=== PATIENT | female | born 1960 ===

== ENCOUNTER 2022-01-20 15:20 | Outpatient (REF) | payer OTHER, SELFPAY ==
[2022-01-20 15:54] LABS: MANUAL DIFF FLAG NO
[2022-01-20 16:06] LABS: Ammonia 91 umol/L (13-55); Basophils Absolute Auto 0.1 X10*3/uL (0.0-0.2); Basophils Percent Auto 0.8 % (0-2); Eosinophils Absolute Auto 0.3 X10*3/uL (0.0-0.4); Eosinophils Percent Auto 4.4 % (0-4); Hematocrit 34.3 % (37.0-47.0); Hemoglobin 11.1 g/dl (12.0-16.0); Imm Gran Abs Auto 0.02 X10*3/uL (0.00-0.03); Imm Gran Pct Auto 0.3 % (0.0-0.4); Lymphocytes Absolute Auto 2.3 X10*3/uL (1.2-4.9); Lymphocytes Percent Auto 31.3 % (20-40); Mean Corpuscular HGB Conc 32.4 g/dl (31.0-35.0); Mean Corpuscular Hemoglobin 32.6 pg (27.0-33.0); Mean Corpuscular Volume 100.9 fL (80.0-98.0); Mean Platelet Volume 10.1 fL (9.4-12.3); Monocytes Absolute Auto 0.7 X10*3/uL (0.1-1.2); Monocytes Percent Auto 9.6 % (2-11); Neutrophils Absolute Auto 3.9 x10*3/uL (2.0-8.3); Neutrophils Percent Auto 53.6 % (45-73); Red Cell Distribution Width 14.9 % (11.0-16.0); White Blood Count 7.2 X10*3/uL (4.8-10.8)
[2022-01-20 16:25] LABS: Platelet Count 66 X10*3/uL (160-400)
[2022-01-20 16:26] LABS: Alanine Aminotransferase 46 U/L (0-31); Albumin Level 3.3 g/dL (3.5-5.0); Alkaline Phosphatase 104 U/L (39-117); Anion Gap 8 (12-20); Aspartate Amino Transferase 124 U/L (5-31); Blood Urea Nitrogen 6 mg/dL (9-16); Calcium 9.5 mg/dL (8.4-10.2); Carbon Dioxide 30 mmol/L (22-29); Chloride 102 mmol/L (96-108); Estimated Glomerular Filt Rate > 60; Glucose Random 103 mg/dL (60-115); Potassium 4.4 mmol/L (3.3-5.1); Sodium 136 mmol/L (135-145); Total Protein 7.5 g/dL (6.5-8.0)
== END 2022-01-20 15:21 | disposition home or self-care (01) ==
LOC: HO.LAB 15:20
PROVIDERS: PCP Nurse Practitioner Acute Care; Visit Provider Nurse Practitioner Acute Care
DX: I95.9 Hypotension, unspecified (principal); K72.90 Hepatic failure, unspecified without coma
CPT/HCPCS: 36415; 80053; 82140; 85025

== ENCOUNTER 2022-01-26 16:28 | Emergency (ER) | payer OTHER, SELFPAY ==
--- NOTE | ~2022-01-26 | CT_ITS ---
EXAMINATION: CT ABDOMEN AND PELVIS WITHOUT CONTRAST CLINICAL INFORMATION: Right upper quadrant pain. Palpable mass. COMPARISON: 07/07/2007 TECHNIQUE: Multidetector volumetric imaging was performed from the superior aspect of the liver through the pubic symphysis. Sagittal and coronal reformatted images were obtained on the technologist's workstation. This CT examination was performed using dose optimization techniques as appropriate, variously including the following: *Automated exposure control *Adjustment of mA and/or kV according to patient size (this includes techniques or standardized protocols for targeted exams where dose is matched to indication/reason for exam; i.e. extremities or head) *Use of iterative reconstruction technique DLP: 924 mGy-cm FINDINGS: LUNG BASES: The visualized lung bases are unremarkable. LIVER, GALLBLADDER, AND BILIARY TREE: The liver is enlarged measuring 22 cm in CC dimension. Normal shape and attenuation. No focal hepatic lesion or biliary ductal dilatation. The gallbladder is unremarkable with no evidence of radiopaque gallstones, gallbladder wall thickening, or obvious pericholecystic inflammatory changes. PANCREAS: Mild atrophy of the pancreatic parenchyma with no focal abnormality. SPLEEN: Enlarged spleen measuring 18 cm in AP dimension. ADRENAL GLANDS: Unremarkable. KIDNEYS AND URETERS: The kidneys are normal in size, shape, and attenuation. No hydronephrosis, hydroureter, or calculi seen. No perinephric stranding. BLADDER: Unremarkable. GASTROINTESTINAL TRACT: The stomach is unremarkable. Normal caliber small bowel. No obstruction. Normal appendix. No colonic wall thickening or inflammatory change. ABDOMINAL WALL: No significant hernia. Mild anasarca. No focal mass. LYMPH NODES: Normal. VASCULAR: Unremarkable. PELVIC VISCERA: Uterus not seen. No adnexal mass. OSSEOUS STRUCTURES: No acute or suspicious osseous abnormality. CT/CT abdomen pelvis wo con IMPRESSION: Hepatomegaly. Splenomegaly. No acute finding in the abdomen or pelvis. Fleischner guidelines were followed.
--- NOTE | ~2022-01-26 | XR_ITS ---
EXAMINATION: XR CHEST CLINICAL INFORMATION: Shortness of breath COMPARISON: Chest x-ray 08/07/2018 TECHNIQUE: 2 views of the chest were obtained. FINDINGS: No significant abnormality is noted involving the heart, lungs, mediastinum, bony thorax or soft tissues. XR/XR chest 2V IMPRESSION: Unremarkable examination.
[2022-01-26 16:39] VITALS: BP 126/57; PULSE 80; RESP 19; TEMP 36.6; O2SAT 99; BMI 38.6
--- NOTE | 2022-01-26 16:43 | ECG_ITS ---
Test Reason : SWOLLEN LEGS Blood Pressure : / mmHG Vent. Rate : 071 BPM Atrial Rate : 071 BPM P-R Int : 172 ms QRS Dur : 066 ms QT Int : 440 ms P-R-T Axes : 063 023 017 degrees QTc Int : 478 ms Normal sinus rhythm Nonspecific T wave abnormality Prolonged QT Abnormal ECG When compared with ECG of 29-MAR-2016 04:23, QT has lengthened Referred By: Generic ED Physician Electronically Signed By:REYNALDO LOZA
[2022-01-26 17:15] LABS: MANUAL DIFF FLAG NO
[2022-01-26 17:21] LABS: Basophils Percent Auto 0.5 % (0-2); Eosinophils Absolute Auto 0.3 X10*3/uL (0.0-0.4); Eosinophils Percent Auto 3.5 % (0-4); Hematocrit 33.5 % (37.0-47.0); Hemoglobin 10.6 g/dl (12.0-16.0); Imm Gran Abs Auto 0.02 X10*3/uL (0.00-0.03); Imm Gran Pct Auto 0.2 % (0.0-0.4); Lymphocytes Absolute Auto 2.1 X10*3/uL (1.2-4.9); Lymphocytes Percent Auto 25.5 % (20-40); Mean Corpuscular HGB Conc 31.6 g/dl (31.0-35.0); Mean Corpuscular Hemoglobin 31.6 pg (27.0-33.0); Mean Platelet Volume 9.4 fL (9.4-12.3); Monocytes Absolute Auto 0.7 X10*3/uL (0.1-1.2); Neutrophils Percent Auto 61.3 % (45-73); Red Blood Count 3.35 X10*6/uL (4.20-5.50); Red Cell Distribution Width 14.6 % (11.0-16.0); White Blood Count 8.2 X10*3/uL (4.8-10.8)
[2022-01-26 17:33] LABS: Platelet Count 56 X10*3/uL (160-400)
[2022-01-26 17:35] LABS: Alanine Aminotransferase 43 U/L (0-31); Albumin Level 3.2 g/dL (3.5-5.0); Alkaline Phosphatase 103 U/L (39-117); Anion Gap 10 (12-20); Aspartate Amino Transferase 109 U/L (5-31); Bilirubin Direct 1.4 mg/dL (0.0-0.5); Bilirubin Total 2.7 mg/dL (0.0-1.0); Blood Urea Nitrogen 6 mg/dL (9-16); Calcium 9.3 mg/dL (8.4-10.2); Carbon Dioxide 26 mmol/L (22-29); Chloride 104 mmol/L (96-108); Creatinine Clr Calc Pharmacy 90.3; Estimated Glomerular Filt Rate > 60; Glucose Random 133 mg/dL (60-115); Lipase 18 U/L (8-78); Potassium 4.3 mmol/L (3.3-5.1); Sodium 136 mmol/L (135-145); Total Protein 7.5 g/dL (6.5-8.0)
[2022-01-26 17:37] LABS: Troponin-I High Sensitivity < 3.5 ng/L (<3.5-17.0)
[2022-01-26 17:38] LABS: B Type Natriuretic Peptide 448 pg/mL (<100)
[2022-01-26 21:31] VITALS: BP 118/50; PULSE 70; RESP 16; TEMP 36.8; O2SAT 99
[2022-01-26 21:41] LABS: Glucose, Whole Blood 175 mg/dL (60-115)
[2022-01-26 22:04] LABS: Appearance Urine HAZY; Color Urine YELLOW; Glucose Urine UA NEG (NEG); Leukocyte Esterase Urine TRACE (NEG); Nitrite Urine NEG (NEG); UACC Culture Trigger YES; Urine Blood NEG (NEG); Urine Ketones NEG (NEG); Urine Protein NEG (NEG-TRACE)
--- NOTE | 2022-01-26 22:33 | ED_ITS ---
HPI - General Adult General Chief complaint: General Medical Stated complaint: swollen waist down, pain Time Seen by Provider: 01/26/22 16:46 Source: patient Mode of arrival: ambulatory History of Present Illness HPI narrative: 61-year-old female with remote history of alcohol abuse as well as hepatitis C and currently on methadone who presents with worsening bilateral lower extremity swelling and endorses that she was recently [place] [facility] and at that time had been diagnosed with ?alcohol poisoning?, but she and her are very upset as a say that she has not had any alcohol but say that she had not had a bowel movement in 9 days and that she was confused on initial presentation. Patient did received treatment for the hepatitis-C, and has been clean for over 3 years. She denies any fever, chills, chest pain, nausea, vomiting and is currently having 2 bowel movements a day with the aid of lactulose. She was recently seen and evaluated by her primary care provider on Sunday and has a follow-up appointment with Gastroenterology for her underlying liver disease. It is noted on the triage note the patient states she has some shortness of breath, but she denies this to me during our interview. She denies any h ematochezia, melena, hematemesis. Related Data Home Medications Medication Instructions Recorded Confirmed ascorbic acid (vitamin C) 100 mg 100 mg PO DAILY 01/20/22 01/20/22 tablet cholecalciferol (vitamin D3) 50 50 mcg PO DAILY 01/20/22 01/20/22 mcg (2,000 unit) capsule ergocalciferol (vitamin D2) 1,250 1,250 mcg PO QWEEK 01/20/22 01/20/22 mcg (50,000 unit) capsule (Vitamin D2) folic acid 1 mg tablet 1 mg PO DAILY 01/20/22 01/20/22 hydroxyzine HCl 10 mg tablet 20 mg PO Q6H PRN 01/20/22 01/20/22 lactulose 10 gram/15 mL oral ml PO 01/20/22 01/20/22 solution (Generlac) magnesium oxide 400 mg PO BID 01/20/22 01/20/22 magnesium oxide 400 mg (241.3 mg 400 mg PO BID 01/20/22 01/20/22 magnesium) tablet melatonin 3 mg tablet 3 mg PO BEDTIME 01/20/22 01/20/22 melatonin 3 mg tablet 3 mg PO BEDTIME PRN 01/20/22 01/20/22 multivitamin with folic acid 400 1 tab PO BEDTIME 01/20/22 01/20/22 mcg tablet (Therems Multivitamin) nicotine (polacrilex) 2 mg gum mg PO Q4H PRN 01/20/22 01/20/22 pantoprazole 40 mg tablet,delayed 40 mg PO DAILY 01/20/22 01/20/22 release pyridoxine (vitamin B6) 50 mg 50 mg PO DAILY 01/20/22 01/20/22 tablet therapeutic multivitamin 1 tab PO QAM 01/20/22 01/20/22 thiamine HCl (vitamin B1) 100 mg 100 mg PO DAILY 01/20/22 01/20/22 tablet Previous Rx's Medication Instructions Recorded ibuprofen 800 mg tablet 800 mg PO Q8H PRN 30 Days #90 tab 06/06/21 tizanidine 4 mg tablet 4 mg PO BEDTIME PRN 30 Days #30 tab 06/30/21 miscellaneous medical supply #1 ea 01/20/22 (Blood Pressure Cuff) Allergies Allergy/AdvReac Type Severity Reaction Status Date / Time Shellfish Allergy Unknown Hives Uncoded 01/20/22 14:26 Review of Systems Review of Systems: Pertinent positives and negatives as stated in HPI 10 point review of systems is otherwise negative. [facility] Past Medical History Source: nursing notes reviewed Medical History Alcohol use disorder, moderate, in early remission, dependence Cirrhosis, alcoholic Constipation Hemorrhoids History of substance abuse Lumbar back pain with radiculopathy affecting right lower extremity Obesity (BMI 30-39.9) Smoker Surgical History H/O: hysterectomy Hx of hemorrhoidectomy Family History Family History Father No problems noted. 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 GENERAL: Well developed, well nourished, in no acute distress. HEAD: Normocephalic/atraumatic EYES: PERRLA, EOMI, scleral icterus NOSE: Nares patent bilateral OROPHARYNX: no oral lesions noted, posterior pharynx clear LUNGS: Normal breath sounds. No adventitious sounds or accessory muscle use. SpO2<99> CARDIOVASCULAR: Regular rate and rhythm without noted murmurs, no JVD or bilateral nonpitting lower extremity edema. ABDOMEN: Soft, tenderness and palpable mass at the right lateral upper quadrant without overlying erythema or induration non-distended with bowel sounds. MUSCULOSKELETAL: No tenderness, deformities, or effusions noted on gross inspection. EXTREMITIES: No cyanosis, clubbing or edema. SKIN: Inspection of the skin reveals no rashes, but faint jaundice appreciated NEUROLOGIC: Alert and oriented x 4. Strength and sensation to light touch were grossly intact x 4, no asterixis Course Course Course Narrative: 61-year-old female with history and clinical presentation concerning for possible HCC, cholangiocarcinoma, liver cirrhosis. Review of all investigations without significant changes from baseline. Although the BNP is noted to be 448, there is no evidence on clinical exam other than the bilateral lower extremity nonpitting swelling that is likely related to patient's underlying liver cirrhosis as opposed to CHF. In addition, chest x- ray does not support any diagnosis of CHF. Otherwise, patient is doing well and appears to be adhering to her current regimen and all results were discussed with her and her at bedside. Medical Decision Making Lab Data Result diagrams: 01/26/22 17:11 01/26/22 17:11 Labs: Lab Results 01/26/22 01/26/22 01/26/22 Range/Units 17:11 17:11 17:11 WBC 8.2 (4.8-10.8) X10*3/uL RBC 3.35 L (4.20-5.50) X10*6/uL Hgb 10.6 L (12.0-16.0) g/dl Hct 33.5 L (37.0-47.0) % MCV 100.0 H (80.0-98.0) fL MCH 31.6 (27.0-33.0) pg MCHC 31.6 (31.0-35.0) g/dl RDW 14.6 (11.0-16.0) % Plt Count 56 L (160-400) X10*3/uL MPV 9.4 (9.4-12.3) fL Immature Gran % (Auto) 0.2 (0.0-0.4) % Neut % (Auto) 61.3 (45-73) % Lymph % (Auto) 25.5 (20-40) % [place] % (Auto) 9.0 (2-11) % Eos % (Auto) 3.5 (0-4) % Baso % (Auto) 0.5 (0-2) % Lymph # (Auto) 2.1 (1.2-4.9) X10*3/uL [place] # (Auto) 0.7 (0.1-1.2) X10*3/uL Eos # (Auto) 0.3 (0.0-0.4) X10*3/uL Baso # (Auto) 0.0 (0.0-0.2) X10*3/uL Abs Immat Gran (auto) 0.02 (0.00-0.03) X10*3/uL Absolute Neuts (auto) 5.0 (2.0-8.3) x10*3/uL Absolute Nucleated RBC 0.000 (0.0-0.012) X10*3/uL Nucleated RBC % (auto) 0.0 (0.0-0.2) /100WBC Sodium 136 (135-145) mmol/L Potassium 4.3 (3.3-5.1) mmol/L Chloride 104 (96-108) mmol/L Carbon Dioxide 26 (22-29) mmol/L Anion Gap 10 L (12-20) BUN 6 L (9-16) mg/dL Creatinine 0.78 (0.5-1.4) mg/dL Estim Creat Clear Calc 90.3 Estimated GFR > 60 POC Glucose (60-115) mg/dL Random Glucose 133 H (60-115) mg/dL Calcium 9.3 (8.4-10.2) mg/dL Total Bilirubin 2.7 H (0.0-1.0) mg/dL Direct Bilirubin 1.4 H (0.0-0.5) mg/dL AST 109 H (5-31) U/L ALT 43 H (0-31) U/L Alkaline Phosphatase 103 (39-117) U/L Troponin I High Sens (<3.5-17.0) ng/L B-Natriuretic Peptide 448 H (<100) pg/mL Total Protein 7.5 (6.5-8.0) g/dL Albumin 3.2 L (3.5-5.0) g/dL Lipase 18 (8-78) U/L Urine Color Urine Appearance Urine pH (5.0-8.0) Ur Specific [place] (1.005-1.025) Urine Protein (NEG-TRACE) MG/DL Urine Glucose (UA) (NEG) MG/DL Urine Ketones (NEG) MG/DL Urine Blood (NEG) Urine Nitrite (NEG) Ur Leukocyte Esterase (NEG) Urine RBC (0) /HPF Urine WBC (0-4) /HPF Ur Squamous Epith Cells /LPF Urine Bacteria /LPF Urine Mucus /LPF 01/26/22 01/26/22 01/26/22 Range/Units 17:11 21:36 21:55 WBC (4.8-10.8) X10*3/uL RBC (4.20-5.50) X10*6/uL Hgb (12.0-16.0) g/dl Hct (37.0-47.0) % MCV (80.0-98.0) fL MCH (27.0-33.0) pg MCHC (31.0-35.0) g/dl RDW (11.0-16.0) % Plt Count (160-400) X10*3/uL MPV (9.4-12.3) fL Immature Gran % (Auto) (0.0-0.4) % Neut % (Auto) (45-73) % Lymph % (Auto) (20-40) % [place] % (Auto) (2-11) % Eos % (Auto) (0-4) % Baso % (Auto) (0-2) % Lymph # (Auto) (1.2-4.9) X10*3/uL [place] # (Auto) (0.1-1.2) X10*3/uL Eos # (Auto) (0.0-0.4) X10*3/uL Baso # (Auto) (0.0-0.2) X10*3/uL Abs Immat Gran (auto) (0.00-0.03) X10*3/uL Absolute Neuts (auto) (2.0-8.3) x10*3/uL Absolute Nucleated RBC (0.0-0.012) X10*3/uL Nucleated RBC % (auto) (0.0-0.2) /100WBC Sodium (135-145) mmol/L Potassium (3.3-5.1) mmol/L Chloride (96-108) mmol/L Carbon Dioxide (22-29) mmol/L Anion Gap (12-20) BUN (9-16) mg/dL Creatinine (0.5-1.4) mg/dL Estim Creat Clear Calc Estimated GFR POC Glucose 175 H (60-115) mg/dL Random Glucose (60-115) mg/dL Calcium (8.4-10.2) mg/dL Total Bilirubin (0.0-1.0) mg/dL Direct Bilirubin (0.0-0.5) mg/dL AST (5-31) U/L ALT (0-31) U/L Alkaline Phosphatase (39-117) U/L Troponin I High Sens < 3.5 (<3.5-17.0) ng/L B-Natriuretic Peptide (<100) pg/mL Total Protein (6.5-8.0) g/dL Albumin (3.5-5.0) g/dL Lipase (8-78) U/L Urine Color YELLOW Urine Appearance HAZY Urine pH 6.0 (5.0-8.0) Ur Specific [place] 1.020 (1.005-1.025) Urine Protein NEG (NEG-TRACE) MG/DL Urine Glucose (UA) NEG (NEG) MG/DL Urine Ketones NEG (NEG) MG/DL Urine Blood NEG (NEG) Urine Nitrite NEG (NEG) Ur Leukocyte Esterase TRACE H (NEG) Urine RBC 1-4 (0) /HPF Urine WBC 5-9 H (0-4) /HPF Ur Squamous Epith Cells 3+ /LPF Urine Bacteria 3+ /LPF Urine Mucus 4+ /LPF Discharge Plan Discharge Clinical Impression: History of substance abuse, Cirrhosis of liver, History of alcohol use disorder, History of hepatitis C Patient Disposition: Home, Self-Care Instructions: Cirrhosis (ED) Additional Instructions: 1. Resume all home medications as prescribed. Continue to drink plenty of water. 2. Recommend using compression stockings while walking and elevate lower extremities when possible. 3. Keep your scheduled appointment with Gastroenterology for your underlying liver disease. 4. Recommend that you follow-up with your primary care provider in the next 1-2 days for re-evaluation and further outpatient management. Please return to the ER if you have any worsening of your symptoms. Prescriptions: No Action tizanidine 4 mg tablet 4 mg PO BEDTIME PRN (Reason: muscle spasticity) 30 Days Qty: 30 1RF ibuprofen 800 mg tablet 800 mg PO Q8H PRN (Reason: pain) 30 Days Qty: 90 1RF Rx Instructions: Take with food multivitamin with folic acid [Therems Multivitamin] 400 mcg tablet 1 tab PO BEDTIME 0RF lactulose [Generlac] 10 gram/15 mL solution PO 0RF hydroxyzine HCl 10 mg tablet 20 mg PO Q6H PRN (Reason: anxiety) 0RF ergocalciferol (vitamin D2) [Vitamin D2] 1,250 mcg (50,000 unit) capsule 1,250 mcg PO QWEEK 0RF folic acid 1 mg tablet 1 mg PO DAILY 0RF pyridoxine (vitamin B6) 50 mg tablet 50 mg PO DAILY 0RF pantoprazole 40 mg tablet,delayed release (DR/EC) 40 mg PO DAILY 0RF magnesium oxide 400 mg (241.3 mg magnesium) tablet 400 mg PO BID 0RF melatonin 3 mg tablet 3 mg PO BEDTIME 0RF thiamine HCl (vitamin B1) 100 mg tablet 100 mg PO DAILY 0RF nicotine (polacrilex) 2 mg gum PO Q4H PRN (Reason: withdrawal symptom) 0RF melatonin 3 mg tablet 3 mg PO BEDTIME PRN0RF magnesium oxide 400 mg magnesium tablet 400 mg PO BID 0RF therapeutic multivitamin Tablet 1 tab PO QAM 0RF ascorbic acid (vitamin C) 100 mg tablet 100 mg PO DAILY 0RF cholecalciferol (vitamin D3) 50 mcg (2,000 unit) capsule 50 mcg PO DAILY 0RF (DME) Blood Pressure Cuff Misc See Rx Instructions .Route Qty: 1 0RF Rx Instructions: As directed, take BP twice a day.
[2022-01-26 22:40] LABS: Bacteria Urine 3+ /LPF; Mucus Urine 4+ /LPF; Squamous Epithelial Cell Urine 3+ /LPF
[2022-01-26 23:39] VITALS: BP 114/58; PULSE 66; RESP 17; O2SAT 99
== END 2022-01-26 23:50 | disposition home or self-care (01) ==
PROVIDERS: Emergency Provider Student in an Organized Health Care Education/Training Program
DX: F11.20 Opioid dependence, uncomplicated (principal); K70.30 Alcoholic cirrhosis of liver without ascites; F10.21 Alcohol dependence, in remission; B19.20 Unspecified viral hepatitis C without hepatic coma; M79.662 Pain in left lower leg; M79.661 Pain in right lower leg; R60.0 Localized edema; R06.02 Shortness of breath; F17.200 Nicotine dependence, unspecified, uncomplicated
CPT/HCPCS: 36415; 71046; 74176; 80048; 80076; 81001; 81003; 82947; 83690; 83880; 84484; 85025; 87086; 93005; 99284

== ENCOUNTER 2022-02-17 14:46 | Outpatient (REF) | payer OTHER, SELFPAY ==
[2022-02-17 14:58] LABS: MANUAL DIFF FLAG NO
[2022-02-17 15:07] LABS: Ammonia 100 umol/L (13-55)
[2022-02-17 15:10] LABS: Basophils Absolute Auto 0.1 X10*3/uL (0.0-0.2); Basophils Percent Auto 0.6 % (0-2); Eosinophils Absolute Auto 0.3 X10*3/uL (0.0-0.4); Eosinophils Percent Auto 3.6 % (0-4); Hematocrit 33.9 % (37.0-47.0); Hemoglobin 11.1 g/dl (12.0-16.0); Imm Gran Abs Auto 0.02 X10*3/uL (0.00-0.03); Imm Gran Pct Auto 0.3 % (0.0-0.4); Lymphocytes Absolute Auto 2.5 X10*3/uL (1.2-4.9); Lymphocytes Percent Auto 31.9 % (20-40); Mean Corpuscular HGB Conc 32.7 g/dl (31.0-35.0); Mean Corpuscular Hemoglobin 30.9 pg (27.0-33.0); Mean Corpuscular Volume 94.4 fL (80.0-98.0); Mean Platelet Volume 9.9 fL (9.4-12.3); Monocytes Absolute Auto 0.9 X10*3/uL (0.1-1.2); Monocytes Percent Auto 11.7 % (2-11); Neutrophils Absolute Auto 4.1 x10*3/uL (2.0-8.3); Neutrophils Percent Auto 51.9 % (45-73); Red Blood Count 3.59 X10*6/uL (4.20-5.50); Red Cell Distribution Width 15.9 % (11.0-16.0)
[2022-02-17 15:17] LABS: Estimated Average Glucose 91 mg/dL; Hemoglobin A1c % 4.8 %
[2022-02-17 15:29] LABS: Platelet Count 55 X10*3/uL (160-400)
[2022-02-17 15:39] LABS: B Type Natriuretic Peptide 416 pg/mL (<100)
[2022-02-17 15:43] LABS: Alanine Aminotransferase 26 U/L (0-31); Albumin Level 3.5 g/dL (3.5-5.0); Alkaline Phosphatase 92 U/L (39-117); Anion Gap 9 (12-20); Aspartate Amino Transferase 59 U/L (5-31); Bilirubin Total 3.1 mg/dL (0.0-1.0); Blood Urea Nitrogen 6 mg/dL (9-16); Calcium 9.5 mg/dL (8.4-10.2); Carbon Dioxide 28 mmol/L (22-29); Chloride 108 mmol/L (96-108); Estimated Glomerular Filt Rate > 60; Glucose Random 81 mg/dL (60-115); Potassium 4.4 mmol/L (3.3-5.1); Sodium 141 mmol/L (135-145)
== END 2022-02-17 14:47 | disposition home or self-care (01) ==
LOC: HO.LAB 14:46
PROVIDERS: Visit Provider Nurse Practitioner Acute Care
DX: K72.90 Hepatic failure, unspecified without coma (principal)
CPT/HCPCS: 36415; 80053; 82140; 83036; 83880; 84443; 85025

== ENCOUNTER 2022-03-17 15:19 | Outpatient (REF) | payer OTHER, SELFPAY ==
[2022-03-17 15:51] LABS: MANUAL DIFF FLAG NO
[2022-03-17 15:58] LABS: Ammonia 90 umol/L (13-55)
[2022-03-17 16:11] LABS: Basophils Percent Auto 0.5 % (0-2); Eosinophils Absolute Auto 0.1 X10*3/uL (0.0-0.4); Eosinophils Percent Auto 1.8 % (0-4); Hematocrit 32.1 % (37.0-47.0); Hemoglobin 10.2 g/dl (12.0-16.0); Imm Gran Abs Auto 0.02 X10*3/uL (0.00-0.03); Imm Gran Pct Auto 0.3 % (0.0-0.4); Lymphocytes Absolute Auto 2.1 X10*3/uL (1.2-4.9); Lymphocytes Percent Auto 26.7 % (20-40); Mean Corpuscular HGB Conc 31.8 g/dl (31.0-35.0); Mean Corpuscular Hemoglobin 31.5 pg (27.0-33.0); Mean Corpuscular Volume 99.1 fL (80.0-98.0); Mean Platelet Volume 10.7 fL (9.4-12.3); Monocytes Absolute Auto 0.8 X10*3/uL (0.1-1.2); Monocytes Percent Auto 10.3 % (2-11); Neutrophils Absolute Auto 4.7 x10*3/uL (2.0-8.3); Neutrophils Percent Auto 60.4 % (45-73); Red Blood Count 3.24 X10*6/uL (4.20-5.50); Red Cell Distribution Width 17.4 % (11.0-16.0); White Blood Count 7.8 X10*3/uL (4.8-10.8)
[2022-03-17 16:15] LABS: Platelet Count 59 X10*3/uL (160-400)
[2022-03-17 16:33] LABS: Alanine Aminotransferase 24 U/L (0-31); Albumin Level 3.5 g/dL (3.5-5.0); Alkaline Phosphatase 98 U/L (39-117); Anion Gap 11 (12-20); Aspartate Amino Transferase 59 U/L (5-31); Bilirubin Total 2.6 mg/dL (0.0-1.0); Blood Urea Nitrogen 20 mg/dL (9-16); Calcium 9.7 mg/dL (8.4-10.2); Carbon Dioxide 27 mmol/L (22-29); Chloride 105 mmol/L (96-108); Estimated Glomerular Filt Rate > 60; Glucose Random 116 mg/dL (60-115); Potassium 5.3 mmol/L (3.3-5.1); Sodium 138 mmol/L (135-145)
[2022-03-17 16:36] LABS: B Type Natriuretic Peptide 1282 pg/mL (<100)
[2022-03-17 16:44] LABS: Gamma Glutamyl Transpeptidase 45 U/L (7-33)
== END 2022-03-17 15:20 | disposition home or self-care (01) ==
LOC: HO.LAB 15:19
PROVIDERS: PCP Nurse Practitioner Acute Care; Visit Provider Nurse Practitioner Acute Care
DX: E72.20 Disorder of urea cycle metabolism, unspecified (principal); K70.30 Alcoholic cirrhosis of liver without ascites; R06.02 Shortness of breath
CPT/HCPCS: 36415; 80053; 82140; 82977; 83880; 85025

== ENCOUNTER 2022-04-07 12:06 | Inpatient (IN) | payer OTHER, SELFPAY ==
[2022-04-07] VITALS (11 sets, daily range): BP systolic 73–114; BP diastolic 32–94; PULSE 47–52; RESP 12–18; TEMP 36.4–36.8; O2SAT 94–100; BMI 49.5
--- NOTE | ~2022-04-07 | CT_ITS ---
EXAMINATION: CT ABDOMEN AND PELVIS WITHOUT CONTRAST CLINICAL INFORMATION: Acute renal failure, anasarca and abdominal pain COMPARISON: Previous CT of the abdomen and pelvis January 2022 TECHNIQUE: Multidetector volumetric imaging was performed from the superior aspect of the liver through the pubic symphysis. Sagittal and coronal reformatted images were obtained on the technologist's workstation. This CT examination was performed using dose optimization techniques as appropriate, variously including the following: *Automated exposure control *Adjustment of mA and/or kV according to patient size (this includes techniques or standardized protocols for targeted exams where dose is matched to indication/reason for exam; i.e. extremities or head) *Use of iterative reconstruction technique DLP: 1244 mGy-cm FINDINGS: LUNG BASES: The visualized lung bases are unremarkable. LIVER, GALLBLADDER, AND BILIARY TREE: The liver is normal in size, shape, and attenuation. No focal hepatic lesion or biliary ductal dilatation is present. The gallbladder is unremarkable with no evidence of radiopaque gallstones, gallbladder wall thickening, or obvious pericholecystic inflammatory changes. PANCREAS: Unremarkable. SPLEEN: Unremarkable. ADRENAL GLANDS: Unremarkable. KIDNEYS AND URETERS: The kidneys are normal in size, shape, and attenuation. No hydronephrosis, hydroureter, or calculi seen. No perinephric stranding. BLADDER: There is a Abraham catheter in the bladder. The bladder is empty. GASTROINTESTINAL TRACT: There is stool throughout the colon questionable for constipation. The small and large bowel are otherwise unremarkable. The appendix is unremarkable. There is new edema or fat stranding of the retroperitoneum small bowel mesentery. There is no ascites. ABDOMINAL WALL: There is a small umbilical hernia containing fat. There is anasarca. LYMPH NODES: Normal. VASCULAR: Unremarkable. PELVIC VISCERA: The uterus has been removed. No pelvic mass. OSSEOUS STRUCTURES: Unremarkable. CT/CT abdomen pelvis wo con IMPRESSION: Diffuse anasarca. New edema or fat stranding of the small bowel mesentery and retroperitoneum. No ascites. Stool throughout the colon questionable for constipation. Fleischner guidelines were followed.
--- NOTE | ~2022-04-07 | US_ITS ---
EXAMINATION: RENAL ULTRASOUND CLINICAL INFORMATION: Decreased urine output COMPARISON: CT scan 04/07/2022 TECHNIQUE: Real-time imaging of the kidneys and bladder. FINDINGS: RIGHT KIDNEY: as per technologist, the right kidney could not be visualized. Considerable skin edema was noted. LEFT KIDNEY: 11 x 5.1 xcm 5.5 (SAG x AP x TRV). The kidney is normal in size, contour and echogenicity. Renal cortical thickness is normal. No calculi or focal parenchymal lesions. No hydronephrosis. Duplex Doppler tender without success as per technologist due to patient movement and inability to hold respiration US/US renal doppler IMPRESSION: Limited imaging as above. Right kidney not demonstrated. Left kidney unremarkable.
--- NOTE | ~2022-04-07 | XR_ITS ---
EXAMINATION: XR CHEST CLINICAL INFORMATION: Evaluate central line and NG tube position. COMPARISON: 04/07/2022 TECHNIQUE: Frontal view of the chest was obtained. FINDINGS: Lungs are mildly hypoinflated and right diaphragm mildly elevated. The tip of the left IJ catheter projects superior to level of the aortic arch. The specific location of the catheter tip is uncertain. It might be located within the left brachiocephalic vein or within a residual left superior cardinal vein. No pneumothorax. The tip of the NG tube is in the proximal stomach and side port of tube is located in region of esophagogastric junction. Cardiac silhouette is normal in size and contour. The central pulmonary vessels are prominent. However, no overt edema. XR/XR chest 1V IMPRESSION: * Lungs are suboptimally evaluated due to the hypoinflation. Pulmonary vascular congestion is suspected. No overt pulmonary edema. No focal consolidation or pleural effusion. * No pneumothorax after the left IJ line placement. The exact location of the catheter tip is uncertain. The catheter tip projects superior to the aortic arch. * The tip of the NG tube is at the level of the proximal stomach.
--- NOTE | ~2022-04-07 | US_ITS ---
EXAMINATION: US ABDOMEN LIMITED CLINICAL INFORMATION: Bloating, rule out ascites.. COMPARISON: CT scan of the abdomen and pelvis dated 04/07/2022 TECHNIQUE: Real-time imaging of the right upper quadrant abdominal viscera. US/US abdomen limited FINDINGS/IMPRESSION: No peritoneal ascites identified. Please refer to the report from the recent CT scan of the abdomen and pelvis for more detailed findings.
--- NOTE | ~2022-04-07 | CT_ITS ---
PROCEDURE: CT GUIDED BIOPSY, KIDNEY CLINICAL INFORMATION: Worsening renal function. COMPARISON: None TECHNIQUE: Following explaining CT fluoroscopy-guided renal biopsy procedure, benefits and risk, a written consent was obtained. Patient was placed prone on fluoroscopy table and preliminary CT imaging was obtained. An optimal site was selected along the right posterior abdomen corresponding to lower pole right kidney following placing markers on the skin and repeat CT imaging. The optimal site was cleaned and draped in usual sterile manner. 1% lidocaine was administered at the puncture site. An 18-gauge guide needle was advanced from the skin incision to the posterior cortex of lower pole right kidney. Coaxially an 18-gauge needle was advanced into the right lower pole kidney cortex and a 2 pass biopsy was performed. Patient had blood return hands embolization was performed with sterile Styrofoam. This decreased bleeding significantly. Repeat CT imaging was performed and revealed a small perinephric hematoma. Conscious sedation was administered during the exam and patient monitored by IR nursing. This CT examination was performed using dose optimization techniques as appropriate, variously including the following: *Automated exposure control *Adjustment of mA and/or kV according to patient size (this includes techniques or standardized protocols for targeted exams where dose is matched to indication/reason for exam; i.e. extremities or head) *Use of iterative reconstruction technique DLP: 455 mGy-cm FINDINGS: Preliminary CT imaging revealed symmetrical kidneys. No radiopaque calculi or hydronephrosis seen. A 2 pass core biopsy was performed with 18-gauge needle coaxially. Post procedure imaging revealed a small lower pole right perinephric hematoma. CT/CT biopsy renal RT IMPRESSION: Successful CT fluoroscopy-guided right renal lower pole core biopsy. There is a small lower pole right perinephric hematoma.
--- NOTE | ~2022-04-07 | US_ITS ---
EXAMINATION: US RETROPERITONEAL LIMITED (RENAL ONLY) WITH DOPPLER CLINICAL INFORMATION: No urine output. COMPARISON: CT 04/07/2022 TECHNIQUE: Real-time imaging of the kidneys. Attempted Doppler evaluation of the left kidney. FINDINGS: RIGHT KIDNEY: Right kidney not seen. LEFT KIDNEY: 11.0 x 5.1 x 5.5 cm (SAG x AP x TRV). The kidney is normal in size, contour, and echogenicity. Renal cortical thickness is normal. No calculi or focal parenchymal lesions. No hydronephrosis. Doppler evaluation of the left kidney was attempted but diagnostic waveforms could not be obtained as the patient was not able to cooperate with imaging. Normal color flow is seen. US/US renal BI IMPRESSION: Normal grayscale evaluation the left kidney. Right kidney not seen. Unsuccessful nondiagnostic Doppler evaluation of the left kidney.
--- NOTE | ~2022-04-07 | XR_ITS ---
EXAMINATION: XR CHEST CLINICAL INFORMATION: Weakness and cough COMPARISON: Previous chest x-ray most recent 01/26/2022 TECHNIQUE: 2 views of the chest were obtained. FINDINGS: No significant abnormality is noted involving the heart, lungs, mediastinum, bony thorax or soft tissues. XR/XR chest 2V IMPRESSION: Unremarkable examination.
--- NOTE | 2022-04-07 12:17 | ED_ITS ---
HPI - SOB/Dyspnea General Chief Complaint: Dyspnea Stated Complaint: SOB Time Seen by Provider: 04/07/22 12:16 Source: patient and EMS Mode of arrival: EMS Limitations: no limitations History of Present Illness HPI Narrative: 61 y/o female with history of CHF, anemia, anxiety, GERD, alcoholic/HCV cirrhosis (sober x3 years), hx substance abuse who presents to the ED from home via EMS with increased swelling in her legs, abdomen and back for the last 3 months. It is leading to increased abdominal pain, distention and shortness of breath. She reports being on diuretic medication but does not know the name - she has been compliant with meds. She reports an almost 100 lbs weight gain in the last 3 months. On EMS arrival patient was hypoxic to 88% on room air, in no respiratory distress. SpO2 increased to 96% without intervention. BP was in the 80s and difficult to read. MD elicited complaint: shortness of breath Pertinent past history: congestive heart failure Onset (ago): month(s) Timing: progressively worsening Severity: severe Exacerbating factors: lying flat and exertion Relieving factors: nothing Known history of: congestive heart failure Associated symptoms: orthopnea, lower extremity pain and abdominal pain Treatment prior to arrival: none Related Data Home oxygen amount: none Home Medications Medication Instructions Recorded Confirmed ascorbic acid (vitamin C) 100 mg 100 mg PO DAILY 01/20/22 04/07/22 tablet ergocalciferol (vitamin D2) 1,250 1,250 mcg PO QWEEK 01/20/22 04/07/22 mcg (50,000 unit) capsule (Vitamin D2) magnesium oxide 400 mg (241.3 mg 400 mg PO BID 01/20/22 04/07/22 magnesium) tablet melatonin 3 mg tablet 3 mg PO BEDTIME PRN 01/20/22 04/07/22 nadolol 20 mg tablet 20 mg PO DAILY 03/17/22 04/07/22 bismuth subsalicylate 262 mg/15 mL 524 mg PO Q30M PRN 04/07/22 04/07/22 oral suspension (Pepto-Bismol) docusate sodium 100 mg tablet 100 mg PO DAILY 04/07/22 04/07/22 polyethylene glycol 3350 17 gram 17 g PO DAILY 04/07/22 04/07/22 oral powder packet (Miralax) Previous Rx's Medication Instructions Recorded miscellaneous medical supply #1 ea 02/17/22 (Blood Pressure Cuff) buspirone 5 mg tablet 5 mg PO BID #30 tab 03/17/22 cholecalciferol (vitamin D3) 50 50 mcg PO DAILY #90 cap 03/17/22 mcg (2,000 unit) capsule ferrous sulfate 325 mg (65 mg 325 mg PO DAILY #90 tab 03/17/22 iron) tablet folic acid 1 mg tablet 1 mg PO DAILY #90 tab 03/17/22 furosemide 20 mg tablet 20 mg PO DAILY #30 tab 03/17/22 hydroxyzine HCl 10 mg tablet 20 mg PO Q6H PRN #240 tab 03/17/22 lactulose 10 gram/15 mL oral 10 ml PO TID #946 ml 03/17/22 [facility] multivitamin with folic acid 400 1 tab PO BEDTIME #90 tab 03/17/22 mcg tablet ([facility] Multivitamin) pantoprazole 40 mg tablet,delayed 40 mg PO DAILY #90 tab 03/17/22 release pyridoxine (vitamin B6) 50 mg 50 mg PO DAILY #90 tab 03/17/22 tablet thiamine HCl (vitamin B1) 100 mg 100 mg PO DAILY #30 tab 03/17/22 tablet eplerenone 25 mg tablet 25 mg PO BID #60 tab 03/28/22 Allergies Allergy/AdvReac Type Severity Reaction Status Date / Time Iodinated Contrast Media Allergy Intermediate blood in Verified 04/07/22 13:34 urine Shellfish Allergy Unknown Hives Uncoded 04/07/22 13:34 Review of Systems Review of Systems: Constitutional: No Fever, No Chills ENT/Mouth: No sore throat, No Rhinorrhea, No Swallowing Difficulty Eyes: No Eye Pain, No Swelling, No Redness Cardiovascular: No Chest Pain, + SOB, + Orthopnea, + Edema Respiratory: No Cough, No Sputum, No Wheezing, + dyspnea Gastrointestinal: No Nausea, No Vomiting, No Diarrhea, + abdominal Pain, No Hematochezia, No Melena Genitourinary: No Dysuria, No Urinary Frequency, No Hematuria Musculoskeletal: No joint pain, No Myalgias Skin: No Skin Lesions, No rash Neuro: + Weakness, No Numbness, No Dizziness, No Headache Psych: No Anxiety/Panic, + Depression Heme/Lymph: No Bruising, No Lymphadenopathy Endocrine: No Polyuria, No Polydipsia PMFSH Past Medical History Medical History Alcohol use disorder, moderate, in early remission, dependence Cirrhosis, alcoholic Constipation Hemorrhoids History of substance abuse Lumbar back pain with radiculopathy affecting right lower extremity Obesity (BMI 30-39.9) Smoker Surgical History (Updated 03/28/22 @ 12:46 by Luis Sorensen MD) H/O: hysterectomy History of tubal ligation Hx of hemorrhoidectomy Family History Family History Father No problems noted. Mother Active asthma Social History Social History (Updated 03/28/22 @ 10:12 by Salma Vivas CMA) Household Members: Spouse Housing: House Are you a primary home care administrator to a significant other at home: No Do you presently have visiting nurse or other home services: No Alcohol intake: current Alcohol intake frequency: holidays/special occasions only Patient Tobacco Use Status: Current everyday Tobacco user Tobacco use type: Cigarette e-Cigarette/Vaping Use: Never Used Advance Directives: Yes Advance Directives Information Provided: Yes Advance Directives on File: No service: No Current occupational status: unemployed 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 Oriented X3. No acute distress. Eyes: Pupils equal, round and reactive to light. No scleral icterus. ENT: Pharynx normal. Neck: Normal inspection. Neck supple. CVS: Bradycardic, regular rhythm. Pulses normal. Respiratory: No respiratory distress. Breath sounds diminished at bilateral bases. Abdomen: distended, somewhat firm and tender throughout. +BS x4 Skin: Skin warm and dry. Normal skin color. Normal skin turgor. No rashes. Extremities: 4+ lower extremity edema bilaterally from feet to hips and extending to bilateral flanks Neuro: Oriented X 3. No motor deficit. No sensory deficit. Course Course Course Narrative: 61-year-old female with a history of alcoholic/hepatitis C cirrhosis, CHF, anxiety, anemia, splenomegaly, obesity who presents to the ER with 3 months of worsening generalized swelling, weight gain leading to SOB and abdominal pain and distention. Hypotensive on arrival, she is AAO x3 and asymptomatic. She has baseline low BP with her liver disease. She has diffuse severe anasarca. Concern for hepatorenal syndrome. Will check CXR and lab workup. Will require admission for aggressive diuresis. Reevaluation(s) Reevaluation #1: Labs return with acute renal failure, BUN/Cr 65/4.00 with a baseline of 16/0.84 only 10 days ago. Abraham placed with only scant amount of clear yellow urine returned. Urine studies ordered. CT scan ordered as well to r/o obstructive cau ses and assess degree of ascites. BP soft but stable 90/30s with MAP 57, goal MAP 55 given her liver disease. Case d/w Dr. Lopez (Nephrology) who is recommending starting midodrine and albumin for now, he will be by to evaluate her. Hold off on diuretics for now. Resp status stable. Will try to sent urine studies. Reevaluation #2: CT scan with normal appearing kidneys, no hydro or evidence of obstruction. No ascites seen. Diffuse anasarca. Will admit for acute renal failure likely 2/[address] Lopez to evaluate this afternoon. Hospitalist TT for admission at 3pm. Consultations Consultation #1: Nephrology - Dr. Lopez MDM - SOB/Dyspnea Medical Records Attestation: I reviewed the patient's medical records. Lab Data Attestation: I reviewed the patient's lab results. Result diagrams: 04/07/22 12:33 04/07/22 12:32 Labs: Lab Results 04/07/22 04/07/22 04/07/22 Range/Units 12:32 12:32 12:32 WBC (4.8-10.8) X10*3/uL RBC (4.20-5.50) X10*6/uL Hgb (12.0-16.0) g/dl Hct (37.0-47.0) % MCV (80.0-98.0) fL MCH (27.0-33.0) pg MCHC (31.0-35.0) g/dl RDW (11.0-16.0) % Plt Count (160-400) X10*3/uL MPV (9.4-12.3) fL Immature Gran % (Auto) (0.0-0.4) % Neut % (Auto) (45-73) % Lymph % (Auto) (20-40) % [place] % (Auto) (2-11) % Eos % (Auto) (0-4) % Baso % (Auto) (0-2) % Lymph # (Auto) (1.2-4.9) X10*3/uL [place] # (Auto) (0.1-1.2) X10*3/uL Eos # (Auto) (0.0-0.4) X10*3/uL Baso # (Auto) (0.0-0.2) X10*3/uL Abs Immat Gran (auto) (0.00-0.03) X10*3/uL Absolute Neuts (auto) (2.0-8.3) x10*3/uL Absolute Nucleated RBC (0.0-0.012) X10*3/uL Nucleated RBC % (auto) (0.0-0.2) /100WBC PT 15.9 H (9.9-13.0) SEC INR 1.4 H (0.9-1.1) APTT 48.1 H (24.1-38.0) SEC Sodium 135 (135-145) mmol/L Potassium 5.3 H (3.3-5.1) mmol/L Chloride 103 (96-108) mmol/L Carbon Dioxide 18 L (22-29) mmol/L Anion Gap 19 (12-20) BUN 65 H D (9-16) mg/dL Creatinine 4.00 H* (0.5-1.4) mg/dL Estim Creat Clear Calc 19.6 Estimated GFR 11 Random Glucose 85 (60-115) mg/dL Calcium 9.4 (8.4-10.2) mg/dL Magnesium 2.6 (1.6-2.6) mg/dL Total Bilirubin 3.1 H (0.0-1.0) mg/dL Direct Bilirubin 1.4 H (0.0-0.5) mg/dL AST 47 H (5-31) U/L ALT 25 (0-31) U/L Alkaline Phosphatase 60 D (39-117) U/L Total Protein 7.9 (6.5-8.0) g/dL Albumin 3.5 (3.5-5.0) g/dL TSH (0.32-4.0) uIU/mL Ethyl Alcohol < 10 mg/dL COVID-19 ([facility]) (Negative) COVID-19 Clin Com Influenza Type A (ABY) (Negative) Influenza Type B (ABY) (Negative) Influenza A & B Note 04/07/22 04/07/22 04/07/22 Range/Units 12:32 12:33 12:40 WBC 8.4 (4.8-10.8) X10*3/uL RBC 2.96 L (4.20-5.50) X10*6/uL Hgb 9.5 L (12.0-16.0) g/dl Hct 29.7 L (37.0-47.0) % MCV 100.3 H (80.0-98.0) fL MCH 32.1 (27.0-33.0) pg MCHC 32.0 (31.0-35.0) g/dl RDW 17.2 H (11.0-16.0) % Plt Count 61 L (160-400) X10*3/uL MPV 10.8 (9.4-12.3) fL Immature Gran % (Auto) 0.1 (0.0-0.4) % Neut % (Auto) 57.8 (45-73) % Lymph % (Auto) 27.0 (20-40) % [place] % (Auto) 12.2 H (2-11) % Eos % (Auto) 2.3 (0-4) % Baso % (Auto) 0.6 (0-2) % Lymph # (Auto) 2.3 (1.2-4.9) X10*3/uL [place] # (Auto) 1.0 (0.1-1.2) X10*3/uL Eos # (Auto) 0.2 (0.0-0.4) X10*3/uL Baso # (Auto) 0.1 (0.0-0.2) X10*3/uL Abs Immat Gran (auto) 0.01 (0.00-0.03) X10*3/uL Absolute Neuts (auto) 4.9 (2.0-8.3) x10*3/uL Absolute Nucleated RBC 0.000 (0.0-0.012) X10*3/uL Nucleated RBC % (auto) 0.0 (0.0-0.2) /100WBC PT (9.9-13.0) SEC INR (0.9-1.1) APTT (24.1-38.0) SEC Sodium (135-145) mmol/L Potassium (3.3-5.1) mmol/L Chloride (96-108) mmol/L Carbon Dioxide (22-29) mmol/L Anion Gap (12-20) BUN (9-16) mg/dL Creatinine (0.5-1.4) mg/dL Estim Creat Clear Calc Estimated GFR Random Glucose (60-115) mg/dL Calcium (8.4-10.2) mg/dL Magnesium (1.6-2.6) mg/dL Total Bilirubin (0.0-1.0) mg/dL Direct Bilirubin (0.0-0.5) mg/dL AST (5-31) U/L ALT (0-31) U/L Alkaline Phosphatase (39-117) U/L Total Protein (6.5-8.0) g/dL Albumin (3.5-5.0) g/dL TSH 1.86 (0.32-4.0) uIU/mL Ethyl Alcohol mg/dL COVID-19 ([facility]) Negative (Negative) COVID-19 Clin Com See Note Influenza Type A ([facility]Y) (Negative) Influenza Type B (ABY) (Negative) Influenza A & B Note 04/07/22 Range/Units 12:40 WBC (4.8-10.8) X10*3/uL RBC (4.20-5.50) X10*6/uL Hgb (12.0-16.0) g/dl Hct (37.0-47.0) % MCV (80.0-98.0) fL MCH (27.0-33.0) pg MCHC (31.0-35.0) g/dl RDW (11.0-16.0) % Plt Count (160-400) X10*3/uL MPV (9.4-12.3) fL Immature Gran % (Auto) (0.0-0.4) % Neut % (Auto) (45-73) % Lymph % (Auto) (20-40) % [place] % (Auto) (2-11) % Eos % (Auto) (0-4) % Baso % (Auto) (0-2) % Lymph # (Auto) (1.2-4.9) X10*3/uL [place] # (Auto) (0.1-1.2) X10*3/uL Eos # (Auto) (0.0-0.4) X10*3/uL Baso # (Auto) (0.0-0.2) X10*3/uL Abs Immat Gran (auto) (0.00-0.03) X10*3/uL Absolute Neuts (auto) (2.0-8.3) x10*3/uL Absolute Nucleated RBC (0.0-0.012) X10*3/uL Nucleated RBC % (auto) (0.0-0.2) /100WBC PT (9.9-13.0) SEC INR (0.9-1.1) APTT (24.1-38.0) SEC Sodium (135-145) mmol/L Potassium (3.3-5.1) mmol/L Chloride (96-108) mmol/L Carbon Dioxide (22-29) mmol/L Anion Gap (12-20) BUN (9-16) mg/dL Creatinine (0.5-1.4) mg/dL Estim Creat Clear Calc Estimated GFR Random Glucose (60-115) mg/dL Calcium (8.4-10.2) mg/dL Magnesium (1.6-2.6) mg/dL Total Bilirubin (0.0-1.0) mg/dL Direct Bilirubin (0.0-0.5) mg/dL AST (5-31) U/L ALT (0-31) U/L Alkaline Phosphatase (39-117) U/L Total Protein (6.5-8.0) g/dL Albumin (3.5-5.0) g/dL TSH (0.32-4.0) uIU/mL Ethyl Alcohol mg/dL COVID-19 ([facility]) (Negative) COVID-19 Clin Com Influenza Type A (ABY) Negative (Negative) Influenza Type B (ABY) Negative (Negative) Influenza A & B Note See Note ECG Data Attestation: I personally reviewed and interpreted this ECG as follows: ECG interpretation date: 04/07/22 ECG interpretation time: 14:21 Prior ECG tracings: available for review Interpretation: Sinus bradycardia with premature atrial complexes, bigeminy pattern. Heart rate 50 beats per minute, normal AR interval 160 ms, no ST segment elevations or depressions Critical Care Time Critical Care Time Critical Care Time: Yes Total Critical Care Time: 45 Attestation: I have personally provided critical care time exclusive of time spent on separ ately billable procedures. Time includes review of lab data, radiology results, discussion with consultants, and monitoring for potential decompensation. Intervention performed as documented. Discharge Plan Discharge Clinical Impression: Acute renal failure, Anasarca Patient Disposition: Admitted As Inpatient
--- NOTE | 2022-04-07 12:18 | ECG_ITS ---
Test Reason : sob Blood Pressure : / mmHG Vent. Rate : 050 BPM Atrial Rate : 050 BPM P-R Int : 160 ms QRS Dur : 068 ms QT Int : 512 ms P-R-T Axes : -02 038 052 degrees QTc Int : 466 ms Sinus bradycardia with Premature atrial complexes in a pattern of bigeminy Low voltage QRS Borderline ECG When compared with ECG of 26-JAN-2022 16:59, Premature atrial complexes are now Present Nonspecific T wave abnormality, improved in Inferior leads Nonspecific T wave abnormality no longer evident in Anterolateral leads Referred By: Alisha Gaspar Electronically Signed By:Jalil Chery
[2022-04-07 12:38] LABS: MANUAL DIFF FLAG NO
[2022-04-07 12:48] LABS: Basophils Absolute Auto 0.1 X10*3/uL (0.0-0.2); Basophils Percent Auto 0.6 % (0-2); Eosinophils Absolute Auto 0.2 X10*3/uL (0.0-0.4); Eosinophils Percent Auto 2.3 % (0-4); Hematocrit 29.7 % (37.0-47.0); Hemoglobin 9.5 g/dl (12.0-16.0); Imm Gran Abs Auto 0.01 X10*3/uL (0.00-0.03); Imm Gran Pct Auto 0.1 % (0.0-0.4); Lymphocytes Absolute Auto 2.3 X10*3/uL (1.2-4.9); Mean Corpuscular Hemoglobin 32.1 pg (27.0-33.0); Mean Corpuscular Volume 100.3 fL (80.0-98.0); Mean Platelet Volume 10.8 fL (9.4-12.3); Monocytes Percent Auto 12.2 % (2-11); Neutrophils Absolute Auto 4.9 x10*3/uL (2.0-8.3); Neutrophils Percent Auto 57.8 % (45-73); Red Blood Count 2.96 X10*6/uL (4.20-5.50); Red Cell Distribution Width 17.2 % (11.0-16.0); White Blood Count 8.4 X10*3/uL (4.8-10.8)
[2022-04-07 12:53] LABS: Ethanol < 10 mg/dL
[2022-04-07 12:57] LABS: Platelet Count 61 X10*3/uL (160-400)
[2022-04-07 12:58] LABS: Alanine Aminotransferase 25 U/L (0-31); Albumin Level 3.5 g/dL (3.5-5.0); Alkaline Phosphatase 60 U/L (39-117); Anion Gap 19 (12-20); Aspartate Amino Transferase 47 U/L (5-31); Bilirubin Direct 1.4 mg/dL (0.0-0.5); Bilirubin Total 3.1 mg/dL (0.0-1.0); Blood Urea Nitrogen 65 mg/dL (9-16); Calcium 9.4 mg/dL (8.4-10.2); Carbon Dioxide 18 mmol/L (22-29); Chloride 103 mmol/L (96-108); Creatinine Clr Calc Pharmacy 19.6; Estimated Glomerular Filt Rate 11; Glucose Random 85 mg/dL (60-115); INTERNATIONAL NORM RATIO 1.4 (0.9-1.1); Magnesium 2.6 mg/dL (1.6-2.6); Potassium 5.3 mmol/L (3.3-5.1); Prothrombin Time 15.9 SEC (9.9-13.0); Sodium 135 mmol/L (135-145); Total Protein 7.9 g/dL (6.5-8.0)
[2022-04-07 13:01] LABS: Partial Thromboplastin Time 48.1 SEC (24.1-38.0)
[2022-04-07 13:02] LABS: COVID-19 Test Negative (Negative); IDNOW Serial# 9DB6401D
[2022-04-07 13:04] LABS: Influenza A Negative (Negative); Influenza B2 Negative (Negative)
[2022-04-07 13:16] LABS: TSH reflex Free T4 1.86 uIU/mL (0.32-4.0)
--- NOTE | 2022-04-07 14:14 | PHA.MEDREC ---
Pharmacy Consult ? Medication Reconciliation Pharmacy has completed the medication reconciliation. Confirmed medications with pharmacy and patient's . unsure about nadolol however it was recently filled. Uma Leiva, MarlenaD
[2022-04-07] MEDS: Midodrine HCl 10 MG TABLET PO (14:18)
[2022-04-07] MEDS: Albumin Human 25 % 100 ML IV ×2 (14:18→17:16)
--- NOTE | 2022-04-07 16:14 | PM.IMHP ---
History of Present Illness Date of Service: 04/07/22 Attending physician on admission: Bam Carter Chief Complaint: swelling This is a 61-year-old female who presents to the emergency department with lower extremity edema. She reports progressively worsening generalized swelling as well as 100 lb weight gain over the past 3 months. Approximately 3 months ago she was admitted to [facility] with increasing swelling, at that time she was diagnosed with liver cirrhosis. She and her are upset with the previous documentation around her alcohol use. She reports drinking heavily on the weekends approximately 15 years ago. Documentation from [facility] also indicates that a few years ago she was also drinking a few nips, multiple times per week when she lost her sister. She denies the use of any alcohol at this time. She was seen in follow-up on February 13 in the gastroenterology office at which time they discussed the importance of lactulose and set up an appointment for screening for esophageal varices and she was also instructed to avoid NSAIDs completely. She was also referred to hematology in was seen by Dr. Sorensen on March 28 for splenomegaly and thrombocytopenia which was thought to be secondary to her liver disease. She had outpatient labs drawn March 28 at which time her kidney function was normal. She reports back pain and shoulder pain and has been taking 600 mg of ibuprofen twice a day for the past 1 week. She reports constipation and nausea with dry heaving. Her pain is the main reason she presented to the emergency department today. Today her lab work revealed acute kidney injury with a creatinine of 4.0 as well as elevated potassium of 5.3. Her blood pressure was soft in the 80s and 90 systolic. She was given a dose of midodrine and started on albumin and the decision was made to admit her for further management. Review of Systems Constitutional: Constitutional: Denies chills and Denies fever(s) Cardiovascular: Cardiovascular: Denies chest pain, Denies palpitations and Denies dyspnea Respiratory: Respiratory: Denies cough and Denies dyspnea Gastrointestinal: Gastrointestinal: Reports constipation and Reports nausea Endocrine: Endocrine: Denies palpitations [facility] Medical History (Updated 04/07/22 @ 16:36 by ELIZABETH Ballard) Alcohol use disorder, moderate, in early remission, dependence Cirrhosis, alcoholic Constipation Hemorrhoids History of substance abuse Iron deficiency anemia Lumbar back pain with radiculopathy affecting right lower extremity Obesity (BMI 30-39.9) Smoker Splenomegaly Family History Father No problems noted. Mother Active asthma Surgical History H/O: hysterectomy History of tubal ligation Hx of hemorrhoidectomy Social History Household Members: Spouse Housing: House Are you a primary interior plant caretaker to a significant other at home: No Do you presently have visiting nurse or other home services: No Alcohol intake: current Alcohol intake frequency: holidays/special occasions only Patient Tobacco Use Status: Current everyday Tobacco user Tobacco use type: Cigarette e-Cigarette/Vaping Use: Never Used Advance Directives: Yes Advance Directives Information Provided: Yes Advance Directives on File: No service: No Current occupational status: unemployed Current occupation: [employer]/Part-time Cognitive needs: No Hearing needs: No Vision needs: No Meds Allergies Allergy/AdvReac Type Severity Reaction Status Date / Time Iodinated Contrast Media Allergy Intermediate blood in Verified 04/07/22 13:34 urine Shellfish Allergy Unknown Hives Uncoded 04/07/22 13:34 Active Medications: Current Medications Buspirone HCl (Buspirone Hcl 5 Mg Tablet) 5 mg PO BID KIRSTIE Docusate Sodium (Docusate Sodium 100 Mg Capsule) 100 mg PO DAILY PRN PRN Reason: Constipation Folic Acid (Folic Acid 1 Mg Tablet) 1 mg PO DAILY KIRSTIE Hydroxyzine HCl (Hydroxyzine Hcl 10 Mg Tablet) 20 mg PO Q6H PRN PRN Reason: anxiety Albumin Human (Kedbumin 25 %) 100 mls @ 100 mls/hr IV Q6H KIRSTIE Stop: 04/08/22 08:59 Last Infusion: 04/07/22 16:02 Dose: Infused Documented by: Lactulose (Lactulose 20 Gm/30 Ml Solution) 6.666 gm PO TID KIRSTIE Magnesium Oxide (Magnesium Oxide 400 Mg Tablet) 400 mg PO BID KIRSTIE Melatonin (Melatonin 3 Mg Tablet) 3 mg PO BEDTIME PRN PRN Reason: Sleep Midodrine (Midodrine Hcl 10 Mg Tablet) 10 mg PO TID KIRSTIE Multivitamins/Vitamin C (Multivitamin Tablet) 1 tab PO BEDTIME KIRSTIE Non-Formulary Medication (Pantoprazole) 40 mg PO DAILY [facility] Octreotide Acetate (Octreotide Acetate 100 Mcg/Ml Ampul) 100 mcg SUBCUT Q8H [facility] Pharmacy Consult (Consult Rx Perform Med Rec) 1 each MISCELLANE ONCE PRN PRN Reason: Consult order Polyethylene Glycol (Polyethylene Glycol 3350 17 Gm Powd.Pack) 17 gm PO DAILY [facility] Pyridoxine HCl (Pyridoxine Hcl (Vitamin B6) 50 Mg Tablet) 50 mg PO DAILY [facility] Sodium Chloride (0.9 % Sodium Chloride Flush 3 Ml Syringe) 3 ml IVFLUSH QSHIFT [facility] Thiamine HCl (Thiamine Hcl 100 Mg Tablet) 100 mg PO DAILY [facility] Home Medications Medication Instructions Recorded Confirmed Last Taken Type ascorbic acid (vitamin C) 100 mg 100 mg PO DAILY 01/20/22 04/07/22 Unknown History tablet ergocalciferol (vitamin D2) 1,250 1,250 mcg PO QWEEK 01/20/22 04/07/22 Unknown History mcg (50,000 unit) capsule (Vitamin D2) magnesium oxide 400 mg (241.3 mg 400 mg PO BID 01/20/22 04/07/22 Unknown History magnesium) tablet melatonin 3 mg tablet 3 mg PO BEDTIME PRN 01/20/22 04/07/22 Unknown History nadolol 20 mg tablet 20 mg PO DAILY 03/17/22 04/07/22 Unknown History bismuth subsalicylate 262 mg/15 mL 524 mg PO Q30M PRN 04/07/22 04/07/22 Unknown History oral suspension (Pepto-Bismol) docusate sodium 100 mg tablet 100 mg PO DAILY 04/07/22 04/07/22 Unknown History polyethylene glycol 3350 17 gram 17 g PO DAILY 04/07/22 04/07/22 Unknown History oral powder packet (Miralax) Physical Exam Vital Signs and Narrative: Vital Signs: Last Vital Signs Temp 98.2 F 04/07/22 12:16 Pulse 47 L 04/07/22 16:02 Resp 14 04/07/22 16:02 BP 95/32 L 04/07/22 16:02 Pulse Ox 97 04/07/22 16:02 BMI result Body Mass Index 49.5 Const: General: cooperative, comfortable, alert and awake Nutritional Appearance: obese Orientation/consciousness: patient oriented x3 Resp: Effort & Inspection: normal respiratory effort and able to speak in complete sentences Cardio: Rate: bradycardic GI: Inspection: No distended Palpation (GI): Soft to palpation and nontender Percussion: No Fluid wave present Neuro: General: patient oriented x3 Results Labs CBC and Chem 7: 04/07/22 12:33 04/07/22 12:32 Labs: Laboratory Results - last 24 hr 04/07/22 04/07/22 04/07/22 12:32 12:32 12:32 MCV MCH MCHC RDW Plt Count MPV Immature Gran % (Auto) Neut % (Auto) Lymph % (Auto) Runnels % (Auto) Eos % (Auto) Baso % (Auto) Lymph # (Auto) Runnels # (Auto) Eos # (Auto) Baso # (Auto) Abs Immat Gran (auto) Absolute Neuts (auto) Absolute Nucleated RBC Nucleated RBC % (auto) PT 15.9 H INR 1.4 H APTT 48.1 H Anion Gap 19 Estim Creat Clear Calc 19.6 Estimated GFR 11 Random Glucose 85 Calcium 9.4 Magnesium 2.6 Total Bilirubin 3.1 H Direct Bilirubin 1.4 H AST 47 H ALT 25 Alkaline Phosphatase 60 D Total Protein 7.9 Albumin 3.5 TSH Ethyl Alcohol < 10 COVID-19 (KHUSHBU) COVID-19 Clin Com Influenza Type A (ABY) Influenza Type B (ABY) Influenza A & B Note 04/07/22 04/07/22 04/07/22 12:32 12:33 12:40 MCV 100.3 H MCH 32.1 MCHC 32.0 RDW 17.2 H Plt Count 61 L MPV 10.8 Immature Gran % (Auto) 0.1 Neut % (Auto) 57.8 Lymph % (Auto) 27.0 Runnels % (Auto) 12.2 H Eos % (Auto) 2.3 Baso % (Auto) 0.6 Lymph # (Auto) 2.3 Runnels # (Auto) 1.0 Eos # (Auto) 0.2 Baso # (Auto) 0.1 Abs Immat Gran (auto) 0.01 Absolute Neuts (auto) 4.9 Absolute Nucleated RBC 0.000 Nucleated RBC % (auto) 0.0 PT INR APTT Anion Gap Estim Creat Clear Calc Estimated GFR Random Glucose Calcium Magnesium Total Bilirubin Direct Bilirubin AST ALT Alkaline Phosphatase Total Protein Albumin TSH 1.86 Ethyl Alcohol COVID-19 (KHUSHBU) Negative COVID-19 Clin Com See Note Influenza Type A (ABY) Influenza Type B (ABY) Influenza A & B Note 04/07/22 12:40 MCV MCH MCHC RDW Plt Count MPV Immature Gran % (Auto) Neut % (Auto) Lymph % (Auto) Runnels % (Auto) Eos % (Auto) Baso % (Auto) Lymph # (Auto) Runnels # (Auto) Eos # (Auto) Baso # (Auto) Abs Immat Gran (auto) Absolute Neuts (auto) Absolute Nucleated RBC Nucleated RBC % (auto) PT INR APTT Anion Gap Estim Creat Clear Calc Estimated GFR Random Glucose Calcium Magnesium Total Bilirubin Direct Bilirubin AST ALT Alkaline Phosphatase Total Protein Albumin TSH Ethyl Alcohol COVID-19 (KHUSHBU) COVID-19 Clin Com Influenza Type A (ABY) Negative Influenza Type B (ABY) Negative Influenza A & B Note See Note Imaging Radiologist's Impressions: Impressions Chest X-Ray 04/07/22 13:16 IMPRESSION: Unremarkable examination. Abdomen/Pelvis CT 04/07/22 13:50 IMPRESSION: Diffuse anasarca. New edema or fat stranding of the small bowel mesentery and retroperitoneum. No ascites. Stool throughout the colon questionable for constipation. Fleischner guidelines were followed. Assessment and Plan (1) Acute renal failure: Status: Acute (2) Anasarca: Status: Acute Plan This is a 61-year-old female with history of cirrhosis, substance abuse on methadone who presents to the emergency department with generalized edema found to have JOSEFA JOSEFA Creatinine increased from 0.84 on March 28 to 4 today Has been taking ibuprofen twice daily for the past week which could be contributing versus hepatorenal syndrome vs hypotension Will start treatment for hepatorenal syndrome with octreotide, albumin, midodrine will hold lasix, eplerenone avoid nephrotoxins Nephrology consult pending follow renal function Liver cirrhosis History of hepatitis-C status post treatment 3 years ago Remote history alcohol use 15 years ago. Denies current etoh use Recently diagnosed to [facility], followed by Dr. Bartlett office has not yet had screening EGD, unknown varices GI consultation hold nadolol for hypotension, lasix for JOSEFA Thrombocytopenia Secondary to liver disease Chronic, at baseline Follow CBC Iron deficiency anemia H/H near baseline Follow CBC Will hold home iron supplementation given degree of constipation, can resume on discharge History of hepatic encephalopathy No confusion at this time Will check ammonia in a.m. Continue lactulose, ?compliance given amount of stool seen on CT hypotension not symptomatic likely in the setting of liver dz hold nadolol, lasix, eplerenone continue albumin follow BP closely Anxiety Continue Atarax DVT prophylaxis-mechanical devices Code status-full code Attending-Dr. Carter Quality Stroke Does the patient have a stroke diagnosis?: No VTE Prior VTE?: No VTE Risk Level:: Medical - moderate - high VTE Device Contraindication: N/A - Device Ordered VTE Drug Contraindication: N/A - Med Ordered
--- NOTE | 2022-04-07 16:53 | PC.NURSE ---
Pt alert and oriented x4, calm and cooperative. Pt sleeping now, arouses to verbal stimuli. Pt BP running 80s/30s on machine and 80/56 by manual BP by this RN, ELIZABETH Villagomez aware. More IV Albumin to be given . Pt denies headache, dizziness at this time.
[2022-04-07] MEDS: Octreotide Acetate 100 MCG/ML AMPUL SUBCUT (17:16)
--- NOTE | 2022-04-07 17:39 | P.PNCC_ITS ---
Critical Care Event Note Summary Date of Service: 04/07/22 Code activated: No Narrative: 61-year-old lady with underlying obesity, alcoholic cirrhosis, prior alcohol abuse sober for the last 3 years, congestive heart failure, admitted [facility] on 04[facility]2022 for acute renal failure on the background of diuretic and NSAID use. Patient was noted to have episodes of hypotension with systolic blood pressure down to 80s, improved after administration albumin to systolic blood pressure in 100-110's, prior to crystalloid administration. On my exam patient he with sleepy, but arousable and answering appropriately. Systolic blood pressure 110's, normal oximetry a on room air, now respiratory crackles, 1+ bilateral lower extremity edema. Suggest continuation of IV fluid support, empiric antibiotics and blood cultures. Likely acute renal failure secondary to overuse of NSAID on the background of diuretic therapy for underlying alcoholic cirrhosis. At this time patient does not require ICU level of care, please notify for re- evaluation, if patient's condition changes. Discussed with admitting hospitalist provider. Critical Care Time (minutes): 0
--- NOTE | 2022-04-07 18:41 | PC.NURSE ---
Abraham catheter placed with no urine output since placement, PA aware. Phlebotomy to draw blood cultures due to patient being admitted, pt very hard stick and unable to get blood cultures at this time. Zosyn not given yet due to blood cultures not being drawn. Pt sleeping with at bedside. Vitals stable.
--- NOTE | 2022-04-07 19:35 | PC.NURSE ---
Notified Dr. Maldonado Albert about blood pressure 89/42. Contacted pharmacy to adjust Albumin order time. Will monitor closely and await medication.
[2022-04-07] MEDS: Piperacillin Sodium/Tazobactam 4.5 GM in 0.9 % Sodium Chloride 100 ML IV (19:41)
[2022-04-07] MEDS: Sodium Zirconium Cyclosilicate 10 GM POWD.PACK PO (20:42)
[2022-04-07] MEDS: busPIRone HCl 5 MG TABLET PO (20:42)
[2022-04-07] MEDS: Midodrine HCl 5 MG TABLET PO (20:42)
[2022-04-07] MEDS: Lactulose 20 GM/30 ML SOLUTION 6.667 GM PO (20:42)
[2022-04-07] MEDS: Magnesium Oxide 400 MG TABLET PO (20:43)
[2022-04-07] MEDS: Multivitamin TABLET 1 TAB PO (20:43)
[2022-04-07 21:25] LABS: Appearance Urine CLOUDY; Color Urine YELLOW; Glucose Urine UA NEG (NEG); Leukocyte Esterase Urine NEG (NEG); Nitrite Urine POS (NEG); PH 5.5 (5.0-8.0); Specific Gravity - Urine >= 1.030 (1.005-1.025); UACC Culture Trigger YES; Urine Blood 3+ (NEG); Urine Ketones 5 MG/DL (NEG); Urine Protein 3+ MG/DL (NEG-TRACE)
[2022-04-07 21:28] LABS: Ammonia 57 umol/L (13-55)
[2022-04-07 21:39] LABS: Anion Gap 20 (12-20); Carbon Dioxide 19 mmol/L (22-29); Chloride 101 mmol/L (96-108); Creatinine Clr Calc Pharmacy 17.9; Estimated Glomerular Filt Rate 10; Phosphorus 7.6 mg/dL (2.7-4.5); Potassium 5.9 mmol/L (3.3-5.1); Sodium 134 mmol/L (135-145)
[2022-04-07 21:40] LABS: Bacteria Urine 3+ /LPF; Calcium Oxalate Crystals Urine 2+ /LPF; Mucus Urine 2+ /LPF; Squamous Epithelial Cell Urine 2+ /LPF
[2022-04-07 21:41] LABS: Creatinine Urine 293.42 mg/dL
[2022-04-07 21:44] LABS: Amphetamine Screen Urine Not Detected (Not Detect); Barbiturates, Urine Not Detected (Not Detect); Benzodiazepines Screen Urine Not Detected (Not Detect); Cannabinoid Screen Urine Not Detected (Not Detect); Cocaine Screen Urine Not Detected (Not Detect); Fentanyl, urine POSITIVE (Not Detect); Opiate Screen Urine Not Detected (Not Detect); Phencyclidine Screen Urine Not Detected (Not Detect)
[2022-04-07 22:00] LABS: Osmolality Urine 323 mosm/kg (373-1093)
[2022-04-07 22:26] LABS: Total Protein Urine Random 882 mg/dL (<12)
--- NOTE | 2022-04-07 22:51 | PC.NURSE ---
Attempted to call report to S3, awaiting call back.
[2022-04-07] MEDS: 0.9 % Sodium Chloride Flush 3 ML SYRINGE IVFLUSH (23:14)
[2022-04-08] VITALS (7 sets, daily range): BP systolic 107–135; BP diastolic 43–92; PULSE 44–100; RESP 16–18; TEMP 36–36.4; O2SAT 92–99
--- NOTE | 2022-04-08 | ECG_ITS ---
Test Reason : chest pain Blood Pressure : / mmHG Vent. Rate : 047 BPM Atrial Rate : 047 BPM P-R Int : 194 ms QRS Dur : 062 ms QT Int : 530 ms P-R-T Axes : 023 022 051 degrees QTc Int : 469 ms Sinus bradycardia Low voltage QRS Borderline ECG When compared with ECG of 07-APR-2022 12:46, Premature atrial complexes are no longer Present Referred By: Tana Chavarria Electronically Signed By:Jalil Chery
--- NOTE | 2022-04-08 | ECG_ITS ---
Test Reason : CP Blood Pressure : / mmHG Vent. Rate : 047 BPM Atrial Rate : 047 BPM P-R Int : 196 ms QRS Dur : 080 ms QT Int : 564 ms P-R-T Axes : 025 027 056 degrees QTc Int : 499 ms Sinus bradycardia Low voltage QRS Prolonged QT Abnormal ECG When compared with ECG of 08-APR-2022 08:41, No significant change was found Referred By: Tana Chavarria Electronically Signed By:DIMITRI LIMON MD
[2022-04-08] MEDS: Octreotide Acetate 100 MCG/ML AMPUL SUBCUT ×3 (02:22→19:27)
[2022-04-08] MEDS: Omeprazole 20 MG CAPSULE.DR PO (05:34)
[2022-04-08 05:59] LABS: MANUAL DIFF FLAG NO
[2022-04-08 06:07] LABS: Basophils Percent Auto 0.6 % (0-2); Eosinophils Absolute Auto 0.1 X10*3/uL (0.0-0.4); Eosinophils Percent Auto 1.6 % (0-4); Hematocrit 26.7 % (37.0-47.0); Hemoglobin 8.5 g/dl (12.0-16.0); Imm Gran Abs Auto 0.03 X10*3/uL (0.00-0.03); Imm Gran Pct Auto 0.4 % (0.0-0.4); Lymphocytes Absolute Auto 2.1 X10*3/uL (1.2-4.9); Lymphocytes Percent Auto 30.9 % (20-40); Mean Corpuscular HGB Conc 31.8 g/dl (31.0-35.0); Mean Corpuscular Volume 100.4 fL (80.0-98.0); Mean Platelet Volume 10.9 fL (9.4-12.3); Monocytes Absolute Auto 0.9 X10*3/uL (0.1-1.2); Monocytes Percent Auto 13.3 % (2-11); Neutrophils Absolute Auto 3.6 x10*3/uL (2.0-8.3); Neutrophils Percent Auto 53.2 % (45-73); Red Blood Count 2.66 X10*6/uL (4.20-5.50); Red Cell Distribution Width 17.6 % (11.0-16.0); White Blood Count 6.8 X10*3/uL (4.8-10.8)
[2022-04-08 06:10] LABS: Platelet Count 53 X10*3/uL (160-400)
[2022-04-08 06:11] LABS: Ammonia 90 umol/L (13-55); INTERNATIONAL NORM RATIO 1.6 (0.9-1.1)
[2022-04-08 06:29] LABS: Alanine Aminotransferase 20 U/L (0-31); Albumin Level 4.6 g/dL (3.5-5.0); Alkaline Phosphatase 49 U/L (39-117); Anion Gap 20 (12-20); Aspartate Amino Transferase 39 U/L (5-31); Bilirubin Direct 1.6 mg/dL (0.0-0.5); Bilirubin Total 3.4 mg/dL (0.0-1.0); Blood Urea Nitrogen 71 mg/dL (9-16); Calcium 9.5 mg/dL (8.4-10.2); Carbon Dioxide 18 mmol/L (22-29); Chloride 103 mmol/L (96-108); Creatinine Clr Calc Pharmacy 15.8; Estimated Glomerular Filt Rate 9; Glucose Random 67 mg/dL (60-115); Potassium 5.8 mmol/L (3.3-5.1); Sodium 135 mmol/L (135-145); Total Protein 8.3 g/dL (6.5-8.0)
[2022-04-08 08:53] LABS: Troponin-I High Sensitivity 25.2 ng/L (<3.5-17.0)
[2022-04-08 10:03] LABS: EOS Counted 0 CELLS; EOS QC POS YES; EOS Stain Quality OK YES; WBC, Counted 1 CELLS
[2022-04-08] MEDS: 0.9 % Sodium Chloride Flush 3 ML SYRINGE IVFLUSH ×2 (11:00→15:15)
--- NOTE | 2022-04-08 12:21 | P.PNNP_ITS ---
Subjective Subjective Date of Service: 04/09/22 Principal diagnosis: JOSEFA, Anasarca, Cirrhiosis Interval history: Seen and examined, events noted very lethargic and remians ANURIC Physical Exam Vital Signs: Vital Signs: Last Vital Signs Temp 96.8 F 04/08/22 11:59 Pulse 50 04/08/22 11:59 Resp 16 04/08/22 11:59 BP 109/53 L 04/08/22 11:59 Pulse Ox 92 04/08/22 11:59 BMI result Body Mass Index 49.5 lethargic anicteric anasarca decr BS at bases Objective Data Labs CBC & Chem 7: 04/08/22 05:52 04/08/22 05:51 Labs: Laboratory Results - last 24 hr 04/07/22 04/07/22 04/07/22 12:32 12:32 12:32 WBC RBC Hgb Hct MCV MCH MCHC RDW Plt Count MPV Immature Gran % (Auto) Neut % (Auto) Lymph % (Auto) [place] % (Auto) Eos % (Auto) Baso % (Auto) Lymph # (Auto) [place] # (Auto) Eos # (Auto) Baso # (Auto) Abs Immat Gran (auto) Absolute Neuts (auto) Absolute Nucleated RBC Nucleated RBC % (auto) PT 15.9 H INR 1.4 H APTT 48.1 H Sodium 135 Potassium 5.3 H Chloride 103 Carbon Dioxide 18 L Anion Gap 19 BUN 65 H D Creatinine 4.00 H* Estim Creat Clear Calc 19.6 Estimated GFR 11 Random Glucose 85 Calcium 9.4 Phosphorus Magnesium 2.6 Total Bilirubin 3.1 H Direct Bilirubin 1.4 H AST 47 H ALT 25 Alkaline Phosphatase 60 D Ammonia Troponin I High Sens Total Protein 7.9 Albumin 3.5 TSH Urine Color Urine Appearance Urine pH Ur Specific [place] Urine Protein Urine Glucose (UA) Urine Ketones Urine Blood Urine Nitrite Ur Leukocyte Esterase Urine RBC Urine WBC Ur Squamous Epith Cells Calcium Oxalate Crystal Urine Bacteria Urine Mucus Urine Eosinophils % Urine Osmolality U Random Total Protein Ur Random Sodium Urine Creatinine Urine Opiates Screen Urine Fentanyl Screen Ur Barbiturates Screen Ur Phencyclidine Scrn Ur Amphetamines Screen U Benzodiazepines Scrn Urine Cocaine Screen U Marijuana (THC) Screen Ethyl Alcohol < 10 COVID-19 ([facility]) COVID-19 Clin Com Influenza Type A (ABY) Influenza Type B (ABY) Influenza A & B Note 04/07/22 04/07/22 04/07/22 12:32 12:33 12:40 WBC 8.4 RBC 2.96 L Hgb 9.5 L Hct 29.7 L MCV 100.3 H MCH 32.1 MCHC 32.0 RDW 17.2 H Plt Count 61 L MPV 10.8 Immature Gran % (Auto) 0.1 Neut % (Auto) 57.8 Lymph % (Auto) 27.0 [place] % (Auto) 12.2 H Eos % (Auto) 2.3 Baso % (Auto) 0.6 Lymph # (Auto) 2.3 [place] # (Auto) 1.0 Eos # (Auto) 0.2 Baso # (Auto) 0.1 Abs Immat Gran (auto) 0.01 Absolute Neuts (auto) 4.9 Absolute Nucleated RBC 0.000 Nucleated RBC % (auto) 0.0 PT INR APTT Sodium Potassium Chloride Carbon Dioxide Anion Gap BUN Creatinine Estim Creat Clear Calc Estimated GFR Random Glucose Calcium Phosphorus Magnesium Total Bilirubin Direct Bilirubin AST ALT Alkaline Phosphatase Ammonia Troponin I High Sens Total Protein Albumin TSH 1.86 Urine Color Urine Appearance Urine pH Ur Specific [place] Urine Protein Urine Glucose (UA) Urine Ketones Urine Blood Urine Nitrite Ur Leukocyte Esterase Urine RBC Urine WBC Ur Squamous Epith Cells Calcium Oxalate Crystal Urine Bacteria Urine Mucus Urine Eosinophils % Urine Osmolality U Random Total Protein Ur Random Sodium Urine Creatinine Urine Opiates Screen Urine Fentanyl Screen Ur Barbiturates Screen Ur Phencyclidine Scrn Ur Amphetamines Screen U Benzodiazepines Scrn Urine Cocaine Screen U Marijuana (THC) Screen Ethyl Alcohol COVID-19 ([facility]USHBU) Negative COVID-19 Clin Com See Note Influenza Type A (ABY) Influenza Type B (ABY) Influenza A & B Note 04/07/22 04/07/22 04/07/22 12:40 21:05 21:05 WBC RBC Hgb Hct MCV MCH MCHC RDW Plt Count MPV Immature Gran % (Auto) Neut % (Auto) Lymph % (Auto) [place] % (Auto) Eos % (Auto) Baso % (Auto) Lymph # (Auto) [place] # (Auto) Eos # (Auto) Baso # (Auto) Abs Immat Gran (auto) Absolute Neuts (auto) Absolute Nucleated RBC Nucleated RBC % (auto) PT INR APTT Sodium Potassium Chloride Carbon Dioxide Anion Gap BUN Creatinine Estim Creat Clear Calc Estimated GFR Random Glucose Calcium Phosphorus Magnesium Total Bilirubin Direct Bilirubin AST ALT Alkaline Phosphatase Ammonia Troponin I High Sens Total Protein Albumin TSH Urine Color Urine Appearance Urine pH Ur Specific [place] Urine Protein Urine Glucose (UA) Urine Ketones Urine Blood Urine Nitrite Ur Leukocyte Esterase Urine RBC Urine WBC Ur Squamous Epith Cells Calcium Oxalate Crystal Urine Bacteria Urine Mucus Urine Eosinophils % Urine Osmolality 323 L U Random Total Protein Ur Random Sodium 38.0 Urine Creatinine 293.42 Urine Opiates Screen Urine Fentanyl Screen Ur Barbiturates Screen Ur Phencyclidine Scrn Ur Amphetamines Screen U Benzodiazepines Scrn Urine Cocaine Screen U Marijuana (THC) Screen Ethyl Alcohol COVID-19 ([facility]USHBU) COVID-19 Clin Com Influenza Type A (ABY) Negative Influenza Type B (ABY) Negative Influenza A & B Note See Note 04/07/22 04/07/22 04/07/22 21:05 21:07 21:07 WBC RBC Hgb Hct MCV MCH MCHC RDW Plt Count MPV Immature Gran % (Auto) Neut % (Auto) Lymph % (Auto) [place] % (Auto) Eos % (Auto) Baso % (Auto) Lymph # (Auto) [place] # (Auto) Eos # (Auto) Baso # (Auto) Abs Immat Gran (auto) Absolute Neuts (auto) Absolute Nucleated RBC Nucleated RBC % (auto) PT INR APTT Sodium 134 L Potassium 5.9 H Chloride 101 Carbon Dioxide 19 L Anion Gap 20 BUN Creatinine 4.40 H* Estim Creat Clear Calc 17.9 Estimated GFR 10 Random Glucose Calcium Phosphorus 7.6 H Magnesium Total Bilirubin Direct Bilirubin AST ALT Alkaline Phosphatase Ammonia 57 H Troponin I High Sens Total Protein Albumin TSH Urine Color YELLOW Urine Appearance CLOUDY Urine pH 5.5 Ur Specific [place] >= 1.030 H Urine Protein 3+ H Urine Glucose (UA) NEG Urine Ketones 5 Urine Blood 3+ H Urine Nitrite POS H Ur Leukocyte Esterase NEG Urine RBC 5-9 H Urine WBC 5-9 H Ur Squamous Epith Cells 2+ Calcium Oxalate Crystal 2+ Urine Bacteria 3+ Urine Mucus 2+ Urine Eosinophils % Urine Osmolality U Random Total Protein Ur Random Sodium Urine Creatinine Urine Opiates Screen Urine Fentanyl Screen Ur Barbiturates Screen Ur Phencyclidine Scrn Ur Amphetamines Screen U Benzodiazepines Scrn Urine Cocaine Screen U Marijuana (THC) Screen Ethyl Alcohol COVID-19 ([facility]) COVID-19 Clin Com Influenza Type A (ABY) Influenza Type B (ABY) Influenza A & B Note 04/07/22 04/07/22 04/07/22 21:07 21:07 21:09 WBC RBC Hgb Hct MCV MCH MCHC RDW Plt Count MPV Immature Gran % (Auto) Neut % (Auto) Lymph % (Auto) [place] % (Auto) Eos % (Auto) Baso % (Auto) Lymph # (Auto) [place] # (Auto) Eos # (Auto) Baso # (Auto) Abs Immat Gran (auto) Absolute Neuts (auto) Absolute Nucleated RBC Nucleated RBC % (auto) PT INR APTT Sodium Potassium Chloride Carbon Dioxide Anion Gap BUN Creatinine Estim Creat Clear Calc Estimated GFR Random Glucose Calcium Phosphorus Magnesium Total Bilirubin Direct Bilirubin AST ALT Alkaline Phosphatase Ammonia Troponin I High Sens Total Protein Albumin TSH Urine Color Urine Appearance Urine pH Ur Specific [place] Urine Protein Urine Glucose (UA) Urine Ketones Urine Blood Urine Nitrite Ur Leukocyte Esterase Urine RBC Urine WBC Ur Squamous Epith Cells Calcium Oxalate Crystal Urine Bacteria Urine Mucus Urine Eosinophils % 0.0 Urine Osmolality U Random Total Protein 882 H Ur Random Sodium Urine Creatinine Urine Opiates Screen Not Detected Urine Fentanyl Screen POSITIVE H Ur Barbiturates Screen Not Detected Ur Phencyclidine Scrn Not Detected Ur Amphetamines Screen Not Detected U Benzodiazepines Scrn Not Detected Urine Cocaine Screen Not Detected U Marijuana (THC) Screen Not Detected Ethyl Alcohol COVID-19 ([facility]USHBU) COVID-19 Clin Com Influenza Type A (ABY) Influenza Type B (ABY) Influenza A & B Note 04/08/22 04/08/22 04/08/22 05:51 05:51 05:51 WBC RBC Hgb Hct MCV MCH MCHC RDW Plt Count MPV Immature Gran % (Auto) Neut % (Auto) Lymph % (Auto) [place] % (Auto) Eos % (Auto) Baso % (Auto) Lymph # (Auto) [place] # (Auto) Eos # (Auto) Baso # (Auto) Abs Immat Gran (auto) Absolute Neuts (auto) Absolute Nucleated RBC Nucleated RBC % (auto) PT 18.0 H INR 1.6 H APTT Sodium 135 Potassium 5.8 H Chloride 103 Carbon Dioxide 18 L Anion Gap 20 BUN 71 H Creatinine 4.97 H* Estim Creat Clear Calc 15.8 Estimated GFR 9 Random Glucose 67 Calcium 9.5 Phosphorus Magnesium Total Bilirubin 3.4 H Direct Bilirubin 1.6 H AST 39 H ALT 20 Alkaline Phosphatase 49 Ammonia 90 H Troponin I High Sens Total Protein 8.3 H Albumin 4.6 D TSH Urine Color Urine Appearance Urine pH Ur Specific [place] Urine Protein Urine Glucose (UA) Urine Ketones Urine Blood Urine Nitrite Ur Leukocyte Esterase Urine RBC Urine WBC Ur Squamous Epith Cells Calcium Oxalate Crystal Urine Bacteria Urine Mucus Urine Eosinophils % Urine Osmolality U Random Total Protein Ur Random Sodium Urine Creatinine Urine Opiates Screen Urine Fentanyl Screen Ur Barbiturates Screen Ur Phencyclidine Scrn Ur Amphetamines Screen U Benzodiazepines Scrn Urine Cocaine Screen U Marijuana (THC) Screen Ethyl Alcohol COVID-19 ([facility]) COVID-19 Clin Com Influenza Type A (ABY) Influenza Type B (ABY) Influenza A & B Note 04/08/22 04/08/22 05:52 08:20 WBC 6.8 RBC 2.66 L Hgb 8.5 L Hct 26.7 L MCV 100.4 H MCH 32.0 MCHC 31.8 RDW 17.6 H Plt Count 53 L MPV 10.9 Immature Gran % (Auto) 0.4 Neut % (Auto) 53.2 Lymph % (Auto) 30.9 [place] % (Auto) 13.3 H Eos % (Auto) 1.6 Baso % (Auto) 0.6 Lymph # (Auto) 2.1 [place] # (Auto) 0.9 Eos # (Auto) 0.1 Baso # (Auto) 0.0 Abs Immat Gran (auto) 0.03 Absolute Neuts (auto) 3.6 Absolute Nucleated RBC 0.000 Nucleated RBC % (auto) 0.0 PT INR APTT Sodium Potassium Chloride Carbon Dioxide Anion Gap BUN Creatinine Estim Creat Clear Calc Estimated GFR Random Glucose Calcium Phosphorus Magnesium Total Bilirubin Direct Bilirubin AST ALT Alkaline Phosphatase Ammonia Troponin I High Sens 25.2 H D Total Protein Albumin TSH Urine Color Urine Appearance Urine pH Ur Specific [place] Urine Protein Urine Glucose (UA) Urine Ketones Urine Blood Urine Nitrite Ur Leukocyte Esterase Urine RBC Urine WBC Ur Squamous Epith Cells Calcium Oxalate Crystal Urine Bacteria Urine Mucus Urine Eosinophils % Urine Osmolality U Random Total Protein Ur Random Sodium Urine Creatinine Urine Opiates Screen Urine Fentanyl Screen Ur Barbiturates Screen Ur Phencyclidine Scrn Ur Amphetamines Screen U Benzodiazepines Scrn Urine Cocaine Screen U Marijuana (THC) Screen Ethyl Alcohol COVID-19 ([facility]BU) COVID-19 Clin Com Influenza Type A (ABY) Influenza Type B (ABY) Influenza A & B Note Microbiology Microbiology Results: Microbiology 04/07/22 21:45 Urine Catheterized - Abraham Catheter Urine Culture - Preliminary No growth to date. Procedures Date of Service Date of Service: 04/08/22 Assessment & Plan Assessment and plan (1) Liver failure: Status: Acute (2) Hyperkalemia: Status: Acute (3) Acute renal failure: Status: Acute (4) Anasarca: Status: Acute Plan 1. JOSEFA: suspect HRS type 1 and/or NSAID assoc acute kidney injury 2. Anasarca d/t cirrhosis and yet no asctes ? 3. AMS: multifact 4. Anemia REC: needs urgent HD given anuria JOSEFA marked anasarca hyperK and AMS; I have asked ICU doc ( Dr Ratliff) to see the pateint as she seems to need ICU level of care and then he could placeHD catheter----needs card echoand GI eval; depending on clincal course we may consider Dx kidney Bx next week I have d/w Hospitalist team and Dr Ratliff Time Spent With Patient Time: Total time spent is greater than 50% in coordination of care (as documented) at patient's floor/unit and/or counseling patient: Progress Note: Quality Stroke Does the patient have a stroke diagnosis?: No
--- NOTE | 2022-04-08 12:43 | HO.PM.IMPN ---
Subjective Subjective Date of Service: 04/08/22 Review of Systems Follow up JOSEFA, lethargy, liver cirrhosis Very lethargic today Physical Exam Vital Signs: Vital Signs: Last Vital Signs Temp 96.8 F 04/08/22 11:59 Pulse 50 04/08/22 11:59 Resp 16 04/08/22 11:59 BP 109/53 L 04/08/22 11:59 Pulse Ox 92 04/08/22 11:59 BMI result Body Mass Index 49.5 Appearing in no acute distress Jaundice lung sounds are clear to auscultation heart regular rate rhythm, clear S1, S2 positive bowel sounds, abdomen is soft, nontender neuro lethargic Objective Data Active Medications Buspirone HCl (Buspirone Hcl 5 Mg Tablet) 5 mg PO BID [facility] Last Admin: 04/08/22 11:09 Dose: Not Given Documented by: ALEXIS Non-Admin Reason: See Note Docusate Sodium (Docusate Sodium 100 Mg Capsule) 100 mg PO DAILY PRN PRN Reason: Constipation Folic Acid (Folic Acid 1 Mg Tablet) 1 mg PO DAILY [facility] Last Admin: 04/08/22 11:09 Dose: Not Given Documented by: ALEXIS Non-Admin Reason: See Note Hydroxyzine HCl (Hydroxyzine Hcl 10 Mg Tablet) 20 mg PO Q6H PRN PRN Reason: anxiety Albumin Human (Kedbumin 25 %) 150 mls @ 100 mls/hr IV Q8H [facility] Last Admin: 04/08/22 11:46 Dose: 100 mls/hr Documented by: ALEXIS Sodium Bicarbonate 150 meq/ (Dextrose) 1,050 mls @ 100 mls/hr IV .[id number] [facility] Lactulose (Lactulose 20 Gm/30 Ml Solution) 30 gm PO TID [facility] Last Admin: 04/08/22 11:09 Dose: Not Given Documented by: ALEXIS Non-Admin Reason: See Note Magnesium Oxide (Magnesium Oxide 400 Mg Tablet) 400 mg PO BID [facility] Last Admin: 04/08/22 11:10 Dose: Not Given Documented by: ALEXIS Non-Admin Reason: See Note Melatonin (Melatonin 3 Mg Tablet) 3 mg PO BEDTIME PRN PRN Reason: Sleep Midodrine (Midodrine Hcl 5 Mg Tablet) 5 mg PO TID [facility] Last Admin: 04/08/22 11:10 Dose: Not Given Documented by: ALEXIS Non-Admin Reason: See Note Multivitamins/Vitamin C (Multivitamin Tablet) 1 tab PO BEDTIME [facility] Last Admin: 04/07/22 20:43 Dose: 1 tab Documented by: CARLOS MANUEL Octreotide Acetate (Octreotide Acetate 100 Mcg/Ml Ampul) 100 mcg SUBCUT Q8H [facility] Last Admin: 04/08/22 11:17 Dose: 100 mcg Documented by: ALEXIS Omeprazole (Omeprazole 20 Mg Capsule.) 20 mg PO DAILY@0630 [facility] Last Admin: 04/08/22 05:34 Dose: 20 mg Documented by: LILLI Pharmacy Consult (Consult Rx Perform Med Rec) 1 each MISCELLANE ONCE PRN PRN Reason: Consult order Polyethylene Glycol (Polyethylene Glycol 3350 17 Gm Powd.Pack) 17 gm PO DAILY [facility] Last Admin: 04/08/22 11:10 Dose: Not Given Documented by: ALEXIS Non-Admin Reason: See Note Pyridoxine HCl (Pyridoxine Hcl (Vitamin B6) 50 Mg Tablet) 50 mg PO DAILY [facility] Last Admin: 04/08/22 11:10 Dose: Not Given Documented by: ALEXIS Non-Admin Reason: See Note Sodium Chloride (0.9 % Sodium Chloride Flush 3 Ml Syringe) 3 ml IVFLUSH QSHIFT [facility] Last Admin: 04/08/22 11:00 Dose: 3 ml Documented by: ALEXIS Thiamine HCl (Thiamine Hcl 100 Mg Tablet) 100 mg PO DAILY [facility] Last Admin: 04/08/22 11:10 Dose: Not Given Documented by: ALXEIS Non-Admin Reason: See Note Labs CBC & Chem 7: 04/08/22 05:52 04/08/22 05:51 Labs: Laboratory Results - last 24 hr 04/07/22 04/07/22 04/07/22 12:32 12:32 12:32 MCV MCH MCHC RDW Plt Count MPV Immature Gran % (Auto) Neut % (Auto) Lymph % (Auto) [place] % (Auto) Eos % (Auto) Baso % (Auto) Lymph # (Auto) [place] # (Auto) Eos # (Auto) Baso # (Auto) Abs Immat Gran (auto) Absolute Neuts (auto) Absolute Nucleated RBC Nucleated RBC % (auto) PT 15.9 H INR 1.4 H APTT 48.1 H Anion Gap 19 Estim Creat Clear Calc 19.6 Estimated GFR 11 Random Glucose 85 Calcium 9.4 Phosphorus Magnesium 2.6 Total Bilirubin 3.1 H Direct Bilirubin 1.4 H AST 47 H ALT 25 Alkaline Phosphatase 60 D Ammonia Troponin I High Sens Total Protein 7.9 Albumin 3.5 TSH Urine Color Urine Appearance Urine pH Ur Specific [place] Urine Protein Urine Glucose (UA) Urine Ketones Urine Blood Urine Nitrite Ur Leukocyte Esterase Urine RBC Urine WBC Ur Squamous Epith Cells Calcium Oxalate Crystal Urine Bacteria Urine Mucus Urine Eosinophils % Urine Osmolality U Random Total Protein Ur Random Sodium Urine Creatinine Urine Opiates Screen Urine Fentanyl Screen Ur Barbiturates Screen Ur Phencyclidine Scrn Ur Amphetamines Screen U Benzodiazepines Scrn Urine Cocaine Screen U Marijuana (THC) Screen Ethyl Alcohol < 10 COVID-19 ([facility]) COVID-19 Clin Com Influenza Type A (ABY) Influenza Type B (ABY) Influenza A & B Note 04/07/22 04/07/22 04/07/22 12:32 12:33 12:40 MCV 100.3 H MCH 32.1 MCHC 32.0 RDW 17.2 H Plt Count 61 L MPV 10.8 Immature Gran % (Auto) 0.1 Neut % (Auto) 57.8 Lymph % (Auto) 27.0 [place] % (Auto) 12.2 H Eos % (Auto) 2.3 Baso % (Auto) 0.6 Lymph # (Auto) 2.3 [place] # (Auto) 1.0 Eos # (Auto) 0.2 Baso # (Auto) 0.1 Abs Immat Gran (auto) 0.01 Absolute Neuts (auto) 4.9 Absolute Nucleated RBC 0.000 Nucleated RBC % (auto) 0.0 PT INR APTT Anion Gap Estim Creat Clear Calc Estimated GFR Random Glucose Calcium Phosphorus Magnesium Total Bilirubin Direct Bilirubin AST ALT Alkaline Phosphatase Ammonia Troponin I High Sens Total Protein Albumin TSH 1.86 Urine Color Urine Appearance Urine pH Ur Specific [place] Urine Protein Urine Glucose (UA) Urine Ketones Urine Blood Urine Nitrite Ur Leukocyte Esterase Urine RBC Urine WBC Ur Squamous Epith Cells Calcium Oxalate Crystal Urine Bacteria Urine Mucus Urine Eosinophils % Urine Osmolality U Random Total Protein Ur Random Sodium Urine Creatinine Urine Opiates Screen Urine Fentanyl Screen Ur Barbiturates Screen Ur Phencyclidine Scrn Ur Amphetamines Screen U Benzodiazepines Scrn Urine Cocaine Screen U Marijuana (THC) Screen Ethyl Alcohol COVID-19 ([facility]) Negative COVID-19 Clin Com See Note Influenza Type A (ABY) Influenza Type B (ABY) Influenza A & B Note 04/07/22 04/07/22 04/07/22 12:40 21:05 21:05 MCV MCH MCHC RDW Plt Count MPV Immature Gran % (Auto) Neut % (Auto) Lymph % (Auto) [place] % (Auto) Eos % (Auto) Baso % (Auto) Lymph # (Auto) [place] # (Auto) Eos # (Auto) Baso # (Auto) Abs Immat Gran (auto) Absolute Neuts (auto) Absolute Nucleated RBC Nucleated RBC % (auto) PT INR APTT Anion Gap Estim Creat Clear Calc Estimated GFR Random Glucose Calcium Phosphorus Magnesium Total Bilirubin Direct Bilirubin AST ALT Alkaline Phosphatase Ammonia Troponin I High Sens Total Protein Albumin TSH Urine Color Urine Appearance Urine pH Ur Specific [place] Urine Protein Urine Glucose (UA) Urine Ketones Urine Blood Urine Nitrite Ur Leukocyte Esterase Urine RBC Urine WBC Ur Squamous Epith Cells Calcium Oxalate Crystal Urine Bacteria Urine Mucus Urine Eosinophils % Urine Osmolality 323 L U Random Total Protein Ur Random Sodium 38.0 Urine Creatinine 293.42 Urine Opiates Screen Urine Fentanyl Screen Ur Barbiturates Screen Ur Phencyclidine Scrn Ur Amphetamines Screen U Benzodiazepines Scrn Urine Cocaine Screen U Marijuana (THC) Screen Ethyl Alcohol COVID-19 ([facility]) COVID-19 Clin Com Influenza Type A (ABY) Negative Influenza Type B (ABY) Negative Influenza A & B Note See Note 04/07/22 04/07/22 04/07/22 21:05 21:07 21:07 MCV MCH MCHC RDW Plt Count MPV Immature Gran % (Auto) Neut % (Auto) Lymph % (Auto) [place] % (Auto) Eos % (Auto) Baso % (Auto) Lymph # (Auto) [place] # (Auto) Eos # (Auto) Baso # (Auto) Abs Immat Gran (auto) Absolute Neuts (auto) Absolute Nucleated RBC Nucleated RBC % (auto) PT INR APTT Anion Gap 20 Estim Creat Clear Calc 17.9 Estimated GFR 10 Random Glucose Calcium Phosphorus 7.6 H Magnesium Total Bilirubin Direct Bilirubin AST ALT Alkaline Phosphatase Ammonia 57 H Troponin I High Sens Total Protein Albumin TSH Urine Color YELLOW Urine Appearance CLOUDY Urine pH 5.5 Ur Specific Mobile >= 1.030 H Urine Protein 3+ H Urine Glucose (UA) NEG Urine Ketones 5 Urine Blood 3+ H Urine Nitrite POS H Ur Leukocyte Esterase NEG Urine RBC 5-9 H Urine WBC 5-9 H Ur Squamous Epith Cells 2+ Calcium Oxalate Crystal 2+ Urine Bacteria 3+ Urine Mucus 2+ Urine Eosinophils % Urine Osmolality U Random Total Protein Ur Random Sodium Urine Creatinine Urine Opiates Screen Urine Fentanyl Screen Ur Barbiturates Screen Ur Phencyclidine Scrn Ur Amphetamines Screen U Benzodiazepines Scrn Urine Cocaine Screen U Marijuana (THC) Screen Ethyl Alcohol COVID-19 ([facility]) COVID-19 Clin Com Influenza Type A (ABY) Influenza Type B (ABY) Influenza A & B Note 04/07/22 04/07/22 04/07/22 21:07 21:07 21:09 MCV MCH MCHC RDW Plt Count MPV Immature Gran % (Auto) Neut % (Auto) Lymph % (Auto) [place] % (Auto) Eos % (Auto) Baso % (Auto) Lymph # (Auto) [place] # (Auto) Eos # (Auto) Baso # (Auto) Abs Immat Gran (auto) Absolute Neuts (auto) Absolute Nucleated RBC Nucleated RBC % (auto) PT INR APTT Anion Gap Estim Creat Clear Calc Estimated GFR Random Glucose Calcium Phosphorus Magnesium Total Bilirubin Direct Bilirubin AST ALT Alkaline Phosphatase Ammonia Troponin I High Sens Total Protein Albumin TSH Urine Color Urine Appearance Urine pH Ur Specific [place] Urine Protein Urine Glucose (UA) Urine Ketones Urine Blood Urine Nitrite Ur Leukocyte Esterase Urine RBC Urine WBC Ur Squamous Epith Cells Calcium Oxalate Crystal Urine Bacteria Urine Mucus Urine Eosinophils % 0.0 Urine Osmolality U Random Total Protein 882 H Ur Random Sodium Urine Creatinine Urine Opiates Screen Not Detected Urine Fentanyl Screen POSITIVE H Ur Barbiturates Screen Not Detected Ur Phencyclidine Scrn Not Detected Ur Amphetamines Screen Not Detected U Benzodiazepines Scrn Not Detected Urine Cocaine Screen Not Detected U Marijuana (THC) Screen Not Detected Ethyl Alcohol COVID-19 ([facility]) COVID-19 Clin Com Influenza Type A (ABY) Influenza Type B (ABY) Influenza A & B Note 04/08/22 04/08/22 04/08/22 05:51 05:51 05:51 MCV MCH MCHC RDW Plt Count MPV Immature Gran % (Auto) Neut % (Auto) Lymph % (Auto) [place] % (Auto) Eos % (Auto) Baso % (Auto) Lymph # (Auto) [place] # (Auto) Eos # (Auto) Baso # (Auto) Abs Immat Gran (auto) Absolute Neuts (auto) Absolute Nucleated RBC Nucleated RBC % (auto) PT 18.0 H INR 1.6 H APTT Anion Gap 20 Estim Creat Clear Calc 15.8 Estimated GFR 9 Random Glucose 67 Calcium 9.5 Phosphorus Magnesium Total Bilirubin 3.4 H Direct Bilirubin 1.6 H AST 39 H ALT 20 Alkaline Phosphatase 49 Ammonia 90 H Troponin I High Sens Total Protein 8.3 H Albumin 4.6 D TSH Urine Color Urine Appearance Urine pH Ur Specific [place] Urine Protein Urine Glucose (UA) Urine Ketones Urine Blood Urine Nitrite Ur Leukocyte Esterase Urine RBC Urine WBC Ur Squamous Epith Cells Calcium Oxalate Crystal Urine Bacteria Urine Mucus Urine Eosinophils % Urine Osmolality U Random Total Protein Ur Random Sodium Urine Creatinine Urine Opiates Screen Urine Fentanyl Screen Ur Barbiturates Screen Ur Phencyclidine Scrn Ur Amphetamines Screen U Benzodiazepines Scrn Urine Cocaine Screen U Marijuana (THC) Screen Ethyl Alcohol COVID-19 ([facility]) COVID-19 Clin Com Influenza Type A (ABY) Influenza Type B (ABY) Influenza A & B Note 04/08/22 04/08/22 05:52 08:20 MCV 100.4 H MCH 32.0 MCHC 31.8 RDW 17.6 H Plt Count 53 L MPV 10.9 Immature Gran % (Auto) 0.4 Neut % (Auto) 53.2 Lymph % (Auto) 30.9 [place] % (Auto) 13.3 H Eos % (Auto) 1.6 Baso % (Auto) 0.6 Lymph # (Auto) 2.1 [place] # (Auto) 0.9 Eos # (Auto) 0.1 Baso # (Auto) 0.0 Abs Immat Gran (auto) 0.03 Absolute Neuts (auto) 3.6 Absolute Nucleated RBC 0.000 Nucleated RBC % (auto) 0.0 PT INR APTT Anion Gap Estim Creat Clear Calc Estimated GFR Random Glucose Calcium Phosphorus Magnesium Total Bilirubin Direct Bilirubin AST ALT Alkaline Phosphatase Ammonia Troponin I High Sens 25.2 H D Total Protein Albumin TSH Urine Color Urine Appearance Urine pH Ur Specific [place] Urine Protein Urine Glucose (UA) Urine Ketones Urine Blood Urine Nitrite Ur Leukocyte Esterase Urine RBC Urine WBC Ur Squamous Epith Cells Calcium Oxalate Crystal Urine Bacteria Urine Mucus Urine Eosinophils % Urine Osmolality U Random Total Protein Ur Random Sodium Urine Creatinine Urine Opiates Screen Urine Fentanyl Screen Ur Barbiturates Screen Ur Phencyclidine Scrn Ur Amphetamines Screen U Benzodiazepines Scrn Urine Cocaine Screen U Marijuana (THC) Screen Ethyl Alcohol COVID-19 ([facility]) COVID-19 Clin Com Influenza Type A (ABY) Influenza Type B (ABY) Influenza A & B Note Microbiology Microbiology Results: Microbiology 04/07/22 21:45 Urine Culture - Preliminary Urine Catheterized - Abraham Catheter No growth to date. Assessment and Plan (1) Hypotension: Status: Acute Plan This is a 61-year-old female with history of cirrhosis, substance abuse on methadone who presents to the emergency department with generalized edema found to have JOSEFA JOSEFA with hepatic encephalopathy Creatinine increased from 0.84 on March 28 to 4.96 Has been taking ibuprofen twice daily for the past week which could be contributing versus hepatorenal syndrome vs hypotension Will start treatment for hepatorenal syndrome with octreotide, albumin, midodrine will hold lasix, eplerenone avoid nephrotoxins very minimal uo of 30ml and and nothing on bladder scan Nephrology following and rec urgent dialysis, Geomorphologist placed temporary catheter and pt is receiving dialysis NGT for delivery of Lokelma and lactulose Check ABG, renal us/doppler, HIV, urine studies, CRP, c3,4, lupus If her condition worsens, transfer to ICU for higher level of care Liver cirrhosis History of hepatitis-C status post treatment 3 years ago Remote history alcohol use 15 years ago. Denies current etoh use Recently diagnosed at [facility], followed by Dr. Bartlett office has not yet had screening EGD, unknown varices GI consultation hold nadolol for hypotension, lasix for JOSEFA Thrombocytopenia Secondary to liver disease Chronic, at baseline Follow CBC Iron deficiency anemia H/H near baseline Follow CBC Will hold home iron supplementation given degree of constipation, can resume on discharge History of hepatic encephalopathy No confusion at this time Will check ammonia in a.m. Continue lactulose, ?compliance given amount of stool seen on CT hypotension likely in the setting of liver dz hold nadolol, lasix, eplerenone continue albumin follow BP closely Anxiety Continue Atarax DVT prophylaxis-mechanical devices Code status-full code Attending-Dr. Carter Patient requires continued hospitalization For urgent dialysis and current workup of encephalopathy Quality Stroke Does the patient have a stroke diagnosis?: No VTE Prior VTE?: No VTE Risk Level:: Medical - moderate - high VTE Device Contraindication: N/A - Device Ordered VTE Drug Contraindication: N/A - Med Ordered
--- NOTE | 2022-04-08 13:34 | W.PM.CCHP ---
Procedures Date of Service Date of Service: 04/08/22 Central Line Placement Left IJ: Central Line Comments: Triple-lumen Marck catheter emergently placed for hemodialysis under ultrasound guidance and usual sterile conditions, initially right-sided internal jugular placement was attempted, however right-side site was aborted secondary to inability to advance the guidewire, instead left-sided internal jugular catheter placed with no immediate complications. X-ray for line position is pending. Consent for Procedure: Emergent-no informed consent obtained
--- NOTE | 2022-04-08 14:42 | PM.GICN ---
History of Present Illness Data of Consult Service Date: 04/08/22 Requesting physician: Tana Chavarria Primary Care Provider: Unknown Physician HPI Reason for consult: abn LFT 61-year-old female w/ hx of alcohol and HCV related cirrhosis (HCV treated), who I am seeing for assessment hx limited from patient due to somnolence and drowsiness She presented with worsening leg edema and anasarca with weight gain of 100# over 3 months. SHe has been taking ibuprofen 600 mg BID for 1 week for shoulder and back pain. She reports constipation and nausea with dry heaving. no vomiting, no rectal bleeding, no melena. no fevers or chills . No alcohol for 6 months per her report Labs revealed acute kidney injury with a creatinine of 4.0 as well as elevated potassium of 5.3.? Her blood pressure was low in the 80s and 90 systolic.? She was given a dose of midodrine and started on albumin Assessed by renl team and commenced on dialysis as well. UA with nitrites pos, 3+ protein, 3+ bld, [place]- 38 CT with diffuse anasarca, no ascites PRIOR testing at [facility]: ?EGD/colonoscopy from 03/07: ?varices in the lower 3rd of the esophagus.? They were not bleeding.? Normal stomach and normal duodenum.? Varices not amenable to banding.? ?Colonoscopy: Single polyp was found in the rectum.? Polypectomy was done polyp was completely removed.? It was a tubular adenoma.? Medium internal and external hemorrhoids were noted.? Review of Systems Review of Systems: Constitutional : + Weight gain, No Fever, No Chills ENT/Mouth : No sore throat, No Rhinorrhea Eyes: No Swelling, No Redness Cardiovascular : No Chest Pain, No SOB, + Edema Respiratory : No Cough, No Sputum, No Wheezing Gastrointestinal : see HPI Genitourinary : NO Dysuria, No Urinary Frequency, No Hematuria, No Urgency Musculoskeletal : No joint pain, No Myalgias, No Joint Swelling Skin : No Skin Lesions, No rash Neuro : + Weakness, No Numbness, No Dizziness, No Headache Psych : No Anxiety/Panic, No Depression Heme/Lymph: No Bruising, No Lymphadenopathy Endocrine : No Polyuria, No Polydipsia psych- drowsy, disorientated All other systems reviewed and are negative [facility] Past Medical History Medical History Alcohol use disorder, moderate, in early remission, dependence Cirrhosis, alcoholic Constipation Hemorrhoids History of substance abuse Iron deficiency anemia Lumbar back pain with radiculopathy affecting right lower extremity Obesity (BMI 30-39.9) Smoker Splenomegaly Family History Family History Father No problems noted. Mother Active asthma Surgical History Surgical History H/O: hysterectomy History of tubal ligation Hx of hemorrhoidectomy Social History Social History Household Members: Spouse Housing: House Are you a primary attending ambulatory care to a significant other at home: No Do you presently have visiting nurse or other home services: No Alcohol intake: current Alcohol intake frequency: holidays/special occasions only Patient Tobacco Use Status: Never used Tobacco Tobacco use type: Cigarette e-Cigarette/Vaping Use: Never Used Advance Directives Date on File: 04/08/22 service: No Current occupational status: unemployed 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 Cognitive needs: No Hearing needs: No Vision needs: No Meds Allergies Allergy/AdvReac Type Severity Reaction Status Date / Time Iodinated Contrast Media Allergy Intermediate blood in Verified 04/07/22 13:34 urine Shellfish Allergy Unknown Hives Uncoded 04/07/22 13:34 Active Medications: Current Medications Buspirone HCl (Buspirone Hcl 5 Mg Tablet) 5 mg PO BID [facility] Last Admin: 04/08/22 11:09 Dose: Not Given Documented by: Docusate Sodium (Docusate Sodium 100 Mg Capsule) 100 mg PO DAILY PRN PRN Reason: Constipation Folic Acid (Folic Acid 1 Mg Tablet) 1 mg PO DAILY [facility] Last Admin: 04/08/22 11:09 Dose: Not Given Documented by: Hydroxyzine HCl (Hydroxyzine Hcl 10 Mg Tablet) 20 mg PO Q6H PRN PRN Reason: anxiety Albumin Human (Kedbumin 25 %) 150 mls @ 100 mls/hr IV Q8H [facility] Last Infusion: 04/08/22 14:03 Dose: Infused Documented by: Sodium Bicarbonate 150 meq/ (Dextrose) 1,000 mls @ 100 mls/hr IV .Q10H [facility] Lactulose (Lactulose 20 Gm/30 Ml Solution) 30 gm PO TID [facility] Last Admin: 04/08/22 11:09 Dose: Not Given Documented by: Magnesium Oxide (Magnesium Oxide 400 Mg Tablet) 400 mg PO BID [facility] Last Admin: 04/08/22 11:10 Dose: Not Given Documented by: Melatonin (Melatonin 3 Mg Tablet) 3 mg PO BEDTIME PRN PRN Reason: Sleep Midodrine (Midodrine Hcl 5 Mg Tablet) 5 mg PO TID [facility] Last Admin: 04/08/22 11:10 Dose: Not Given Documented by: Multivitamins/Vitamin C (Multivitamin Tablet) 1 tab PO BEDTIME [facility] Last Admin: 04/07/22 20:43 Dose: 1 tab Documented by: Octreotide Acetate (Octreotide Acetate 100 Mcg/Ml Ampul) 100 mcg SUBCUT Q8H [facility] Last Admin: 04/08/22 11:17 Dose: 100 mcg Documented by: Omeprazole (Omeprazole 20 Mg Capsule.) 20 mg PO DAILY@0630 [facility] Last Admin: 04/08/22 05:34 Dose: 20 mg Documented by: Pharmacy Consult (Consult Rx Perform Med Rec) 1 each MISCELLANE ONCE PRN PRN Reason: Consult order Polyethylene Glycol (Polyethylene Glycol 3350 17 Gm Powd.Pack) 17 gm PO DAILY [facility] Last Admin: 04/08/22 11:10 Dose: Not Given Documented by: Pyridoxine HCl (Pyridoxine Hcl (Vitamin B6) 50 Mg Tablet) 50 mg PO DAILY [facility] Last Admin: 04/08/22 11:10 Dose: Not Given Documented by: Sodium Chloride (0.9 % Sodium Chloride Flush 3 Ml Syringe) 3 ml IVFLUSH QSHIFT [facility] Last Admin: 04/08/22 11:00 Dose: 3 ml Documented by: Thiamine HCl (Thiamine Hcl 100 Mg Tablet) 100 mg PO DAILY [facility] Last Admin: 04/08/22 11:10 Dose: Not Given Documented by: Home Medications Medication Instructions Recorded Confirmed Last Taken Type ascorbic acid (vitamin C) 100 mg 100 mg PO DAILY 01/20/22 04/07/22 Unknown History tablet ergocalciferol (vitamin D2) 1,250 1,250 mcg PO QWEEK 01/20/22 04/07/22 Unknown History mcg (50,000 unit) capsule (Vitamin D2) magnesium oxide 400 mg (241.3 mg 400 mg PO BID 01/20/22 04/07/22 Unknown History magnesium) tablet melatonin 3 mg tablet 3 mg PO BEDTIME PRN 01/20/22 04/07/22 Unknown History nadolol 20 mg tablet 20 mg PO DAILY 03/17/22 04/07/22 Unknown History bismuth subsalicylate 262 mg/15 mL 524 mg PO Q30M PRN 04/07/22 04/07/22 Unknown History oral suspension (Pepto-Bismol) docusate sodium 100 mg tablet 100 mg PO DAILY 04/07/22 04/07/22 Unknown History polyethylene glycol 3350 17 gram 17 g PO DAILY 04/07/22 04/07/22 Unknown History oral powder packet (Miralax) Physical Exam Vital Signs: Vital Signs: Last Vital Signs Temp 96.8 F 04/08/22 11:59 Pulse 50 04/08/22 11:59 Resp 16 04/08/22 11:59 BP 109/53 L 04/08/22 11:59 Pulse Ox 92 04/08/22 11:59 BMI result Body Mass Index 49.5 Const: Other: EXAM: GENERAL: The patient is drowsy VITAL SIGNS:see workflow HEENT: icteric sclerae, PERRLA, EOMI. Oropharynx clear. Moist mucous membranes. Conjunctivae appear well perfused. No thyroid mass. CHEST: Chest wall is nontender. HEART: Regular rate and rhythm without murmurs. LUNGS: Clear to auscultation bilaterally. ABDOMEN: Soft, positive bowel sounds, nontender, no organomegaly.no flank tenderness SKIN: No rash, no excessive bruising, petechiae, or purpura. jaundiced NEUROLOGIC: Cranial nerves II-XII intact without motor/sensory deficit. Psych- slow affect legs swollen pos hand flaps Results Labs CBC & Chem 7: 04/08/22 05:52 04/08/22 05:51 Labs: Short CBC 04/08/22 Range/Units 05:52 WBC 6.8 (4.8-10.8) X10*3/uL Hgb 8.5 L (12.0-16.0) g/dl Hct 26.7 L (37.0-47.0) % Plt Count 53 L (160-400) X10*3/uL BMP 04/07/22 04/08/22 21:07 05:51 Sodium 134 L 135 Potassium 5.9 H 5.8 H Chloride 101 103 Carbon Dioxide 19 L 18 L BUN 71 H Creatinine 4.40 H* 4.97 H* Calcium 9.5 Liver Function 04/08/22 Range/Units 05:51 Total Bilirubin 3.4 H (0.0-1.0) mg/dL Direct Bilirubin 1.6 H (0.0-0.5) mg/dL AST 39 H (5-31) U/L ALT 20 (0-31) U/L Alkaline Phosphatase 49 (39-117) U/L Albumin 4.6 D (3.5-5.0) g/dL Urine 04/07/22 Range/Units 21:05 Urine Color YELLOW Urine Appearance CLOUDY Urine pH 5.5 (5.0-8.0) Ur Specific Byers >= 1.030 H (1.005-1.025) Urine Protein 3+ H (NEG-TRACE) MG/DL Urine Glucose (UA) NEG (NEG) MG/DL Microbiology Microbiology Results: Microbiology 04/07/22 21:45 Urine Catheterized - Abraham Catheter Urine Culture - Preliminary No growth to date. Imaging CT scan - abdomen: Attestation: I personally reviewed and interpreted this imaging study as follows: (diffuse anasarca, nodular liver) Assessment and Plan (1) Acute renal failure: Status: Acute (2) Cirrhosis, alcoholic: Status: Acute Plan 1/Worsening memo function, now on dialysis. UA does not support hepatorenal syndrome, may have UTI with superimposed injury from NSAID use or obstructive uropathy or glomerulonephritis. mental state changes maybe from uremia and not liver failure. her albumin is surprisingly normal despite the protein in urine and the hx of cirrhosis. PLAN: 1/ REcommend searching for other renal etiologies for her ARF, consider checking Fena and Feurea, eosinophil staining, HIV testing, complement, ANCA and MICHAEL, 2/ myeloma screening, with Urine and serum electrophoresis 3/ can try lactulose and rifaximin 4/ renal us and doppler 5/ repeat HEP b,C serologies pending 6/ ECHO to r/o cor pulmonale, constrictive pericarditis etc (ECG low voltage) Procedures Date of Service Date of Service: 04/08/22
[2022-04-08] MEDS: Sodium Zirconium Cyclosilicate 10 GM POWD.PACK PO (15:14)
[2022-04-08] MEDS: Lactulose 20 GM/30 ML SOLUTION 30 GM PO (15:14)
[2022-04-08] MEDS: Midodrine HCl 5 MG TABLET PO ×2 (15:14→21:09)
[2022-04-08] MEDS: Sodium Bicarbonate 8.4% 150 MEQ in Dextrose 5 % 850 ML 100 MEQ IV (15:15)
--- NOTE | 2022-04-08 15:31 | MHC.CM.PN ---
PATIENT PREPPING TO GO TO DIALYSIS SHE GIVES PERMISSION FOR SPOUSE JAIR (IN ROOM) TO PARTICIPATE IN ASSESSMENT QUESTIONS. PATIENT HAS A WALKER AND CANE NO VNA IN THE HOME SHE CURRENTLY HAS NO PCP AND IS WAITING TO BE ENROLLED IN HER SPOUSE'S GIC PLAN (EXPECTED 05/12/22) SPOUSE REPORTS THAT HE DOES NOT LIKE HER FORMER PROVIDER, THIS PERSON WAS NOT AN MD, WHICH PATIENT AGREES IS THE REASON THAT SHE HAS NOT VISITED PCP. PATIENT CAN ASSIGN A HCP DURING HER STAY HERE. CASE MANAGEMENT TO MEET WITH PATIENT AT A MORE APPROPRIATE TIME
--- NOTE | 2022-04-08 18:23 | PC.NURSE ---
start of shift Pt c/o chest pain/tightness/pressure. Notified MD Lopez. Order stat EKG and troponins. Pt also lethargic and unable to stay awake to take AM meds. MD Chavarria notified - NGT placed in R nare for medications administration. Pt also w/ very minimal dark mariela urine output in gibbs, nephrology consulted. Non-tunneled CVC placed at bedside and Pt sent for urgent dialysis.
[2022-04-08] MEDS: cefTRIAXone sodium 1 GM in 0.9 % Sodium Chloride 50 ML IV (19:27)
[2022-04-08] MEDS: Multivitamin TABLET 1 TAB PO (21:09)
[2022-04-08] MEDS: Magnesium Oxide 400 MG TABLET PO (21:09)
[2022-04-08] MEDS: Lactulose 20 GM/30 ML SOLUTION 40 GM PO (21:10)
[2022-04-08] MEDS: ondansetron HCL 4 MG/2 ML VIAL IVPUSH (22:47)
[2022-04-09] MEDS: 0.9 % Sodium Chloride Flush 3 ML SYRINGE IVFLUSH ×4 (01:55→21:11)
[2022-04-09] MEDS: Octreotide Acetate 100 MCG/ML AMPUL SUBCUT ×3 (01:55→17:55)
[2022-04-09 04:00] VITALS: BP 122/53; PULSE 50; RESP 18; TEMP 36.7; O2SAT 96
[2022-04-09 07:51] VITALS: BP 96/40; PULSE 44; RESP 16; TEMP 36; O2SAT 92
[2022-04-09] MEDS: busPIRone HCl 5 MG TABLET PO ×2 (08:03→21:10)
[2022-04-09] MEDS: Midodrine HCl 5 MG TABLET PO ×3 (08:03→21:10)
[2022-04-09] MEDS: Pyridoxine HCl (Vitamin B6) 50 MG TABLET PO (08:03)
[2022-04-09] MEDS: Magnesium Oxide 400 MG TABLET PO ×2 (08:03→21:10)
[2022-04-09] MEDS: Thiamine HCL 100 MG TABLET PO (08:03)
[2022-04-09] MEDS: polyethylene glycoL 3350 17 GM POWD.PACK PO (08:03)
[2022-04-09] MEDS: Lactulose 20 GM/30 ML SOLUTION 40 GM PO ×3 (08:04→21:09)
[2022-04-09] MEDS: Folic Acid 1 MG TABLET PO (08:04)
[2022-04-09 08:42] LABS: Ammonia 111 umol/L (13-55)
--- NOTE | 2022-04-09 08:43 | P.PNIM_ITS ---
Subjective Subjective Date of Service: 04/09/22 Review of Systems Follow up JOSEFA, lethargy, liver cirrhosis More awake but still lethargic Physical Exam Vital Signs: Vital Signs: Last Vital Signs Temp 96.8 F 04/09/22 07:51 Pulse 44 L 04/09/22 07:51 Resp 16 04/09/22 07:51 BP 96/40 L 04/09/22 07:51 Pulse Ox 92 04/09/22 07:51 BMI result Body Mass Index 49.5 Appearing in no acute distress lung sounds are clear to auscultation heart regular rate rhythm, clear S1, S2 positive bowel sounds, abdomen is soft, nontender neuro patient is alert x3, no focal deficits Objective Data Active Medications Buspirone HCl (Buspirone Hcl 5 Mg Tablet) 5 mg PO BID [facility] Last Admin: 04/09/22 08:03 Dose: 5 mg Documented by: ALEXIS Docusate Sodium (Docusate Sodium 100 Mg Capsule) 100 mg PO DAILY PRN PRN Reason: Constipation Folic Acid (Folic Acid 1 Mg Tablet) 1 mg PO DAILY [facility] Last Admin: 04/09/22 08:04 Dose: 1 mg Documented by: ALEXIS Hydroxyzine HCl (Hydroxyzine Hcl 10 Mg Tablet) 20 mg PO Q6H PRN PRN Reason: anxiety Albumin Human (Kedbumin 25 %) 150 mls @ 100 mls/hr IV Q8H [facility] Last Infusion: 04/09/22 05:33 Dose: 0 mls/hr Documented by: LILLI Ceftriaxone Sodium 1 gm/ (Sodium Chloride) 50 mls @ 100 mls/hr IV Q24H [facility] Last Infusion: 04/08/22 20:12 Dose: 0 mls/hr Documented by: LILLI Lactulose (Lactulose 20 Gm/30 Ml Solution) 40 gm PO TID [facility] Last Admin: 04/09/22 08:04 Dose: 40 gm Documented by: ALEXIS Magnesium Oxide (Magnesium Oxide 400 Mg Tablet) 400 mg PO BID [facility] Last Admin: 04/09/22 08:03 Dose: 400 mg Documented by: ALEXIS Melatonin (Melatonin 3 Mg Tablet) 3 mg PO BEDTIME PRN PRN Reason: Sleep Midodrine (Midodrine Hcl 5 Mg Tablet) 5 mg PO TID [facility] Last Admin: 04/09/22 08:03 Dose: 5 mg Documented by: ALEXIS Multivitamins/Vitamin C (Multivitamin Tablet) 1 tab PO BEDTIME [facility] Last Admin: 04/08/22 21:09 Dose: 1 tab Documented by: LILLI Octreotide Acetate (Octreotide Acetate 100 Mcg/Ml Ampul) 100 mcg SUBCUT Q8H [facility] Last Admin: 04/09/22 01:55 Dose: 100 mcg Documented by: LILLI Omeprazole (Omeprazole 20 Mg Capsule.) 20 mg PO DAILY@0630 [facility] Last Admin: 04/09/22 05:34 Dose: Not Given Documented by: LILLI Non-Admin Reason: pt unable to swallow Pharmacy Consult (Consult Rx Perform Med Rec) 1 each MISCELLANE ONCE PRN PRN Reason: Consult order Polyethylene Glycol (Polyethylene Glycol 3350 17 Gm Powd.Pack) 17 gm PO DAILY [facility] Last Admin: 04/09/22 08:03 Dose: 17 gm Documented by: ALEXIS Pyridoxine HCl (Pyridoxine Hcl (Vitamin B6) 50 Mg Tablet) 50 mg PO DAILY [facility] Last Admin: 04/09/22 08:03 Dose: 50 mg Documented by: ALEXIS Sodium Chloride (0.9 % Sodium Chloride Flush 3 Ml Syringe) 3 ml IVFLUSH QSHIFT [facility] Last Admin: 04/09/22 07:58 Dose: 3 ml Documented by: ALEXIS Thiamine HCl (Thiamine Hcl 100 Mg Tablet) 100 mg PO DAILY [facility] Last Admin: 04/09/22 08:03 Dose: 100 mg Documented by: ALEXIS Labs CBC & Chem 7: 04/08/22 05:52 04/09/22 08:21 Labs: Laboratory Results - last 24 hr 04/07/22 04/08/22 04/09/22 21:07 08:20 08:21 Ammonia 111 H Troponin I High Sens 25.2 H D Urine Eosinophils % 0.0 Microbiology Microbiology Results: Microbiology 04/07/22 19:14 Blood Culture - Preliminary Blood - Venous No growth after 24 hours. 04/07/22 19:14 Blood Culture - Preliminary Blood - Venous No growth after 24 hours. 04/07/22 21:45 Urine Culture - Preliminary Urine Catheterized - Abraham Catheter No growth to date. Assessment and Plan (1) Hypotension: Status: Acute Plan This is a 61-year-old female with history of cirrhosis, substance abuse on methadone who presents to the emergency department with generalized edema found to have JOSEFA JOSEFA with hepatic encephalopathy Creatinine increased from 0.84 on March 28 to 4.96 Has been taking ibuprofen twice daily for the past week which could be contributing versus hepatorenal syndrome vs hypotension Will start treatment for hepatorenal syndrome with octreotide, albumin, midod rine will hold lasix, eplerenone, avoid nephrotoxins Nephrology following and rec urgent dialysis, Tile Finisher placed temporary catheter and pt received dialysis not much change after being dialysized, may need renal biopsy NGT for delivery of Lokelma and lactulose renal us/doppler neg for obstruction HIV, urine studies, CRP, c3,4, lupus pending Liver cirrhosis History of hepatitis-C status post treatment 3 years ago Remote history alcohol use 15 years ago. Denies current etoh use Recently diagnosed at [facility], followed by Dr. Bartlett office has not yet had screening EGD, unknown varices GI consultation hold nadolol for hypotension, lasix for JOSEFA Thrombocytopenia Secondary to liver disease Chronic, at baseline Follow CBC Iron deficiency anemia H/H near baseline Follow CBC Will hold home iron supplementation given degree of constipation, can resume on discharge Hypotension likely in the setting of liver dz hold nadolol, lasix, eplerenone continue albumin follow BP closely Anxiety Continue Atarax DVT prophylaxis-mechanical devices Code status-full code Attending-Dr. Alexander Patient requires continued hospitalization For urgent dialysis and current workup of encephalopathy Quality Stroke Does the patient have a stroke diagnosis?: No VTE Prior VTE?: No VTE Risk Level:: Medical - moderate - high VTE Device Contraindication: N/A - Device Ordered VTE Drug Contraindication: N/A - Med Ordered
[2022-04-09 08:52] LABS: Alanine Aminotransferase 17 U/L (0-31); Albumin Level 5.1 g/dL (3.5-5.0); Alkaline Phosphatase 39 U/L (39-117); Anion Gap 20 (12-20); Aspartate Amino Transferase 32 U/L (5-31); Bilirubin Direct 1.8 mg/dL (0.0-0.5); Bilirubin Total 3.7 mg/dL (0.0-1.0); Blood Urea Nitrogen 59 mg/dL (9-16); Calcium 9.2 mg/dL (8.4-10.2); Carbon Dioxide 16 mmol/L (22-29); Chloride 100 mmol/L (96-108); Creatinine Clr Calc Pharmacy 15.8; Estimated Glomerular Filt Rate 9; Glucose Random 109 mg/dL (60-115); Potassium 5.4 mmol/L (3.3-5.1); Sodium 131 mmol/L (135-145); Total Protein 8.6 g/dL (6.5-8.0)
[2022-04-09] MEDS: Sodium Zirconium Cyclosilicate 10 GM POWD.PACK PO (14:27)
[2022-04-09] MEDS: ondansetron HCL 4 MG/2 ML VIAL IVPUSH (14:28)
--- NOTE | 2022-04-09 14:57 | P.PNNP_ITS ---
Subjective Subjective Date of Service: 04/09/22 Principal diagnosis: JOSEFA, Anasarca, Cirrhiosis Interval history: Seen and examined, events noted currrently on HD remians anuric more awke this am Physical Exam Vital Signs: Vital Signs: Last Vital Signs Temp 96.8 F 04/09/22 07:51 Pulse 44 L 04/09/22 07:51 Resp 16 04/09/22 07:51 BP 96/40 L 04/09/22 07:51 Pulse Ox 92 04/09/22 07:51 BMI result Body Mass Index 49.5 anasarca Const: Other: EXAM: GENERAL: The patient is drowsy VITAL SIGNS:see workflow HEENT: icteric sclerae, PERRLA, EOMI. Oropharynx clear. Moist mucous membranes. Conjunctivae appear well perfused. No thyroid mass. CHEST: Chest wall is nontender. HEART: Regular rate and rhythm without murmurs. LUNGS: Clear to auscultation bilaterally. ABDOMEN: Soft, positive bowel sounds, nontender, no organomegaly.no flank tenderness SKIN: No rash, no excessive bruising, petechiae, or purpura. jaundiced NEUROLOGIC: Cranial nerves II-XII intact without motor/sensory deficit. Psych- slow affect legs swollen pos hand flaps General: cooperative, comfortable, alert and awake Nut ritional Appearance: obese Orientation/consciousness: patient oriented x3 Resp: Effort & Inspection: normal respiratory effort and able to speak in complete sentences Cardio: Rate: bradycardic GI: Inspection: No distended Palpation (GI): Soft to palpation and nontender Percussion: No Fluid wave present Neuro: General: patient oriented x3 Objective Data Labs CBC & Chem 7: 04/08/22 05:52 04/09/22 08:21 Labs: Laboratory Results - last 24 hr 04/09/22 04/09/22 08:21 08:21 Sodium 131 L Potassium 5.4 H Chloride 100 Carbon Dioxide 16 L Anion Gap 20 BUN 59 H Creatinine 4.95 H* Estim Creat Clear Calc 15.8 Estimated GFR 9 Random Glucose 109 Calcium 9.2 Total Bilirubin 3.7 H Direct Bilirubin 1.8 H AST 32 H ALT 17 Alkaline Phosphatase 39 D Ammonia 111 H Total Protein 8.6 H Albumin 5.1 H Microbiology Microbiology Results: Microbiology 04/07/22 21:45 Urine Catheterized - Abraham Catheter Urine Culture - Final No growth. 04/07/22 19:14 Blood - Venous Blood Culture - Preliminary No growth after 24 hours. 04/07/22 19:14 Blood - Venous Blood Culture - Preliminary No growth after 24 hours. Procedures Date of Service Date of Service: 04/09/22 Assessment & Plan Assessment and plan (1) Liver failure: Status: Acute (2) Hyperkalemia: Status: Acute (3) Acute renal failure: Status: Acute (4) Anasarca: Status: Acute Plan 1. JOSEFA: suspect HRS type 1 and/or NSAID assoc acute kidney injury but need to broaden our DDx to AIN, AGN 2. Anasarca d/t cirrhosis and yet no asctes ? 3. AMS: multifact; better today 4. Anemia REC: additional sero studies as noted and will look toward doing kidney Bx early next week, cont lactulose; HD today again and likey again tomorrow Time Spent With Patient Time: Total time spent is greater than 50% in coordination of care (as documented) at patient's floor/unit and/or counseling patient: Progress Note: Quality Stroke Does the patient have a stroke diagnosis?: No
[2022-04-09 15:37] VITALS: BP 107/49; PULSE 43; RESP 17; TEMP 36.1; O2SAT 93
[2022-04-09] MEDS: cefTRIAXone sodium 1 GM in 0.9 % Sodium Chloride 50 ML IV (17:55)
[2022-04-09 20:00] VITALS: BP 116/53; PULSE 51; RESP 18; TEMP 36.2; O2SAT 91
[2022-04-09] MEDS: Multivitamin TABLET 1 TAB PO (21:09)
[2022-04-09 23:14] VITALS: BP 107/47; PULSE 60; RESP 16; TEMP 36.4; O2SAT 92
[2022-04-10] MEDS: Octreotide Acetate 100 MCG/ML AMPUL SUBCUT (03:24)
[2022-04-10 03:40] VITALS: BP 107/51; PULSE 52; RESP 16; TEMP 35.9; O2SAT 95
[2022-04-10] MEDS: Omeprazole 20 MG CAPSULE.DR PO (05:46)
--- NOTE | 2022-04-10 07:23 | MHC.CLN ---
NUTRITION DIET CHANGED FOR DIALYSIS PARAMETERS. DIET=2 GRAM SODIUM, LOW POTASSIUM, LOW PHOSPHORUS.
[2022-04-10 07:57] VITALS: BP 96/51; PULSE 40; RESP 15; TEMP 36.1; O2SAT 96
[2022-04-10] MEDS: 0.9 % Sodium Chloride Flush 3 ML SYRINGE IVFLUSH ×3 (09:02→21:31)
[2022-04-10] MEDS: Magnesium Oxide 400 MG TABLET PO ×2 (09:03→21:31)
[2022-04-10] MEDS: Lactulose 20 GM/30 ML SOLUTION 40 GM PO ×3 (09:04→21:30)
[2022-04-10] MEDS: ondansetron HCL 4 MG/2 ML VIAL IVPUSH (09:15)
--- NOTE | 2022-04-10 09:23 | P.PNIM_ITS ---
Subjective Subjective Date of Service: 04/10/22 <Tana Chavarria NP - Last Filed: 04/10/22 09:27> 04/10/22 <Noe Comer MD - Last Filed: 04/10/22 16:25> Review of Systems Follow up JOSEFA, lethargy, liver cirrhosis More awake but still lethargic <Tana Chavarria NP - Last Filed: 04/10/22 09:27> Physical Exam Vital Signs: Vital Signs: Last Vital Signs Temp 97 F 04/10/22 07:57 Pulse 40 L 04/10/22 07:57 Resp 15 04/10/22 07:57 BP 96/51 L 04/10/22 07:57 Pulse Ox 96 04/10/22 07:57 BMI result Body Mass Index 49.5 <Tana Chavarria NP - Last Filed: 04/10/22 09:27> Appearing in no acute distress lung sounds are clear to auscultation heart regular rate rhythm, clear S1, S2 positive bowel sounds, abdomen is soft, nontender neuro patient is alert x3, no focal deficits <Tana Chavarria NP - Last Filed: 04/10/22 09:27> Objective Data Active Medications Buspirone HCl (Buspirone Hcl 5 Mg Tablet) 5 mg PO BID [facility] Last Admin: 04/10/22 09:03 Dose: 5 mg Documented by: ANNIE Docusate Sodium (Docusate Sodium 100 Mg Capsule) 100 mg PO DAILY PRN PRN Reason: Constipation Folic Acid (Folic Acid 1 Mg Tablet) 1 mg PO DAILY [facility] Last Admin: 04/10/22 09:03 Dose: 1 mg Documented by: ANNIE Hydroxyzine HCl (Hydroxyzine Hcl 10 Mg Tablet) 20 mg PO Q6H PRN PRN Reason: anxiety Ceftriaxone Sodium 1 gm/ (Sodium Chloride) 50 mls @ 100 mls/hr IV Q24H [facility] Last Infusion: 04/09/22 18:33 Dose: 0 mls/hr Documented by: ALEXIS Lactulose (Lactulose 20 Gm/30 Ml Solution) 40 gm PO TID [facility] Last Admin: 04/10/22 09:04 Dose: 40 gm Documented by: ANNIE Magnesium Oxide (Magnesium Oxide 400 Mg Tablet) 400 mg PO BID [facility] Last Admin: 04/10/22 09:03 Dose: 400 mg Documented by: ANNIE Melatonin (Melatonin 3 Mg Tablet) 3 mg PO BEDTIME PRN PRN Reason: Sleep Midodrine (Midodrine Hcl 5 Mg Tablet) 5 mg PO TID [facility] Last Admin: 04/10/22 09:03 Dose: 5 mg Documented by: ANNIE Multivitamins/Vitamin C (Multivitamin Tablet) 1 tab PO BEDTIME [facility] Last Admin: 04/09/22 21:09 Dose: 1 tab Documented by: AL Omeprazole (Omeprazole 20 Mg Capsule.Dr) 20 mg PO DAILY@0630 [facility] Last Admin: 04/10/22 05:46 Dose: 20 mg Documented by: AL Ondansetron HCl (Ondansetron Hcl 4 Mg/2 Ml Vial) 4 mg IVPUSH Q6H PRN PRN Reason: Nausea Last Admin: 04/09/22 14:28 Dose: 4 mg Documented by: ALEXIS Pharmacy Consult (Consult Rx Perform Med Rec) 1 each MISCELLANE ONCE PRN PRN Reason: Consult order Polyethylene Glycol (Polyethylene Glycol 3350 17 Gm Powd.Pack) 17 gm PO DAILY S Last Admin: 04/10/22 09:04 Dose: Not Given Documented by: ANNIE Non-Admin Reason: loose stools Pyridoxine HCl (Pyridoxine Hcl (Vitamin B6) 50 Mg Tablet) 50 mg PO DAILY [facility] Last Admin: 04/10/22 09:03 Dose: 50 mg Documented by: ANNIE Sodium Chloride (0.9 % Sodium Chloride Flush 3 Ml Syringe) 3 ml IVFLUSH QSHIFT [facility] Last Admin: 04/10/22 09:02 Dose: 3 ml Documented by: ANNIE Thiamine HCl (Thiamine Hcl 100 Mg Tablet) 100 mg PO DAILY [facility] Last Admin: 04/10/22 09:03 Dose: 100 mg Documented by: ANNIE <Tana Chavarria NP - Last Filed: 04/10/22 09:27> Labs CBC & Chem 7: : 04/08/22 05:52 04/10/22 09:44 <Tana Chavarria NP - Last Filed: 04/10/22 09:27> Microbiology Microbiology Results: Microbiology 04/07/22 19:14 Blood Culture - Preliminary Blood - Venous No growth after 48 hours. 04/07/22 19:14 Blood Culture - Preliminary Blood - Venous No growth after 48 hours. 04/07/22 21:45 Urine Culture - Final Urine Catheterized - Abraham Catheter No growth. <Tana Chavarria NP - Last Filed: 04/10/22 09:27> Assessment and Plan (1) Hypotension: Status: Acute <Tana Chavarria NP - Last Filed: 04/10/22 09:27> Plan This is a 61-year-old female with history of cirrhosis, substance abuse on methadone who presents to the emergency department with generalized edema found to have JOSEFA JOSEFA with hepatic encephalopathy Creatinine increased from 0.84 on March 28 to 4.96 Has been taking ibuprofen twice daily for the past week which could be contributing versus hepatorenal syndrome vs hypotension Will start treatment for hepatorenal syndrome with octreotide, albumin, midodrine will hold lasix, eplerenone, avoid nephrotoxins Nephrology following and rec urgent dialysis, Director Mortgage placed temporary c atheter and pt received dialysis not much change after being dialysized, may need renal biopsy NGT for delivery of Lokelma and lactulose renal us/doppler neg for obstruction HIV, urine studies, CRP, c3,4, lupus pending Liver cirrhosis History of hepatitis-C status post treatment 3 years ago Remote history alcohol use 15 years ago. Denies current etoh use Recently diagnosed at [facility], followed by Dr. Bartlett office has not yet had screening EGD, unknown varices GI consultation hold nadolol for hypotension, lasix for JOSEFA Thrombocytopenia Secondary to liver disease Chronic, at baseline Follow CBC Iron deficiency anemia H/H near baseline Follow CBC Will hold home iron supplementation given degree of constipation, can resume on discharge Hypotension likely in the setting of liver dz hold nadolol, lasix, eplerenone continue albumin follow BP closely Anxiety Continue Atarax DVT prophylaxis-mechanical devices Code status-full code Attending-Dr. Alexander Patient requires continued hospitalization For urgent dialysis and current workup of encephalopathy <Tana Chavarria NP - Last Filed: 04/10/22 09:27> Quality Stroke Does the patient have a stroke diagnosis?: No <Tana Chavarria NP - Last Filed: 04/10/22 09:27> VTE Prior VTE?: No <Tana Chavarria NP - Last Filed: 04/10/22 09:27> VTE Risk Level:: Medical - moderate - high <Tana Chavarria NP - Last Filed: 04/10/22 09:27> VTE Device Contraindication: N/A - Device Ordered <Tana Chavarria NP - Last Filed: 04/10/22 09:27> VTE Drug Contraindication: N/A - Med Ordered <Tana Chavarria NP - Last Filed: 04/10/22 09:27>
[2022-04-10 10:00] LABS: Ammonia 62 umol/L (13-55)
[2022-04-10 10:27] LABS: Alanine Aminotransferase 17 U/L (0-31); Albumin Level 4.9 g/dL (3.5-5.0); Alkaline Phosphatase 40 U/L (39-117); Anion Gap 18 (12-20); Aspartate Amino Transferase 31 U/L (5-31); Bilirubin Direct 1.7 mg/dL (0.0-0.5); Bilirubin Total 3.5 mg/dL (0.0-1.0); Blood Urea Nitrogen 55 mg/dL (9-16); Calcium 9.2 mg/dL (8.4-10.2); Carbon Dioxide 20 mmol/L (22-29); Chloride 100 mmol/L (96-108); Creatinine Clr Calc Pharmacy 14.7; Estimated Glomerular Filt Rate 8; Glucose Random 108 mg/dL (60-115); Potassium 4.6 mmol/L (3.3-5.1); Sodium 133 mmol/L (135-145); Total Protein 8.5 g/dL (6.5-8.0)
[2022-04-10 11:29] VITALS: BP 93/46; PULSE 41; RESP 15; TEMP 36.1; O2SAT 96
[2022-04-10 13:56] LABS: Prot Elec - Albumin 5.1 g/dL (3.8-4.8); Prot Elec - Alpha1 0.2 g/dL (0.2-0.3); Prot Elec - Alpha2 0.4 g/dL (0.5-0.9); Prot Elec - Beta 1 0.3 g/dL (0.4-0.6); Prot Elec - Beta 2 0.4 g/dL (0.2-0.5); Prot Elec - Gamma 1.8 g/dL (0.8-1.7); Prot Elec - Total Protein 8.3 g/dL (6.1-8.1)
[2022-04-10 15:17] VITALS: BP 100/51; PULSE 42; RESP 17; TEMP 36.6; O2SAT 99
[2022-04-10] MEDS: Midodrine HCl 5 MG TABLET PO ×2 (15:44→21:31)
[2022-04-10] MEDS: bisacodyL 10 MG SUPP.RECT PR (15:45)
--- NOTE | 2022-04-10 17:23 | PM.PNNEP ---
Subjective Subjective Date of Service: 04/10/22 Principal diagnosis: JOSEFA, Anasarca, Cirrhiosis Interval history: Seen and examined, events noted Physical Exam Vital Signs: Vital Signs: Last Vital Signs Temp 98 F 04/10/22 15:17 Pulse 42 L 04/10/22 15:17 Resp 17 04/10/22 15:17 BP 100/51 L 04/10/22 15:17 Pulse Ox 99 04/10/22 15:17 BMI result Body Mass Index 49.5 Const: Other: EXAM: GENERAL: The patient is drowsy VITAL SIGNS:see workflow HEENT: icteric sclerae, PERRLA, EOMI. Oropharynx clear. Moist mucous membranes. Conjunctivae appear well perfused. No thyroid mass. CHEST: Chest wall is nontender. HEART: Regular rate and rhythm without murmurs. LUNGS: Clear to auscultation bilaterally. ABDOMEN: Soft, positive bowel sounds, nontender, no organomegaly.no flank tenderness SKIN: No rash, no excessive bruising, petechiae, or purpura. jaundiced NEUROLOGIC: Cranial nerves II-XII intact without motor/sensory deficit. Psych- slow affect legs swollen pos hand flaps General: cooperative, comfortable, alert and awake Nutritional Appearance: obese Orientation/consciousness: patient oriented x3 Resp: Effort & Inspection: normal respiratory effort and able to speak in complete sentences Cardio: Rate: bradycardic GI: Inspection: No distended Palpation (GI): Soft to palpation and nontender Percussion: No Fluid wave present Neuro: General: patient oriented x3 Objective Data Labs CBC & Chem 7: 04/08/22 05:52 04/10/22 09:44 Labs: Laboratory Results - last 24 hr 04/08/22 04/10/22 04/10/22 21:25 09:44 09:44 Sodium 133 L Potassium 4.6 Chloride 100 Carbon Dioxide 20 L Anion Gap 18 BUN 55 H Creatinine 5.34 H* Estim Creat Clear Calc 14.7 Estimated GFR 8 Random Glucose 108 Calcium 9.2 Total Bilirubin 3.5 H Direct Bilirubin 1.7 H AST 31 ALT 17 Alkaline Phosphatase 40 Ammonia 62 H Total Protein 8.5 H Total Protein (PEP) 8.3 H Albumin 4.9 Albumin (PEP) 5.1 H Pxpks-8-Pglzgnlcq 0.2 Umqcr-0-Qyexfaegt 0.4 L Guzc-1-Kusgzllz 0.3 L Dppu-2-Rpctshiv 0.4 Gamma Globulins 1.8 H PEP Interpretation SEE NOTE Microbiology Microbiology Results: Microbiology 04/07/22 19:14 Blood - Venous Blood Culture - Preliminary No growth after 48 hours. 04/07/22 19:14 Blood - Venous Blood Culture - Preliminary No growth after 48 hours. 04/07/22 21:45 Urine Catheterized - Abraham Catheter Urine Culture - Final No growth. Procedures Date of Service Date of Service: 04/10/22 Assessment & Plan Assessment and plan (1) Liver failure: Status: Acute (2) Hyperkalemia: Status: Acute (3) Acute renal failure: Status: Acute (4) Anasarca: Status: Acute Plan 1. JOSEFA: clinically does NOT seem like HRS type 1 ques ATN and AIN from NSAID but need to broaden our DDx to AIN, AGN 2. Anasarca d/t cirrhosis and yet no asctes ? 3. AMS: multifact; better today 4. Anemia REC: check sero, schedule kidney Bx with IR, HD again tomorrow;avoid NToxins Time Spent With Patient Time: Total time spent is greater than 50% in coordination of care (as documented) at patient's floor/unit and/or counseling patient: Progress Note: Quality Stroke Does the patient have a stroke diagnosis?: No
[2022-04-10] MEDS: cefTRIAXone sodium 1 GM in 0.9 % Sodium Chloride 50 ML IV (17:54)
[2022-04-10 19:11] VITALS: BP 116/55; PULSE 43; RESP 17; TEMP 36.6; O2SAT 99
[2022-04-10] MEDS: busPIRone HCl 5 MG TABLET PO (21:31)
[2022-04-10] MEDS: Multivitamin TABLET 1 TAB PO (21:31)
[2022-04-10 23:13] VITALS: BP 120/48; PULSE 53; RESP 16; TEMP 36.1; O2SAT 92
[2022-04-11] MEDS: Omeprazole 20 MG CAPSULE.DR PO (05:40)
--- NOTE | 2022-04-11 07:00 | CA_ITS ---
Transthoracic Echocardiogram Patient (Last, First, Middle): Gila Chen, Gender: Female Date of : 1960 Age: 61 Procedure Date: 04/11/2022 Procedure Type: Transthoracic Echocardiogram Location: S3E Height: 160.02 cm Weight: 127.01 kg BSA: 2.23 m2 Heart Rate: 42 bpm BP: 120 / 48 mmHg Kiln Transfer Operator: BANDAR Referring MD: Phillip Lopez MD Commercial Sales Consultant: Rodney Razo MD Symptoms: anasarca Study Quality: Technically Difficult ECG Rhythm: Bradycardia Conclusions: - 1. Hyperdynamic LV systolic function with what appears to be grade 3 diastolic dysfunction with elevated left ventricular end diastolic pressure 2. Normal cardiac valvular Doppler 3. Normal RV systolic pressure but significantly elevated right atrial pressures 4. No gross pericardial effusion Findings Procedure Information Contrast agent, definity, is being given per protocol without apparent complications. Left Ventricle Normal left ventricular cavity size. There is normal left ventricular wall thickness. The left ventricular systolic function is hyperdynamic. The visually estimated ejection fraction is >70%. Spectral Doppler is indicative of a reversible restrictive filling pattern. Elevated left ventricular end diastolic pressure. E/E prime ratio is >15, consistent with elevated filling pressures. Evidence suggests grade III (severe) diastolic dysfunction. Right Ventricle Mildly increased right ventricular cavity size. There is borderline right ventricular systolic function. Atria The left atrium is mildly dilated. Interatrial shunt cannot be excluded. The right atrium was not well visualized. Aortic Valve The aortic valve structure and function is likely normal. There is no aortic valve stenosis. There is no aortic valve regurgitation. Mitral Valve There is mild anterior and posterior mitral leaflet thickening. There is trace mitral valve regurgitation. There is no mitral valve stenosis. Pulmonic Valve The pulmonic valve was not well visualized. Tricuspid Valve The tricuspid valve was not well visualized. There is trace tricuspid valve regurgitation. The right ventricular systolic pressure is normal. Significantly elevated right atrial pressure. Great Vessels All visible segments of the aorta are normal in size. The pulmonary artery was not well visualized. Venous The inferior vena cava is mildly dilated and does not collapse with inspiration. Pericardium/Pleural There is no evidence of pericardial effusion. Prior Study Comparison No prior study available for comparison. Measurements 2D Linear Measurements IVSd: 0.69 0.6-0.9/0.6-1.0 cm LVIDd: 5.07 3.9-5.3/4.2-5.9 cm LVIDd Index: 2.27 2.4-3.2/2.2-3.1 cm/m2 LVIDs: 2.88 2.0-3.6 cm LVPWd: 0.73 0.7-1.1 cm LA Diam: 4.10 2.7-3.8/3.0-4.0 cm LAIDs Index: 1.84 1.5-2.3 cm/m2 LV Mass: 148.63 67-162/88-224 g LV Mass Index: 66.65 43-95/49-115 g/m2 LVOT Diam: 1.60 3.0+(-)1.3 cm 2D Systolic Function EF 4C: 71.20 >55% EF 2C: 86.70 >55% EF BiP: 80.70 >55% Mitral Valve MV Pk E: 1.04 MV PK A: 0.54 MV Decel Time: 286.00 E/A: 1.90 E'Medial: 5.55 E/E' Med: 18.70 PHT: 84.00 MVA PHT: 2.62 Decel [place]: 3.62 Aortic Valve AoV Pk Trevor: 1.96 AoV Mn Trevor: 1.27 AoV VTI: 0.48 AoV Pk Grad: 15.00 Aov Mn Grad: 7.00 RUSTY Cont.VTI: 1.90 LVOT LVOT Pk Trevor: 1.73 LVOT Mn Trevor: 1.09 LVOT VTI: 0.45 LVOT Pk Grad: 12.00 LVOT Mn Grad: 6.00 LVOT Diam: 1.60 LVOT Area: 2.01 Diastolic Function MV Pk E: 1.04 MV Pk A: 0.54 E/A: 1.90 E'Medial: 5.55 E/E' Med: 18.70 Right Ventricle TVS' Trevor: 15.00 Tricuspid Valve TR Pk Trevor: 1.70 TR Pk Grad: 12.00 RA Press: 15.00 Great Vessels Aorta Sinus of Valsalva: 2.17 2.0-3.5 cm Ao Asc: 2.70 2.1-3.4 cm Pulmonary Veins Pulm Vein S/D 0.60 Pulmonary Valve PV Pk Trevor: 0.85 Peak PV Grad: 3.00 Updated in Other Vendor System with Status of Final Rodney Razo MD electronically signed on 04/11/2022 6:16:38 PM with status of Final
[2022-04-11 08:00] VITALS: BP 103/56; PULSE 44; RESP 17; TEMP 36.3; O2SAT 94
[2022-04-11 08:05] LABS: HIV AB/AG Nonreactive (Nonreactive); HIV Num 1 0.09 S/CO (0.00-0.99)
[2022-04-11 08:06] LABS: HBS Num1 335.82 mIU/mL (0-7.99); HBc Num1 0.19 S/CO (0.00-0.79); HBsAGNum1 0.24 S/CO (0.00-0.99); Hepatitis B Core Antibody Nonreactive (Nonreactive); Hepatitis B Surface Antigen Negative (Negative); ~Hepatitis B Surface Antibody REACTIVE (Nonreactive); ~Hepatitis C Antibody Reactive (Nonreactive)
--- NOTE | 2022-04-11 08:45 | HO.PM.IMPN ---
Subjective Subjective Date of Service: 04/11/22 Review of Systems Follow up JOSEFA, lethargy, liver cirrhosis More awake, feeling better had a visit with her family feels like something stuck in her throat Physical Exam Vital Signs: Vital Signs: Last Vital Signs Temp 97.3 F 04/11/22 08:00 Pulse 44 L 04/11/22 08:00 Resp 17 04/11/22 08:00 BP 103/56 L 04/11/22 08:00 Pulse Ox 94 04/11/22 08:00 BMI result Body Mass Index 49.5 Appearing in no acute distress lung sounds are clear to auscultation heart regular rate rhythm, clear S1, S2 positive bowel sounds, abdomen is soft, nontender neuro patient is alert x3, no focal deficits NGT in place Objective Data Active Medications Buspirone HCl (Buspirone Hcl 5 Mg Tablet) 5 mg PO BID [facility] Last Admin: 04/10/22 21:31 Dose: 5 mg Documented by: AL Docusate Sodium (Docusate Sodium 100 Mg Capsule) 100 mg PO DAILY PRN PRN Reason: Constipation Folic Acid (Folic Acid 1 Mg Tablet) 1 mg PO DAILY [facility] Last Admin: 04/10/22 14:42 Dose: Not Given Documented by: ANNIE Non-Admin Reason: NG tube blocked Hydroxyzine HCl (Hydroxyzine Hcl 10 Mg Tablet) 20 mg PO Q6H PRN PRN Reason: anxiety Ceftriaxone Sodium 1 gm/ (Sodium Chloride) 50 mls @ 100 mls/hr IV Q24H [facility] Last Infusion: 04/10/22 19:34 Dose: 0 mls/hr Documented by: ANNIE Lactulose (Lactulose 20 Gm/30 Ml Solution) 40 gm PO TID [facility] Last Admin: 04/10/22 21:30 Dose: 40 gm Documented by: LA Magnesium Oxide (Magnesium Oxide 400 Mg Tablet) 400 mg PO BID [facility] Last Admin: 04/10/22 21:31 Dose: 400 mg Documented by: AL Melatonin (Melatonin 3 Mg Tablet) 3 mg PO BEDTIME PRN PRN Reason: Sleep Midodrine (Midodrine Hcl 5 Mg Tablet) 5 mg PO TID [facility] Last Admin: 04/10/22 21:31 Dose: 5 mg Documented by: AL Multivitamins/Vitamin C (Multivitamin Tablet) 1 tab PO BEDTIME [facility] Last Admin: 04/10/22 21:31 Dose: 1 tab Documented by: AL Omeprazole (Omeprazole 20 Mg Capsule.) 20 mg PO DAILY@0630 [facility] Last Admin: 04/11/22 05:40 Dose: 20 mg Documented by: AL Ondansetron HCl (Ondansetron Hcl 4 Mg/2 Ml Vial) 4 mg IVPUSH Q6H PRN PRN Reason: Nausea Last Admin: 04/10/22 09:15 Dose: 4 mg Documented by: ANNIE Pharmacy Consult (Consult Rx Perform Med Rec) 1 each MISCELLANE ONCE PRN PRN Reason: Consult order Polyethylene Glycol (Polyethylene Glycol 3350 17 Gm Powd.Pack) 17 gm PO DAILY [facility] Last Admin: 04/10/22 09:04 Dose: Not Given Documented by: ANNIE Non-Admin Reason: loose stools Pyridoxine HCl (Pyridoxine Hcl (Vitamin B6) 50 Mg Tablet) 50 mg PO DAILY [facility] Last Admin: 04/10/22 14:42 Dose: Not Given Documented by: ANNIE Non-Admin Reason: NG tube blocked Sodium Chloride (0.9 % Sodium Chloride Flush 3 Ml Syringe) 3 ml IVFLUSH QSHIFT [facility] Last Admin: 04/10/22 21:31 Dose: 3 ml Documented by: AL Thiamine HCl (Thiamine Hcl 100 Mg Tablet) 100 mg PO DAILY [facility] Last Admin: 04/10/22 14:42 Dose: Not Given Documented by: ANNIE Non-Admin Reason: NG tube blocked Labs CBC & Chem 7: 04/08/22 05:52 04/10/22 09:44 Labs: Laboratory Results - last 24 hr 04/08/22 04/10/22 04/10/22 21:25 09:44 09:44 Anion Gap 18 Estim Creat Clear Calc 14.7 Estimated GFR 8 Random Glucose 108 Calcium 9.2 Total Bilirubin 3.5 H Direct Bilirubin 1.7 H AST 31 ALT 17 Alkaline Phosphatase 40 Ammonia 62 H Total Protein 8.5 H Total Protein (PEP) 8.3 H Albumin 4.9 Albumin (PEP) 5.1 H Lxlpu-8-Uqfdnzuxy 0.2 Hheqs-9-Qfbllwapv 0.4 L Iizy-3-Nchtzgcm 0.3 L Vbcn-4-Lhrjdpkz 0.4 Gamma Globulins 1.8 H Abnorm Protein Band 1 TNP Abnorm Protein Band 2 TNP Abnorm Protein Band 3 TNP PEP Interpretation SEE NOTE Assessment and Plan (1) Hypotension: Status: Acute Plan This is a 61-year-old female with history of cirrhosis, substance abuse on methadone who presents to the emergency department with generalized edema found to have JOSEFA Throat pain had eggs and feels like they are stuck swallow evaluation JOSEFA with hepatic encephalopathy Looking much better and more awake Creatinine increased from 0.84 on March 28 to 4.96 Has been taking ibuprofen twice daily for the past week which could be contributing versus hepatorenal syndrome vs hypotension treatment for hepatorenal syndrome with octreotide, albumin, midodrine stopped although midodrine is continued for hypotension will hold lasix, eplerenone, avoid nephrotoxins Nephrology following and rec urgent dialysis, Customer Care Agent placed temporary catheter and pt received dialysis not much change after being dialysized NGT for delivery of Lokelma and lactulose, will dc as patient is more awake renal us/doppler neg for obstruction HIV, urine studies, CRP, c3,4, lupus pending renal biopsy ordered Liver cirrhosis History of hepatitis-C status post treatment 3 years ago Remote history alcohol use 15 years ago. Denies current etoh use Recently diagnosed at , followed by Dr. Bartlett office has not yet had screening EGD, unknown varices GI consultation hold nadolol for hypotension, lasix for JOSEFA Thrombocytopenia Secondary to liver disease Chronic, at baseline Follow CBC Iron deficiency anemia H/H near baseline Follow CBC Will hold home iron supplementation given degree of constipation, can resume on discharge Hypotension likely in the setting of liver dz hold nadolol, lasix, eplerenone continue albumin follow BP closely Anxiety Continue Atarax DVT prophylaxis-mechanical devices Code status-full code Attending-Dr. Carter Patient requires continued hospitalization For urgent dialysis and current workup of encephalopathy Quality Stroke Does the patient have a stroke diagnosis?: No VTE Prior VTE?: No VTE Risk Level:: Medical - moderate - high VTE Device Contraindication: N/A - Device Ordered VTE Drug Contraindication: N/A - Med Ordered
[2022-04-11] MEDS: Pyridoxine HCl (Vitamin B6) 50 MG TABLET PO (09:24)
[2022-04-11] MEDS: Magnesium Oxide 400 MG TABLET PO ×2 (09:24→21:33)
[2022-04-11] MEDS: Midodrine HCl 5 MG TABLET PO ×3 (09:24→21:33)
[2022-04-11] MEDS: Thiamine HCL 100 MG TABLET PO (09:24)
[2022-04-11] MEDS: Heparin Sodium,Porcine 5,000 UNIT/ML VIAL 5000 UNIT SUBCUT ×2 (09:24→21:33)
[2022-04-11] MEDS: busPIRone HCl 5 MG TABLET PO ×2 (09:24→21:33)
[2022-04-11] MEDS: Lactulose 20 GM/30 ML SOLUTION 40 GM PO ×3 (09:24→21:33)
[2022-04-11] MEDS: polyethylene glycoL 3350 17 GM POWD.PACK PO (09:25)
[2022-04-11] MEDS: Folic Acid 1 MG TABLET PO (09:25)
[2022-04-11] MEDS: 0.9 % Sodium Chloride Flush 3 ML SYRINGE IVFLUSH (09:25)
[2022-04-11 09:36] LABS: Ammonia 32 umol/L (13-55)
[2022-04-11 09:43] LABS: Alanine Aminotransferase 19 U/L (0-31); Albumin Level 4.7 g/dL (3.5-5.0); Alkaline Phosphatase 43 U/L (39-117); Anion Gap 19 (12-20); Aspartate Amino Transferase 34 U/L (5-31); Bilirubin Direct 1.7 mg/dL (0.0-0.5); Bilirubin Total 3.3 mg/dL (0.0-1.0); Blood Urea Nitrogen 65 mg/dL (9-16); Calcium 9.3 mg/dL (8.4-10.2); Carbon Dioxide 21 mmol/L (22-29); Chloride 103 mmol/L (96-108); Creatinine Clr Calc Pharmacy 12.4; Estimated Glomerular Filt Rate 7; Glucose Random 97 mg/dL (60-115); Potassium 4.5 mmol/L (3.3-5.1); Sodium 138 mmol/L (135-145); Total Protein 8.4 g/dL (6.5-8.0)
--- NOTE | 2022-04-11 11:34 | MHC.SL.SWA ---
Speech Pathologist Impression: Risk of Aspiration Due to: Medically Fragile Dysphasia Diet Status: Oral phase dysphagia secondary to edentulous state. Liquid Consistency and Strategies for Safe Swallow: Liquid Intake Recommendation: Thin Liquid Intake Strategies: Unrestricted Solid Food Consistency: Dietary Recommendations: Chopped/Advanced (NDD3) Additional Modifications to Solid Foods: Avoid difficult to chew solids. Oral Medication Intake: Whole with Liquid Please contact the pharmacy regarding appropriate crushable or liquid drug formulations that are available whenever modified delivery is recommended. Compensatory Strategies and Precautions to be Taken for Safe Swallow: Sitting Upright (90 deg) Liquids from Cup Liquids from Straw Small Bites and Sips Alternate Liquids/Solids Supervision While Eating and Drinking for Safe Swallow: Intermittent Supervision Foods to Avoid: Difficult to chew solids Swallowing Recommended Treatments: Recommendation for Speech: Inpatient Speech Therapy Comment: Pt reports that lump in throat sensation when swallowing has improved since NG tube was removed, but still has minor throat irritation from it. Pt is edentulous, does not have dentures in hospital, and habitually doesn't used them for eating at home. Pt's regular diet is soft, as she has difficulty masticating tough or crunchy solids. Pt tolerated thin liquids by cup sip and straw with no clinical signs of aspiration, and was observed having puree consistency with all phases of swallow wnl. Pt declined more advanced consistencies this morning, but would recommend diet similar to what PT described as her baseline: Chopped/Advanced (NDD2) with THIN LIQUIDS unrestricted, with Pills Whole in PUREE or with liquid based on what PT finds most comfortable. MD, Training Lead advised by secure text of recommendations and discussed with Nursing at bedside. Recommend 1 f/u for toleration of diet. Frequency/Duration: 1 f/u by PSYCHIATRY INSTRUCTOR Date Range for Service Req: Timeline to reassess: Family Nurse Practitioner Clinican/Clinical Fellow: No Supervisory Statement: I have reviewed and agree with the student/clinical fellow's documentation: N/A Speech Language Pathologist: Marcia Andino M.A., [facility]-PSYCHIATRY INSTRUCTOR
[2022-04-11 11:41] VITALS: BP 100/47; PULSE 45; RESP 17; TEMP 36; O2SAT 96
[2022-04-11 13:32] LABS: Complement C3 49 mg/dL (83-193)
--- NOTE | 2022-04-11 13:39 | CONS_ITS ---
DATE OF SERVICE: 04/07/2022 REASON FOR CONSULTATION: I was asked to see patient to assist in evaluation and management of patient's acute kidney injury as reflected by a BUN and creatinine today of 65 and 4.0, whereas on March 28 her BUN and creatinine were 16 and 0.84. HISTORY OF PRESENT ILLNESS: In summary, the patient is a 61-year-old female who presents to the hospital complaining of increasing lower extremity swelling that has gotten progressively worse over the past several weeks and she states that she has gained over 100 pounds over the past 3 months, and in particular, 115 pounds over the past 2 to 3 weeks. Records indicate that she was at [facility] with a similar finding of increasing swelling, and at that time, was apparently diagnosed with liver cirrhosis. There is remote history of heavy alcohol use, but she has not been using alcohol for over 6 months per patient and her . She apparently has been seen as an outpatient on February 13 in the GI office and there was discussion about using lactulose and the need for scoping procedure to look for esophageal varices. She has also been seen by Dr. Sorensen for thrombocytopenia, which again was thought to be due to her liver disease. On March 28, she had blood work done which showed a normal renal function. The patient apparently was having some generalized aches and pains of her back and shoulder and started taking ibuprofen routinely 600 mg twice a day for the past week. She now presents to the hospital again with as mentioned generalized anasarca, weight gain, and noted to have renal failure with a creatinine of 4.0, and systolic blood pressures in the 80s. Patient denies any nausea, vomiting, fever, sweats, or chills. No gross hematuria or dysuria, but does note decreased urine output over the past several days and again the generalized swelling. PAST MEDICAL HISTORY: Notable for alcohol use in the past. There is mention made of liver cirrhosis, felt to be due to alcohol. There is mention made of a history of substance abuse, although details are unclear. She has had 2 back surgeries and chronic back pain, obesity. She has the anemia and splenomegaly as well. She is status post hysterectomy. MEDICATIONS: Her medications on admission are listed as including BuSpar, folate, Atarax, lactulose, nadolol, and she apparently was taking the ibuprofen as mentioned. Her list of outpatient medications, I do not see diuretics listed. Her current medications are noted in the MAR. ALLERGIES: SHE HAS ALLERGIES TO IV DYE AND SHELLFISH. SOCIAL HISTORY: Notable for the alcohol history in the past and there is a question of some illicit drug use, although it is unclear and she has had heavy NSAID use over the past week at least. FAMILY HISTORY: Noncontributory. PHYSICAL EXAMINATION: VITAL SIGNS: Blood pressure in the 70s to 100 and diastolics in 30s to 40s. She has a Abraham catheter, essentially no urine output yet. Her room air saturations . GENERAL: She is obese with generalized anasarca. LUNGS: Decreased breath sounds. CARDIAC: Regular rate and rhythm. ABDOMEN: Again, obese, soft, nontender. EXTREMITIES: Shows 3+ edema up to the thighs bilaterally. LABORATORY DATA: Labs from today show sodium 135, potassium 5.3, chloride 103, bicarb 18, BUN 65, creatinine 4.0. On March 28 BUN and creatinine were 16 and 0.4. Her total bilirubin 3.1, AST of 47, ALT of 25, alkaline phosphatase of 60, total protein 7.9, albumin 3.5, TSH 1.86. Hemoglobin 9.5, hematocrit 29.7, white blood cell count of 8.4, platelet count . PT of 15.9, INR 1.4. There is an ammonia level from the which was 9. She had a CAT scan done, which showed no hydro or mass . There is mention in the CAT scan, the liver normal in size. IMPRESSION: OLIGURIC ACUTE KIDNEY INJURY IN A PATIENT WITH PRESUMED LIVER CIRRHOSIS, HEAVY NSAID USE, MARKED FLUID OVERLOAD AND LOW BLOOD PRESSURES. 1. Oliguric acute kidney injury. Most likely this is multifactorial, includes underlying liver cirrhosis and heavy NSAID use. Liver cirrhosis can be associated with renal hypoperfusion from hepatorenal syndrome, which she is certainly at risk for. NSAIDs can further attenuate renal perfusion and may be playing a significant contributing role. Other possibilities such as acute interstitial nephritis, acute pyelonephritis need to be ruled, but seem unlikely. I feel obstruction seems unlikely given the fact there is no hydro on the CAT scan. 2. Anasarca with moderate fluid overload. This is presumably due to her liver cirrhosis. 3. Low blood pressure. Again, presumably due to her liver cirrhosis. Cardiac dysfunction needs to be ruled out. 4. Thrombocytopenia and anemia. Again, it is most likely due to splenomegaly. There would be a remote possibility that she could have a thrombotic microangiopathy as a cause of her low platelets and acute kidney injury. However, this seems unlikely platelets. 5. Liver cirrhosis. She is labeled as having alcoholic liver cirrhosis, although denies any heavy alcohol history recently. Apparently in the remote past, she had a heavy alcohol history. 6. Splenomegaly. Again felt to be due to liver cirrhosis. SUGGESTIONS: At this time include aggressive treatment to try and increase her renal perfusion by using IV albumin along with midodrine and octreotide for the possibility of hepatorenal syndrome. Obtain a urinalysis and spot urine studies. Avoid nephrotoxins. She may need ICU admission for pressors if her blood pressure does not come up with midodrine. I am reluctant to give her IV normal saline given her markedly volume overloaded state. We will do serologies and urine studies to rule out other causes for acute kidney injury, which seem less likely. A presumptive diagnosis hepatorenal syndrome type 1 is included because of her clinical presentation of low blood pressures. We will treat her for as well as monitor renal function off the NSAIDs. If her renal function worsens further, we will consider transfer to a liver transplant program. She needs GI evaluation as well as a cardiac echo. We will follow the patient closely with the team. MD ANDREI George/RAVEN / [id number]
[2022-04-11 14:10] VITALS: BP 100/47; PULSE 45; O2SAT 96
[2022-04-11 14:42] LABS: Myeloperoxidase Antibody <1.0 AI; Proteinase 3 PR3 Antibodies <1.0 AI
[2022-04-11 15:22] LABS: Creatinine Urine 174.16 mg/dL; Potassium Urine Random 43.8 mmol/L
[2022-04-11 16:00] VITALS: BP 113/50; PULSE 46; RESP 16; TEMP 36.6; O2SAT 91
--- NOTE | 2022-04-11 17:51 | PM.PNNEP ---
Subjective Subjective Date of Service: 04/11/22 Principal diagnosis: JOSEFA, Anasarca, Cirrhiosis Interval history: Chart Reviewed. Events noted. Physical Exam Vital Signs: Vital Signs: Last Vital Signs Temp 97.8 F 04/11/22 16:00 Pulse 46 L 04/11/22 16:00 Resp 16 04/11/22 16:00 BP 113/50 L 04/11/22 16:00 Pulse Ox 91 L 04/11/22 16:00 BMI result Body Mass Index 49.5 Const: General: no acute distress HEENT: Head: Yes normocephalic Neck: Neck: Yes no JVD Resp: Auscultation: clear to auscultation bilaterally Cardio: Jugular venous distension: no JVD Rate: regular rate Rhythm: regular rhythm GI: Auscultation: normal bowel sounds Neuro: Other: Alert Extrem: General: Yes no joint enlargement Objective Data Labs CBC & Chem 7: 04/08/22 05:52 04/11/22 09:09 Labs: Laboratory Results - last 24 hr 04/07/22 04/08/22 04/08/22 21:07 20:55 21:25 Sodium Potassium Chloride Carbon Dioxide Anion Gap BUN Creatinine Estim Creat Clear Calc Estimated GFR Random Glucose Calcium Total Bilirubin Direct Bilirubin AST ALT Alkaline Phosphatase Ammonia Total Protein Albumin Abnorm Protein Band 1 Abnorm Protein Band 2 Abnorm Protein Band 3 Ur Random Sodium Ur Random Potassium Ur Random Chloride Urine Creatinine Proteinase 3 (PR3) Ab Myeloperoxidase Ab Complement C3 49 L Complement C4 6 L Hep Bs Antigen Negative Hep Bs Antibody REACTIVE Hep B Core Total Ab Nonreactive Hepatitis C Ab (EIA) Reactive H HIV 1&2 Ab/P24 Ag 4thGn Nonreactive 04/08/22 04/08/22 04/11/22 21:25 21:25 09:09 Sodium 138 Potassium 4.5 Chloride 103 Carbon Dioxide 21 L Anion Gap 19 BUN 65 H Creatinine 6.32 H* Estim Creat Clear Calc 12.4 Estimated GFR 7 Random Glucose 97 Calcium 9.3 Total Bilirubin 3.3 H Direct Bilirubin 1.7 H AST 34 H ALT 19 Alkaline Phosphatase 43 Ammonia Total Protein 8.4 H Albumin 4.7 Abnorm Protein Band 1 TNP Abnorm Protein Band 2 TNP Abnorm Protein Band 3 TNP Ur Random Sodium Ur Random Potassium Ur Random Chloride Urine Creatinine Proteinase 3 (PR3) Ab <1.0 Myeloperoxidase Ab <1.0 Complement C3 Complement C4 Hep Bs Antigen Hep Bs Antibody Hep B Core Total Ab Hepatitis C Ab (EIA) HIV 1&2 Ab/P24 Ag 4thGn 04/11/22 04/11/22 09:09 14:10 Sodium Potassium Chloride Carbon Dioxide Anion Gap BUN Creatinine Estim Creat Clear Calc Estimated GFR Random Glucose Calcium Total Bilirubin Direct Bilirubin AST ALT Alkaline Phosphatase Ammonia 32 Total Protein Albumin Abnorm Protein Band 1 Abnorm Protein Band 2 Abnorm Protein Band 3 Ur Random Sodium 50.0 Ur Random Potassium 43.8 Ur Random Chloride 35.0 Urine Creatinine 174.16 Proteinase 3 (PR3) Ab Myeloperoxidase Ab Complement C3 Complement C4 Hep Bs Antigen Hep Bs Antibody Hep B Core Total Ab Hepatitis C Ab (EIA) HIV 1&2 Ab/P24 Ag 4thGn Microbiology Microbiology Results: Microbiology 04/07/22 19:14 Blood - Venous Blood Culture - Preliminary No growth after 48 hours. 04/07/22 19:14 Blood - Venous Blood Culture - Preliminary No growth after 48 hours. 04/07/22 21:45 Urine Catheterized - Abraham Catheter Urine Culture - Final No growth. Procedures Date of Service Date of Service: 04/11/22 Assessment & Plan Assessment and plan (1) Acute renal failure: Status: Acute (2) Hyperkalemia: Status: Acute (3) Liver failure: Status: Acute Plan 1. JOSEFA: clinically does NOT seem like HRS type 1 ques ATN and AIN from? NSAID? but need to broaden our DDx to AIN, AGN 2. Anasarca d/t cirrhosis and yet no asctes ? 3. AMS: multifact; better today 4. Anemia REC: serologies pending, cryo added. f/u renal biopsy HD today monitor uop, monitor for renal recovery. Time Spent With Patient Time: Total time spent is greater than 50% in coordination of care (as documented) at patient's floor/unit and/or counseling patient: Progress Note: Quality Stroke Does the patient have a stroke diagnosis?: No
[2022-04-11] MEDS: cefTRIAXone sodium 1 GM in 0.9 % Sodium Chloride 50 ML IV (18:44)
[2022-04-11 19:36] VITALS: BP 120/59; PULSE 48; RESP 16; TEMP 36.3; O2SAT 90
[2022-04-11] MEDS: Multivitamin TABLET 1 TAB PO (21:33)
[2022-04-11 23:32] VITALS: BP 110/63; PULSE 46; RESP 18; TEMP 36.5; O2SAT 91
[2022-04-12] MEDS: 0.9 % Sodium Chloride Flush 3 ML SYRINGE IVFLUSH ×4 (00:19→20:40)
[2022-04-12 03:59] VITALS: BP 99/46; PULSE 45; RESP 20; TEMP 36.5; O2SAT 94
[2022-04-12] MEDS: Omeprazole 20 MG CAPSULE.DR PO (05:49)
[2022-04-12 07:28] LABS: Alanine Aminotransferase 17 U/L (0-31); Albumin Level 4.4 g/dL (3.5-5.0); Alkaline Phosphatase 44 U/L (39-117); Aspartate Amino Transferase 32 U/L (5-31); Bilirubin Direct 1.5 mg/dL (0.0-0.5); Total Protein 7.9 g/dL (6.5-8.0)
[2022-04-12 07:34] LABS: Anion Gap 17 (12-20); Blood Urea Nitrogen 67 mg/dL (9-16); Calcium 9.1 mg/dL (8.4-10.2); Carbon Dioxide 20 mmol/L (22-29); Chloride 104 mmol/L (96-108); Creatinine Clr Calc Pharmacy 12.8; Estimated Glomerular Filt Rate 7; Glucose Random 92 mg/dL (60-115); Potassium 3.6 mmol/L (3.3-5.1); Sodium 137 mmol/L (135-145)
[2022-04-12 07:54] VITALS: BP 125/58; PULSE 50; RESP 19; TEMP 36.3; O2SAT 95
[2022-04-12 08:03] LABS: EOS Counted 0 CELLS; EOS QC POS YES; EOS Stain Quality OK YES; WBC, Counted 100 CELLS
[2022-04-12] MEDS: Lactulose 20 GM/30 ML SOLUTION 40 GM PO ×2 (09:59→20:39)
--- NOTE | 2022-04-12 11:21 | MHC.CM.PN ---
Per ROUNDS discussion, Patient is not yet medically cleared for dc (Urgent HD, IV Ceftriaxone);PT rec STR and CM will continue to follow.
--- NOTE | 2022-04-12 12:16 | MHC.SLORD ---
Speech Language Pathology Order Status: Patient seen yesterday for BDE and recommended chopped diet (NDD3) d/t edentulous state with thin liquids. Attempted to see patient x2 this morning to f/u- Patient off floor, unavailable. Plan for 1 f/u to ensure tolerance.
[2022-04-12 14:41] LABS: IgA 700 mg/dL (47-310); IgG 1567 mg/dL (600-1640); IgM 314 mg/dL (50-300)
[2022-04-12 14:41] LABS: CRP High Sensitivity 8.7 mg/L
[2022-04-12 15:26] VITALS: BP 107/46; PULSE 48; RESP 14; TEMP 37; O2SAT 94
--- NOTE | 2022-04-12 15:32 | P.PNIM_ITS ---
Subjective Subjective Date of Service: 04/13/22 Interval History: Receiving hemodialysis, complaining of upper back discomfort, feeling hot and shortness of breath, denies fever chills, no acute events overnight. 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 CVS regular rate rhythm, Respiratory lungs clear to auscultation, no respiratory distress, no wheeze, no rhonchi. Gastrointestinal abdomen soft, nontender, bowel sounds audible Extremities bilateral pitting edema Neuro nonfocal , speech clear. Skin no rash Psych appropriate affect Objective Data Active Medications Buspirone HCl (Buspirone Hcl 5 Mg Tablet) 5 mg PO BID [facility] Last Admin: 04/12/22 10:10 Dose: Not Given Documented by: ALEXIS Non-Admin Reason: Off unit: Dialysis Docusate Sodium (Docusate Sodium 100 Mg Capsule) 100 mg PO DAILY PRN PRN Reason: Constipation Folic Acid (Folic Acid 1 Mg Tablet) 1 mg PO DAILY [facility] Last Admin: 04/12/22 10:10 Dose: Not Given Documented by: ALEXIS Non-Admin Reason: Off unit: Dialysis Heparin Sodium (Porcine) (Heparin Sodium,Porcine 5,000 Unit/Ml Vial) 5,000 unit SUBCUT Q12H [facility] Last Admin: 04/12/22 10:10 Dose: Not Given Documented by: ALEXIS Non-Admin Reason: Off unit: Dialysis Hydroxyzine HCl (Hydroxyzine Hcl 10 Mg Tablet) 20 mg PO Q6H PRN PRN Reason: anxiety Ceftriaxone Sodium 1 gm/ (Sodium Chloride) 50 mls @ 100 mls/hr IV Q24H [facility] Last Infusion: 04/11/22 19:28 Dose: 0 mls/hr Documented by: ELIJAH Lactulose (Lactulose 20 Gm/30 Ml Solution) 40 gm PO TID [facility] Last Admin: 04/12/22 09:59 Dose: 40 gm Documented by: ALEXIS Magnesium Oxide (Magnesium Oxide 400 Mg Tablet) 400 mg PO BID [facility] Last Admin: 04/12/22 10:10 Dose: Not Given Documented by: ALEXIS Non-Admin Reason: Off unit: Dialysis Melatonin (Melatonin 3 Mg Tablet) 3 mg PO BEDTIME PRN PRN Reason: Sleep Midodrine (Midodrine Hcl 5 Mg Tablet) 5 mg PO TID [facility] Last Admin: 04/12/22 10:10 Dose: Not Given Documented by: ALEXIS Non-Admin Reason: Off unit: Dialysis Multivitamins/Vitamin C (Multivitamin Tablet) 1 tab PO BEDTIME [facility] Last Admin: 04/11/22 21:33 Dose: 1 tab Documented by: ELIJAH Omeprazole (Omeprazole 20 Mg Capsule.) 20 mg PO DAILY@0630 [facility] Last Admin: 04/12/22 05:49 Dose: 20 mg Documented by: CRISTELA Ondansetron HCl (Ondansetron Hcl 4 Mg/2 Ml Vial) 4 mg IVPUSH Q6H PRN PRN Reason: Nausea Last Admin: 04/10/22 09:15 Dose: 4 mg Documented by: ANNIE Pharmacy Consult (Consult Rx Perform Med Rec) 1 each MISCELLANE ONCE PRN PRN Reason: Consult order Polyethylene Glycol (Polyethylene Glycol 3350 17 Gm Powd.Pack) 17 gm PO DAILY [facility] Last Admin: 04/12/22 10:10 Dose: Not Given Documented by: ALEXIS Non-Admin Reason: Off unit: Dialysis Pyridoxine HCl (Pyridoxine Hcl (Vitamin B6) 50 Mg Tablet) 50 mg PO DAILY [facility] Last Admin: 04/12/22 10:10 Dose: Not Given Documented by: ALEXIS Non-Admin Reason: Off unit: Dialysis Sodium Chloride (0.9 % Sodium Chloride Flush 3 Ml Syringe) 3 ml IVFLUSH QSHIFT [facility] Last Admin: 04/12/22 09:59 Dose: 3 ml Documented by: ALEXIS Thiamine HCl (Thiamine Hcl 100 Mg Tablet) 100 mg PO DAILY [facility] Last Admin: 04/12/22 10:11 Dose: Not Given Documented by: ALEXIS Non-Admin Reason: Off unit: Dialysis Labs CBC & Chem 7: 04/13/22 06:06 04/13/22 06:06 Labs: Laboratory Results - last 24 hr 04/08/22 04/10/22 04/11/22 21:25 05:44 14:10 Anion Gap Estim Creat Clear Calc Estimated GFR Random Glucose Calcium Total Bilirubin Direct Bilirubin AST ALT Alkaline Phosphatase C-React Prot High Sens 8.7 H Total Protein Albumin Urine Eosinophils % 0.0 IgG Total 1567 IgA Total 700 H IgM 314 H OMERO Interpretation 04/12/22 04/12/22 06:44 06:44 Anion Gap 17 Estim Creat Clear Calc 12.8 Estimated GFR 7 Random Glucose 92 Calcium 9.1 Total Bilirubin 3.0 H Direct Bilirubin 1.5 H AST 32 H ALT 17 Alkaline Phosphatase 44 C-React Prot High Sens Total Protein 7.9 Albumin 4.4 Urine Eosinophils % IgG Total IgA Total IgM OMERO Interpretation Assessment and Plan (1) Hypotension: Status: Acute Plan This is a 61-year-old female with history of cirrhosis, substance abuse on methadone who presents to the emergency department with generalized edema found to have JOSEFA Dysphagia Seen by speech therapy and they place patient on chopped advanced diet speech therapy will continue to follow. Acute toxic metabolic encephalopathy Resolved,Likely related to uremia DC IV ceftriaxone no infection noted JOSEFA Workup not suggestive of hepatorenal syndrome, likely related to NSAID use, hypotension Creatinine increased from 0.84 on March 28 to 4.96 renal us/doppler neg for obstruction HIV nonreactive, CRP 8.7, c3,4, are low. Initially treated for hepatorenal syndrome with octreotide, albumin, and midodrine for hypotension lasix, and eplerenone, discontinued Patient started on urgent dialysis after temporary catheter placed by smart grid engineer on 04/08 renal biopsy scheduled for a.m. obtain PTT, PT INR and CBC at a.m. keeping patient npo after midnight History of hepatitis-C status post treatment 3 years ago Remote history alcohol use 15 years ago. Denies current etoh use followed by Dr. Bartlett office and [facility] CT abdomen showed unremarkable liver Seen by Dr. Mora he felt mental status changes from uremia not liver failure, he recommend to treat with lactulose EGD/colonoscopy from 03/07:?varices in the lower 3rd of the esophagus, not bleeding.? Normal stomach and normal duodenum.? Varices not amenable to banding.? Colonoscopy: Single polyp was found in the rectum.? Polypectomy was done polyp was completely removed.? It was a tubular adenoma.? Medium internal and external hemorrhoids were noted.? Thrombocytopenia Secondary to liver disease Chronic, at baseline Follow CBC Iron deficiency anemia H/H near baseline, on iron supplement Follow CBC Hypotension Resolved BP stable continue to hold Lasix and eplerenone, continue midodrine follow BP closely Anxiety Continue Atarax Morbid obesity.? BMI 49.6 Discussed importance of weight management likely leading to worsening of other comorbidities Weakness Seen by physical therapy they recommend short-term rehab, PT to follow patient DVT prophylaxis-on heparin Code status-full code Patient requires continued hospitalization For JOSEFA requireing acute dialysis, and further workup including kidney biopsy scheduled for a.m. Quality Stroke Does the patient have a stroke diagnosis?: No VTE Prior VTE?: No VTE Risk Level:: Medical - moderate - high VTE Device Contraindication: N/A - Device Ordered VTE Drug Contraindication: N/A - Med Ordered
[2022-04-12] MEDS: Midodrine HCl 5 MG TABLET PO ×2 (15:50→20:39)
[2022-04-12 17:06] LABS: Urea, Random Urine 161 mg/dL
[2022-04-12 19:03] VITALS: BP 92/36; PULSE 49; RESP 16; TEMP 35; O2SAT 92
--- NOTE | 2022-04-12 20:07 | PM.PNNEP ---
Subjective Subjective Date of Service: 04/12/22 Principal diagnosis: JOSEFA, Anasarca, Cirrhiosis Interval history: Discussed renal biopsy with patient and she and are agreeable. Renal US guided biopsy ordered for 04/13/22 chart reviewed. Events noted. Physical Exam Vital Signs: Vital Signs: Last Vital Signs Temp 95.0 F L 04/12/22 19:03 Pulse 49 L 04/12/22 19:03 Resp 16 04/12/22 19:03 BP 92/36 L 04/12/22 19:03 Pulse Ox 92 04/12/22 19:03 BMI result Body Mass Index 49.5 Const: General: no acute distress Orientation/consciousness: patient oriented x3 HEENT: Head: Yes normocephalic Neck: Neck: Yes no JVD Resp: Auscultation: clear to auscultation bilaterally Cardio: Jugular venous distension: no JVD Rate: regular rate Rhythm: regular rhythm Heart sounds: S1 normal heart sound present and S2 normal heart sound present GI: Auscultation: normal bowel sounds Neuro: General: patient oriented x3 and moves all extremities Extrem: General: Yes no clubbing, cyanosis or edema Objective Data Labs CBC & Chem 7: 04/08/22 05:52 04/12/22 06:44 Labs: Laboratory Results - last 24 hr 04/08/22 04/10/22 04/11/22 21:25 05:44 14:10 Sodium Potassium Chloride Carbon Dioxide Anion Gap BUN Creatinine Estim Creat Clear Calc Estimated GFR Random Glucose Calcium Total Bilirubin Direct Bilirubin AST ALT Alkaline Phosphatase C-React Prot High Sens 8.7 H Total Protein Albumin Urine Eosinophils % Ur Random Urea 161 IgG Total 1567 IgA Total 700 H IgM 314 H OMERO Interpretation 04/11/22 04/12/22 04/12/22 14:10 06:44 06:44 Sodium 137 Potassium 3.6 Chloride 104 Carbon Dioxide 20 L Anion Gap 17 BUN 67 H Creatinine 6.16 H* Estim Creat Clear Calc 12.8 Estimated GFR 7 Random Glucose 92 Calcium 9.1 Total Bilirubin 3.0 H Direct Bilirubin 1.5 H AST 32 H ALT 17 Alkaline Phosphatase 44 C-React Prot High Sens Total Protein 7.9 Albumin 4.4 Urine Eosinophils % 0.0 Ur Random Urea IgG Total IgA Total IgM OMERO Interpretation Microbiology Microbiology Results: Microbiology 04/07/22 19:14 Blood - Venous Blood Culture - Preliminary No growth after 48 hours. 04/07/22 19:14 Blood - Venous Blood Culture - Preliminary No growth after 48 hours. 04/07/22 21:45 Urine Catheterized - Abraham Catheter Urine Culture - Final No growth. Procedures Date of Service Date of Service: 04/12/22 Assessment & Plan Assessment and plan (1) Bilateral leg edema: Status: Acute (2) Acute renal failure: Status: Acute Assessment and Plan: 1. JOSEFA: clinically does NOT seem like HRS type 1 ques ATN and AIN from NSAID but need to broaden our DDx to AIN, AGN 2. Anasarca d/t cirrhosis and yet no asctes ? 3. AMS: multifact; better today 4. Anemia REC: serologies pending, cryo added. f/u renal biopsy HD today monitor uop, monitor for renal recovery. 1. JOSEFA: clinically does NOT seem like HRS type 1 ques ATN and AIN from NSAID but need to broaden our DDx to AIN, AGN 2. Anasarca d/t cirrhosis and yet no asctes ? 3. AMS: multifact; better today 4. Anemia REC: serologies pending, cryo added. f/u renal biopsy HD today monitor uop, monitor for renal recovery. Plan for renal biopsy in am. Time Spent With Patient Time: Total time spent is greater than 50% in coordination of care (as documented) at patient's floor/unit and/or counseling patient: Progress Note: Quality Stroke Does the patient have a stroke diagnosis?: No
[2022-04-12] MEDS: busPIRone HCl 5 MG TABLET PO (20:39)
[2022-04-12] MEDS: Multivitamin TABLET 1 TAB PO (20:39)
[2022-04-12] MEDS: Heparin Sodium,Porcine 5,000 UNIT/ML VIAL 5000 UNIT SUBCUT (20:39)
[2022-04-12] MEDS: Magnesium Oxide 400 MG TABLET PO (20:40)
[2022-04-12 23:53] VITALS: BP 111/53; PULSE 55; RESP 18; TEMP 36.4; O2SAT 99
[2022-04-13] VITALS (22 sets, daily range): BP systolic 93–147; BP diastolic 33–63; PULSE 50–83; RESP 15–19; TEMP 36.2–37.2; O2SAT 92–100
[2022-04-13 06:31] LABS: Hematocrit 27.7 % (37.0-47.0); Hemoglobin 8.8 g/dl (12.0-16.0); Mean Corpuscular HGB Conc 31.8 g/dl (31.0-35.0); Mean Corpuscular Hemoglobin 32.4 pg (27.0-33.0); Mean Corpuscular Volume 101.8 fL (80.0-98.0); Red Blood Count 2.72 X10*6/uL (4.20-5.50); Red Cell Distribution Width 17.9 % (11.0-16.0); White Blood Count 7.3 X10*3/uL (4.8-10.8)
[2022-04-13 06:32] LABS: Platelet Count 43 X10*3/uL (160-400)
[2022-04-13 06:41] LABS: INTERNATIONAL NORM RATIO 1.8 (0.9-1.1); Prothrombin Time 21.2 SEC (9.9-13.0)
[2022-04-13 06:44] LABS: Partial Thromboplastin Time 36.9 SEC (24.1-38.0)
[2022-04-13 07:07] LABS: Anion Gap 18 (12-20); Blood Urea Nitrogen 46 mg/dL (9-16); Carbon Dioxide 17 mmol/L (22-29); Chloride 105 mmol/L (96-108); Creatinine Clr Calc Pharmacy 16.7; Estimated Glomerular Filt Rate 9; Glucose Random 73 mg/dL (60-115); Potassium 3.7 mmol/L (3.3-5.1); Sodium 136 mmol/L (135-145)
--- NOTE | 2022-04-13 08:12 | PM.PNNEP ---
Subjective Subjective Date of Service: 04/13/22 Principal diagnosis: JOSEFA, Anasarca, Cirrhiosis Interval history: Chart Reviewed. Events noted. CT guided Renal Biopsy planned for today Physical Exam Vital Signs: Vital Signs: Last Vital Signs Temp 97.6 F 04/13/22 03:34 Pulse 50 04/13/22 03:34 Resp 17 04/13/22 03:34 BP 110/51 L 04/13/22 03:34 Pulse Ox 92 04/13/22 03:34 BMI result Body Mass Index 49.5 Const: General: no acute distress Orientation/consciousness: patient oriented x3 HEENT: Head: Yes normocephalic Neck: Neck: Yes no JVD Resp: Auscultation: clear to auscultation bilaterally Cardio: Jugular venous distension: no JVD Rate: regular rate Rhythm: regular rhythm Heart sounds: S1 normal heart sound present and S2 normal heart sound present GI: Auscultation: normal bowel sounds Neuro: General: patient oriented x3 Extrem: General: Yes no joint enlargement and Yes no clubbing, cyanosis or edema Objective Data Labs CBC & Chem 7: 04/13/22 06:06 04/13/22 06:06 Labs: Laboratory Results - last 24 hr 04/08/22 04/10/22 04/11/22 21:25 05:44 14:10 WBC RBC Hgb Hct MCV MCH MCHC RDW Plt Count MPV Absolute Nucleated RBC Nucleated RBC % (auto) PT INR APTT Sodium Potassium Chloride Carbon Dioxide Anion Gap BUN Creatinine Estim Creat Clear Calc Estimated GFR Random Glucose Calcium C-React Prot High Sens 8.7 H Ur Random Urea 161 IgG Total 1567 IgA Total 700 H IgM 314 H OMERO Interpretation 04/13/22 04/13/22 04/13/22 06:06 06:06 06:06 WBC 7.3 RBC 2.72 L Hgb 8.8 L Hct 27.7 L MCV 101.8 H MCH 32.4 MCHC 31.8 RDW 17.9 H Plt Count 43 L MPV 11.0 Absolute Nucleated RBC 0.000 Nucleated RBC % (auto) 0.0 PT 21.2 H INR 1.8 H APTT 36.9 D Sodium 136 Potassium 3.7 Chloride 105 Carbon Dioxide 17 L Anion Gap 18 BUN 46 H Creatinine 4.71 H* Estim Creat Clear Calc 16.7 Estimated GFR 9 Random Glucose 73 Calcium 9.0 C-React Prot High Sens Ur Random Urea IgG Total IgA Total IgM OMERO Interpretation Microbiology Microbiology Results: Microbiology 04/07/22 19:14 Blood - Venous Blood Culture - Final No growth after 5 days. 04/07/22 19:14 Blood - Venous Blood Culture - Final No growth after 5 days. 04/07/22 21:45 Urine Catheterized - Abraham Catheter Urine Culture - Final No growth. Procedures Date of Service Date of Service: 04/13/22 Assessment & Plan Assessment and plan (1) Acute renal failure: Status: Acute Plan 1. JOSEFA: clinically does NOT seem like HRS type 1 ques ATN and AIN from? NSAID? but need to broaden our DDx to AIN, AGN 2. Anasarca d/t cirrhosis and yet no asctes ? 3. AMS: multifact; better today 4. Anemia REC: serologies pending, cryo added. renal biopsy today s/p HD yesterday. Ok to hold today. Plan to repeat tomorrow (04/14) monitor uop, monitor for renal recovery. 1. JOSEFA: clinically does NOT seem like HRS type 1 ques ATN and AIN from? NSAID? but need to broaden our DDx to AIN, AGN 2. Anasarca d/t cirrhosis and yet no asctes ? 3. AMS: multifact; better today 4. Anemia Post renal biopsy instruction: H/H 6 hours after biopsy then again in am. if patient experiences pain at biopsy site, fever, tachycardia, suggest stat H/H along with limited renal US of biopsy site to rule out hematoma Patient should lay flat for 6 hours post procedure. No lifting > 5 lbs for next two weeks. BP control. PRN clonidine q 8 hours for systolic BP > 140 mmHg. Time Spent With Patient Time: Total time spent is greater than 50% in coordination of care (as documented) at patient's floor/unit and/or counseling patient: Progress Note: Quality Stroke Does the patient have a stroke diagnosis?: No
[2022-04-13 10:17] LABS: Kappa Light Chain, Free Serum 202.1 mg/L (3.3-19.4); Kappa/Lambda Lt Ch Free Ratio 1.99 (0.26-1.65); Lambda Light Chain, Free Serum 101.4 mg/L (5.7-26.3)
[2022-04-13 13:35] LABS: Hemoglobin 8.2 g/dl (12.0-16.0)
--- NOTE | 2022-04-13 13:36 | P.PNIM_ITS ---
Subjective Subjective Date of Service: 04/13/22 Interval History: Patient underwent renal biopsy this morning, after biopsy patient noted to have hematuria and renal hematoma therefore stat platelets and FFP ordered since patient noted to have an INR of 1.8 and platelet count around 43, patient awake alert feels thirsty otherwise denies back pain, no nausea no vomiting, no other acute events overnight. 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 CVS? regular rate rhythm, Respiratory lungs clear to auscultation, no respiratory distress, no wheeze, no rhonchi. Gastrointestinal abdomen soft, nontender, bowel sounds audible Extremities bilateral pitting edema Neuro nonfocal , speech clear. Skin no rash Psych appropriate affect Objective Data Active Medications Buspirone HCl (Buspirone Hcl 5 Mg Tablet) 5 mg PO BID [facility] Last Admin: 04/13/22 11:24 Dose: Not Given Documented by: WAN Non-Admin Reason: Off Unit: Surgery Docusate Sodium (Docusate Sodium 100 Mg Capsule) 100 mg PO DAILY PRN PRN Reason: Constipation Folic Acid (Folic Acid 1 Mg Tablet) 1 mg PO DAILY [facility] Last Admin: 04/13/22 11:24 Dose: Not Given Documented by: WAN Non-Admin Reason: Off Unit: Surgery Heparin Sodium (Porcine) (Heparin Sodium,Porcine 5,000 Unit/Ml Vial) 5,000 unit SUBCUT Q12H [facility] Last Admin: 04/13/22 11:24 Dose: Not Given Documented by: WAN Non-Admin Reason: Off Unit: Surgery Hydroxyzine HCl (Hydroxyzine Hcl 10 Mg Tablet) 20 mg PO Q6H PRN PRN Reason: anxiety Lactulose (Lactulose 20 Gm/30 Ml Solution) 40 gm PO BID [facility] Last Admin: 04/13/22 11:24 Dose: Not Given Documented by: WAN Non-Admin Reason: Off Unit: Surgery Magnesium Oxide (Magnesium Oxide 400 Mg Tablet) 400 mg PO BID [facility] Last Admin: 04/13/22 11:25 Dose: Not Given Documented by: WAN Non-Admin Reason: Off Unit: Surgery Melatonin (Melatonin 3 Mg Tablet) 3 mg PO BEDTIME PRN PRN Reason: Sleep Midodrine (Midodrine Hcl 5 Mg Tablet) 5 mg PO TID [facility] Last Admin: 04/13/22 11:25 Dose: Not Given Documented by: WAN Non-Admin Reason: Off Unit: Surgery Multivitamins/Vitamin C (Multivitamin Tablet) 1 tab PO BEDTIME [facility] Last Admin: 04/12/22 20:39 Dose: 1 tab Documented by: [place] Omeprazole (Omeprazole 20 Mg Capsule.Dr) 20 mg PO DAILY@0630 [facility] Last Admin: 04/13/22 06:05 Dose: Not Given Documented by: LILLI Non-Admin Reason: NPO Ondansetron HCl (Ondansetron Hcl 4 Mg/2 Ml Vial) 4 mg IVPUSH Q6H PRN PRN Reason: Nausea Last Admin: 04/10/22 09:15 Dose: 4 mg Documented by: ANNIE Pharmacy Consult (Consult Rx Perform Med Rec) 1 each MISCELLANE ONCE PRN PRN Reason: Consult order Pyridoxine HCl (Pyridoxine Hcl (Vitamin B6) 50 Mg Tablet) 50 mg PO DAILY [facility] Last Admin: 04/13/22 11:25 Dose: Not Given Documented by: WAN Non-Admin Reason: Off Unit: Surgery Sodium Chloride (0.9 % Sodium Chloride Flush 3 Ml Syringe) 3 ml IVFLUSH QSHIFT [facility] Last Admin: 04/13/22 11:24 Dose: Not Given Documented by: WAN Non-Admin Reason: Off Unit: Surgery Thiamine HCl (Thiamine Hcl 100 Mg Tablet) 100 mg PO DAILY [facility] Last Admin: 04/13/22 11:25 Dose: Not Given Documented by: WAN Non-Admin Reason: Off Unit: Surgery Labs CBC & Chem 7: 04/13/22 13:27 04/13/22 06:06 Labs: Laboratory Results - last 24 hr 04/08/22 04/10/22 04/10/22 21:25 05:44 05:44 MCV MCH MCHC RDW Plt Count MPV Absolute Nucleated RBC Nucleated RBC % (auto) PT INR APTT Anion Gap Estim Creat Clear Calc Estimated GFR Random Glucose Calcium C-React Prot High Sens 8.7 H Ur Random Urea IgG Total 1567 IgA Total 700 H IgM 314 H OMERO Interpretation Free [place] LC, Quant 202.1 H Free Lambda LC, Quant 101.4 H Free [place]/Lambda Ratio 1.99 H Blood Type Antibody Screen 04/11/22 04/13/22 04/13/22 14:10 06:06 06:06 MCV 101.8 H MCH 32.4 MCHC 31.8 RDW 17.9 H Plt Count 43 L MPV 11.0 Absolute Nucleated RBC 0.000 Nucleated RBC % (auto) 0.0 PT 21.2 H INR 1.8 H APTT 36.9 D Anion Gap Estim Creat Clear Calc Estimated GFR Random Glucose Calcium C-React Prot High Sens Ur Random Urea 161 IgG Total IgA Total IgM OMERO Interpretation Free [place] LC, Quant Free Lambda LC, Quant Free [place]/Lambda Ratio Blood Type Antibody Screen 04/13/22 04/13/22 06:06 09:39 MCV MCH MCHC RDW Plt Count MPV Absolute Nucleated RBC Nucleated RBC % (auto) PT INR APTT Anion Gap 18 Estim Creat Clear Calc 16.7 Estimated GFR 9 Random Glucose 73 Calcium 9.0 C-React Prot High Sens Ur Random Urea IgG Total IgA Total IgM OMERO Interpretation Free [place] LC, Quant Free [place]ambda LC, Quant Free [place]/Lambda Ratio Blood Type A Positive Antibody Screen NEGATIVE Microbiology Microbiology Results: Microbiology 04/07/22 19:14 Blood Culture - Final Blood - Venous No growth after 5 days. 04/07/22 19:14 Blood Culture - Final Blood - Venous No growth after 5 days. Assessment and Plan (1) Hypotension: Status: Acute (2) Hematuria: Status: Acute Plan This is a 61-year-old female with history of cirrhosis, substance abuse on methadone who presents to the emergency department with generalized edema found to have JOSEFA JOSEFA Patient underwent renal biopsy developed post biopsy hematuria and perinephric hematoma, INR 1.8, platelets 43 and hematocrit 27.7, stat FFP and platelets ordered Received hemodialysis yesterday, creatinine improved to 4.7 renal us/doppler neg for obstruction Urine studies not suggestive of hepatorenal syndrome HIV nonreactive, CRP 8.7, c3,4, are low. Initially treated for hepatorenal syndrome with octreotide, albumin, and midodrine for hypotension lasix, and eplerenone, discontinued Patient started on urgent dialysis after temporary catheter placed by reading teacher on 04/08 Will give vitamin K, follow CBC/inr and vitals closely History of hepatitis-C status post treatment 3 years ago Remote history alcohol use 15 years ago, recently diagnosed to have cirrhosis at [facility] ,followed by Dr. Bartlett office and [facility] CT abdomen showed unremarkable liver EGD/colonoscopy from 03/07:?varices in the lower 3rd of the esophagus, not bleeding.? Normal stomach and normal duodenum.? Varices not amenable to banding.? Colonoscopy: Single polyp was found in the rectum.? Polypectomy was done polyp was completely removed.? It was a tubular adenoma.? Medium internal and external hemorrhoids were noted.? Dysphagia Seen by speech therapy and they place patient on chopped advanced diet ,speech therapy will continue to follow. Acute toxic metabolic encephalopathy Resolved,Likely related to uremia/ hepatic encephalopathy with elevated ammonia level Continue lactulose/hemodialysis. DC IV ceftriaxone no infection noted Thrombocytopenia Secondary to liver disease Chronic, at baseline Follow CBC Elevated INR give vitamin K Iron deficiency anemia H/H near baseline, on iron supplement Follow CBC Hypotension Resolved BP stable continue to hold Lasix and eplerenone, continue midodrine follow BP closely Anxiety Continue Atarax Is Morbid obesity.? BMI 49.6 Discussed importance of weight management likely leading to worsening of other comorbidities Weakness Seen by physical therapy they recommend short-term rehab, PT to follow patient DVT prophylaxis-on heparin Code status-full code Patient requires continued hospitalization For JOSEFA requireing acute dialysis, status post renal biopsy developed post biopsy hematuria and perinephric hematoma, need close CBC and clinical follow up. Quality Stroke Does the patient have a stroke diagnosis?: No VTE Prior VTE?: No VTE Risk Level:: Medical - moderate - high VTE Device Contraindication: N/A - Device Ordered VTE Drug Contraindication: N/A - Med Ordered
[2022-04-13 13:42] LABS: INTERNATIONAL NORM RATIO 1.8 (0.9-1.1); Prothrombin Time 20.9 SEC (9.9-13.0)
--- NOTE | 2022-04-13 15:57 | MHC.SLORD ---
Speech Language Pathology Order Status: Pt NPO this morning for procedure. Unable to assess toleration of diet, will re-assess tomorrow.
[2022-04-13] MEDS: Phytonadione (Vit K1) Oral 10 MG/ML AMPUL PO (16:37)
[2022-04-13] MEDS: 0.9 % Sodium Chloride Flush 3 ML SYRINGE IVFLUSH ×2 (16:37→20:58)
[2022-04-13 20:02] LABS: Hematocrit 24.7 % (37.0-47.0); Hemoglobin 7.9 g/dl (12.0-16.0)
[2022-04-13] MEDS: busPIRone HCl 5 MG TABLET PO (20:58)
[2022-04-13] MEDS: Lactulose 20 GM/30 ML SOLUTION 40 GM PO (20:58)
[2022-04-13] MEDS: Magnesium Oxide 400 MG TABLET PO (20:58)
[2022-04-13] MEDS: Multivitamin TABLET 1 TAB PO (20:58)
[2022-04-13] MEDS: Midodrine HCl 5 MG TABLET PO (20:58)
--- NOTE | 2022-04-13 21:56 | PC.NURSE ---
Dr Singh notified of dark red hematuria. and H&H of 7.9&24.7. Held Heparin.
[2022-04-13 22:55] LABS: DRVVT 1:1 Mix Interpretation Not Indicated; Hexagonal Phase Neutralization Negative (Negative); PTT (LAC) Screen 50 sec (<=40)
[2022-04-14] VITALS (9 sets, daily range): BP systolic 101–134; BP diastolic 41–60; PULSE 60–65; RESP 14–20; TEMP 36.4–36.8; O2SAT 94–98
[2022-04-14] MEDS: Omeprazole 20 MG CAPSULE.DR PO (05:40)
[2022-04-14] MEDS: 0.9 % Sodium Chloride Flush 3 ML SYRINGE IVFLUSH ×3 (08:22→21:22)
[2022-04-14] MEDS: Pyridoxine HCl (Vitamin B6) 50 MG TABLET PO (08:23)
[2022-04-14] MEDS: Lactulose 20 GM/30 ML SOLUTION 40 GM PO ×2 (08:23→21:22)
[2022-04-14] MEDS: Heparin Sodium,Porcine 5,000 UNIT/ML VIAL 5000 UNIT SUBCUT (08:23)
[2022-04-14] MEDS: Midodrine HCl 5 MG TABLET PO ×3 (08:24→21:21)
[2022-04-14] MEDS: busPIRone HCl 5 MG TABLET PO ×2 (08:24→21:22)
[2022-04-14] MEDS: Folic Acid 1 MG TABLET PO (08:24)
[2022-04-14] MEDS: Magnesium Oxide 400 MG TABLET PO ×2 (08:24→21:35)
[2022-04-14] MEDS: Thiamine HCL 100 MG TABLET PO (08:24)
--- NOTE | 2022-04-14 10:04 | MHC.SL.SWA ---
Speech Pathologist Impression: Risk of Aspiration Due to: Medically Fragile Dysphasia Diet Status: Oral phase dysphagia secondary to edentulous state. Liquid Consistency and Strategies for Safe Swallow: Liquid Intake Recommendation: Thin Liquid Intake Strategies: Unrestricted Solid Food Consistency: Dietary Recommendations: Chopped/Advanced (NDD3) Additional Modifications to Solid Foods: Avoid difficult to chew solids. Oral Medication Intake: Whole with Liquid Please contact the pharmacy regarding appropriate crushable or liquid drug formulations that are available whenever modified delivery is recommended. Compensatory Strategies and Precautions to be Taken for Safe Swallow: Sitting Upright (90 deg) Liquids from Cup Liquids from Straw Small Bites and Sips Alternate Liquids/Solids Supervision While Eating and Drinking for Safe Swallow: Intermittent Supervision Foods to Avoid: Difficult to chew solids Swallowing Recommended Treatments: Recommendation for Speech: Inpatient Speech Therapy Comment: Pt reports that lump in throat sensation when swallowing has improved since NG tube was removed, but still has minor throat irritation from it. Pt is edentulous, does not have dentures in hospital, and habitually doesn't used them for eating at home. Pt's regular diet is soft, as she has difficulty masticating tough or crunchy solids. Pt tolerated thin liquids by cup sip and straw with no clinical signs of aspiration, and was observed having puree consistency with all phases of swallow wnl. Pt declined more advanced consistencies this morning, but would recommend diet similar to what PT described as her baseline: Chopped/Advanced (NDD2) with THIN LIQUIDS unrestricted, with Pills Whole in PUREE or with liquid based on what PT finds most comfortable. Continue follow up as needed. Frequency/Duration: 1 f/u by QUILL FIXER Date Range for Service Req: Timeline to reassess: Meals On Wheels Driver Clinican/Clinical Fellow: No Supervisory Statement: I have reviewed and agree with the student/clinical fellow's documentation: N/A Speech Language Pathologist: Aparna South MA, CCC-QUILL FIXER
--- NOTE | 2022-04-14 11:50 | MHC.CM.PN ---
Per ROUNDS discussion, Patient is not yet medically cleared for dc (JOSEFA/ACUTE HD); PT recommends STR and CM will continue to follow.
[2022-04-14 12:32] LABS: PEU-Rand. Prot/Creat Ratio 10210 mg/g creat (21-161); PEU-Random Ur. Gamma Globulin 19 %; PEU-Random Urine A1 Globulin 1 %; PEU-Random Urine A2 Globulin 2 %; PEU-Random Urine Albumin 69 %; PEU-Random Urine Beta Globulin 9 %; PEU-Random Urine Creatinine 167 mg/dL (20-275); PEU-Random Urine Protein 1705 mg/dL (5-24)
--- NOTE | 2022-04-14 13:57 | PM.PNNEP ---
Subjective Subjective Date of Service: 04/14/22 Principal diagnosis: JOSEFA, Anasarca, Cirrhiosis Interval history: chart Reviewed. Events noted. s/p renal biopsy with noted perinephric hemtoma and hematuria. H/H stable thus far. Physical Exam Vital Signs: Vital Signs: Last Vital Signs Temp 97.8 F 04/14/22 11:20 Pulse 65 04/14/22 12:01 Resp 18 04/14/22 11:20 BP 107/41 L 04/14/22 12:01 Pulse Ox 95 04/14/22 12:01 BMI result Body Mass Index 49.5 Const: General: no acute distress Orientation/consciousness: patient oriented x3 HEENT: Head: Yes normocephalic and Yes atraumatic Neck: Neck: Yes no JVD Resp: Auscultation: clear to auscultation bilaterally Cardio: Jugular venous distension: no JVD Rate: regular rate Rhythm: regular rhythm Heart sounds: S1 normal heart sound present and S2 normal heart sound present GI: Auscultation: normal bowel sounds Neuro: General: patient oriented x3 Extrem: General: Yes edema Objective Data Labs CBC & Chem 7: 04/13/22 19:55 04/13/22 06:06 Labs: Laboratory Results - last 24 hr 04/08/22 04/11/22 04/13/22 20:55 14:10 09:39 Hgb Hct LA PTT Screen 50 H dRVV Screen 35 dRVVT Mix Interpret Not Indicated Hexagon Phase Neutraliz Negative Lupus Anticoag Interp see note U [place] Prot/Creat Ratio 10.210 H Ur Creatinine mg/dL 167 U Total Protein mg/dL 1705 H Protein/Creatinin Ratio 68980 H Urine Albumin (%) 69 U Ejvai-3-Cyjcwscf (%) 1 U [place]-9-Tvhfihvd (%) 2 U Beta Globulin (%) 9 U Gamma Globulin (%) 19 Urine PEP Interpret SEE NOTE Blood Type A Positive Antibody Screen NEGATIVE Crossmatch See Detail 04/13/22 19:55 Hgb 7.9 L Hct 24.7 L LA PTT Screen dRVV Screen dRVVT Mix Interpret Hexagon Phase Neutraliz Lupus Anticoag Interp U [place] Prot/Creat Ratio Ur Creatinine mg/dL U Total Protein mg/dL Protein/Creatinin Ratio Urine Albumin (%) U Uxqjb-4-Unizdqcn (%) U Yapwm-5-Uojarheq (%) U Beta Globulin (%) U Gamma Globulin (%) Urine PEP Interpret Blood Type Antibody Screen Crossmatch Microbiology Microbiology Results: Microbiology 04/07/22 19:14 Blood - Venous Blood Culture - Final No growth after 5 days. 04/07/22 19:14 Blood - Venous Blood Culture - Final No growth after 5 days. 04/07/22 21:45 Urine Catheterized - Abraham Catheter Urine Culture - Final No growth. Procedures Date of Service Date of Service: 04/14/22 Assessment & Plan Assessment and plan (1) Acute renal failure: Status: Acute (2) Liver failure: Status: Acute (3) Hypotension: Status: Acute Plan 1. JOSEFA: clinically does NOT seem like HRS type 1 ques ATN and AIN from? NSAID? but need to broaden our DDx to AIN, AGN 2. Anasarca d/t cirrhosis and yet no asctes ? 3. AMS: multifact; better today 4. Anemia REC: serologies pending, cryo added. s/p renal biopsy Monitor H/H Continue HD per MWF schedule. Time Spent With Patient Time: Total time spent is greater than 50% in coordination of care (as documented) at patient's floor/unit and/or counseling patient: Progress Note: Quality Stroke Does the patient have a stroke diagnosis?: No
--- NOTE | 2022-04-14 14:56 | P.PNIM_ITS ---
Subjective Subjective Date of Service: 04/14/22 Interval History: Complaining of back soreness, denies severe pain, denies lightheadedness, no dizziness, no fevers, no chills, denies nausea vomiting, no acute events overnight hb dropped to 24.7 , Abraham catheter with dark old blood. Review of Systems Review of Systems: Yes all other systems are reviewed and are negative Physical Exam Vital Signs: Vital Signs: Last Vital Signs Temp 97.5 F 04/14/22 14:07 Pulse 64 04/14/22 14:07 Resp 16 04/14/22 14:07 BP 134/60 04/14/22 14:07 Pulse Ox 95 04/14/22 12:01 BMI result Body Mass Index 49.5 Const: Other: General awake alert x3,no acute distress Neck supple no JVD. CVS? regular rate rhythm, Respiratory lungs clear to auscultation, no respiratory distress Gastrointestinal abdomen soft, nontender, bowel sounds audible Extremities bilateral pitting edema Neuro nonfocal , speech clear. Skin no rash Psych appropriate affect Objective Data Active Medications Buspirone HCl (Buspirone Hcl 5 Mg Tablet) 5 mg PO BID [facility] Last Admin: 04/14/22 08:24 Dose: 5 mg Documented by: DEBI Docusate Sodium (Docusate Sodium 100 Mg Capsule) 100 mg PO DAILY PRN PRN Reason: Constipation Folic Acid (Folic Acid 1 Mg Tablet) 1 mg PO DAILY [facility] Last Admin: 04/14/22 08:24 Dose: 1 mg Documented by: DEBI Heparin Sodium (Porcine) (Heparin Sodium,Porcine 5,000 Unit/Ml Vial) 5,000 unit SUBCUT Q12H [facility] Last Admin: 04/14/22 08:23 Dose: 5,000 unit Documented by: DEBI Hydroxyzine HCl (Hydroxyzine Hcl 10 Mg Tablet) 20 mg PO Q6H PRN PRN Reason: anxiety Lactulose (Lactulose 20 Gm/30 Ml Solution) 40 gm PO BID [facility] Last Admin: 04/14/22 08:23 Dose: 40 gm Documented by: DEBI Magnesium Oxide (Magnesium Oxide 400 Mg Tablet) 400 mg PO BID [facility] Last Admin: 04/14/22 08:24 Dose: 400 mg Documented by: DEBI Melatonin (Melatonin 3 Mg Tablet) 3 mg PO BEDTIME PRN PRN Reason: Sleep Midodrine (Midodrine Hcl 5 Mg Tablet) 5 mg PO TID [facility] Last Admin: 04/14/22 14:15 Dose: 5 mg Documented by: KAMILAH Multivitamins/Vitamin C (Multivitamin Tablet) 1 tab PO BEDTIME [facility] Last Admin: 04/13/22 20:58 Dose: 1 tab Documented by: DEVIN Omeprazole (Omeprazole 20 Mg Capsule.Dr) 20 mg PO DAILY@0630 [facility] Last Admin: 04/14/22 05:40 Dose: 20 mg Documented by: DEVIN Ondansetron HCl (Ondansetron Hcl 4 Mg/2 Ml Vial) 4 mg IVPUSH Q6H PRN PRN Reason: Nausea Last Admin: 04/10/22 09:15 Dose: 4 mg Documented by: ANNIE Pharmacy Consult (Consult Rx Perform Med Rec) 1 each MISCELLANE ONCE PRN PRN Reason: Consult order Pyridoxine HCl (Pyridoxine Hcl (Vitamin B6) 50 Mg Tablet) 50 mg PO DAILY [facility] Last Admin: 04/14/22 08:23 Dose: 50 mg Documented by: DEBI Sodium Chloride (0.9 % Sodium Chloride Flush 3 Ml Syringe) 3 ml IVFLUSH QSHIFT [facility] Last Admin: 04/14/22 08:22 Dose: 3 ml Documented by: DEBI Thiamine HCl (Thiamine Hcl 100 Mg Tablet) 100 mg PO DAILY [facility] Last Admin: 04/14/22 08:24 Dose: 100 mg Documented by: DEBI Labs CBC & Chem 7: 04/13/22 19:55 04/13/22 06:06 Labs: Laboratory Results - last 24 hr 04/08/22 04/11/22 04/13/22 20:55 14:10 09:39 LA PTT Screen 50 H dRVV Screen 35 dRVVT Mix Interpret Not Indicated Hexagon Phase Neutraliz Negative Lupus Anticoag Interp see note U [place] Prot/Creat Ratio 10.210 H Ur Creatinine mg/dL 167 U Total Protein mg/dL 1705 H Protein/Creatinin Ratio 55352 H Urine Albumin (%) 69 U Yfdbl-4-Bbbtfshm (%) 1 U Hrked-8-Ghcoiiye (%) 2 U Beta Globulin (%) 9 U Gamma Globulin (%) 19 Urine PEP Interpret SEE NOTE Blood Type A Positive Antibody Screen NEGATIVE Crossmatch See Detail Assessment and Plan (1) Hypotension: Status: Acute (2) Hematuria: Status: Acute Plan This is a 61-year-old female with history of cirrhosis, substance abuse on methadone who presents to the emergency department with generalized edema found to have JOSEFA JOSEFA Patient underwent renal biopsy developed post biopsy hematuria and perinephric hematoma, hematocrit dropped to 24.7 will transfuse 1 unit of packed RBC s/p FFP and platelets Continue hemodialysis Sunday and Sunday as per Nephrology, creatinine improved to 4.7 renal us/doppler neg for obstruction Urine studies not suggestive of hepatorenal syndrome HIV nonreactive, CRP 8.7, c3,4, are low. Initially treated for hepatorenal syndrome with octreotide, albumin, and midodrine for hypotension lasix, and eplerenone, discontinued Follow CBC and INR followed renal biopsy report History of hepatitis-C status post treatment 3 years ago Remote history alcohol , recently diagnosed to have cirrhosis at [facility] ,followed by Dr. Bartlett office and [facility] CT abdomen showed unremarkable liver Dysphagia Seen by speech therapy on chopped advanced diet ,speech therapy will continue to follow. Acute toxic metabolic encephalopathy Resolved,Likely related to uremia/ hepatic encephalopathy with elevated ammonia level, no infection found Continue lactulose/hemodialysis. Thrombocytopenia Secondary to liver disease Chronic, at baseline Follow CBC, status post platelet transfusion Iron deficiency anemia H/H dropped due to hematuria status was blood transfusion follow CBC Hypotension Resolved BP stable continue to hold Lasix and eplerenone, continue midodrine follow BP closely Anxiety Continue Atarax Morbid obesity.? BMI 49.6 Discussed importance of weight management likely leading to worsening of other co morbidities Weakness Seen by physical therapy they recommend short-term rehab, PT to follow patient DVT prophylaxis-on heparin Code status-full code Patient requires continued hospitalization For JOSEFA requireing acute dialysis, status post renal biopsy post biopsy hematuria ,perinephric hematoma, and anemia requiring blood transfusion, need close CBC and clinical follow up. Quality Stroke Does the patient have a stroke diagnosis?: No VTE Prior VTE?: No VTE Risk Level:: Medical - moderate - high VTE Device Contraindication: N/A - Device Ordered VTE Drug Contraindication: N/A - Med Ordered
[2022-04-14 16:06] LABS: Hematocrit 28.5 % (37.0-47.0); Hemoglobin 9.2 g/dl (12.0-16.0); Mean Corpuscular HGB Conc 32.3 g/dl (31.0-35.0); Mean Corpuscular Hemoglobin 32.1 pg (27.0-33.0); Mean Corpuscular Volume 99.3 fL (80.0-98.0); Mean Platelet Volume 10.2 fL (9.4-12.3); Red Blood Count 2.87 X10*6/uL (4.20-5.50); Red Cell Distribution Width 18.2 % (11.0-16.0); White Blood Count 7.4 X10*3/uL (4.8-10.8)
[2022-04-14 16:07] LABS: Platelet Count 48 X10*3/uL (160-400)
[2022-04-14] MEDS: Melatonin 3 MG TABLET PO (21:22)
[2022-04-14] MEDS: Multivitamin TABLET 1 TAB PO (21:22)
[2022-04-15 03:05] LABS: Hematocrit 26.9 % (37.0-47.0); Hemoglobin 8.7 g/dl (12.0-16.0); Mean Corpuscular HGB Conc 32.3 g/dl (31.0-35.0); Mean Corpuscular Hemoglobin 32.2 pg (27.0-33.0); Mean Corpuscular Volume 99.6 fL (80.0-98.0); Red Cell Distribution Width 18.4 % (11.0-16.0); White Blood Count 6.9 X10*3/uL (4.8-10.8)
[2022-04-15 03:09] LABS: Platelet Count 39 X10*3/uL (160-400)
[2022-04-15 03:50] VITALS: BP 104/46; PULSE 62; RESP 18; TEMP 36.4; O2SAT 97
[2022-04-15] MEDS: Omeprazole 20 MG CAPSULE.DR PO (05:49)
[2022-04-15 06:16] LABS: INTERNATIONAL NORM RATIO 1.7 (0.9-1.1); Prothrombin Time 19.4 SEC (9.9-13.0)
[2022-04-15 06:30] LABS: Anion Gap 15 (12-20); Blood Urea Nitrogen 29 mg/dL (9-16); Calcium 9.7 mg/dL (8.4-10.2); Carbon Dioxide 21 mmol/L (22-29); Chloride 105 mmol/L (96-108); Creatinine Clr Calc Pharmacy 25.6; Estimated Glomerular Filt Rate 16; Glucose Random 91 mg/dL (60-115); Potassium 3.7 mmol/L (3.3-5.1); Sodium 137 mmol/L (135-145)
[2022-04-15 07:45] VITALS: BP 104/48; PULSE 58; RESP 20; TEMP 37.1; O2SAT 95
[2022-04-15] MEDS: Thiamine HCL 100 MG TABLET PO (10:01)
[2022-04-15] MEDS: Midodrine HCl 5 MG TABLET PO ×3 (10:01→21:50)
[2022-04-15] MEDS: Pyridoxine HCl (Vitamin B6) 50 MG TABLET PO (10:01)
[2022-04-15] MEDS: busPIRone HCl 5 MG TABLET PO ×2 (10:01→21:50)
[2022-04-15] MEDS: Magnesium Oxide 400 MG TABLET PO ×2 (10:01→21:50)
[2022-04-15] MEDS: Folic Acid 1 MG TABLET PO (10:01)
[2022-04-15] MEDS: 0.9 % Sodium Chloride Flush 3 ML SYRINGE IVFLUSH ×3 (10:02→21:50)
[2022-04-15] MEDS: Lactulose 20 GM/30 ML SOLUTION 40 GM PO (10:02)
[2022-04-15] MEDS: Heparin Sodium,Porcine 5,000 UNIT/ML VIAL 5000 UNIT SUBCUT (10:02)
--- NOTE | 2022-04-15 10:26 | P.PNIM_ITS ---
Subjective Subjective Date of Service: 04/15/22 Interval History: complaining of loose stools soon after every meal, denies nausea vomiting no abdominal pain, has itching lower mid back no significant back pain, no fevers no chills, no other acute events overnight Review of Systems [employer] no headache no dizziness CVS no chest pain, no palpitation respiratory no cough, no shortness of breath Review of Systems: Yes all other systems are reviewed and are negative Physical Exam Vital Signs: Vital Signs: Last Vital Signs Temp 98.8 F 04/15/22 07:45 Pulse 58 04/15/22 07:45 Resp 20 04/15/22 07:45 BP 104/48 L 04/15/22 07:45 Pulse Ox 95 04/15/22 07:45 BMI result Body Mass Index 49.5 Const: Other: General awake alert x3,no acute distress Neck supple no JVD. CVS? regular rate rhythm, Respiratory lungs clear to auscultation, no respiratory distress Gastrointestinal abdomen soft, nontender, bowel sounds audible Extremities bilateral pitting edema Neuro nonfocal , speech clear. Skin no rash Psych appropriate affect Objective Data Active Medications Buspirone HCl (Buspirone Hcl 5 Mg Tablet) 5 mg PO BID [facility] Last Admin: 04/15/22 10:01 Dose: 5 mg Documented by: DARIUS Docusate Sodium (Docusate Sodium 100 Mg Capsule) 100 mg PO DAILY PRN PRN Reason: Constipation Folic Acid (Folic Acid 1 Mg Tablet) 1 mg PO DAILY [facility] Last Admin: 04/15/22 10:01 Dose: 1 mg Documented by: DARIUS Heparin Sodium (Porcine) (Heparin Sodium,Porcine 5,000 Unit/Ml Vial) 5,000 unit SUBCUT Q12H [facility] Last Admin: 04/15/22 10:02 Dose: 5,000 unit Documented by: DARIUS Hydroxyzine HCl (Hydroxyzine Hcl 10 Mg Tablet) 20 mg PO Q6H PRN PRN Reason: anxiety Lactulose (Lactulose 20 Gm/30 Ml Solution) 40 gm PO BID [facility] Last Admin: 04/15/22 10:02 Dose: 40 gm Documented by: DARIUS Magnesium Oxide (Magnesium Oxide 400 Mg Tablet) 400 mg PO BID [facility] Last Admin: 04/15/22 10:01 Dose: 400 mg Documented by: DARIUS Melatonin (Melatonin 3 Mg Tablet) 3 mg PO BEDTIME PRN PRN Reason: Sleep Last Admin: 04/14/22 21:22 Dose: 3 mg Documented by: CHEVY Midodrine (Midodrine Hcl 5 Mg Tablet) 5 mg PO TID [facility] Last Admin: 04/15/22 10:01 Dose: 5 mg Documented by: DARIUS Multivitamins/Vitamin C (Multivitamin Tablet) 1 tab PO BEDTIME [facility] Last Admin: 04/14/22 21:22 Dose: 1 tab Documented by: CHEVY Omeprazole (Omeprazole 20 Mg Capsule.Dr) 20 mg PO DAILY@0630 [facility] Last Admin: 04/15/22 05:49 Dose: 20 mg Documented by: CHEVY Ondansetron HCl (Ondansetron Hcl 4 Mg/2 Ml Vial) 4 mg IVPUSH Q6H PRN PRN Reason: Nausea Last Admin: 04/10/22 09:15 Dose: 4 mg Documented by: ANNIE Pharmacy Consult (Consult Rx Perform Med Rec) 1 each MISCELLANE ONCE PRN PRN Reason: Consult order Pyridoxine HCl (Pyridoxine Hcl (Vitamin B6) 50 Mg Tablet) 50 mg PO DAILY [facility] Last Admin: 04/15/22 10:01 Dose: 50 mg Documented by: DARIUS Sodium Chloride (0.9 % Sodium Chloride Flush 3 Ml Syringe) 3 ml IVFLUSH QSHIFT [facility] Last Admin: 04/15/22 10:02 Dose: 3 ml Documented by: DARIUS Thiamine HCl (Thiamine Hcl 100 Mg Tablet) 100 mg PO DAILY [facility] Last Admin: 04/15/22 10:01 Dose: 100 mg Documented by: DARIUS Labs CBC & Chem 7: 04/15/22 02:30 04/15/22 05:46 Labs: Laboratory Results - last 24 hr 04/11/22 04/13/22 04/14/22 14:10 09:39 16:00 MCV 99.3 H MCH 32.1 MCHC 32.3 RDW 18.2 H Plt Count 48 L MPV 10.2 Absolute Nucleated RBC 0.000 Nucleated RBC % (auto) 0.0 PT INR Anion Gap Estim Creat Clear Calc Estimated GFR Random Glucose Calcium U [place] Prot/Creat Ratio 10.210 H Ur Creatinine mg/dL 167 U Total Protein mg/dL 1705 H Protein/Creatinin Ratio 62972 H Urine Albumin (%) 69 U Yuaxs-9-Ynkqcfgg (%) 1 U Moymn-3-Bruborvf (%) 2 U Beta Globulin (%) 9 U Gamma Globulin (%) 19 Urine PEP Interpret SEE NOTE Blood Type A Positive Antibody Screen NEGATIVE Crossmatch See Detail 04/15/22 04/15/22 04/15/22 02:30 05:46 05:46 MCV 99.6 H MCH 32.2 MCHC 32.3 RDW 18.4 H Plt Count 39 L MPV 10.0 Absolute Nucleated RBC 0.000 Nucleated RBC % (auto) 0.0 PT 19.4 H INR 1.7 H Anion Gap 15 Estim Creat Clear Calc 25.6 Estimated GFR 16 Random Glucose 91 Calcium 9.7 D U [place] Prot/Creat Ratio Ur Creatinine mg/dL U Total Protein mg/dL Protein/Creatinin Ratio Urine Albumin (%) U Mdgpl-8-Gslkgeuq (%) U Dxewp-4-Dewjxlej (%) U Beta Globulin (%) U Gamma Globulin (%) Urine PEP Interpret Blood Type Antibody Screen Crossmatch Assessment and Plan (1) Hypotension: Status: Acute (2) Hematuria: Status: Acute Plan This is a 61-year-old female with history of cirrhosis, substance abuse on methadone who presents to the emergency department with generalized edema found to have JOSEFA JOSEFA renal function improving is status post right renal biopsy with self-limited hematuria and mild perinephric hematoma, status post 1 unit of packed RBC hematocrit , status post 1 unit of FFP and platelet Continue hemodialysis Sunday and Sunday creatinine improved to 4.7 renal us/doppler neg for obstruction Urine studies not suggestive of hepatorenal syndrome HIV nonreactive, CRP 8.7, c3,4, are low. Initially treated for hepatorenal syndrome with octreotide, albumin, and midodrine for hypotension lasix, and eplerenone, discontinued History of hepatitis-C status post treatment 3 years ago Remote history alcohol , recently diagnosed to have cirrhosis at [facility] ,followed by Dr. Bartlett office and [facility] CT abdomen showed unremarkable liver Dysphagia Seen by speech therapy on chopped advanced diet ,speech therapy will continue to follow. Acute toxic metabolic encephalopathy Resolved,Likely related to uremia/ hepatic encephalopathy with elevated ammonia level, no infection found Continue lactulose/hemodialysis. dose of lactulose reduced to 40 g once daily Thrombocytopenia Secondary to liver disease Chronic, at baseline Follow CBC, status post platelet transfusion Hypotension Resolved BP stable continue to hold Lasix and eplerenone, continue midodrine Anxiety Continue Atarax Morbid obesity.? BMI 49.6 Discussed importance of weight management likely leading to worsening of other co morbidities Weakness Seen by physical therapy they recommend short-term rehab, PT to follow patient DVT prophylaxis-on heparin Code status-full code Patient requires continued hospitalization For JOSEFA requireing acute dialysis, status post renal biopsy post biopsy hematuria ,perinephric hematoma, and anemia requiring close CBC and clinical follow up. Quality Stroke Does the patient have a stroke diagnosis?: No VTE Prior VTE?: No VTE Risk Level:: Medical - moderate - high VTE Device Contraindication: N/A - Device Ordered VTE Drug Contraindication: N/A - Med Ordered
[2022-04-15 11:53] VITALS: BP 102/47; PULSE 61; RESP 20; TEMP 36.4; O2SAT 96
[2022-04-15 14:51] VITALS: BP 117/52; PULSE 66; RESP 18; TEMP 36.6; O2SAT 96
[2022-04-15 20:00] VITALS: BP 107/53; PULSE 64; RESP 18; TEMP 37; O2SAT 98
--- NOTE | 2022-04-15 20:56 | PM.PNNEP ---
Subjective Subjective Date of Service: 04/15/22 Principal diagnosis: JOSEFA, Anasarca, Cirrhiosis Interval history: Chart Reviewed. Events noted. Physical Exam Vital Signs: Vital Signs: Last Vital Signs Temp 98.6 F 04/15/22 20:00 Pulse 64 04/15/22 20:00 Resp 18 04/15/22 20:00 BP 107/53 L 04/15/22 20:00 Pulse Ox 98 04/15/22 20:00 BMI result Body Mass Index 49.5 Const: General: cooperative, comfortable and no acute distress Orientation/consciousness: patient oriented x3 HEENT: Head: Yes normocephalic and Yes atraumatic Neck: Neck: Yes no JVD Resp: Auscultation: clear to auscultation bilaterally Cardio: Jugular venous distension: no JVD Rate: regular rate Rhythm: regular rhythm Neuro: General: patient oriented x3 Extrem: General: Yes no joint enlargement Objective Data Labs CBC & Chem 7: 04/15/22 02:30 04/15/22 05:46 Labs: Laboratory Results - last 24 hr 04/15/22 04/15/22 04/15/22 02:30 05:46 05:46 WBC 6.9 RBC 2.70 L Hgb 8.7 L Hct 26.9 L MCV 99.6 H MCH 32.2 MCHC 32.3 RDW 18.4 H Plt Count 39 L MPV 10.0 Absolute Nucleated RBC 0.000 Nucleated RBC % (auto) 0.0 PT 19.4 H INR 1.7 H Sodium 137 Potassium 3.7 Chloride 105 Carbon Dioxide 21 L Anion Gap 15 BUN 29 H Creatinine 3.07 H Estim Creat Clear Calc 25.6 Estimated GFR 16 Random Glucose 91 Calcium 9.7 D Microbiology Microbiology Results: Microbiology 04/07/22 19:14 Blood - Venous Blood Culture - Final No growth after 5 days. 04/07/22 19:14 Blood - Venous Blood Culture - Final No growth after 5 days. 04/07/22 21:45 Urine Catheterized - Abraham Catheter Urine Culture - Final No growth. Procedures Date of Service Date of Service: 04/15/22 Assessment & Plan Assessment and plan (1) JOSEFA (acute kidney injury): Status: Acute Plan 1. JOSEFA: clinically does NOT seem like HRS type 1 ques ATN and AIN from? NSAID? but need to broaden our DDx to AIN, AGN 2. Anasarca d/t cirrhosis and yet no asctes ? 3. AMS: multifact; better today 4. Anemia REC: serologies pending, cryo added. s/p renal biopsy Monitor H/H Continue HD per MWF schedule. Time Spent With Patient Time: Total time spent is greater than 50% in coordination of care (as documented) at patient's floor/unit and/or counseling patient: Progress Note: Quality Stroke Does the patient have a stroke diagnosis?: No
[2022-04-15] MEDS: Multivitamin TABLET 1 TAB PO (21:50)
[2022-04-15] MEDS: Melatonin 3 MG TABLET PO (21:50)
[2022-04-15 23:59] VITALS: BP 109/56; PULSE 64; RESP 18; TEMP 37; O2SAT 96
[2022-04-16] MEDS: ondansetron HCL 4 MG/2 ML VIAL IVPUSH ×4 (01:35→19:47)
[2022-04-16 04:00] VITALS: BP 112/55; PULSE 64; RESP 18; TEMP 37.2; O2SAT 95
[2022-04-16 07:30] VITALS: BP 106/57; PULSE 63; RESP 18; TEMP 36.7; O2SAT 98
[2022-04-16] MEDS: busPIRone HCl 5 MG TABLET PO ×2 (09:02→19:39)
[2022-04-16] MEDS: Pyridoxine HCl (Vitamin B6) 50 MG TABLET PO (09:02)
[2022-04-16] MEDS: Lactulose 20 GM/30 ML SOLUTION 40 GM PO (09:02)
[2022-04-16] MEDS: Midodrine HCl 5 MG TABLET PO ×3 (09:02→19:39)
[2022-04-16] MEDS: Thiamine HCL 100 MG TABLET PO (09:02)
[2022-04-16] MEDS: Folic Acid 1 MG TABLET PO (09:02)
[2022-04-16] MEDS: Magnesium Oxide 400 MG TABLET PO ×2 (09:02→19:40)
[2022-04-16] MEDS: 0.9 % Sodium Chloride Flush 3 ML SYRINGE IVFLUSH ×3 (09:02→19:40)
[2022-04-16 11:26] VITALS: BP 146/64; PULSE 65; RESP 16; TEMP 36.8; O2SAT 97
--- NOTE | 2022-04-16 13:47 | HO.PM.IMPN ---
Subjective Subjective Date of Service: 04/16/22 Interval History: no acute events overnight complaining of rash both groin with discomfort, denies fever, chills, denies backache, no nausea, no vomiting, tolerating diet, no sore throat. Review of Systems Review of Systems: Yes all other systems are reviewed and are negative Physical Exam Vital Signs: Vital Signs: Last Vital Signs Temp 98.3 F 04/16/22 11:26 Pulse 65 04/16/22 11:26 Resp 16 04/16/22 11:26 BP 146/64 H 04/16/22 11:26 Pulse Ox 97 04/16/22 11:26 BMI result Body Mass Index 49.5 Const: Other: General awake aler t x3,no acute dist ress Neck supple n o JVD. CVS? regula r rate rhythm, Res piratory lungs shirley ar to auscultation , no respiratory d istress Gastrointe stinal abdomen sof t, nontender, chau l sounds audible E xtremities edema resolved Neuro non focal , speech shirley ar. Skin no rash P sych appropriate a ffect Objective Data Active Medications Buspirone HCl (Buspirone Hcl 5 Mg Tablet) 5 mg PO BID [facility] Last Admin: 04/16/22 09:02 Dose: 5 mg Documented by: DARIUS Folic Acid (Folic Acid 1 Mg Tablet) 1 mg PO DAILY [facility] Last Admin: 04/16/22 09:02 Dose: 1 mg Documented by: DARIUS Hydroxyzine HCl (Hydroxyzine Hcl 10 Mg Tablet) 20 mg PO Q6H PRN PRN Reason: anxiety Lactulose (Lactulose 20 Gm/30 Ml Solution) 40 gm PO DAILY [facility] Last Admin: 04/16/22 09:02 Dose: 40 gm Documented by: DARIUS Magnesium Oxide (Magnesium Oxide 400 Mg Tablet) 400 mg PO BID [facility] Last Admin: 04/16/22 09:02 Dose: 400 mg Documented by: DARIUS Melatonin (Melatonin 3 Mg Tablet) 3 mg PO BEDTIME PRN PRN Reason: Sleep Last Admin: 04/15/22 21:50 Dose: 3 mg Documented by: CHEVY Midodrine (Midodrine Hcl 5 Mg Tablet) 5 mg PO TID [facility] Last Admin: 04/16/22 09:02 Dose: 5 mg Documented by: DARIUS Multivitamins/Vitamin C (Multivitamin Tablet) 1 tab PO BEDTIME [facility] Last Admin: 04/15/22 21:50 Dose: 1 tab Documented by: CHEVY Omeprazole (Omeprazole 20 Mg Capsule.Dr) 20 mg PO DAILY@0630 [facility] Last Admin: 04/16/22 05:54 Dose: Not Given Documented by: CHEVY Non-Admin Reason: pt vomiting Ondansetron HCl (Ondansetron Hcl 4 Mg/2 Ml Vial) 4 mg IVPUSH Q6H PRN PRN Reason: Nausea Last Admin: 04/16/22 09:00 Dose: 4 mg Documented by: DARIUS Pharmacy Consult (Consult Rx Perform Med Rec) 1 each MISCELLANE ONCE PRN PRN Reason: Consult order Pyridoxine HCl (Pyridoxine Hcl (Vitamin B6) 50 Mg Tablet) 50 mg PO DAILY [facility] Last Admin: 04/16/22 09:02 Dose: 50 mg Documented by: DARIUS Sodium Chloride (0.9 % Sodium Chloride Flush 3 Ml Syringe) 3 ml IVFLUSH QSHIFT [facility] Last Admin: 04/16/22 09:02 Dose: 3 ml Documented by: DARIUS Thiamine HCl (Thiamine Hcl 100 Mg Tablet) 100 mg PO DAILY [facility] Last Admin: 04/16/22 09:02 Dose: 100 mg Documented by: DARIUS Labs CBC & Chem 7: 04/15/22 02:30 04/15/22 05:46 Assessment and Plan (1) JOSEFA (acute kidney injury): Status: Acute (2) Hematuria: Status: Acute (3) Hypotension: Status: Acute Plan 61-year-old female with history of cirrhosis, substance abuse on methadone who presents to the emergency department with generalized edema found to have JOSEFA JOSEFA renal function improving? is status post right renal biopsy with self-limited hematuria and mild? perinephric hematoma, status post 1 unit of packed RBC hematocrit , status post 1 unit of FFP and platelet Continue hemodialysis Sunday and Sunday? creatinine improved to 3.07 renal us/doppler neg for obstruction Urine studies not suggestive of hepatorenal syndrome HIV nonreactive, CRP 8.7, c3,4, are low. Initially treated for hepatorenal syndrome with octreotide, albumin, and midodrine for hypotension lasix,? and eplerenone, discontinued Will Nephrology regarding permacath placement,npo after midnight History of hepatitis-C status post treatment 3 years ago Remote history alcohol , recently diagnosed to have cirrhosis at [facility] ,followed by Dr. Bartlett office and [facility] CT abdomen showed unremarkable liver Dysphagia Seen by speech therapy on chopped advanced diet ,speech therapy will continue to follow. Acute toxic metabolic encephalopathy Resolved,Likely related to uremia/ hepatic encephalopathy with elevated ammonia level, no infection found Continue lactulose/hemodialysis. dose of lactulose reduced to 40 g once daily Thrombocytopenia Secondary to liver disease Chronic, at baseline Follow CBC, status post platelet transfusion Hypotension Resolved BP stable continue to hold Lasix and eplerenone, continue midodrine Anxiety Continue Atarax Morbid obesity.? BMI 49.6 Discussed? importance of weight management likely leading to worsening of other co morbidities Weakness Seen by physical therapy they recommend short-term rehab, PT to follow patient DVT prophylaxis-on heparin Code status-full code Patient? requires continued hospitalization For JOSEFA requireing acute dialysis, status post renal biopsy waiting for PermCath placement and close CBC and bmp follow up. Quality Stroke Does the patient have a stroke diagnosis?: No VTE Prior VTE?: No VTE Risk Level:: Medical - moderate - high VTE Device Contraindication: N/A - Device Ordered VTE Drug Contraindication: N/A - Med Ordered
[2022-04-16 15:37] VITALS: BP 119/53; PULSE 69; RESP 18; TEMP 37.1; O2SAT 97
--- NOTE | 2022-04-16 18:31 | PM.PNNEP ---
Subjective Subjective Date of Service: 04/16/22 Principal diagnosis: JOSEFA, Anasarca, Cirrhiosis Interval history: Chart Reviewed. Events noted. Physical Exam Vital Signs: Vital Signs: Last Vital Signs Temp 98.8 F 04/16/22 15:37 Pulse 69 04/16/22 15:37 Resp 18 04/16/22 15:37 BP 119/53 L 04/16/22 15:37 Pulse Ox 97 04/16/22 15:37 BMI result Body Mass Index 49.5 Const: General: cooperative and no acute distress Orientation/consciousness: patient oriented x3 HEENT: Head: Yes normocephalic Neck: Neck: Yes no JVD Resp: Auscultation: clear to auscultation bilaterally Cardio: Jugular venous distension: no JVD Rate: regular rate Rhythm: regular rhythm Heart sounds: S1 normal heart sound present and S2 normal heart sound present GI: Auscultation: normal bowel sounds Neuro: General: patient oriented x3 Extrem: General: Yes edema Objective Data Labs CBC & Chem 7: 04/15/22 02:30 04/15/22 05:46 Microbiology Microbiology Results: Microbiology 04/07/22 19:14 Blood - Venous Blood Culture - Final No growth after 5 days. 04/07/22 19:14 Blood - Venous Blood Culture - Final No growth after 5 days. 04/07/22 21:45 Urine Catheterized - Abraham Catheter Urine Culture - Final No growth. Procedures Date of Service Date of Service: 04/16/22 Assessment & Plan Assessment and plan (1) JOSEFA (acute kidney injury): Status: Acute Assessment and Plan: Plan 1. JOSEFA: clinically does NOT seem like HRS type 1 ques ATN and AIN from? NSAID? but need to broaden our DDx to AIN, AGN 2. Anasarca d/t cirrhosis and yet no ascites ? 3. AMS: multifact; better today 4. Anemia REC: serologies pending, cryo added. s/p renal biopsy. Hematuria with noted perinephric hematoma post biopsy. Transfused by primary team. H/H has since been stable Monitor H/H Continue HD per MWF schedule until renal recovery evident Has temporary catheter in place because she was on eliquis. Will need permcath if HD is to be continued. (2) Hypotension: Status: Acute Time Spent With Patient Time: Total time spent is greater than 50% in coordination of care (as documented) at patient's floor/unit and/or counseling patient: Progress Note: Quality Stroke Does the patient have a stroke diagnosis?: No
[2022-04-16 19:11] VITALS: BP 118/54; PULSE 64; RESP 16; TEMP 37.4; O2SAT 96
[2022-04-16] MEDS: hydrOXYzine HCL 10 MG TABLET 20 MG PO (19:39)
[2022-04-16] MEDS: Multivitamin TABLET 1 TAB PO (19:40)
[2022-04-17] VITALS (8 sets, daily range): BP systolic 105–124; BP diastolic 52–63; PULSE 59–69; RESP 16–20; TEMP 36.4–37.2; O2SAT 96–98
[2022-04-17 06:43] LABS: Hematocrit 27.5 % (37.0-47.0); Hemoglobin 8.9 g/dl (12.0-16.0); Mean Corpuscular HGB Conc 32.4 g/dl (31.0-35.0); Mean Corpuscular Hemoglobin 32.1 pg (27.0-33.0); Mean Corpuscular Volume 99.3 fL (80.0-98.0); Mean Platelet Volume 9.8 fL (9.4-12.3); Red Blood Count 2.77 X10*6/uL (4.20-5.50); Red Cell Distribution Width 18.1 % (11.0-16.0); White Blood Count 6.2 X10*3/uL (4.8-10.8)
[2022-04-17 06:45] LABS: Platelet Count 31 X10*3/uL (160-400)
[2022-04-17 06:57] LABS: Anion Gap 11 (12-20); Blood Urea Nitrogen 39 mg/dL (9-16); Calcium 9.4 mg/dL (8.4-10.2); Carbon Dioxide 24 mmol/L (22-29); Chloride 107 mmol/L (96-108); Creatinine Clr Calc Pharmacy 32.1; Estimated Glomerular Filt Rate 20; Glucose Random 114 mg/dL (60-115); Potassium 3.3 mmol/L (3.3-5.1); Sodium 139 mmol/L (135-145)
[2022-04-17] MEDS: Midodrine HCl 5 MG TABLET PO ×3 (08:28→20:53)
[2022-04-17] MEDS: Pyridoxine HCl (Vitamin B6) 50 MG TABLET PO (08:28)
[2022-04-17] MEDS: busPIRone HCl 5 MG TABLET PO ×2 (08:29→20:53)
[2022-04-17] MEDS: Folic Acid 1 MG TABLET PO (08:29)
[2022-04-17] MEDS: Magnesium Oxide 400 MG TABLET PO ×2 (08:29→20:53)
[2022-04-17] MEDS: Thiamine HCL 100 MG TABLET PO (08:29)
[2022-04-17] MEDS: 0.9 % Sodium Chloride Flush 3 ML SYRINGE IVFLUSH ×2 (08:35→15:47)
[2022-04-17] MEDS: Lactulose 20 GM/30 ML SOLUTION 40 GM PO (08:35)
--- NOTE | 2022-04-17 08:59 | ECG_ITS ---
Test Reason : QT PROLONGATION Blood Pressure : / mmHG Vent. Rate : 063 BPM Atrial Rate : 063 BPM P-R Int : 182 ms QRS Dur : 074 ms QT Int : 474 ms P-R-T Axes : 059 013 004 degrees QTc Int : 485 ms Normal sinus rhythm Nonspecific ST and T wave abnormality Abnormal ECG When compared with ECG of 08-APR-2022 10:13, Nonspecific T wave abnormality now evident in Inferior leads T wave inversion now evident in Anterior leads Referred By: Lj Iqbal Electronically Signed By:REYNALDO LOZA
--- NOTE | 2022-04-17 10:56 | MHC.CM.PN ---
Per ROUNDS discussion, Patient is not yet medically cleared for dc (biopsy report is pending);PT recommends STR and CM will continue to follow.
--- NOTE | 2022-04-17 11:00 | MHC.SLORD ---
Speech Language Pathology Order Status: Per RN, patient is NPO for a procedure. No PO trials given. Patient is edentulous, on chopped diet (NDD3) with thin liquids. Recommend 1 f/u to ensure tolerance.
--- NOTE | 2022-04-17 11:37 | PC.NURSE ---
Labs and plan for hemodialysis discussed with MD. Plan to wait for permacath. Diet changed sos pt can eat. QT prolongation also discussed wtih
--- NOTE | 2022-04-17 11:52 | PM.PNNEP ---
Subjective Subjective Date of Service: 04/17/22 Principal diagnosis: JOSEFA, Anasarca, Cirrhiosis Interval history: Chart Reviewed. Events noted. Physical Exam Vital Signs: Vital Signs: Last Vital Signs Temp 98.9 F 04/17/22 11:24 Pulse 68 04/17/22 11:24 Resp 20 04/17/22 11:24 BP 120/63 04/17/22 11:24 Pulse Ox 98 04/17/22 11:24 BMI result Body Mass Index 49.5 Const: General: comfortable Orientation/consciousness: oriented to person Neck: Neck: Yes supple Resp: Effort & Inspection: normal respiratory effort Auscultation: clear to auscultation bilaterally Cardio: Jugular venous distension: no JVD Heart sounds: no murmurs and no rubs GI: Palpation (GI): Soft to palpation Skin: General skin exam: no rashes or lesions noted and jaundice Neuro: General: oriented to person Motor exam (neuro): no asterixis Extrem: Right lower extremity: edema Left lower extremity: edema Objective Data Labs CBC & Chem 7: 04/17/22 06:25 04/17/22 06:25 Labs: Laboratory Results - last 24 hr 04/11/22 04/17/22 04/17/22 14:10 06:25 06:25 WBC 6.2 RBC 2.77 L Hgb 8.9 L Hct 27.5 L MCV 99.3 H MCH 32.1 MCHC 32.4 RDW 18.1 H Plt Count 31 L MPV 9.8 Absolute Nucleated RBC 0.000 Nucleated RBC % (auto) 0.0 Sodium 139 Potassium 3.3 Chloride 107 Carbon Dioxide 24 Anion Gap 11 L BUN 39 H Creatinine 2.44 H Estim Creat Clear Calc 32.1 Estimated GFR 20 Random Glucose 114 Calcium 9.4 U Abnormal Prot Band 1 TNP U Abnormal Prot Band 2 TNP U Abnormal Prot Band 3 TNP Microbiology Microbiology Results: Microbiology 04/07/22 19:14 Blood - Venous Blood Culture - Final No growth after 5 days. 04/07/22 19:14 Blood - Venous Blood Culture - Final No growth after 5 days. 04/07/22 21:45 Urine Catheterized - Abraham Catheter Urine Culture - Final No growth. Procedures Date of Service Date of Service: 04/17/22 Assessment & Plan Assessment and plan (1) JOSEFA (acute kidney injury): Status: Acute Plan 1. JOSEFA: clinically does NOT seem like HRS type 1 ques ATN and AIN from? NSAID? but need to broaden our DDx to AIN, AGN ; s/p Kidney biopsy 2. Anasarca d/t cirrhosis and yet no ascites ? 3. AMS: multifact; better today 4. Anemia REC: serologies pending, cryo added. s/p renal biopsy. Hematuria with noted perinephric hematoma post biopsy. Transfused by primary team. H/H has since been stable Monitor H/H HOLD HD today Hold permcath placement today Has temporary catheter in place because she was on eliquis. Time Spent With Patient Time: Total time spent is greater than 50% in coordination of care (as documented) at patient's floor/unit and/or counseling patient: Progress Note: Quality Stroke Does the patient have a stroke diagnosis?: No
--- NOTE | 2022-04-17 14:55 | P.PNIM_ITS ---
Subjective Subjective Date of Service: 04/17/22 Interval History: denies back pain, no other acute issues overnight no fever, no chills, was scheduled to receive PermCath today therefore was NPO. Review of Systems [employer] no headache no dizziness CVS no chest pain, no palpitation GI no nausea, no vomiting Review of Systems: Yes all other systems are reviewed and are negative Physical Exam Vital Signs: Vital Signs: Last Vital Signs Temp 98.9 F 04/17/22 11:24 Pulse 68 04/17/22 11:24 Resp 20 04/17/22 11:24 BP 120/63 04/17/22 11:24 Pulse Ox 98 04/17/22 11:24 BMI result Body Mass Index 49.5 Const: Other: General awake alert x3,no acute distress Neck supple no JVD. CVS? regular rate rhythm, Respiratory lungs clear to auscultation, no respiratory distress Gastrointestinal abdomen soft, nontender, bowel sounds audible Extremities bilateral pitting edema back no CVA tenderness Neuro nonfocal , speech clear. Skin no rash Psych appropriate affect Objective Data Active Medications Buspirone HCl (Buspirone Hcl 5 Mg Tablet) 5 mg PO BID COUNT INCLUDES [facility] Last Admin: 04/17/22 08:29 Dose: 5 mg Documented by: OANH Folic Acid (Folic Acid 1 Mg Tablet) 1 mg PO DAILY COUNT INCLUDES [facility] Last Admin: 04/17/22 08:29 Dose: 1 mg Documented by: OANH Hydroxyzine HCl (Hydroxyzine Hcl 10 Mg Tablet) 20 mg PO Q6H PRN PRN Reason: anxiety Last Admin: 04/16/22 19:39 Dose: 20 mg Documented by: JAN Lactulose (Lactulose 20 Gm/30 Ml Solution) 40 gm PO DAILY COUNT INCLUDES [facility] Last Admin: 04/17/22 08:35 Dose: 40 gm Documented by: OANH Magnesium Oxide (Magnesium Oxide 400 Mg Tablet) 400 mg PO BID COUNT [facility]CLUDES [facility] Last Admin: 04/17/22 08:29 Dose: 400 mg Documented by: OANH Melatonin (Melatonin 3 Mg Tablet) 3 mg PO BEDTIME PRN PRN Reason: Sleep Last Admin: 04/15/22 21:50 Dose: 3 mg Documented by: CHEVY Midodrine (Midodrine Hcl 5 Mg Tablet) 5 mg PO TID COUNT [facility]CLUDES [facility] Last Admin: 04/17/22 08:28 Dose: 5 mg Documented by: OANH Multivitamins/Vitamin C (Multivitamin Tablet) 1 tab PO BEDTIME COUNT [facility]CLUDES [facility] Last Admin: 04/16/22 19:40 Dose: 1 tab Documented by: JAN Omeprazole (Omeprazole 20 Mg Capsule.Dr) 20 mg PO DAILY@0630 [facility] Last Admin: 04/17/22 08:28 Dose: 20 mg Documented by: OANH Ondansetron HCl (Ondansetron Hcl 4 Mg/2 Ml Vial) 4 mg IVPUSH Q6H PRN PRN Reason: Nausea Last Admin: 04/16/22 19:47 Dose: 4 mg Documented by: JAN Pharmacy Consult (Consult Rx Perform Med Rec) 1 each MISCELLANE ONCE PRN PRN Reason: Consult order Pyridoxine HCl (Pyridoxine Hcl (Vitamin B6) 50 Mg Tablet) 50 mg PO DAILY COUNT [facility]CLUDES [facility] Last Admin: 04/17/22 08:28 Dose: 50 mg Documented by: OANH Sodium Chloride (0.9 % Sodium Chloride Flush 3 Ml Syringe) 3 ml IVFLUSH QSHIFT COUNT INCLUDES [facility] Last Admin: 04/17/22 08:35 Dose: 3 ml Documented by: OANH Thiamine HCl (Thiamine Hcl 100 Mg Tablet) 100 mg PO DAILY COUNT [facility]CLUDES [facility] Last Admin: 04/17/22 08:29 Dose: 100 mg Documented by: OANH Labs CBC & Chem 7: 04/17/22 06:25 04/17/22 06:25 Labs: Laboratory Results - last 24 hr 04/11/22 04/17/22 04/17/22 14:10 06:25 06:25 MCV 99.3 H MCH 32.1 MCHC 32.4 RDW 18.1 H Plt Count 31 L MPV 9.8 Absolute Nucleated RBC 0.000 Nucleated RBC % (auto) 0.0 Anion Gap 11 L Estim Creat Clear Calc 32.1 Estimated GFR 20 Random Glucose 114 Calcium 9.4 U Abnormal Prot Band 1 TNP U Abnormal Prot Band 2 TNP U Abnormal Prot Band 3 TNP Assessment and Plan (1) JOSEFA (acute kidney injury): Status: Acute (2) Hematuria: Status: Acute (3) Hypotension: Status: Acute Plan 61-year-old female with history of cirrhosis, substance abuse on methadone who presents to the emergency department with generalized edema found to have JOSEFA JOSEFA renal function improving? is status post right renal biopsy with self-limited hematuria and mild? perinephric hematoma, status post 1 unit of packed RBC hematocrit improved and stable, status post 1 unit of FFP and platelet renal us/doppler neg for obstruction Urine studies not suggestive of hepatorenal syndrome HIV nonreactive, CRP 8.7, c3,4, are low. ques ATN and AIN from? NSAID? other differential include AIN, AGN ; s/p Kidney biopsy Initially treated for hepatorenal syndrome with octreotide, albumin, and midodrine for hypotension lasix,? and eplerenone, discontinued nephrology recommend to hold hemodialysis and PermCath placement follow BMP History of hepatitis-C status post treatment 3 years ago Remote history alcohol , recently diagnosed to have cirrhosis at [facility] ,followed by Dr. Bartlett office and [facility] CT abdomen showed unremarkable liver Dysphagia Seen by speech therapy on chopped advanced diet ,speech therapy will continue to follow. Acute toxic metabolic encephalopathy Resolved,Likely related to uremia/ hepatic encephalopathy with elevated ammonia level, no infection found Continue lactulose 40 g once daily Thrombocytopenia Secondary to liver disease Chronic, at baseline Follow CBC, status post platelet transfusion Hypotension Resolved BP stable on midodrine, continue to hold Lasix and eplerenone, Anxiety Continue Atarax Morbid obesity.? BMI 49.6 Discussed? importance of weight management likely leading to worsening of other co morbidities Weakness Seen by physical therapy they recommend short-term rehab, PT to follow patient DVT prophylaxis-on compression therapy, heparin held due to perinephric hematoma Code status-full code Patient? requires continued hospitalization For JOSEFA requireing dialysis, status post renal biopsy waiting for nephrology to decide PermCath placement ,need close CBC and bmp follow up. Quality Stroke Does the patient have a stroke diagnosis?: No VTE Prior VTE?: No VTE Risk Level:: Medical - moderate - high VTE Device Contraindication: N/A - Device Ordered VTE Drug Contraindication: N/A - Med Ordered
[2022-04-17 19:52] LABS: Beta-2 Microglobulin, Serum 9.83 mg/L (< OR = 2.51)
[2022-04-17] MEDS: Multivitamin TABLET 1 TAB PO (20:53)
[2022-04-18] VITALS (7 sets, daily range): BP systolic 107–129; BP diastolic 52–68; PULSE 62–74; RESP 16–18; TEMP 36.1–37.1; O2SAT 95–100
[2022-04-18] MEDS: 0.9 % Sodium Chloride Flush 3 ML SYRINGE IVFLUSH ×4 (00:06→21:58)
[2022-04-18 06:13] LABS: Hematocrit 28.5 % (37.0-47.0); Hemoglobin 9.1 g/dl (12.0-16.0); Mean Corpuscular HGB Conc 31.9 g/dl (31.0-35.0); Mean Corpuscular Hemoglobin 31.7 pg (27.0-33.0); Mean Corpuscular Volume 99.3 fL (80.0-98.0); Mean Platelet Volume 9.7 fL (9.4-12.3); Red Blood Count 2.87 X10*6/uL (4.20-5.50); White Blood Count 6.4 X10*3/uL (4.8-10.8)
[2022-04-18 06:18] LABS: Platelet Count 34 X10*3/uL (160-400)
[2022-04-18] MEDS: Omeprazole 20 MG CAPSULE.DR PO (06:26)
[2022-04-18 06:31] LABS: Anion Gap 11 (12-20); Blood Urea Nitrogen 39 mg/dL (9-16); Calcium 9.7 mg/dL (8.4-10.2); Carbon Dioxide 25 mmol/L (22-29); Chloride 108 mmol/L (96-108); Creatinine Clr Calc Pharmacy 37.7; Estimated Glomerular Filt Rate 24; Glucose Random 115 mg/dL (60-115); Potassium 3.7 mmol/L (3.3-5.1); Sodium 140 mmol/L (135-145)
[2022-04-18 07:55] LABS: Anti DNA DS Antibody 1 IU/mL; Anti Glomerular Basement Memb <1.0 AI
[2022-04-18] MEDS: Lactulose 20 GM/30 ML SOLUTION 40 GM PO (08:55)
[2022-04-18] MEDS: Thiamine HCL 100 MG TABLET PO (08:57)
[2022-04-18] MEDS: Midodrine HCl 5 MG TABLET PO ×3 (08:57→21:58)
[2022-04-18] MEDS: busPIRone HCl 5 MG TABLET PO ×2 (08:58→21:58)
[2022-04-18] MEDS: Folic Acid 1 MG TABLET PO (08:58)
[2022-04-18] MEDS: Magnesium Oxide 400 MG TABLET PO ×2 (08:58→21:58)
[2022-04-18] MEDS: Pyridoxine HCl (Vitamin B6) 50 MG TABLET PO (08:58)
[2022-04-18] MEDS: ondansetron HCL 4 MG/2 ML VIAL IVPUSH ×2 (09:04→15:20)
--- NOTE | 2022-04-18 10:22 | MHC.SL.SWA ---
Speech Pathologist Impression: Risk of Aspiration Due to: Medically Fragile Dysphasia Diet Status: Oral phase dysphagia secondary to edentulous state. Liquid Consistency and Strategies for Safe Swallow: Liquid Intake Recommendation: Thin Liquid Intake Strategies: Small Sips Solid Food Consistency: Dietary Recommendations: Chopped/Advanced (NDD3) Additional Modifications to Solid Foods: Avoid difficult to chew solids. Oral Medication Intake: Whole with Liquid Please contact the pharmacy regarding appropriate crushable or liquid drug formulations that are available whenever modified delivery is recommended. Compensatory Strategies and Precautions to be Taken for Safe Swallow: Sitting Upright (90 deg) Liquids from Cup Supervision While Eating and Drinking for Safe Swallow: None Needed Foods to Avoid: Difficult to chew solids Swallowing Recommended Treatments: Recommendation for Speech: Inpatient Speech Therapy Comment: Pt seen for follow up this morning regarding toleration of recommended diet of Chopped/Advanced (NDD3) with thin liquids. Pt has been intermittently NPO for procedures since BSE, but is now back on diet/po. Pt reports that she is having no difficulties, enjoyed breakfast, and is happy it is not the mushy stuff. Pt reports that she is taking pills whole with liquid with no difficulties. Recommend Pt continue on current diet consistency (re: edentulous and w/o dentures) of Chopped/Advanced (NDD3) w/ THIN liquids, pills WHOLE with liquid. Recommend discharge from speech at this time. Frequency/Duration: 1 f/u by CARDIAC REHAB NURSE Date Range for Service Req: Timeline to reassess: Manager Gift Clinican/Clinical Fellow: No Supervisory Statement: I have reviewed and agree with the student/clinical fellow's documentation: N/A Speech Language Pathologist: Marcia Andino M.A., [facility]-CARDIAC REHAB NURSE
--- NOTE | 2022-04-18 10:42 | PM.PNNEP ---
Subjective Subjective Date of Service: 04/19/22 Principal diagnosis: JOSEFA, Anasarca, Cirrhiosis Interval history: Events noted Cr is trending down Physical Exam Vital Signs: Vital Signs: Last Vital Signs Temp 97.8 F 04/18/22 07:35 Pulse 62 04/18/22 08:53 Resp 18 04/18/22 07:35 BP 112/58 L 04/18/22 08:53 Pulse Ox 96 04/18/22 08:53 BMI result Body Mass Index 49.5 Const: General: comfortable Orientation/consciousness: oriented to person Neck: Neck: Yes supple Resp: Effort & Inspection: normal respiratory effort Auscultation: clear to auscultation bilaterally Cardio: Jugular venous distension: no JVD Heart sounds: no murmurs and no rubs GI: Palpation (GI): Soft to palpation Skin: General skin exam: no rashes or lesions noted and jaundice Neuro: General: oriented to person Motor exam (neuro): no asterixis Extrem: Right lower extremity: edema Left lower extremity: edema Objective Data Labs CBC & Chem 7: 04/18/22 06:07 04/19/22 05:49 Labs: Laboratory Results - last 24 hr 04/08/22 04/16/22 04/16/22 20:55 06:37 06:37 WBC RBC Hgb Hct MCV MCH MCHC RDW Plt Count MPV Absolute Nucleated RBC Nucleated RBC % (auto) dRVVT Confirm Interp TNP dRVVT Mixing Study TNP Sodium Potassium Chloride Carbon Dioxide Anion Gap BUN Creatinine Estim Creat Clear Calc Estimated GFR Random Glucose Calcium Lwhc-2-Uyxescsxbuyuq 9.83 H Double Strand DNA Ab 1 Glomerular Base Memb Ab <1.0 04/18/22 04/18/22 06:07 06:07 WBC 6.4 RBC 2.87 L Hgb 9.1 L Hct 28.5 L MCV 99.3 H MCH 31.7 MCHC 31.9 RDW 18.0 H Plt Count 34 L MPV 9.7 Absolute Nucleated RBC 0.000 Nucleated RBC % (auto) 0.0 dRVVT Confirm Interp dRVVT Mixing Study Sodium 140 Potassium 3.7 Chloride 108 Carbon Dioxide 25 Anion Gap 11 L BUN 39 H Creatinine 2.08 H Estim Creat Clear Calc 37.7 Estimated GFR 24 Random Glucose 115 Calcium 9.7 Mckc-3-Vbbvicuswtnkf Double Strand DNA Ab Glomerular Base Memb Ab Microbiology Microbiology Results: Microbiology 04/07/22 19:14 Blood - Venous Blood Culture - Final No growth after 5 days. 04/07/22 19:14 Blood - Venous Blood Culture - Final No growth after 5 days. 04/07/22 21:45 Urine Catheterized - Abraham Catheter Urine Culture - Final No growth. Procedures Date of Service Date of Service: 04/18/22 Assessment & Plan Assessment and plan (1) JOSEFA (acute kidney injury): Status: Acute Plan 1. JOSEFA: clinically does NOT seem like HRS type 1 ques ATN and AIN from? NSAID? but need to broaden our DDx to AIN, AGN ; s/p Kidney biopsy Elevated [place] aand Lambda - polyclonL; nO mcgp Elevated B2 microglob- ? of amyloid. kidney biopsy would clarify this 2. Anasarca d/t cirrhosis and yet no ascites ? 3. AMS: multifact; better today 4. Anemia REC: serologies pending, s/p renal biopsy. Hematuria with noted perinephric hematoma post biopsy. Transfused by primary team. H/H has since been stable Monitor H/H HOLD HD since creatinine is trending down Hold permcath placement Time Spent With Patient Time: Total time spent is greater than 50% in coordination of care (as documented) at patient's floor/unit and/or counseling patient: Progress Note: Quality Stroke Does the patient have a stroke diagnosis?: No
--- NOTE | 2022-04-18 10:52 | HO.PM.IMPN ---
Subjective Subjective Date of Service: 04/18/22 Interval History: the patient was seen and evaluated this morning Laying in bed, feels improvement with decreased edema in her lower extremities Gibbs catheter in place with dark colored urine No reported other overnight events. Systemic review: No fever, chills or weakness No chest pain, palpitation , edema improving No shortness of breath or coughing No abdominal pain, nausea or vomiting No urinary symptoms No any rash or wounds Physical Exam Vital Signs: Vital Signs: Last Vital Signs Temp 97.8 F 04/18/22 07:35 Pulse 62 04/18/22 08:53 Resp 18 04/18/22 07:35 BP 112/58 L 04/18/22 08:53 Pulse Ox 96 04/18/22 08:53 BMI result Body Mass Index 49.5 Const: Other: Constitutional : Alert, oriented, not in distress Neck : Normal inspection, Supple, IJ line in place Cardiovascular : RRR, no JVP, +1 bilateral lower extremity edema Respiratory : fair bilateral air entry, no crackles, wheezes or rhonchi Gastrointestinal: soft, lax, Normal bowel sounds, Non tender Skin : Warm, Dry Neurological : Alert & oriented x3, No focal deficit , CN 2-12 within normal Objective Data Active Medications Buspirone HCl (Buspirone Hcl 5 Mg Tablet) 5 mg PO BID [facility] Last Admin: 04/18/22 08:58 Dose: 5 mg Documented by: SUZANNE Folic Acid (Folic Acid 1 Mg Tablet) 1 mg PO DAILY [facility] Last Admin: 04/18/22 08:58 Dose: 1 mg Documented by: SUZANNE Furosemide (Furosemide 20 Mg Tablet) 20 mg PO DAILY [facility]; Protocol Hydroxyzine HCl (Hydroxyzine Hcl 10 Mg Tablet) 20 mg PO Q6H PRN PRN Reason: anxiety Last Admin: 04/16/22 19:39 Dose: 20 mg Documented by: JAN Lactulose (Lactulose 20 Gm/30 Ml Solution) 40 gm PO DAILY [facility] Last Admin: 04/18/22 08:55 Dose: 40 gm Documented by: SUZANNE Magnesium Oxide (Magnesium Oxide 400 Mg Tablet) 400 mg PO BID [facility] Last Admin: 04/18/22 08:58 Dose: 400 mg Documented by: SUZANNE Melatonin (Melatonin 3 Mg Tablet) 3 mg PO BEDTIME PRN PRN Reason: Sleep Last Admin: 04/15/22 21:50 Dose: 3 mg Documented by: CHEVY Midodrine (Midodrine Hcl 5 Mg Tablet) 5 mg PO TID [facility] Last Admin: 04/18/22 08:57 Dose: 5 mg Documented by: SUZANNE Multivitamins/Vitamin C (Multivitamin Tablet) 1 tab PO BEDTIME [facility] Last Admin: 04/17/22 20:53 Dose: 1 tab Documented by: BROAren Omeprazole (Omeprazole 20 Mg Capsule.Dr) 20 mg PO DAILY@0630 [facility] Last Admin: 04/18/22 06:26 Dose: 20 mg Documented by: CATALINA Ondansetron HCl (Ondansetron Hcl 4 Mg/2 Ml Vial) 4 mg IVPUSH Q6H PRN PRN Reason: Nausea Last Admin: 04/18/22 09:04 Dose: 4 mg Documented by: SZUANNE Pharmacy Consult (Consult Rx Perform Med Rec) 1 each MISCELLANE ONCE PRN PRN Reason: Consult order Pyridoxine HCl (Pyridoxine Hcl (Vitamin B6) 50 Mg Tablet) 50 mg PO DAILY [facility] Last Admin: 04/18/22 08:58 Dose: 50 mg Documented by: SUZANNE Sodium Chloride (0.9 % Sodium Chloride Flush 3 Ml Syringe) 3 ml IVFLUSH QSHIFT [facility] Last Admin: 04/18/22 08:58 Dose: 3 ml Documented by: SUZANNE Thiamine HCl (Thiamine Hcl 100 Mg Tablet) 100 mg PO DAILY [facility] Last Admin: 04/18/22 08:57 Dose: 100 mg Documented by: SUZANNE Labs CBC & Chem 7: 04/18/22 06:07 04/18/22 06:07 Labs: Laboratory Results - last 24 hr 04/08/22 04/16/22 04/16/22 20:55 06:37 06:37 MCV MCH MCHC RDW Plt Count MPV Absolute Nucleated RBC Nucleated RBC % (auto) dRVVT Confirm Interp TNP dRVVT Mixing Study TNP Anion Gap Estim Creat Clear Calc Estimated GFR Random Glucose Calcium Njxq-5-Jrqzaklayzxzo 9.83 H Double Strand DNA Ab 1 Glomerular Base Memb Ab <1.0 04/18/22 04/18/22 06:07 06:07 MCV 99.3 H MCH 31.7 MCHC 31.9 RDW 18.0 H Plt Count 34 L MPV 9.7 Absolute Nucleated RBC 0.000 Nucleated RBC % (auto) 0.0 dRVVT Confirm Interp dRVVT Mixing Study Anion Gap 11 L Estim Creat Clear Calc 37.7 Estimated GFR 24 Random Glucose 115 Calcium 9.7 Lmol-2-Sjzluiskqaryt Double Strand DNA Ab Glomerular Base Memb Ab Assessment and Plan (1) JOSEFA (acute kidney injury): Status: Acute (2) Hematuria: Status: Acute (3) Liver failure: Status: Acute (4) Hypotension: Status: Acute Plan 61-year-old female with history of cirrhosis, substance abuse on methadone who presents to the emergency department with generalized edema found to have JOSEFA Acute kidney injury Creatinine improving status post right renal biopsy with self-limited hematuria and mild perinephric hematoma, status post 1 unit of packed RBC hematocrit improved and stable, status post 1 unit of FFP and platelet renal us/doppler neg for obstruction ques ATN and AIN from NSAID? other differential include AIN, AGN ; s/p Kidney biopsy Pending final pathology report Initially treated for hepatorenal syndrome with octreotide, albumin, and midodrine for hypotension eplerenone, discontinued Restart low-dose Lasix of 20 mg daily nephrology recommend to hold hemodialysis and PermCath placement, start low-dose Lasix follow BMP ANGELIQUE gibbs today History of hepatitis-C status post treatment 3 years ago Still testing positive for hepatitis-C Has elevated BT to micro globin, kappa to lambda ratio and low complement level that seems to be a result of having chronic liver disease Remote history alcohol , recently diagnosed to have cirrhosis at [facility] ,followed by Dr. Bartlett office at [facility] CT abdomen showed unremarkable liver To follow-up with hepatitis C Clinic at [facility] Dysphagia Seen by speech therapy on chopped advanced diet ,speech therapy will continue to follow. Acute toxic metabolic encephalopathy Resolved,Likely related to uremia/ hepatic encephalopathy with elevated ammonia level, no infection found Continue lactulose 40 g once daily Thrombocytopenia Secondary to liver disease Chronic, at baseline Follow CBC, status post platelet transfusion Hypotension Resolved BP stable on midodrine, continue to hold Lasix and eplerenone, Anxiety Continue Atarax Morbid obesity.? BMI 49.6 Discussed? importance of weight management likely leading to worsening of other co morbidities Weakness Seen by physical therapy they recommend short-term rehab, PT to follow patient DVT prophylaxis on compression therapy, heparin held due to perinephric hematoma Patient requires continued hospitalization For JOSEFA requireing dialysis, status post renal biopsy waiting for nephrology to decide PermCath placement ,need close CBC and bmp follow up. Quality Stroke Does the patient have a stroke diagnosis?: No VTE Prior VTE?: No VTE Risk Level:: Medical - moderate - high VTE Device Contraindication: N/A - Device Ordered VTE Drug Contraindication: N/A - Med Ordered
[2022-04-18] MEDS: Furosemide 20 MG TABLET PO (12:27)
[2022-04-18] MEDS: Multivitamin TABLET 1 TAB PO (21:58)
[2022-04-19 03:44] VITALS: BP 121/64; PULSE 58; RESP 20; TEMP 37.1; O2SAT 96
[2022-04-19] MEDS: ondansetron HCL 4 MG/2 ML VIAL IVPUSH ×3 (06:15→20:59)
[2022-04-19] MEDS: Omeprazole 20 MG CAPSULE.DR PO (06:15)
[2022-04-19 07:09] LABS: Anion Gap 13 (12-20); Blood Urea Nitrogen 34 mg/dL (9-16); Calcium 9.8 mg/dL (8.4-10.2); Carbon Dioxide 25 mmol/L (22-29); Chloride 107 mmol/L (96-108); Creatinine Clr Calc Pharmacy 54.6; Estimated Glomerular Filt Rate 37; Glucose Random 110 mg/dL (60-115); Potassium 3.4 mmol/L (3.3-5.1); Sodium 142 mmol/L (135-145)
[2022-04-19 08:00] VITALS: BP 110/52; PULSE 63; RESP 16; TEMP 36.6; O2SAT 99
[2022-04-19] MEDS: Folic Acid 1 MG TABLET PO (09:13)
[2022-04-19] MEDS: Thiamine HCL 100 MG TABLET PO (09:14)
[2022-04-19] MEDS: busPIRone HCl 5 MG TABLET PO ×2 (09:14→20:59)
[2022-04-19] MEDS: Furosemide 20 MG TABLET PO (09:16)
[2022-04-19] MEDS: Midodrine HCl 5 MG TABLET PO ×3 (09:16→20:59)
[2022-04-19] MEDS: 0.9 % Sodium Chloride Flush 3 ML SYRINGE IVFLUSH ×3 (09:17→20:59)
[2022-04-19] MEDS: Pyridoxine HCl (Vitamin B6) 50 MG TABLET PO (09:17)
[2022-04-19] MEDS: Magnesium Oxide 400 MG TABLET PO ×2 (09:17→20:59)
[2022-04-19] MEDS: Lactulose 20 GM/30 ML SOLUTION 40 GM PO (09:18)
--- NOTE | 2022-04-19 10:26 | PM.PNNEP ---
Subjective Subjective Date of Service: 04/19/22 Principal diagnosis: JOSEFA, Anasarca, Cirrhiosis Interval history: Events noted Feels better Physical Exam Vital Signs: Vital Signs: Last Vital Signs Temp 98 F 04/19/22 08:00 Pulse 63 04/19/22 08:00 Resp 16 04/19/22 08:00 BP 110/52 L 04/19/22 08:00 Pulse Ox 99 04/19/22 08:00 O2 Del Method 04/19/22 08:00 O2 Flow Rate 2 04/13/22 12:15 BMI result Body Mass Index 49.5 Const: General: comfortable Orientation/consciousness: oriented to person Neck: Neck: Yes supple Resp: Effort & Inspection: normal respiratory effort Auscultation: clear to auscultation bilaterally Cardio: Jugular venous distension: no JVD Heart sounds: no murmurs and no rubs GI: Palpation (GI): Soft to palpation Skin: General skin exam: no rashes or lesions noted and jaundice Neuro: General: oriented to person Motor exam (neuro): no asterixis Extrem: Right lower extremity: edema Left lower extremity: edema Objective Data Labs CBC & Chem 7: 04/18/22 06:07 04/19/22 05:49 Labs: Laboratory Results - last 24 hr 04/08/22 04/19/22 20:55 05:49 LA Thrombin Time TNP Sodium 142 Potassium 3.4 Chloride 107 Carbon Dioxide 25 Anion Gap 13 BUN 34 H Creatinine 1.44 H Estim Creat Clear Calc 54.6 Estimated GFR 37 Random Glucose 110 Calcium 9.8 Microbiology Microbiology Results: Microbiology 04/07/22 19:14 Blood - Venous Blood Culture - Final No growth after 5 days. 04/07/22 19:14 Blood - Venous Blood Culture - Final No growth after 5 days. 04/07/22 21:45 Urine Catheterized - Abraham Catheter Urine Culture - Final No growth. Procedures Date of Service Date of Service: 04/19/22 Assessment & Plan Assessment and plan (1) JOSEFA (acute kidney injury): Status: Acute Plan 1. JOSEFA: clinically does NOT seem like HRS type 1 ques ATN and AIN from? NSAID? but need to broaden our DDx to AIN, AGN ; s/p Kidney biopsy Elevated [place] aand Lambda - polyclonL; nO mcgp Elevated B2 microglob- ? of amyloid. kidney biopsy would clarify this 2. Anasarca d/t cirrhosis and yet no ascites ? 3. AMS: multifact; better today 4. Anemia REC: serologies pending, s/p renal biopsy. Hematuria with noted perinephric hematoma post biopsy. Transfused by primary team. H/H has since been stable Monitor H/H HOLD HD since creatinine is trending down ; 1.4 as of 04/19/22 Remove temp dialysis catheter Will arrange for OP follow up with Time Spent With Patient Time: Total time spent is greater than 50% in coordination of care (as documented) at patient's floor/unit and/or counseling patient: Progress Note: Quality Stroke Does the patient have a stroke diagnosis?: No
--- NOTE | 2022-04-19 11:26 | MHC.CM.PN ---
Per ROUNDS discussion, Patient will be medically cleared for dc to home today, self care. PT recommends STR but Patient refused. CM attempted to secure VNA for Patient but Patient doesn't have her first appointment with her new PCP until 05/20/22, and will therefor not qualify for VNA at this time. CM approached Patient again with this news and encouraged Patient to consider STR and she stated, no, I want to go home; I have my Daughter at home to help me. CM relayed Patient's wishes to MD.IMM addressed with Patient at bedside and original has been given to her and a copy has been placed on the chart.
--- NOTE | 2022-04-19 11:39 | P.DS_ITS ---
DS: Providers Provider Date of Service: 04/19/22 Date of admission: 04/07/22 16:00 Primary care physician: Unknown Physician Consults: 04/07/22 14:02 Consult to Nephrology Stat Consulting Provider: Phillip Lopez Reason for consultation: JOSEFA concern for hepatorenal Has provider been notified: Yes 04/07/22 15:59 Consult to Gastroenterology Routine Consulting Provider: Donita Sanchez Reason for consultation: decomensated cirrhosis Has provider been notified: No DS: Diagnosis Discharge Diagnosis (1) JOSEFA (acute kidney injury): Status: Acute (2) Hematuria: Status: Acute (3) Hypotension: Status: Acute (4) Anasarca: Status: Acute (5) Acute renal failure: Status: Acute (6) Hyperkalemia: Status: Acute (7) Cirrhosis, alcoholic: Status: Acute DS: Summary Hospital Course Hospital Course: The patient had prolonged hospital stay. For full details please returned to EMR. Admission note HPI This is a 61-year-old female who presents to the emergency department with lower extremity edema. She reports progressively worsening generalized swelling as well as 100 lb weight gain over the past 3 months.? Approximately 3 months ago she was admitted to [facility] with increasing swelling, at that time she was diagnosed with liver cirrhosis.? She and her are upset with the previous documentation around her alcohol use.? She reports drinking heavily on the weekends approximately 15 years ago.? Documentation from [facility] also indicates that a few years ago she was also drinking a few nips, multiple times per week when she lost her sister. She denies the use of any alcohol at this time. ? She was seen in follow-up on February 13 in the gastroenterology office at which time they discussed the importance of lactulose and set up an appointment for screening for esophageal varices and she was also instructed to avoid NSAIDs completely.? She was also referred to hematology in was seen by Dr. Sorensen on March 28 for splenomegaly and thrombocytopenia which was thought to be secondary to her liver disease.? She had outpatient labs drawn March 28 at which time her kidney function was normal.? She reports back pain and shoulder pain and has been taking 600 mg of ibuprofen twice a day for the past 1 week.? She reports constipation and nausea with dry heaving.? Her pain is the main reason she presented to the emergency department today.? Today her lab work revealed acute kidney injury with a creatinine of 4.0 as well as elevated potassium of 5.3.? Her blood pressure was soft in the 80s and 90 systolic.? She was given a dose of midodrine and started on albumin and the decision was made to admit her for further management. Hospital course The patient was admitted to the hospital for evaluation of anasarca. Found to be in acute kidney injury with creatinine up to 4 from baseline of 0.86 and BUN significantly elevated with symptoms of weakness and lethargy. Started on treatment for possible hepato renal syndrome with albumin, midodrine and octreotide. Evaluated by Nephrology team who recommended doing kidney biopsy while holding nephrotoxic medications like eplerenone and Lasix. Patient required urgent hemodialysis with total of 5 sessions done during the hospital stay as active min catheter was placed. Kidney function started to improve with improvement of her BUN as she started to making more urine. Kidney function continue to improve after holding dialysis for 4 days. She was started on low- dose Lasix for fluid overload. The patient had hematuria after kidney biopsy. Images were consistent with hematoma at the side of biopsy requiring 1 unit of blood and 1 unit of FFP with follow-up normal hemoglobin levels. The patient was tested positive for hepatitis C. She reports finishing treatment 3 years ago and had evidence of negative test at that point. She was diagnosed with cirrhosis previously likely related to alcohol and prescribed nadolol. CT of the abdomen showed unremarkable liver. To be followed by Dr. Bartlett office at [facility]. Yearly at admission she had acute toxic metabolic encephalopathy which believed to be secondary to uremia and hepatic encephalopathy. Lactulose dose was changed to 40 g daily with good response as ammonia level decreased and her mentation improved significantly. Noted to have hypotension. Started on midodrine with holding blood pressure medications. Blood pressure improved but remains solved. To be restarted on low-dose nadolol time of discharge. Evaluated by physical therapy team who recommended short-term rehab. The patient decided to go back home as she have home support. VNA cannot start until she sees her primary care. Advised her to get an earlier appointment. Dialysis catheter removed at the day of discharge with no reported bleeding at the site. To repeat blood work as outpatient Cut down Nadolol to 10 mg daily, monitor blood pressure at home and report readings to PCP Discontinue Eplerenone Continue midodrine to improve your blood pressure To follow-up with hepatitis C Clinic at [facility] for re-evaluation and re-treatment. Start lactulose 40 g daily Time Spent with Patient Time attestation: Total time spent providing and/or coordinating discharge services: Discharge coordination time: Greater than 30 minutes Quality: Safe Use of Opioids Does Pt have an Active Cancer Diagnosis on the Problem List?: No Quality: Stroke Does the patient have a stroke diagnosis?: No Physical Exam Vital Signs: Vital Signs: Last Vital Signs Temp 98 F 04/19/22 08:00 Pulse 63 04/19/22 08:00 Resp 16 04/19/22 08:00 BP 110/52 L 04/19/22 08:00 Pulse Ox 99 04/19/22 08:00 O2 Del Method 04/19/22 08:00 O2 Flow Rate 2 04/13/22 12:15 BMI result Body Mass Index 49.5 Const: Other: Constitutional : Alert, oriented, not in distress Neck : Normal inspection, Supple, dialysis line removed with no bleeding Cardiovascular : RRR, no JVP, trace bilateral lower extremity edema Respiratory : fair bilateral air entry, no crackles, wheezes or rhonchi Gastrointestinal: soft, lax, Normal bowel sounds, Non tender Skin : Warm, Dry Neurological : Alert & oriented x3, No focal deficit , CN 2-12 within normal DS: Data Data Completed and Pending Completed studies during hospitalization [Text1]: Pending at discharge 04/13/22 09:18 Surgical Path [Surgical] [PTH] Routine Labs on day of discharge: Laboratory Results - last 24 hr 04/08/22 04/19/22 20:55 05:49 LA Thrombin Time TNP Sodium 142 Potassium 3.4 Chloride 107 Carbon Dioxide 25 Anion Gap 13 BUN 34 H Creatinine 1.44 H Estim Creat Clear Calc 54.6 Estimated GFR 37 Random Glucose [address] scan - pelvis: Radiologist's impression: ITS Impressions Chest X-Ray 04/07/22 13:16 IMPRESSION: Unremarkable examination. Abdomen/Pelvis CT 04/07/22 13:50 IMPRESSION: Diffuse anasarca. New edema or fat stranding of the small bowel mesentery and retroperitoneum. No ascites. Stool throughout the colon questionable for constipation. Fleischner guidelines were followed. Chest X-Ray 04/08/22 14:08 IMPRESSION: * Lungs are suboptimally evaluated due to the hypoinflation. Pulmonary vascular congestion is suspected. No overt pulmonary edema. No focal consolidation or pleural effusion. * No pneumothorax after the left IJ line placement. The exact location of the catheter tip is uncertain. The catheter tip projects superior to the aortic arch. * The tip of the NG tube is at the level of the proximal stomach. Renal Ultrasound 04/08/22 17:38 IMPRESSION: Normal grayscale evaluation the left kidney. Right kidney not seen. Unsuccessful nondiagnostic Doppler evaluation of the left kidney. Renal Ultrasound 04/08/22 17:38 IMPRESSION: Limited imaging as above. Right kidney not demonstrated. Left kidney unremarkable. Abdomen Ultrasound 04/10/22 11:43 FINDINGS/IMPRESSION: No peritoneal ascites identified. Please refer to the report from the recent CT scan of the abdomen and pelvis for more detailed findings. Renal Biopsy CT 04/13/22 09:22 IMPRESSION: Successful CT fluoroscopy-guided right renal lower pole core biopsy. There is a small lower pole right perinephric hematoma. Discharge Plan Discharge Patient Disposition: Home, Self-Care Discharge Diagnosis: Anasarca Acute kidney injury Hematuria Active hepatitis-C Referrals: Physician,Unknown J [Primary Care Provider] - 1 Week Discharge Medications: New midodrine 5 mg Tablet 5 mg PO TID 90 Days Qty: 270 0RF lactulose 20 gram/30 mL Solution 40 g PO DAILY 30 Days Qty: 1800 0RF Continued folic acid 1 mg tablet 1 mg PO DAILY Qty: 90 0RF pyridoxine (vitamin B6) 50 mg tablet 50 mg PO DAILY Qty: 90 1RF multivitamin with folic acid [Therems Multivitamin] 400 mcg tablet 1 tab PO BEDTIME Qty: 90 0RF ferrous sulfate 325 mg (65 mg iron) tablet 325 mg PO DAILY Qty: 90 0RF hydroxyzine HCl 10 mg tablet 20 mg PO Q6H PRN (Reason: anxiety) Qty: 240 0RF furosemide 20 mg tablet 20 mg PO DAILY Qty: 30 0RF polyethylene glycol 3350 [Miralax] 17 gram Powder In Packet 17 g PO DAILY bismuth subsalicylate [Pepto-Bismol] 262 mg/15 mL Suspension 524 mg PO Q30M PRN (Reason: Gastric Reflux) Rx Instructions: do not exceed 8 doses in a 24 hour period docusate sodium 100 mg Tablet 100 mg PO DAILY methadone 10 mg/mL Concentrate 65 mg PO DAILY ergocalciferol (vitamin D2) [Vitamin D2] 1,250 mcg (50,000 unit) capsule 1,250 mcg PO QWEEK magnesium oxide 400 mg (241.3 mg magnesium) tablet 400 mg PO BID melatonin 3 mg tablet 3 mg PO BEDTIME PRN (Reason: Sleep) ascorbic acid (vitamin C) 100 mg tablet 100 mg PO DAILY (DME) Blood Pressure Cuff Misc See Rx Instructions .Route Qty: 1 0RF Rx Instructions: As directed, take BP twice a day. thiamine HCl (vitamin B1) 100 mg tablet 100 mg PO DAILY Qty: 30 0RF pantoprazole 40 mg tablet,delayed release (DR/EC) 40 mg PO DAILY Qty: 90 2RF cholecalciferol (vitamin D3) 50 mcg (2,000 unit) capsule 50 mcg PO DAILY Qty: 90 0RF buspirone 5 mg tablet 5 mg PO BID Qty: 30 0RF Changed nadolol 20 mg tablet 10 mg PO DAILY Qty: 30 0RF Discontinued lactulose [Generlac] 10 gram/15 mL solution 10 ml PO TID Qty: 946 0RF eplerenone 25 mg Tablet 25 mg PO BID Qty: 60 3RF Discharge Orders: Discharge Order (Routine); Ordered 04/19/22 Ordered By: Gonsalo Mathur Diet: advance to usual diet and low salt diet Activity on Discharge: As tolerated Stand Alone Forms: Patient Portal Discharge page Other Ambulatory Orders: Basic Metabolic Panel (Routine) Timeframe: 5 Days Facility: [facility] - Location: Laboratory Ordered By: Gonsalo Mathur Care Plan Goals: Read below Health Concerns: Read below Plan of Treatment: To repeat blood work as outpatient Cut down Nadolol to 10 mg daily, monitor blood pressure at home and report readings to PCP Discontinue Eplerenone Continue midodrine to improve your blood pressure To follow-up with hepatitis C Clinic at [facility] for re-evaluation and re-treatment. Start lactulose 40 g daily Assessment: You were admitted to the hospital for evaluation of edema. Found to have acute kidney injury with evidence of ongoing hepatitis C infection and liver cirrhosis. Evaluated by Nephrology team and treated for the acute kidney injury with albumin, midodrine and octreotide as it was believed to be related to your liver cirrhosis. Kidney biopsy was done and the final result still pending. You had bleeding at the side of the biopsy and his transfused 1 unit of blood with good response. Nephrology team recommended starting dialysis as he received hemodialysis with significant improvement in your kidney function. Dialysis catheter was removed and you were started on Lasix as water pills. Your kidney function continued to improve.
[2022-04-19 12:00] VITALS: BP 118/64; PULSE 67; RESP 20; TEMP 37.1; O2SAT 98
[2022-04-19 15:09] VITALS: BP 131/68; PULSE 74; RESP 18; TEMP 37.1; O2SAT 99
[2022-04-19 19:33] VITALS: BP 126/75; PULSE 74; RESP 18; TEMP 36.8; O2SAT 97
[2022-04-19] MEDS: Multivitamin TABLET 1 TAB PO (20:59)
[2022-04-19 23:17] VITALS: BP 134/65; PULSE 66; RESP 16; TEMP 36.9; O2SAT 100
[2022-04-19 23:36] LABS: Histone Antibody <1.0 U (<1.0)
[2022-04-20 03:46] VITALS: BP 118/60; PULSE 74; RESP 20; TEMP 36.6; O2SAT 97
[2022-04-20 07:29] VITALS: BP 138/61; PULSE 64; RESP 16; TEMP 36.7; O2SAT 95
[2022-04-20] MEDS: Pyridoxine HCl (Vitamin B6) 50 MG TABLET PO (08:55)
[2022-04-20] MEDS: Midodrine HCl 5 MG TABLET PO (08:55)
[2022-04-20] MEDS: Magnesium Oxide 400 MG TABLET PO (08:55)
[2022-04-20] MEDS: Folic Acid 1 MG TABLET PO (08:55)
[2022-04-20] MEDS: busPIRone HCl 5 MG TABLET PO (08:55)
[2022-04-20] MEDS: Thiamine HCL 100 MG TABLET PO (08:55)
--- NOTE | 2022-04-20 09:15 | PC.NURSE ---
Addendum entered by Johnie Chiu RN 04/20/22 09:16: pt refused meds this AM stating she will take them when she gets home. pt was informed of what meds she is receiving this AM and will not take an additional dose at home this AM Original Note: pt being discharged this AM. spoken to by MD. pt being discharged with significant other. safety and fall precautions in place. call colindres was within reach. IV removed, tip intact. tele monitor off. all belongings with pt. d/c paperowkr given to pt and pt was educated and pharmacy verified.
[2022-04-20 22:22] LABS: DRVVT 1:1 Mix Interpretation Not Indicated; Hexagonal Phase Neutralization Negative (Negative); PTT (LAC) Screen 48 sec (<=40)
[2022-04-26 09:24] LABS: Cryoglobulin, Qual NONE DETECTED ((NDT))
== END 2022-04-20 09:13 | disposition home or self-care (01) | DRG 469 ==
LOC: HO.ED 14:23 → HO.EDOVER 16:12 → HO.S3 21:59 → HO.IMC 04-11 14:58
PROVIDERS: Hospitalist; Internal Medicine Gastroenterology; Internal Medicine Nephrology; Nurse Practitioner Acute Care; Physician Assistant; Radiology Diagnostic Radiology; Student in an Organized Health Care Education/Training Program; Admitting Provider Physician Assistant Medical; Emergency Provider Emergency Medicine; PCP Nurse Practitioner Family; Visit Provider Physician Assistant Medical
PROC: 0TB03ZX Excision of Right Kidney, Percutaneous Approach, Diagnostic (ICD-10-PCS; principal; 2022-04-13 08:00)
DX: N17.9 Acute kidney failure, unspecified (principal); K76.7 Hepatorenal syndrome; G92.8 Other toxic encephalopathy; K72.90 Hepatic failure, unspecified without coma; D69.59 Other secondary thrombocytopenia; I95.9 Hypotension, unspecified; F10.21 Alcohol dependence, in remission; D50.9 Iron deficiency anemia, unspecified; I50.9 Heart failure, unspecified; K70.30 Alcoholic cirrhosis of liver without ascites; E66.01 Morbid (severe) obesity due to excess calories; R31.9 Hematuria, unspecified; K21.9 Gastro-esophageal reflux disease without esophagitis; R13.10 Dysphagia, unspecified; F41.9 Anxiety disorder, unspecified; F17.210 Nicotine dependence, cigarettes, uncomplicated; Z71.6 Tobacco abuse counseling; N99.840 Postprocedural hematoma of a genitourinary system organ or structure following a genitourinary system procedure; B19.20 Unspecified viral hepatitis C without hepatic coma; N99.820 Postprocedural hemorrhage of a genitourinary system organ or structure following a genitourinary system procedure; F11.20 Opioid dependence, uncomplicated; Z20.822 Contact with and (suspected) exposure to COVID-19; Z68.42 Body mass index [BMI] 45.0-49.9, adult; Z91.013 Allergy to seafood; Z91.041 Radiographic dye allergy status; Z79.899 Other long term (current) drug therapy
CPT/HCPCS: 36415; 50200; 71045; 71046; 74176; 76705; 76775; 77012; 80048; 80051; 80076; 80307; 81001; 82077; 82140; 82232; 82436; 82565; 82570; 82595; 82784; 83516; 83520; 83521; 83735; 83935; 84100; 84133; 84156; 84165; 84166; 84300; 84443; 84484; 84540; 85014; 85018; 85025; 85027; 85597; 85610; 85613; 85730; 86021; 86141; 86160; 86225; 86334; 86704; 86706; 86803; 86850; 86900; 86901; 86923; 87040; 87086; 87340; 87389; 87502; 87635; 88300; 88305; 88313; 88346; 88348; 88350; 89190; 90999; 92526; 92610; 93005; 93306; 93975; 96365; 96366; 97110; 97162; 97530; 99152; 99285; C1758; J0696; J2354; J2405; J2543; P9016; P9017; P9047; P9073; Q9957

== ENCOUNTER 2022-05-08 14:13 | Outpatient (REF) | payer OTHER, SELFPAY ==
[2022-05-08 14:58] LABS: Hematocrit 28.9 % (37.0-47.0); Hemoglobin 9.6 g/dl (12.0-16.0); Mean Corpuscular HGB Conc 33.2 g/dl (31.0-35.0); Mean Corpuscular Hemoglobin 31.1 pg (27.0-33.0); Mean Corpuscular Volume 93.5 fL (80.0-98.0); Mean Platelet Volume 9.7 fL (9.4-12.3); Platelet Count 59 X10*3/uL (160-400); Red Blood Count 3.09 X10*6/uL (4.20-5.50); Red Cell Distribution Width 17.9 % (11.0-16.0); White Blood Count 6.2 X10*3/uL (4.8-10.8)
[2022-05-08 15:12] LABS: INTERNATIONAL NORM RATIO 1.8 (0.9-1.1)
[2022-05-08 15:23] LABS: Anion Gap 11 (12-20); Blood Urea Nitrogen 7 mg/dL (9-16); Calcium 9.8 mg/dL (8.4-10.2); Carbon Dioxide 27 mmol/L (22-29); Chloride 108 mmol/L (96-108); Estimated Glomerular Filt Rate > 60; Glucose Random 99 mg/dL (60-115); Magnesium 1.9 mg/dL (1.6-2.6); Potassium 3.7 mmol/L (3.3-5.1); Sodium 142 mmol/L (135-145)
[2022-05-08 15:26] LABS: B Type Natriuretic Peptide 448 pg/mL (<100)
== END 2022-05-08 14:14 | disposition home or self-care (01) ==
LOC: HO.LAB 14:13
PROVIDERS: Visit Provider Internal Medicine Cardiovascular Disease
DX: I50.810 Right heart failure, unspecified (principal); I50.30 Unspecified diastolic (congestive) heart failure; Z79.01 Long term (current) use of anticoagulants
CPT/HCPCS: 36415; 80048; 83735; 83880; 85027; 85610; 99202

== ENCOUNTER 2024-02-16 16:59 | Emergency (ER) | payer OTHER, SELFPAY ==
[2024-02-16 17:13] VITALS: PULSE 112; RESP 18; TEMP 37.1; O2SAT 97; BMI 25.4
[2024-02-16] MEDS: LORazepam 1 MG TABLET 2 MG PO (17:20)
--- NOTE | 2024-02-16 17:25 | PC.NURSE ---
Patient's daughter at bedside. Pts daughter and this RN both unable to console patient. Patient continues to scream and cry. Ativan 2mg administered per MAR.
[2024-02-16 17:32] VITALS: RESP 14
--- NOTE | 2024-02-16 17:41 | PC.NURSE ---
Patient beginning to calm down, ambulating around BH pod with steady gait, no apparent distress at this time
--- NOTE | 2024-02-16 18:00 | ED.GENADULT ---
HPI - General Adult General Chief complaint: Anxiety Stated complaint: panic/anxiety attack, 1yr anniversary spouse Time Seen by Provider: 02/16/24 17:08 Source: patient, family (mother), RN notes reviewed and old records reviewed Mode of arrival: EMS Limitations: no limitations History of Present Illness HPI narrative: 63 year old female presents for evaluation of anxiety. She reports that her 1 year ago today. She has been anxious about this ever since She reports that she is attempted to take her daughter's hydroxyzine which she feels as though made her symptoms worse Per the patient's daughter, the patient also has issues with addiction The patient presented almost manic with pressured speech and inability to calm down. After being in the ER for about 1 hour she reports her symptoms have improved greatly and she wants to go home She is not on a section, she had no thoughts of suicidal ideation Per the patient's daughter the patient plans on going to establish a therapy on Sunday The patient has no somatic complaints Related Data Home Medications ?Medication ?Instructions ?Recorded ?Confirmed ascorbic acid (vitamin C) 100 mg 100 mg PO DAILY 01/20/22 05/08/22 tablet ergocalciferol (vitamin D2) 1,250 1,250 mcg PO QWEEK 01/20/22 05/08/22 mcg (50,000 unit) capsule (Vitamin D2) magnesium oxide 400 mg (241.3 mg 400 mg PO BID 01/20/22 05/08/22 magnesium) tablet melatonin 3 mg tablet 3 mg PO BEDTIME PRN Sleep 01/20/22 05/08/22 bismuth subsalicylate 262 mg/15 mL 524 mg PO Q30M PRN Gastric Reflux 04/07/22 05/08/22 oral suspension (Pepto-Bismol) docusate sodium 100 mg tablet 100 mg PO DAILY 04/07/22 05/08/22 polyethylene glycol 3350 17 gram 17 g PO DAILY 04/07/22 05/08/22 oral powder packet (Miralax) methadone 10 mg/mL oral concentrate 65 mg PO DAILY 04/09/22 05/08/22 Previous Rx's ?Medication ?Instructions ?Recorded miscellaneous medical supply #1 ea 02/17/22 (Blood Pressure Cuff) folic acid 1 mg tablet 1 mg PO DAILY #90 tabs 03/17/22 multivitamin with folic acid 400 1 tab PO BEDTIME #90 tabs 03/17/22 mcg tablet (Therems Multivitamin) pantoprazole 40 mg tablet,delayed 40 mg PO DAILY #90 tabs 03/17/22 release pyridoxine (vitamin B6) 50 mg 50 mg PO DAILY #90 tabs 03/17/22 tablet thiamine HCl (vitamin B1) 100 mg 100 mg PO DAILY #30 tabs 03/17/22 tablet midodrine 5 mg tablet 5 mg PO TID 90 days #270 tabs 04/19/22 nadolol 20 mg tablet 10 mg (1/2 x 20 mg) PO DAILY #30 04/19/22 tabs lactulose 20 gram/30 mL oral 40 g (60 mL) PO DAILY 30 days 05/19/22 solution #1,800 mL diphenhydramine HCl 25 mg capsule 25 mg PO BID allergy symptoms 3 05/30/22 (Benadryl) days #6 caps famotidine 20 mg tablet (Pepcid) 20 mg PO BID 3 days #6 tabs 05/30/22 prednisone 20 mg tablet 20 mg PO BID 3 days #6 tabs 05/30/22 cholecalciferol (vitamin D3) 50 50 mcg PO DAILY #90 caps 06/19/22 mcg (2,000 unit) capsule ferrous sulfate 325 mg (65 mg 325 mg PO DAILY #90 tabs 06/19/22 iron) tablet hydroxyzine HCl 10 mg tablet 10 mg PO BID PRN anxiety 30 days 07/11/22 #60 tabs bumetanide 1 mg tablet 1 mg PO DAILY #90 tabs 10/25/22 spironolactone 25 mg tablet 12.5 mg (1/2 x 25 mg) PO DAILY #15 06/13/23 tabs lorazepam 1 mg tablet 1 mg PO TID PRN anxiety #9 tabs 02/16/24 Allergies Allergy/AdvReac Type Severity Reaction Status Date / Time Iodinated Contrast Media Allergy Intermediate blood in Verified 02/16/24 17:16 urine Shellfish Allergy Unknown Hives Uncoded 02/16/24 17:16 Review of Systems Constitutional: Constitutional: Denies body ache(s), Denies chills and Denies fever(s) Eyes: Eyes: Denies blurry vision ENT: Denies sore throat Cardiovascular: Cardiovascular: Denies chest pain and Denies dyspnea Respiratory: Respiratory: Denies cough and Denies dyspnea Gastrointestinal: Gastrointestinal: Denies abdominal pain, Denies nausea and Denies vomiting Musculoskeletal: Musculoskeletal: Denies back pain Integumentary/Breasts: Skin/Breast: Denies rash Psychiatric: Psychiatric: Reports anxiety and Denies suicidal ideation [facility] Past Medical History Medical History Cirrhosis, alcoholic Constipation Hemorrhoids Iron deficiency anemia Splenomegaly Surgical History H/O: hysterectomy History of tubal ligation Hx of hemorrhoidectomy Family History Family History Father No problems noted. Mother Active asthma Social History Social History Household Members: Spouse Housing: House Are you a primary career placement services counselor to a significant other at home: No Do you presently have visiting nurse or other home services: No Alcohol intake: current Alcohol intake frequency: holidays/special occasions only Patient Tobacco Use Status: Never used Tobacco Tobacco use type: Cigarette Smoked in Last 30 Days: No e-Cigarette/Vaping Use: Never Used Use of substances other than those prescribed or required for medical reasons: No Advance Directives: No Advance Directives Information Provided: No Advance Directives Date on File: 04/08/22 Patient : No service: No Current occupational status: unemployed 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 Cognitive needs: No Hearing needs: No Vision needs: No Physical Exam ED Vital Signs: Vital Signs - 24 hr 02/16/24 17:13 02/16/24 17:32 02/16/24 18:08 Temperature 98.8 F 98.8 F Pulse Rate 112 H 102 H Respiratory Rate 18 14 16 Blood Pressure 00/00 L Pulse Oximetry 97 98 Oxygen Delivery Method Room Air Room Air BMI result Body Mass Index 25.4 Const General: healthy appearing, comfortable, no acute distress, alert and awake Nutritional Appearance: well nourished Orientation/consciousness: patient oriented x3 HENMT Head: Yes normocephalic and Yes atraumatic Eyes Eyelids: Yes eyelids normal Conjunctivae: conjunctivae normal Sclerae: sclerae normal Corneas: corneas normal Pupils: Equal, round and reactive pupils present EOM: EOMs intact bilaterally Resp Effort & Inspection: normal respiratory effort, able to speak in complete sentences and not labored Cardio Rate: regular rate Rhythm: regular rhythm Skin General skin exam: elasticity normal Neuro General: patient oriented x3 Cranial nerves: Yes Equal, round and reactive pupils present and Yes Bilaterally intact EOM present Cognition (Neuro): normal cognition Extrem Other: Moving all extremities well without any obvious deformities Medications Administered Discontinued Medications Generic Name Dose Route Start Last Admin Trade Name Freq PRN Reason Stop Dose Admin Lorazepam 2 mg 02/16/24 17:14 02/16/24 17:20 Lorazepam 1 Mg Tablet PO 02/16/24 17:15 2 mg ONCE ONE Administration Medical Decision Making Medical Decision Making MDM Narrative: 63-year-old female presents for evaluation of anxiety related to the of her happened a year ago. Patient was given Ativan 2 mg p.o. and has calmed down. She is requesting discharge. She has not on a section, she has not had any thoughts of suicide. I offered to have the patient stay to speak with the care team for help with her anxiety/depression and substance abuse. The patient declines and would rather do this as an outpatient. She has good support with her daughter Differential Diagnosis Differential Diagnoses: The differential diagnosis associated with the presentation includes Anxiety Depression Substance abuse Polysubstance abuse Discharge Plan Discharge Clinical Impression: Anxiety Patient Disposition: Home, Self-Care Instructions: Anxiety (ED) Additional Instructions: Follow-up with a therapist as discussed. You may use Ativan as needed for any severe anxiety Return for new or worsening symptoms, especially if you have any thoughts of harming herself or anybody else Prescriptions: New lorazepam 1 mg tablet 1 mg PO TID PRN (Reason: anxiety) Qty: 9 0RF No Action folic acid 1 mg tablet 1 mg PO DAILY Qty: 90 0RF pyridoxine (vitamin B6) 50 mg tablet 50 mg PO DAILY Qty: 90 1RF multivitamin with folic acid [Therems Multivitamin] 400 mcg tablet 1 tab PO BEDTIME Qty: 90 0RF lactulose 20 gram/30 mL solution 40 g PO DAILY 30 Days Qty: 1800 0RF prednisone 20 mg tablet 20 mg PO BID 3 Days Qty: 6 0RF famotidine [Pepcid] 20 mg tablet 20 mg PO BID 3 Days Qty: 6 0RF diphenhydramine HCl [Benadryl] 25 mg capsule 25 mg PO BID 3 Days Qty: 6 0RF cholecalciferol (vitamin D3) 50 mcg (2,000 unit) capsule 50 mcg PO DAILY Qty: 90 0RF ferrous sulfate 325 mg (65 mg iron) tablet 325 mg PO DAILY Qty: 90 0RF hydroxyzine HCl 10 mg tablet 10 mg PO BID PRN (Reason: anxiety) 30 Days Qty: 60 0RF bumetanide 1 mg tablet 1 mg PO DAILY Qty: 90 3RF spironolactone 25 mg tablet 12.5 mg PO DAILY Qty: 15 0RF Rx Instructions: OVERDUE FOR APPT. PLEASE CALL [phone] TO SCHEDULE FOLLOW UP FOR 2022 SO WE CAN CONTINUE REFILLING YOUR MEDICATIONS. If you do not want to schedule appt with fast food services manager, you can opt to get future refills from your PCP. Thank you. polyethylene glycol 3350 [Miralax] 17 gram Powder In Packet 17 g PO DAILY bismuth subsalicylate [Pepto-Bismol] 262 mg/15 mL Suspension 524 mg PO Q30M PRN (Reason: Gastric Reflux) Rx Instructions: do not exceed 8 doses in a 24 hour period docusate sodium 100 mg Tablet 100 mg PO DAILY methadone 10 mg/mL Concentrate 65 mg PO DAILY midodrine 5 mg Tablet 5 mg PO TID 90 Days Qty: 270 0RF nadolol 20 mg tablet 10 mg PO DAILY Qty: 30 0RF ergocalciferol (vitamin D2) [Vitamin D2] 1,250 mcg (50,000 unit) capsule 1,250 mcg PO QWEEK magnesium oxide 400 mg (241.3 mg magnesium) tablet 400 mg PO BID melatonin 3 mg tablet 3 mg PO BEDTIME PRN (Reason: Sleep) ascorbic acid (vitamin C) 100 mg tablet 100 mg PO DAILY (DME) Blood Pressure Cuff Misc See Rx Instructions .Route Qty: 1 0RF Rx Instructions: As directed, take BP twice a day. thiamine HCl (vitamin B1) 100 mg tablet 100 mg PO DAILY Qty: 30 0RF pantoprazole 40 mg tablet,delayed release (DR/EC) 40 mg PO DAILY Qty: 90 2RF Interventions: ED Discharge Assessment Last Done: 02/16/24 18:08 Print Language: Luxembourgish
[2024-02-16 18:08] VITALS: BP 00/00; PULSE 102; RESP 16; TEMP 37.1; O2SAT 98
--- OUTSIDE RECORDS SUMMARY | 2024-02-16 18:18 | XMS_ITS | Continuity of Care Document ---
Author Organization [facility] Address [address] [place] [id number]- Care Team Providers Care Supervisor Advice Name Role Phone Not on Staff, PCP Primary Care Physician Unavail able Encounter [facility] [place] Date(s): 10/16/22 - 11/15/22 [facility] [address] [place] [id number]- Attending Physician: Kim Carr Admitting Physician: AdmtrKim Referring Physician: Admtr, Ar8 Allergies, Adverse Reactions, Alerts Substance Reaction Severity Status shellfish Active Seafood Active Immunizations Given and Recorded Vaccine Date Status Refusal Reason influenza virus vaccine, inactivated 01/03/22 Give n influenza virus vaccine, inactivated 08/22/12 Give n SARS-CoV-2 (COVID-19) mRNA-1273 vaccine 04/05/21 R ecorded SARS-CoV-2 (COVID-19) mRNA-1273 vaccine 03/08/21 R ecorded pneumococcal 23-valent vaccine 08/22/12 Given tetanus-diphtheria toxoids (Td) 08/21/12 Given Medications acetaminophen 325 mg oral tablet 650 mg, By Mouth, Every 4 hours, PRN, Temperature Greater than 100.5, Refills 0, Maintenance, Pain , Mild, 01/09/22 12:22:00 EST, Partial fill upon patient request if the prescription is for a schedule II opioid drug. Start Date: 01/09/22 Status: Ordered albuterol CFC free 90 mcg/inh inhalation aerosol 1, puffs, Inhalation, 4 times a day, PRN, # 6.7 Gm, Refills 0, Maintenance, 01/09/22 12:21:00 EST, Aerosol Start Date: 01/09/22 Status: Ordered Docusate/Senna Tablet 1 tablet, By Mouth, 2 times a day, PRN Constipation, 0 Refills, Maintenance, 01/09/22 12:22:00 EST,Tablet, Partial fill upon patient request if the prescription is for a schedule II opioid drug. Start Date: 01/09/22 Status: Ordered folic acid 1 mg oral tablet 1 mg, 1, tablet, By Mouth, Daily, # 30 tablet, Refills 0, Tot. Refills 0, Maintenance, 02/13/22 10:01:00 EDT, [id number] Partial fill upon patient request if the prescription is for a schedule II opioid drug.... Start Date: 02/13/22 Status: Ordered hydrOXYzine hydrochloride 10 mg oral tablet 2 tablet = 20 mg, By Mouth, Every 6 hours, PRN Anxiety, # 240 tablet, 0 Refills, Maintenance, 01/09/22 12:56:00 EST, Tablet, [facility], Partial fill upon patient request if the prescription is for a schedule II opioid drug., 170, cm, 02... Start Date: 01/09/22 Status: Ordered lactulose 10 gm/15 ml oral syrup 30 mL = 20 Gm, By Mouth, 3 times a day, please titrate it to two-three bowel movements per day, # 2,700 mL, 0 Refills, Maintenance, 01/09/22 12:25:00 EST, Syrup, [facility], Partial fill upon patient request if the prescription is for a... Start Date: 01/09/22 Status: Ordered magnesium oxide 400 mg oral tablet 1 tablet = 400 mg, By Mouth, 2 times a day, # 60 tablet, 0 Refills, Maintenance, 02/13/22 10:01:00 EDT, Tablet, [facility]/pharmacy #[id number], Partial fill upon patient request if the prescription is for a schedule II opioid drug., 170, cm, 02/13/22 9:07:00 EDT,... Start Date: 02/13/22 Status: Ordered melatonin 3 mg oral tablet = 3 mg, By Mouth, Daily at bedtime, PRN Insomnia, # 60 tablet, 1 Refills, Maintenance, 01/09/22 12:26:00 EST, Tablet, [facility], Partial fill upon patient request if the prescription is for a schedule II opioid drug., 170, cm, 01/09/22... Start Date: 01/09/22 Status: Ordered methadone 10 mg/5 mL oral solution 32.5 mL = 65 mg, By Mouth, Daily, 0 Refills, Maintenance, 01/09/22 12:26:00 EST, Solution, Partial fill upon patient request if the prescription is for a schedule II opioid drug. Start Date: 01/09/22 Status: Ordered nadolol 20 mg oral tablet 20 mg, 1, tablet, By Mouth, Daily, # 90 tablet, Refills 0, Tot. Refills 0, Maintenance, 03/07/22 15:29:00 EDT, Route to Pharmacy Electronically, [facility]/pharmacy #[id number], Partial fill upon patient request if the prescription is for a schedule II opioid drug... Start Date: 03/07/22 Status: Ordered nicotine 2 mg oral transmucosal gum = 2 mg, Chew, Every hour, PRN Other, Nicotine Withdrawal Symptoms (NOT to exceed 24 pieces per day), # 160 each, 0 Refills, Maintenance, 01/09/22 12:27:00 EST, Gum, [facility], Partial fill upon patient request if the prescription is for... Start Date: 01/09/22 Stop Date: 02/06/22 Status: Ordered NuLYTELY with Flavor Packs oral powder for reconstitution See Instructions, 4 liters By Mouth for colonoscopy, # 1 each, 0 Refills, Maintenance, 02/13/22 11:09:00 EDT, [facility]/pharmacy #[id number], Partial fill upon patient request if the prescription is for a schedule II opioid drug., 4 liters By Mouth for colonoscop... Start Date: 02/13/22 Status: Ordered pantoprazole 40 mg oral delayed release tablet = 40 mg, By Mouth, Daily, # 30 capsule, 1 Refills, Maintenance, 01/09/22 12:30:00 EST, EC Tablet, 170, cm, 01/09/22 7:53:00 EST, Height, 100, kg, 01/02/22 14:30:00 EST, Dry Weight Start Date: 01/09/22 Status: Ordered pyridoxine 50 mg oral tablet 50 mg, 1, tablet, By Mouth, Daily, # 30 tablet, Refills 1, Tot. Refills 1, Maintenance, 02/13/22 10:01:00 EDT, Route to Pharmacy Electronically, [id number], Partial fill upon patient request if the prescription is for a schedule II opioid drug... Start Date: 02/13/22 Status: Ordered Therapeutic Multiple Vitamins oral capsule 1 capsule, By Mouth, Daily, # 30 capsule, 2 Refills, Maintenance, 02/13/22 10:01:00 EDT, [facility]apsule[id number] Partial fill upon patient request if the prescription is for a schedule II opioiddrug., 1 capsule By Mouth Daily, 170, cm, 02/13/22... Start Date: 02/13/22 Status: Ordered thiamine 100 mg oral tablet 100 mg, 1, tablet, By Mouth, Daily, # 30 tablet, Refills 1, Tot. Refills 1, Maintenance, 02/13/22 10:01:00 EDT, [id number] Partial fill upon patient requestif the prescription is for a schedule II opioid pedro... Start Date: 02/13/22 Status: Ordered Vitamin D2 50,000 intl units (1.25 mg) oral capsule 1 capsule = 50,000 International_Units, By Mouth, Every week, # 11 capsule, 0 Refills, Maintenance,01/13/22 12:23:00 EST, [facility], Partial fill upon patient request if the prescription is for a schedule II opioid drug., 170, cm, 12/14... Start Date: 01/13/22 Stop Date: 04/07/22 Status: Ordered Problem List Condition Confirmation Course Effective Dates Status Health St atus Informant Anxiety Confirmed Active Asthma Confirmed Active Chronic low back pain Confirmed Active Depression Confirmed Active IVDU - Intravenous drug user 1 Confirmed Active Obese class II Confirmed Active Pt reports she quit 1mo ago Social History Social History Type Response Smoking Status Former smoker, quit more than 30 days ago; Type: Cigarettes entered on: 04/06/19 Sex Patient Care team information Care Team Personnel Name: Carmella Zapata RN Position: S RN Member Role: Primary Care Nurse Name: Ling Seo RN Position: S RN Member Role: Primary Care Nurse Name: Mary Garcia RN Position: S RN Member Role: Primary Care Nurse Name: Dahlia Garcia RN Position: S RN Member Role: Primary Care Nurse Name: Alana Kennedy RN Position: [facility] RN Member Role: Primary Care Nurse Name: Sierra Lara RN Position: [facility] RN Member Role: Primary Care Nurse Name: Wendy Street RN Position: [facility] RN Member Role: Primary Care Nurse Name: Not on Staff, PCP Position: [facility] Physician (General Medicine) Member Role: PCP Name: Shoshana Guerrero RN Position: [facility] RN Member Role: Primary Care Nurse Name: Salma Weldon RN Position: [facility] RN Member Role: Primary Care Nurse Name: Penny Jason RN Position: [facility] RN Member Role: Primary Care Nurse Name: Marcia Hernandez LPN Position: [facility] RN Member Role: Primary Care Nurse Care Team Related Persons Name: DERRELL DANIELLE Address: [address] [place] [address] Name: MARC HEARD Address: [address] [place] [address]
--- OUTSIDE RECORDS SUMMARY | 2024-02-16 18:18 | XMS_ITS | Continuity of Care Document ---
Author Organization [facility] Address [address] [place] [address]- Care Team Providers Care Passenger Attendant Name Role Phone Not on Staff, PCP Primary Care Physician Unavail able Encounter [facility] Date(s): 02/15/22 - 03/17/22 [facility] [address] [place] [address]- [place] Allergies, Adverse Reactions, Alerts Substance Reaction Severity [...] 02/13/22 10:01:00 EDT, [id number] Partial fill upon patient request if the prescription is for a schedule II opioid drug.... Start Date: 02/13/22 Status: Ordered hydrOXYzine hydrochloride 10 mg oral tablet 2 tablet = 20 mg, By Mouth, Every 6 hours, PRN Anxiety, # 240 tablet, 0 Refills, Maintenance, 01/09/22 12:56:00 EST, Tablet, [facility], Partial fill upon patient request if the prescription is for a schedule II opioid drug., 170, cm, 02... Start Date: 01/09/22 Status: Ordered lactulose 10 gm/15 ml oral syrup 30 mL = 20 Gm, By Mouth, 3 times a day, please titrate it to two-three bowel movements per day, # 2,700 mL, 0 Refills, Maintenance, 01/09/22 12:25:00 EST, Syrup, [facility], Partial fill upon patient request if the prescription is for a... Start Date: 01/09/22 Status: Ordered magnesium oxide 400 mg oral tablet 1 tablet = 400 mg, By Mouth, 2 times a day, # 60 tablet, 0 Refills, Maintenance, 02/13/22 10:01:00 EDT, Tablet, [id number] Partial fill upon patient request if the prescription is for a schedule II opioid drug., 170, cm, 02/13/22 9:07:00 EDT,... Start Date: 02/13/22 Status: Ordered melatonin 3 mg oral tablet = 3 mg, By Mouth, Daily at bedtime, PRN Insomnia, # 60 tablet, 1 Refills, Maintenance, 01/09/22 12:26:00 EST, Tablet, [facility], Partial fill upon patient [...] 03/07/22 15:29:00 EDT, Route to Pharmacy Electronically, [facility]/pharmacy #[id number], Partial fill upon patient request if the prescription is for a schedule II opioid drug... Start Date: 03/07/22 Status: Ordered nicotine 2 mg oral transmucosal gum = 2 mg, Chew, Every hour, PRN Other, Nicotine Withdrawal Symptoms (NOT to exceed 24 pieces per day), # 160 each, 0 Refills, Maintenance, 01/09/22 12:27:00 EST, Gum, [facility], Partial fill upon patient request if the prescription is for... Start Date: 01/09/22 Stop Date: 02/06/22 Status: Ordered NuLYTELY with Flavor Packs oral powder for reconstitution See Instructions, 4 liters By Mouth for colonoscopy, # 1 each, 0 Refills, Maintenance, 02/13/22 11:09:00 EDT, [facility]/pharmacy #[id number], Partial fill upon [...] 02/13/22 10:01:00 EDT, Route to Pharmacy Electronically, [facility]/pharmacy #[id number], Partial fill upon patient request if the prescription is for a schedule II opioid drug... Start Date: 02/13/22 Status: Ordered Therapeutic Multiple Vitamins oral capsule 1 capsule, By Mouth, Daily, # 30 capsule, 2 Refills, Maintenance, 02/13/22 10:01:00 EDT, Capsule, [facility]/pharmacy #[id number], Partial fill upon patient request if the prescription is for a schedule II opioiddrug., 1 capsule By Mouth Daily, 170, cm, 02/13/22... Start Date: 02/13/22 Status: Ordered thiamine 100 mg oral tablet 100 mg, 1, tablet, By Mouth, Daily, # 30 tablet, Refills 1, Tot. Refills 1, Maintenance, 02/13/22 10:01:00 EDT, Route to Pharmacy Electronically, [facility]/pharmacy #[id number], Partial fill upon patient requestif the prescription is for a schedule II opioid pedro... Start Date: 02/13/22 Status: Ordered Vitamin D2 50,000 intl units (1.25 mg) oral capsule 1 capsule = 50,000 International_Units, By Mouth, Every week, # 11 capsule, 0 Refills, Maintenance,01/13/22 12:23:00 EST, [facility], Partial fill upon patient request if the prescription is for a schedule II opioid drug., 170, cm, 12/14... Start Date: 01/13/22 Stop Date: 04/07/22 Status: Ordered Problem List Condition Effective Dates Status Health Status Inform ant Anxiety(Confirmed) Active Asthma(Confirmed) Active Chronic low back pain(Confirmed) Active Depression(Confirmed) Active IVDU - Intravenous drug user(Confirmed) 1 Active Obese class II(Confirmed) Active Pt reports she quit 1mo ago Social History Social History Type Response Smoking Status Former smoker, quit more than 30 days ago; Type: Cigarettes entered on: 04/06/19 Sex
--- OUTSIDE RECORDS SUMMARY | 2024-02-16 18:18 | XMS_ITS | Continuity of Care Document ---
Author Organization [facility] ter Address [address] [place] [id number]- Care Team Providers Care Supervisor Cutting And Sewing Room Name Role Phone Not on Staff, PCP Primary Care Physician Unavail able Encounter [facility] [place] Date(s): 03/07/22 - 03/07/[address] [address] Discharge Disposition: A-D/C Home Attending Physician: Cristiano Bartlett MD Admitting Physician: Cristiano Bartlett MD Referring Physician: Cristiano Bartlett MD Allergies, Adverse Reactions, Alerts Substance Reaction Severity [...] 02/13/22 10:01:00 EDT, [id number] Partial fill upon patient request if the prescription is for a schedule II opioid drug.... Start Date: 02/13/22 Status: Ordered hydrOXYzine hydrochloride 10 mg oral tablet 2 tablet = 20 mg, By Mouth, Every 6 hours, PRN Anxiety, # 240 tablet, 0 Refills, Maintenance, 01/09/22 12:56:00 EST, Tablet, [facility], Partial fill upon patient request if the prescription is for a schedule II opioid drug., 170, cm, 02... Start Date: 01/09/22 Status: Ordered lactulose 10 gm/15 ml oral syrup 30 mL = 20 Gm, By Mouth, 3 times a day, please titrate it to two-three bowel movements per day, # 2,700 mL, 0 Refills, Maintenance, 01/09/22 12:25:00 EST, Syrup, [facility], Partial fill upon patient request if the prescription is for a... Start Date: 01/09/22 Status: Ordered magnesium oxide 400 mg oral tablet 1 tablet = 400 mg, By Mouth, 2 times a day, # 60 tablet, 0 Refills, Maintenance, 02/13/22 10:01:00 EDT, Tablet, [facility]/pharmacy #[id number], Partial fill upon patient request if the prescription is for a schedule II opioid drug., 170, cm, 02/13/22 9:07:00 EDT,... Start Date: 02/13/22 Status: Ordered melatonin 3 mg oral tablet = 3 mg, By Mouth, Daily at bedtime, PRN Insomnia, # 60 tablet, 1 Refills, Maintenance, 01/09/22 12:26:00 EST, Tablet, [facility], Partial fill upon patient request [...] 03/07/22 15:29:00 EDT, Route to Pharmacy Electronically, [facility]/pharmacy #[id number], Partial fill upon patient request if the prescription is for a schedule II opioid drug... Start Date: 03/07/22 Status: Ordered nicotine 2 mg oral transmucosal gum = 2 mg, Chew, Every hour, PRN Other, Nicotine Withdrawal Symptoms (NOT to exceed 24 pieces per day), # 160 each, 0 Refills, Maintenance, 01/09/22 12:27:00 EST, Gum, [facility], Partial fill upon patient request if the prescription is for... Start Date: 01/09/22 Stop Date: 02/06/22 Status: Ordered NuLYTELY with Flavor Packs oral powder for reconstitution See Instructions, 4 liters By Mouth for colonoscopy, # 1 each, 0 Refills, Maintenance, 02/13/22 11:09:00 EDT, [facility]/pharmacy #[id number], Partial fill upon patient request [...] 02/13/22 10:01:00 EDT, Route to Pharmacy Electronically, [facility]/pharmacy #[id number], Partial fill upon patient request if the prescription is for a schedule II opioid drug... Start Date: 02/13/22 Status: Ordered Therapeutic Multiple Vitamins oral capsule 1 capsule, By Mouth, Daily, # 30 capsule, 2 Refills, Maintenance, 02/13/22 10:01:00 EDT, Capsule, [facility]/pharmacy #[id number], Partial fill upon patient request if the prescription is for a schedule II opioiddrug., 1 capsule By Mouth Daily, 170, cm, 02/13/22... Start Date: 02/13/22 Status: Ordered thiamine 100 mg oral tablet 100 mg, 1, tablet, By Mouth, Daily, # 30 tablet, Refills 1, Tot. Refills 1, Maintenance, 02/13/22 10:01:00 EDT, Route to Pharmacy Electronically, [facility]/pharmacy #[id number], Partial fill upon patient requestif the prescription is for a schedule II opioid pedro... Start Date: 02/13/22 Status: Ordered Vitamin D2 50,000 intl units (1.25 mg) oral capsule 1 capsule = 50,000 International_Units, By Mouth, Every week, # 11 capsule, 0 Refills, Maintenance,01/13/22 12:23:00 EST, [facility], Partial fill upon patient request [...] Active Pt reports she quit 1mo ago Procedures Procedure Date Related Diagnosis Body Site Status Colonoscopy, flexible; with removal of tumor(s), polyp(s), or other lesion(s) by snare technique 03/07/22 Completed EGD - Esophagogastroduodenoscopy 03/07/22 Completed Vital Signs Most recent to oldest [Reference Range]: 1 2 3 Height 162.6 cm (03/07/22 1:40 PM) Weight 97.5 kg (03/07/22 1:40 PM) Oxygen Saturation [94-100 %] 100 % (03/07/22 3:38 PM) 100 % (03/07/22 3:28 PM) 100 % (03/07/22 1:40 PM) Pulse Rate [55-90 bpm] 90 bpm (03/07/22 1:40 PM) Body Mass Index [18.5-24.99] 36.88 *>HHI* (03/07/22 1:40 PM) Blood Pressure [90-138/55-84 mm Hg] 115/71mm Hg (03/07/22 3:28 PM) 119/62mm Hg (03/07/22 1:40 PM) Respiratory Rate [16-30 br/min] 18 br/min (03/07/22 3:38 PM) 14 br/min *L* (03/07/22 3:28 PM) 16 br/min (03/07/22 1:40 PM) Temperature [96.8-100.4 DegF] 97 DegF (03/07/22 1:40 PM) Mode of Delivery (Oxygen) Room air (03/07/22 1:40 PM) Blood pressure sites Arm, left (03/07/22 3:38 PM) Arm, left (03/07/22 3:28 PM) Arm, left (03/07/22 1:40 PM) Temperature Route Temporal (03/07/22 1:40 PM) Dry Weight 97.5 kg (03/07/22 1:40 PM) Weight Obtained Via Patient/family state d (03/07/22 1:40 PM) Dry Weight Obtained Via Patient/family s tated (03/07/22 1:40 PM) Social History Social History Type Response Smoking Status Former smoker, quit more than 30 days ago; Type: Cigarettes entered on: 04/06/19 Sex
--- OUTSIDE RECORDS SUMMARY | 2024-02-16 18:18 | XMS_ITS | Continuity of Care Document ---
Author Organization [facility] Address [address] [place] [address]- Care Team Providers Care Supervisor Accounts Receivable Name Role Phone Not on Staff, PCP Primary Care Physician Unavail able Encounter [facility] [place] Date(s): 02/15/22 - 03/17/22 [facility] [address] [place] [address]- [place] Allergies, Adverse Reactions, Alerts Substance Reaction [...] 02/13/22 10:01:00 EDT, [id number] Partial fill upon patient request if the prescription is for a schedule II opioid drug.... Start Date: 02/13/22 Status: Ordered hydrOXYzine hydrochloride 10 mg oral tablet 2 tablet = 20 mg, By Mouth, Every 6 hours, PRN Anxiety, # 240 tablet, 0 Refills, Maintenance, 01/09/22 12:56:00 EST, Tablet, [facility], Partial fill upon patient request if the prescription is for a schedule II opioid drug., 170, cm, 02... Start Date: 01/09/22 Status: Ordered lactulose 10 gm/15 ml oral syrup 30 mL = 20 Gm, By Mouth, 3 times a day, please titrate it to two-three bowel movements per day, # 2,700 mL, 0 Refills, Maintenance, 01/09/22 12:25:00 EST, Syrup, [facility], Partial fill upon patient request if the prescription is for a... Start Date: 01/09/22 Status: Ordered magnesium oxide 400 mg oral tablet 1 tablet = 400 mg, By Mouth, 2 times a day, # 60 tablet, 0 Refills, Maintenance, 02/13/22 10:01:00 EDT, Tablet, [id number] Partial fill upon patient request if the prescription is for a schedule II opioid drug., 170, cm, 02/13/22 9:07:00 EDT,... Start Date: 02/13/22 Status: Ordered melatonin 3 mg oral tablet = 3 mg, By Mouth, Daily at bedtime, PRN Insomnia, # 60 tablet, 1 Refills, Maintenance, 01/09/22 12:26:00 EST, Tablet, [facility], Partial fill upon patient request [...] 03/07/22 15:29:00 EDT, Route to Pharmacy Electronically, [facility]/pharmacy #[id number], Partial fill upon patient request if the prescription is for a schedule II opioid drug... Start Date: 03/07/22 Status: Ordered nicotine 2 mg oral transmucosal gum = 2 mg, Chew, Every hour, PRN Other, Nicotine Withdrawal Symptoms (NOT to exceed 24 pieces per day), # 160 each, 0 Refills, Maintenance, 01/09/22 12:27:00 EST, Gum, [facility], Partial fill upon patient request if the prescription is for... Start Date: 01/09/22 Stop Date: 02/06/22 Status: Ordered NuLYTELY with Flavor Packs oral powder for reconstitution See Instructions, 4 liters By Mouth for colonoscopy, # 1 each, 0 Refills, Maintenance, 02/13/22 11:09:00 EDT, [facility]/pharmacy #[id number], Partial fill upon patient request if [...] 02/13/22 10:01:00 EDT, Route to Pharmacy Electronically, [facility]/pharmacy #[id number], Partial fill upon patient request if the prescription is for a schedule II opioid drug... Start Date: 02/13/22 Status: Ordered Therapeutic Multiple Vitamins oral capsule 1 capsule, By Mouth, Daily, # 30 capsule, 2 Refills, Maintenance, 02/13/22 10:01:00 EDT, Capsule, [facility]/pharmacy #[id number], Partial fill upon patient request if the prescription is for a schedule II opioiddrug., 1 capsule By Mouth Daily, 170, cm, 02/13/22... Start Date: 02/13/22 Status: Ordered thiamine 100 mg oral tablet 100 mg, 1, tablet, By Mouth, Daily, # 30 tablet, Refills 1, Tot. Refills 1, Maintenance, 02/13/22 10:01:00 EDT, Route to Pharmacy Electronically, [facility]/pharmacy #[id number], Partial fill upon patient requestif the prescription is for a schedule II opioid pedro... Start Date: 02/13/22 Status: Ordered Vitamin D2 50,000 intl units (1.25 mg) oral capsule 1 capsule = 50,000 International_Units, By Mouth, Every week, # 11 capsule, 0 Refills, Maintenance,01/13/22 12:23:00 EST, [facility], Partial fill upon patient request if [...]
--- OUTSIDE RECORDS SUMMARY | 2024-02-16 18:18 | XMS_ITS | Continuity of Care Document ---
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 Refills 0, Maintenance, 01/09/22 12:24:00 EST, Route to Pharmacy Electronically, [facility], Partial fill upon patient request if the prescription is for a schedule II opioid... Start Date: 01/09/22 Status: Ordered hydrOXYzine hydrochloride 10 mg oral tablet 2 tablet = 20 mg, By Mouth, Every 6 hours, PRN Anxiety, # 240 tablet, 0 Refills, Maintenance, 01/09/22 12:56:00 EST, Tablet, [facility], Partial fill upon patient request if the prescription is for a schedule II opioid drug., 170, cm, 02... Start Date: 01/09/22 Status: Ordered lactulose 10 gm/15 ml oral syrup 30 mL = 20 Gm, By Mouth, 3 times a day, please titrate it to two-three bowel movements per day, # 2,700 mL, 0 Refills, Maintenance, 01/09/22 12:25:00 EST, Syrup, [facility], Partial fill upon patient request if the prescription is for a... Start Date: 01/09/22 Status: Ordered magnesium oxide 400 mg oral tablet 1 tablet = 400 mg, By Mouth, 2 times a day, # 60 tablet, 0 Refills, Maintenance, 01/09/22 12:26:00 EST, Tablet, [facility], Partial fill upon patient request if the prescription is for a schedule II opioid drug., 170, cm, 01/09/22 7:53:0... Start Date: 01/09/22 Status: Ordered melatonin 3 mg oral tablet = 3 mg, By Mouth, Daily at bedtime, PRN Insomnia, # 60 tablet, 1 Refills, Maintenance, 01/09/22 12:26:00 EST, Tablet, [facility], Partial fill upon patient [...] opioid drug. Start Date: 01/09/22 Status: Ordered nicotine 2 mg oral transmucosal gum = 2 mg, Chew, Every hour, PRN Other, Nicotine Withdrawal Symptoms (NOT to exceed 24 pieces per day), # 160 each, 0 Refills, Maintenance, 01/09/22 12:27:00 EST, Gum, [facility], Partial fill upon patient request if the prescription is for... Start Date: 01/09/22 Stop Date: 02/06/22 Status: Ordered pantoprazole 40 mg oral delayed [...] tablet, Refills 1, Tot. Refills 1, Maintenance, 01/09/22 12:28:00 EST, Route to Pharmacy Electronically, [facility], Partial fill upon patient request if the prescription is for a schedule II opioi... Start Date: 01/09/22 Status: Ordered Therapeutic Multiple Vitamins oral capsule 1 capsule, By Mouth, Daily, # 30 capsule, 2 Refills, Maintenance, 01/09/22 12:27:00 EST, Capsule, [facility], Partial fill upon patient request if the prescription is for a schedule II opioid drug., 1 capsule By Mouth Daily, 170, cm, ... Start Date: 01/09/22 Status: Ordered thiamine 100 mg oral tablet 100 mg, 1, tablet, By Mouth, Daily, # 30 tablet, Refills 1, Tot. Refills 1, Maintenance, 01/09/22 12:28:00 EST, Route to Pharmacy Electronically, [facility], Partial fill upon patient request if the prescription is for a schedule II opio... Start Date: 01/09/22 Status: Ordered Vitamin D2 50,000 intl units (1.25 mg) oral capsule 1 capsule = 50,000 International_Units, By Mouth, Every week, # 11 capsule, 0 Refills, Maintenance,01/13/22 12:23:00 EST, [facility], Partial fill upon patient [...] Active Pt reports she quit 1mo ago Vital Signs Most recent to oldest [Reference Range]: 1 2 Oxygen Saturation [94-100 %] 98 % (01/16/22 4:00 PM) 99 % (01/16/22 3:46 PM) Pulse Rate [55-90 bpm] 87 bpm (01/16/22 4:00 PM) 85 bpm (01/16/22 3:46 PM) Blood Pressure [90-138/55-84 mm Hg] 112/ 68mm Hg (01/16/22 4:00 PM) Respiratory Rate [16-30 br/min] 17 br/mi n (01/16/22 4:00 PM) 16 br/min (01/16/22 3:46 PM) Temperature [96.8-100.4 DegF] 99.2 DegF (01/16/22 4:00 PM) Mode of Delivery (Oxygen) Room air (01/16/22 4:00 PM) Room air (01/16/22 3:46 PM) Temperature Route Oral (01/16/22 4:00 PM) Social History Social History Type Response Smoking Status Former smoker, quit more than 30 days ago; Type: Cigarettes entered on: 04/06/19 Sex
--- OUTSIDE RECORDS SUMMARY | 2024-02-16 18:18 | XMS_ITS | Continuity of Care Document ---
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 Start Date: 02/13/22 Status: Ordered hydrOXYzine hydrochloride 10 mg oral tablet 2 tablet = 20 mg, By Mouth, Every 6 hours, PRN Anxiety, # 240 tablet, 0 Refills, Maintenance, 01/09/22 12:56:00 EST, Tablet, [facility], Partial fill upon patient request if the prescription is for a schedule II opioid drug., 170, cm, 02... Start Date: 01/09/22 Status: Ordered lactulose 10 gm/15 ml oral syrup 30 mL = 20 Gm, By Mouth, 3 times a day, please titrate it to two-three bowel movements per day, # 2,700 mL, 0 Refills, Maintenance, 01/09/22 12:25:00 EST, Syrup, [facility], Partial fill upon patient request if the prescription is for a... Start Date: 01/09/22 Status: Ordered magnesium oxide 400 mg oral tablet 1 tablet = 400 mg, By Mouth, 2 times a day, # 60 tablet, 0 Refills, Maintenance, 02/13/22 10:01:00 EDT, Tablet, [id number], Partial fill upon patient request if the prescription is for a schedule II opioid drug., 170, cm, 02/13/22 9:07:00 EDT,... Start Date: 02/13/22 Status: Ordered melatonin 3 mg oral tablet = 3 mg, By Mouth, Daily at bedtime, PRN Insomnia, # 60 tablet, 1 Refills, Maintenance, 01/09/22 12:26:00 EST, Tablet, [facility], Partial fill upon [...] 03/07/22 15:29:00 EDT, Route to Pharmacy Electronically, [id number], Partial fill upon patient request if the prescription is for a schedule II opioid drug... Start Date: 03/07/22 Status: Ordered nicotine 2 mg oral transmucosal gum = 2 mg, Chew, Every hour, PRN Other, Nicotine Withdrawal Symptoms (NOT to exceed 24 pieces per day), # 160 each, 0 Refills, Maintenance, 01/09/22 12:27:00 EST, Gum, [facility], Partial fill upon patient request if the prescription is for... Start Date: 01/09/22 Stop Date: 02/06/22 Status: Ordered NuLYTELY with Flavor Packs oral powder for reconstitution See Instructions, 4 liters By Mouth for colonoscopy, # 1 each, 0 Refills, Maintenance, 02/13/22 11:09:00 EDT, [id number], Partial fill upon patient request [...] 02/13/22 10:01:00 EDT, Route to Pharmacy Electronically, [id number], Partial fill upon patient request if the prescription is for a schedule II opioid drug... Start Date: 02/13/22 Status: Ordered Therapeutic Multiple Vitamins oral capsule 1 capsule, By Mouth, Daily, # 30 capsule, 2 Refills, Maintenance, 02/13/22 10:01:00 EDT, Capsule, [id number], Partial fill upon patient request if the prescription is for a schedule II opioiddrug., 1 capsule By Mouth Daily, 170, cm, 02/13/22... Start Date: 02/13/22 Status: Ordered thiamine 100 mg oral tablet 100 mg, 1, tablet, By Mouth, Daily, # 30 tablet, Refills 1, Tot. Refills 1, Maintenance, 02/13/22 10:01:00 EDT, Route to Pharmacy Electronically, [id number], Partial fill upon patient requestif the prescription is for a schedule II opioid pedro... Start Date: 02/13/22 Status: Ordered Vitamin D2 50,000 intl units (1.25 mg) oral capsule 1 capsule = 50,000 International_Units, By Mouth, Every week, # 11 capsule, 0 Refills, Maintenance,01/13/22 12:23:00 EST, [facility], Partial fill upon patient request if the prescription is for a schedule II opioid drug., 170, cm, 12/14... Start Date: 01/13/22 Stop Date: 04/07/22 Status: Ordered Problem List Condition Confirmation Course Effective Dates Status [facility] Informant Anxiety Confirmed Active Asthma Confirmed Active Chronic low back pain Confirmed Active Depression Confirmed Active IVDU - Intravenous drug user 1 Confirmed Active Obese class II Confirmed Active Pt reports she quit 1mo ago Social History Social History Type Response Smoking Status Former smoker, quit more than 30 days ago; Type: Cigarettes entered on: 04/06/19 Sex Patient Care team information Personnel Name: Not on Staff, PCP
--- OUTSIDE RECORDS SUMMARY | 2024-02-16 18:18 | XMS_ITS | Continuity of Care Document ---
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 Start Date: 01/09/22 Status: Ordered hydrOXYzine hydrochloride 10 mg oral tablet 2 tablet = 20 mg, By Mouth, Every 6 hours, PRN Anxiety, # 240 tablet, 0 Refills, Maintenance, 01/09/22 12:56:00 EST, Tablet, [facility], Partial fill upon patient request if the prescription is for a schedule II opioid drug., 170, cm, 02... Start Date: 01/09/22 Status: Ordered lactulose 10 gm/15 ml oral syrup 30 mL = 20 Gm, By Mouth, 3 times a day, please titrate it to two-three bowel movements per day, # 2,700 mL, 0 Refills, Maintenance, 01/09/22 12:25:00 EST, Syrup, [facility], Partial fill upon patient request if the prescription is for a... Start Date: 01/09/22 Status: Ordered magnesium oxide 400 mg oral tablet 1 tablet = 400 mg, By Mouth, 2 times a day, # 60 tablet, 0 Refills, Maintenance, 01/09/22 12:26:00 EST, Tablet, [facility], Partial fill upon patient request if the prescription is for a schedule II opioid drug., 170, cm, 01/09/22 7:53:0... Start Date: 01/09/22 Status: Ordered melatonin 3 mg oral tablet = 3 mg, By Mouth, Daily at bedtime, PRN Insomnia, # 60 tablet, 1 Refills, Maintenance, 01/09/22 12:26:00 EST, Tablet, [facility], Partial fill upon patient request [...] opioid drug. Start Date: 01/09/22 Status: Ordered Methadone Liquid 65 mg, Solution, By Mouth, 01/09/22 9:00:00 EST Start Date: 01/09/22 Stop Date: 01/09/22 Status: Completed nicotine 2 mg oral transmucosal gum = 2 mg, Chew, Every hour, PRN Other, Nicotine Withdrawal Symptoms (NOT to exceed 24 pieces per day), # 160 each, 0 Refills, Maintenance, 01/09/22 12:27:00 EST, Gum, [facility], Partial fill upon patient [...] 01/09/22 12:28:00 EST, Route to Pharmacy Electronically, [facility], Partial fill upon patient request if the prescription is for a schedule II opioi... Start Date: 01/09/22 Status: Ordered Therapeutic Multiple Vitamins oral capsule 1 capsule, By Mouth, Daily, # 30 capsule, 2 Refills, Maintenance, 01/09/22 12:27:00 EST, Capsule, [facility], Partial fill upon patient request if the prescription is for a schedule II opioid drug., 1 capsule By Mouth Daily, 170, cm, ... Start Date: 01/09/22 Status: Ordered thiamine 100 mg oral tablet 100 mg, 1, tablet, By Mouth, Daily, # 30 tablet, Refills 1, Tot. Refills 1, Maintenance, 01/09/22 12:28:00 EST, Route to Pharmacy Electronically, [facility], Partial fill upon patient request if the prescription is for a schedule II opio... Start Date: 01/09/22 Status: Ordered Vitamin D2 50,000 intl units (1.25 mg) oral capsule 1 capsule = 50,000 International_Units, By Mouth, Every week, # 11 capsule, 0 Refills, Maintenance,01/13/22 12:23:00 EST, [facility], Partial fill upon patient [...] Active Pt reports she quit 1mo ago Results Radiology Reports * Exam Date Time Procedure Performing Provider Status 01/01/22 1:52 PM Chest 2 Views Frontal and Lat Brianna Mccormack; S[place] (Verified) Notes: (Chest 2 Views Frontal and Lat) Reason For Exam: Shortness of Breath RESULT: Chest 2 Views Frontal and Lat Chest 2 Views Frontal and Lat Hx of Present Illness: bilateral lower extremity weakness.; Reason: Shortness of Breath; Clinical Question(s): CHF COMPARISON: 04/05/2019 FINDINGS: LINES AND TUBES: None. LUNGS AND PLEURA: Clear lungs. 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 Normal pulmonary vascularity. No pleural effusion. No pneumothorax. HEART, MEDIASTINUM AND KAY: Heart is normal in size. Normal upper mediastinal and hilar contour. BONES AND SOFT TISSUES: No acute abnormality. IMPRESSION: No acute disease. 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 Otherwise unremarkable chest. WSN: [id number] Ordering Physician: Amalia Chen Dictated By: Reji Goins MD Dictated Date/Time: 01/01/22 3:32 pm Reviewed By: Reji Goins MD Signed By: Reji Goins MD Signed Date/Time: 01/01/22 3:32 pm Transcribed By: CALIN Transcribed Date/Time: 01/01/22 3:31 pm Vital Signs Most recent to oldest [Reference Range]: 1 2 3 Height 170 cm (01/09/22 7:53 AM) 170 cm (01/08/22 3:13 PM) 170 cm (01/08/22 7:48 AM) Weight 102.2 kg (01/02/22 2:41 PM) 102.2 kg (01/02/22 1:30 PM) Oxygen Saturation [94-100 %] 97 % (01/09/22 7:53 AM) 96 % (01/08/22 11:00 PM) 95 % (01/08/22 7:00 PM) Pulse Rate [55-90 bpm] 72 bpm (01/09/22 7:53 AM) 76 bpm (01/08/22 11:00 PM) 65 bpm (01/08/22 7:00 PM) Body Mass Index [18.5-24.99] 35.36 *>HHI* (01/02/22 1:30 PM) Blood Pressure [90-138/55-84 mm Hg] 117/58mm Hg (01/09/22 7:53 AM) 121/75mm Hg (01/08/22 11:00 PM) 121/49mm Hg (01/08/22 7:00 PM) Respiratory Rate [16-30 br/min] 18 br/min (01/09/22 9:30 AM) 18 br/min (01/09/22 8:30 AM) 20 br/min (01/09/22 7:53 AM) Temperature [96.8-100.4 DegF] 98.1 DegF (01/09/22 7:53 AM) 98.4 DegF (01/08/22 11:00 PM) 97.8 DegF (01/08/22 7:00 PM) Liters per Minute 2 L/min (01/02/22 11:07 AM) Mode of Delivery (Oxygen) Room air (01/09/22 7:53 AM) Room air (01/08/22 11:00 PM) Room air (01/08/22 7:00 PM) Blood pressure sites Arm, right (01/09/22 7:53 AM) Arm, left (01/08/22 11:00 PM) Arm, left (01/08/22 7:00 PM) Temperature Route Oral (01/09/22 7:53 AM) Oral (01/08/22 11:00 PM) Oral (01/08/22 7:00 PM) Dry Weight 100 kg (01/02/22 1:30 PM) Weight Obtained Via Bed scale (01/02/22 2:41 PM) Bed scale (01/02/22 1:30 PM) Dry Weight Obtained Via Patient/family s tated (01/02/22 1:30 PM) Social History Social History Type Response Smoking Status Former smoker, quit more than 30 days ago; Type: Cigarettes entered on: 04/06/19 Sex
--- OUTSIDE RECORDS SUMMARY | 2024-02-16 18:18 | XMS_ITS | Continuity of Care Document ---
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 Start Date: 02/13/22 Status: Ordered hydrOXYzine hydrochloride 10 mg oral tablet 2 tablet = 20 mg, By Mouth, Every 6 hours, PRN Anxiety, # 240 tablet, 0 Refills, Maintenance, 01/09/22 12:56:00 EST, Tablet, [facility], Partial fill upon patient request if the prescription is for a schedule II opioid drug., 170, cm, 02... Start Date: 01/09/22 Status: Ordered lactulose 10 gm/15 ml oral syrup 30 mL = 20 Gm, By Mouth, 3 times a day, please titrate it to two-three bowel movements per day, # 2,700 mL, 0 Refills, Maintenance, 01/09/22 12:25:00 EST, Syrup, [facility], Partial fill upon patient request if the prescription is for a... Start Date: 01/09/22 Status: Ordered magnesium oxide 400 mg oral tablet 1 tablet = 400 mg, By Mouth, 2 times a day, # 60 tablet, 0 Refills, Maintenance, 02/13/22 10:01:00 EDT, [facility], [id number] Partial fill upon patient request if the prescription is for a schedule II opioid drug., 170, cm, 02/13/22 9:07:00 EDT,... Start Date: 02/13/22 Status: Ordered melatonin 3 mg oral tablet = 3 mg, By Mouth, Daily at bedtime, PRN Insomnia, # 60 tablet, 1 Refills, Maintenance, 01/09/22 12:26:00 EST, Tablet, [facility], Partial fill upon patient [...] 03/07/22 15:29:00 EDT, Route to Pharmacy Electronically, [id number], Partial fill upon patient request if the prescription is for a schedule II opioid drug... Start Date: 03/07/22 Status: Ordered nicotine 2 mg oral transmucosal gum = 2 mg, Chew, Every hour, PRN Other, Nicotine Withdrawal Symptoms (NOT to exceed 24 pieces per day), # 160 each, 0 Refills, Maintenance, 01/09/22 12:27:00 EST, Gum, [facility], Partial fill upon patient request if the prescription is for... Start Date: 01/09/22 Stop Date: 02/06/22 Status: Ordered NuLYTELY with Flavor Packs oral powder for reconstitution See Instructions, 4 liters By Mouth for colonoscopy, # 1 each, 0 Refills, Maintenance, 02/13/22 11:09:00 EDT, [id number], Partial fill upon patient request [...] 11 capsule, 0 Refills, Maintenance,01/13/22 12:23:00 EST, [facility], Partial fill upon patient [...]
--- OUTSIDE RECORDS SUMMARY | 2024-02-16 18:18 | XMS_ITS | Continuity of Care Document ---
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 fill upon patient request if the prescription is for a schedule II opioid drug.... Start Date: 02/13/22 Status: Ordered hydrOXYzine hydrochloride 10 mg oral tablet 2 tablet = 20 mg, By Mouth, Every 6 hours, PRN Anxiety, # 240 tablet, 0 Refills, Maintenance, 01/09/22 12:56:00 EST, Tablet, [facility], Partial fill upon patient request if the prescription is for a schedule II opioid drug., 170, cm, 02... Start Date: 01/09/22 Status: Ordered lactulose 10 gm/15 ml oral syrup 30 mL = 20 Gm, By Mouth, 3 times a day, please titrate it to two-three bowel movements per day, # 2,700 mL, 0 Refills, Maintenance, 01/09/22 12:25:00 EST, Syrup, [facility], Partial fill upon patient request if the prescription is for a... Start Date: 01/09/22 Status: Ordered magnesium oxide 400 mg oral tablet 1 tablet = 400 mg, By Mouth, 2 times a day, # 60 tablet, 0 Refills, Maintenance, 02/13/22 10:01:00 EDT, [id number] fill upon patient request if the prescription is for a schedule II opioid drug., 170, cm, 02/13/22 9:07:00 EDT,... Start Date: 02/13/22 Status: Ordered melatonin 3 mg oral tablet = 3 mg, By Mouth, Daily at bedtime, PRN Insomnia, # 60 tablet, 1 Refills, Maintenance, 01/09/22 12:26:00 EST, Tablet, [facility], Partial fill upon patient request [...] Refills, Maintenance, 01/09/22 12:27:00 EST, Gum, [facility], Partial fill upon patient request if the prescription is for... Start Date: 01/09/22 Stop Date: 02/06/22 Status: Ordered NuLYTELY with Flavor Packs oral powder for reconstitution See Instructions, 4 liters By Mouth for colonoscopy, # 1 each, 0 Refills, Maintenance, 02/13/22 11:09:00 EDT, [facility] #[id number], Partial fill upon patient request [...] EDT, Route to Pharmacy Electronically, [id number], Partial fill upon patient request if the prescription is for a schedule II opioid drug... Start Date: 02/13/22 Status: Ordered Therapeutic Multiple Vitamins oral capsule 1 capsule, By Mouth, Daily, # 30 capsule, 2 Refills, Maintenance, 02/13/22 10:01:00 EDT, Capsule, [id number], Partial fill upon patient request if the prescription is for a schedule II opioiddrug., 1 capsule By Mouth Daily, 170, cm, 02/13/22... Start Date: 02/13/22 Status: Ordered thiamine 100 mg oral tablet 100 mg, 1, tablet, By Mouth, Daily, # 30 tablet, Refills 1, Tot. Refills 1, Maintenance, 02/13/22 10:01:00 EDT, Route to Pharmacy Electronically, [facility][id number], Partial fill upon patient requestif the prescription is for a schedule II opioid pedro... Start Date: 02/13/22 Status: Ordered Vitamin D2 50,000 intl units (1.25 mg) oral capsule 1 capsule = 50,000 International_Units, By Mouth, Every week, # 11 capsule, 0 Refills, Maintenance,01/13/22 12:23:00 EST, [facility], Partial fill upon patient [...]
--- OUTSIDE RECORDS SUMMARY | 2024-02-16 18:18 | XMS_ITS | Continuity of Care Document ---
Author Organization [facility] Address [address] [place] [id number]- Care Team Providers Care Laboratory Assistant Name Role Phone Not on Staff, PCP Primary Care Physician Unavail able Encounter [facility] Date(s): 03/21/22 - 07/19/22 [facility] [address] [place] [address]- Attending Physician: Candido HENDRICKSON, Cinthia Mazariegos Admitting Physician: Cinthia Rey MD Referring Physician: Not on Staff, Referring [...] 02/13/22 10:01:00 EDT, [id number] fill upon patient request if the prescription is for a schedule II opioid drug.... Start Date: 02/13/22 Status: Ordered hydrOXYzine hydrochloride 10 mg oral tablet 2 tablet = 20 mg, By Mouth, Every 6 hours, PRN Anxiety, # 240 tablet, 0 Refills, Maintenance, 01/09/22 12:56:00 EST, Tablet, [facility], Partial fill upon patient request if the prescription is for a schedule II opioid drug., 170, cm, 02... Start Date: 01/09/22 Status: Ordered lactulose 10 gm/15 ml oral syrup 30 mL = 20 Gm, By Mouth, 3 times a day, please titrate it to two-three bowel movements per day, # 2,700 mL, 0 Refills, Maintenance, 01/09/22 12:25:00 EST, Syrup, [facility], Partial fill upon patient request if the prescription is for a... Start Date: 01/09/22 Status: Ordered magnesium oxide 400 mg oral tablet 1 tablet = 400 mg, By Mouth, 2 times a day, # 60 tablet, 0 Refills, Maintenance, 02/13/22 10:01:00 EDT, Tablet, [facility]/pharmacy #[id number], Partial fill upon patient request if the prescription is for a schedule II opioid drug., 170, cm, 02/13/22 9:07:00 EDT,... Start Date: 02/13/22 Status: Ordered melatonin 3 mg oral tablet = 3 mg, By Mouth, Daily at bedtime, PRN Insomnia, # 60 tablet, 1 Refills, Maintenance, 01/09/22 12:26:00 EST, Tablet, [facility], Partial fill upon [...] 03/07/22 15:29:00 EDT, Route to Pharmacy Electronically, [facility]/pharmacy #[id number], Partial fill upon patient request if the prescription is for a schedule II opioid drug... Start Date: 03/07/22 Status: Ordered nicotine 2 mg oral transmucosal gum = 2 mg, Chew, Every hour, PRN Other, Nicotine Withdrawal Symptoms (NOT to exceed 24 pieces per day), # 160 each, 0 Refills, Maintenance, 01/09/22 12:27:00 EST, Gum, [facility], Partial fill upon patient request if the prescription is for... Start Date: 01/09/22 Stop Date: 02/06/22 Status: Ordered NuLYTELY with Flavor Packs oral powder for reconstitution See Instructions, 4 liters By Mouth for colonoscopy, # 1 each, 0 Refills, Maintenance, 02/13/22 11:09:00 EDT, [facility]/pharmacy #[id number], Partial fill upon patient [...] 02/13/22 10:01:00 EDT, Route to Pharmacy Electronically, [facility]/pharmacy #[id number], Partial fill upon patient request if the prescription is for a schedule II opioid drug... Start Date: 02/13/22 Status: Ordered Therapeutic Multiple Vitamins oral capsule 1 capsule, By Mouth, Daily, # 30 capsule, 2 Refills, Maintenance, 02/13/22 10:01:00 EDT, Capsule, [facility]/pharmacy #[id number], Partial fill upon patient request if the prescription is for a schedule II opioiddrug., 1 capsule By Mouth Daily, 170, cm, 02/13/22... Start Date: 02/13/22 Status: Ordered thiamine 100 mg oral tablet 100 mg, 1, tablet, By Mouth, Daily, # 30 tablet, Refills 1, Tot. Refills 1, Maintenance, 02/13/22 10:01:00 EDT, Route to Pharmacy Electronically, [facility]/pharmacy #[id number], Partial fill upon patient requestif the prescription is for a schedule II opioid pedro... Start Date: 02/13/22 Status: Ordered Vitamin D2 50,000 intl units (1.25 mg) oral capsule 1 capsule = 50,000 International_Units, By Mouth, Every week, # 11 capsule, 0 Refills, Maintenance,01/13/22 12:23:00 EST, [facility], Partial fill upon [...] ago; Type: Cigarettes entered on: 04/06/19 Sex Care Team Personnel Name: Not on Staff, PCP
--- OUTSIDE RECORDS SUMMARY | 2024-02-16 18:19 | XMS_ITS | Continuity of Care Document ---
Author Organization [facility] Address [address] [place] [id number]- Care Team Providers Care Baker Head Name Role Phone Not on Staff, PCP Primary Care Physician Unavail able Encounter [facility] [place] Date(s): 05/31/22 - 08/05/[address] [address] Attending Physician: Jalil Chery MD Admitting Physician: Jalil Chery MD Allergies, Adverse Reactions, Alerts Substance Reaction [...] 02/13/22 10:01:00 EDT, [id number] Partial fill upon patient request if the prescription is for a schedule II opioid drug.... Start Date: 02/13/22 Status: Ordered hydrOXYzine hydrochloride 10 mg oral tablet 2 tablet = 20 mg, By Mouth, Every 6 hours, PRN Anxiety, # 240 tablet, 0 Refills, Maintenance, 01/09/22 12:56:00 EST, Tablet, [facility], Partial fill upon patient request if the prescription is for a schedule II opioid drug., 170, cm, 02... Start Date: 01/09/22 Status: Ordered lactulose 10 gm/15 ml oral syrup 30 mL = 20 Gm, By Mouth, 3 times a day, please titrate it to two-three bowel movements per day, # 2,700 mL, 0 Refills, Maintenance, 01/09/22 12:25:00 EST, Syrup, [facility], Partial fill upon patient request if the prescription is for a... Start Date: 01/09/22 Status: Ordered magnesium oxide 400 mg oral tablet 1 tablet = 400 mg, By Mouth, 2 times a day, # 60 tablet, 0 Refills, Maintenance, 02/13/22 10:01:00 EDT, Tablet, [id number] Partial fill upon patient request if the prescription is for a schedule II opioid drug., 170, cm, 02/13/22 9:07:00 EDT,... Start Date: 02/13/22 Status: Ordered melatonin 3 mg oral tablet = 3 mg, By Mouth, Daily at bedtime, PRN Insomnia, # 60 tablet, 1 Refills, Maintenance, 01/09/22 12:26:00 EST, Tablet, [facility], Partial fill upon patient [...] 03/07/22 15:29:00 EDT, Route to Pharmacy Electronically, [facility]/pharmacy #[id number], Partial fill upon patient request if the prescription is for a schedule II opioid drug... Start Date: 03/07/22 Status: Ordered nicotine 2 mg oral transmucosal gum = 2 mg, Chew, Every hour, PRN Other, Nicotine Withdrawal Symptoms (NOT to exceed 24 pieces per day), # 160 each, 0 Refills, Maintenance, 01/09/22 12:27:00 EST, Gum, [facility], Partial fill upon patient request if the prescription is for... Start Date: 01/09/22 Stop Date: 02/06/22 Status: Ordered NuLYTELY with Flavor Packs oral powder for reconstitution See Instructions, 4 liters By Mouth for colonoscopy, # 1 each, 0 Refills, Maintenance, 02/13/22 11:09:00 EDT, [facility]/pharmacy #[id number], Partial fill upon patient request if [...] 02/13/22 10:01:00 EDT, Route to Pharmacy Electronically, [facility]/pharmacy #[id number], Partial fill upon patient request if the prescription is for a schedule II opioid drug... Start Date: 02/13/22 Status: Ordered Therapeutic Multiple Vitamins oral capsule 1 capsule, By Mouth, Daily, # 30 capsule, 2 Refills, Maintenance, 02/13/22 10:01:00 EDT, Capsule, [facility]/pharmacy #[id number], Partial fill upon patient request if the prescription is for a schedule II opioiddrug., 1 capsule By Mouth Daily, 170, cm, 02/13/22... Start Date: 02/13/22 Status: Ordered thiamine 100 mg oral tablet 100 mg, 1, tablet, By Mouth, Daily, # 30 tablet, Refills 1, Tot. Refills 1, Maintenance, 02/13/22 10:01:00 EDT, Route to Pharmacy Electronically, [facility]/pharmacy #[id number], Partial fill upon patient requestif the prescription is for a schedule II opioid pedro... Start Date: 02/13/22 Status: Ordered Vitamin D2 50,000 intl units (1.25 mg) oral capsule 1 capsule = 50,000 International_Units, By Mouth, Every week, # 11 capsule, 0 Refills, Maintenance,01/13/22 12:23:00 EST, [facility], Partial fill upon patient [...]
--- OUTSIDE RECORDS SUMMARY | 2024-02-16 18:19 | XMS_ITS | Continuity of Care Document ---
Author Organization [facility] Address [address] [place] [id number]- Care Team Providers Care Molder Bench Name Role Phone Not on Staff, PCP Primary Care Physician Unavail able Encounter [facility] Date(s): 07/18/22 - 11/15/22 [facility] [address] [place] [address]- Attending Physician: Deric Talbot MD Admitting Physician: Deric Talbot MD Referring Physician: Not on Staff, Referring [...] 02/13/22 10:01:00 EDT, [id number] Partial fill upon patient request if the prescription is for a schedule II opioid drug.... Start Date: 02/13/22 Status: Ordered hydrOXYzine hydrochloride 10 mg oral tablet 2 tablet = 20 mg, By Mouth, Every 6 hours, PRN Anxiety, # 240 tablet, 0 Refills, Maintenance, 01/09/22 12:56:00 EST, Tablet, [facility], Partial fill upon patient request if the prescription is for a schedule II opioid drug., 170, cm, 02... Start Date: 01/09/22 Status: Ordered lactulose 10 gm/15 ml oral syrup 30 mL = 20 Gm, By Mouth, 3 times a day, please titrate it to two-three bowel movements per day, # 2,700 mL, 0 Refills, Maintenance, 01/09/22 12:25:00 EST, Syrup, [facility], Partial fill upon patient request if the prescription is for a... Start Date: 01/09/22 Status: Ordered magnesium oxide 400 mg oral tablet 1 tablet = 400 mg, By Mouth, 2 times a day, # 60 tablet, 0 Refills, Maintenance, 02/13/22 10:01:00 EDT, Tablet, [id number] Partial fill upon patient request if the prescription is for a schedule II opioid drug., 170, cm, 02/13/22 9:07:00 EDT,... Start Date: 02/13/22 Status: Ordered melatonin 3 mg oral tablet = 3 mg, By Mouth, Daily at bedtime, PRN Insomnia, # 60 tablet, 1 Refills, Maintenance, 01/09/22 12:26:00 EST, Tablet, [facility], Partial fill upon patient [...] 03/07/22 15:29:00 EDT, Route to Pharmacy Electronically, [facility]/pharmacy #[id number], Partial fill upon patient request if the prescription is for a schedule II opioid drug... Start Date: 03/07/22 Status: Ordered nicotine 2 mg oral transmucosal gum = 2 mg, Chew, Every hour, PRN Other, Nicotine Withdrawal Symptoms (NOT to exceed 24 pieces per day), # 160 each, 0 Refills, Maintenance, 01/09/22 12:27:00 EST, Gum, [facility], Partial fill upon patient request if the prescription is for... Start Date: 01/09/22 Stop Date: 02/06/22 Status: Ordered NuLYTELY with Flavor Packs oral powder for reconstitution See Instructions, 4 liters By Mouth for colonoscopy, # 1 each, 0 Refills, Maintenance, 02/13/22 11:09:00 EDT, [facility]/pharmacy #[id number], Partial fill upon patient request if [...] 02/13/22 10:01:00 EDT, Route to Pharmacy Electronically, [facility]/pharmacy #[id number], Partial fill upon patient request if the prescription is for a schedule II opioid drug... Start Date: 02/13/22 Status: Ordered Therapeutic Multiple Vitamins oral capsule 1 capsule, By Mouth, Daily, # 30 capsule, 2 Refills, Maintenance, 02/13/22 10:01:00 EDT, Capsule, [id number] Partial fill upon patient request if the prescription is for a schedule II opioiddrug., 1 capsule By Mouth Daily, 170, cm, 02/13/22... Start Date: 02/13/22 Status: Ordered thiamine 100 mg oral tablet 100 mg, 1, tablet, By Mouth, Daily, # 30 tablet, Refills 1, Tot. Refills 1, Maintenance, 02/13/22 10:01:00 EDT, [facility], [id number], Partial fill upon patient requestif the prescription is for a schedule II opioid pedro... Start Date: 02/13/22 Status: Ordered Vitamin D2 50,000 intl units (1.25 mg) oral capsule 1 capsule = 50,000 International_Units, By Mouth, Every week, # 11 capsule, 0 Refills, Maintenance,01/13/22 12:23:00 EST, [facility], Partial fill upon patient [...] Team Personnel Name: Carmella Zapata RN Position: [facility] RN Member Role: Primary Care Nurse Name: Ling Seo RN Position: S RN Member Role: Primary Care Nurse Name: Mary Garcia RN Position: S RN Member Role: Primary Care Nurse Name: Dahlia Garcia RN Position: [facility] RN Member Role: Primary Care Nurse Name: Alana Kennedy RN Position: [facility] RN Member Role: Primary Care Nurse Name: Sierra Lara RN Position: [facility] RN Member Role: Primary Care Nurse Name: Wendy Street RN Position: [facility] RN Member Role: Primary Care Nurse Name: Not on Staff, PCP Position: [facility] Physician (General Medicine) Member Role: PCP Name: Shoshana Guerrero RN Position: [facility] RN Member Role: Primary Care Nurse Name: Salma Weldon RN Position: [facility] RN Member Role: Primary Care Nurse Name: Penny Jason RN Position: [facility] RN Member Role: Primary Care Nurse Name: Marcia Hernandez LPN Position: [facility] RN Member Role: Primary Care Nurse Care Team Related Persons Name: DERRELL DANIELLE Address: [address] [place] [address] Name: MARC HEARD Address: [address] [place] [address]
== END 2024-02-16 18:55 | disposition home or self-care (01) ==
LOC: HO.ED 18:17
PROVIDERS: Emergency Provider Emergency Medicine Emergency Medical Services
DX: F41.1 Generalized anxiety disorder (principal); Z63.4 Disappearance and death of family member; Z79.899 Other long term (current) drug therapy
CPT/HCPCS: 99283; 99284

== ENCOUNTER 2024-06-06 12:47 | Emergency (ER) | payer MEDICAID, SELFPAY ==
--- NOTE | ~2024-06-06 | CT_ITS ---
EXAMINATION: CT HEAD WITHOUT CONTRAST CT FACIAL BONES WITHOUT CONTRAST CT CERVICAL SPINE WITHOUT CONTRAST CLINICAL INFORMATION: Fall. Head straight. Left periorbital hematoma. COMPARISON: None available. TECHNIQUE: Imaging was performed from the skull base to vertex without intravenous administration of contrast. In addition, helical noncontrast CT imaging was acquired through the cervical spine and facial bones and source images were reviewed along with axial reconstructions and sagittal and coronal MPRs. This CT examination was performed using dose optimization techniques as appropriate, variously including the following: *Automated exposure control. *Adjustment of mA and/or kV according to patient size (this includes techniques or standardized protocols for targeted exams where dose is matched to indication/reason for exam; i.e. extremities or head). *Use of iterative reconstruction technique. DLP: 1380 mGy-cm FINDINGS: Head: There is no evidence of acute intracranial hemorrhage or edematous territorial infarction. Moy-white matter differentiation is preserved. A few foci of hypoattenuation in the periventricular and deep white matter are consistent with mild microangiopathy. The ventricles are normal in morphology and size. No evidence for obstructive hydrocephalus. No abnormal mass effect or midline shift. No extra-axial fluid collections. Calcific atherosclerotic disease of the intracranial internal carotid arteries. No hyperdense vessel sign. Moderate subgaleal hematoma along the right aspect of the frontal bone extending into the right side of face, measuring up to 0.9 cm in depth. No associated acute osseous calvarial abnormalities. Maxillofacial Bones: Moderate soft tissue edema/hematoma along the right side of face extending into the right preseptal, periorbital soft tissues. No evidence of maxillofacial bone fractures. The zygomatic arches remain intact. No nasal bone fracture. No evidence of mandibular or maxillary fracture. The mandibular condyles remain well-seated in their respective temporal articular grooves. Moderate degenerative arthropathy of the left temporomandibular joint. Normal appearance of the intraconal and extraconal retrobulbar fat. No evidence of traumatic injury to the extraocular musculature or globes. Mild mucosal thickening of the paranasal sinuses. Mild leftward nasal septal deviation. The mastoid air cells and middle ear cavities are clear. No layering fluid collections. The patient is edentulous. Cervical Spine: The atlantooccipital and atlantoaxial articulations remain well aligned. Mild degenerative arthropathy of the atlantodental articulation. Straightening of the normal cervical lordosis. Minimal degenerative retrolisthesis of C5 on C6. Mild degenerative stepwise anterolisthesis of C6-T1. Otherwise, there is anatomic alignment of the vertebral bodies and posterior elements. No evidence of acute fracture or subluxation. The vertebral body heights are maintained. Advanced degenerative disc disease at C5-C6. Mild degenerative disc disease at all additional levels. Facet and uncovertebral joint arthropathy leads to osseous encroachment on the neural foramina at C5-C6. There is no prevertebral soft tissue swelling. The thyroid gland and remaining cervical soft tissues are within normal limits. The lung apices demonstrate no abnormalities. Synchondrosis of the left-sided 1st and 2nd ribs. CT/CT cervical spine wo IV con IMPRESSION: 1. No evidence of acute intracranial hemorrhage or edematous territorial infarction. Mild underlying microangiopathy. 2. No evidence of acute fracture or traumatic subluxation of the cervical spine. Moderate multilevel degenerative spondyloarthropathy of the cervical spine. 3. No evidence of acute fracture of the maxillofacial bones. 4. Moderate right-sided scalp hematoma extending into the right-sided face (including the right periorbital soft tissues) without associated osseous calvarial abnormalities.
[2024-06-06 12:48] VITALS: BP 128/62; PULSE 86; RESP 18; TEMP 37.5; O2SAT 96; BMI 28.7
--- NOTE | 2024-06-06 12:50 | ED.GENADULT ---
HPI - General Adult General Chief complaint: Fall Stated complaint: fall, hit head, black eye, slurred speech Time Seen by Provider: 06/06/24 13:22 Source: patient, family, RN notes reviewed and old records reviewed Mode of arrival: ambulatory History of Present Illness ED Provider: Britt Lema PA-C HPI narrative: 63-year-old female with a past medical history of iron-deficiency anemia, ETOH use disorder, cirrhosis, substance abuse on methadone, presenting to ED with daughter with complaining of facial trauma/bruising and swelling to right eye s/p mechanical unwitnessed fall last night. Patient states she fell down 3 stairs onto the cement when she went outside to smoke a cigarette. Patient reports she could not get a hold of her daughter this she did not come to the ED last night. Patient denies LOC or taking anticoagulation. Denies symptoms prior to fall. Does report neck pain at present. Daughter reports patient has been slower to speak/respond lately, is currently in remission from heroin abuse. Related Data Home Medications ?Medication ?Instructions ?Recorded ?Confirmed ascorbic acid (vitamin C) 100 mg 100 mg PO DAILY 01/20/22 05/08/22 tablet ergocalciferol (vitamin D2) 1,250 1,250 mcg PO QWEEK 01/20/22 05/08/22 mcg (50,000 unit) capsule (Vitamin D2) magnesium oxide 400 mg (241.3 mg 400 mg PO BID 01/20/22 05/08/22 magnesium) tablet melatonin 3 mg tablet 3 mg PO BEDTIME PRN Sleep 01/20/22 05/08/22 bismuth subsalicylate 262 mg/15 mL 524 mg PO Q30M PRN Gastric Reflux 04/07/22 05/08/22 oral suspension (Pepto-Bismol) docusate sodium 100 mg tablet 100 mg PO DAILY 04/07/22 05/08/22 polyethylene glycol 3350 17 gram 17 g PO DAILY 04/07/22 05/08/22 oral powder packet (Miralax) methadone 10 mg/mL oral concentrate 65 mg PO DAILY 04/09/22 05/08/22 Previous Rx's ?Medication ?Instructions ?Recorded miscellaneous medical supply #1 ea 02/17/22 (Blood Pressure Cuff) folic acid 1 mg tablet 1 mg PO DAILY #90 tabs 05/06/22 multivitamin with folic acid 400 1 tab PO BEDTIME #90 tabs 03/17/22 mcg tablet (Therems Multivitamin) pantoprazole 40 mg tablet,delayed 40 mg PO DAILY #90 tabs 03/17/22 release pyridoxine (vitamin B6) 50 mg 50 mg PO DAILY #90 tabs 03/17/22 tablet thiamine HCl (vitamin B1) 100 mg 100 mg PO DAILY #30 tabs 03/17/22 tablet midodrine 5 mg tablet 5 mg PO TID 90 days #270 tabs 04/19/22 nadolol 20 mg tablet 10 mg (1/2 x 20 mg) PO DAILY #30 04/19/22 tabs lactulose 20 gram/30 mL oral 40 g (60 mL) PO DAILY 30 days 05/19/22 solution #1,800 mL diphenhydramine HCl 25 mg capsule 25 mg PO BID allergy symptoms 3 05/30/22 (Benadryl) days #6 caps famotidine 20 mg tablet (Pepcid) 20 mg PO BID 3 days #6 tabs 05/30/22 prednisone 20 mg tablet 20 mg PO BID 3 days #6 tabs 05/30/22 cholecalciferol (vitamin D3) 50 50 mcg PO DAILY #90 caps 06/19/22 mcg (2,000 unit) capsule ferrous sulfate 325 mg (65 mg 325 mg PO DAILY #90 tabs 06/19/22 iron) tablet hydroxyzine HCl 10 mg tablet 10 mg PO BID PRN anxiety 30 days 07/11/22 #60 tabs bumetanide 1 mg tablet 1 mg PO DAILY #90 tabs 10/25/22 spironolactone 25 mg tablet 12.5 mg (1/2 x 25 mg) PO DAILY #15 06/13/23 tabs lorazepam 1 mg tablet 1 mg PO TID PRN anxiety #9 tabs 02/16/24 Allergies Allergy/AdvReac Type Severity Reaction Status Date / Time Iodinated Contrast Media Allergy Intermediate blood in Verified 06/06/24 12:54 urine Shellfish Allergy Unknown Hives Uncoded 06/06/24 12:54 Review of Systems Review of Systems: Constitutional: No Fever, No Chills ENT/Mouth: +eye swelling, No Ear Pain, No Nasal Congestion, No sore throat, No Rhinorrhea, No Swallowing Difficulty Cardiovascular: No Chest Pain, No SOB Respiratory: No Cough, No Sputum Gastrointestinal: No Nausea, No Vomiting, No Diarrhea, No Constipation, No Abdominal pain Genitourinary: No Dysuria, No Hematuria, No Urinary Incontinence/retention, No Flank Pain Musculoskeletal: No joint pain, No Myalgias, No Joint Swelling Skin: + Skin Lesions, No rash Neuro: No Weakness, No Numbness, No Paresthesias, +facial trauma, No LOC Yes all other systems are reviewed and are negative Constitutional: Constitutional: Reports as per [facility] Past Medical History Attestation statement: The following information was validated with the patient. Source: old records reviewed Medical History Splenomegaly Iron deficiency anemia Alcohol use disorder, moderate, in early remission, dependence Cirrhosis, alcoholic Obesity (BMI 30-39.9) Smoker History of substance abuse Hemorrhoids Constipation Lumbar back pain with radiculopathy affecting right lower extremity Surgical History History of tubal ligation Hx of hemorrhoidectomy H/O: hysterectomy Family History Family History Father No problems noted. Mother Active asthma Social History Social History Household Members: Spouse Housing: House Are you a primary care management coordinator to a significant other at home: No Do you presently have visiting nurse or other home services: No Alcohol intake: current Alcohol intake frequency: holidays/special occasions only Patient Tobacco Use Status: Never used Tobacco Tobacco use type: Cigarette e-Cigarette/Vaping Use: Never Used Advance Directives: No Advance Directives Information Provided: Yes Advance Directives Date on File: 04/08/22 Do you have a plan to hurt others: No Plan service: No Current occupational status: unemployed Current occupation: [employer]/Part-time Cognitive needs: No Hearing needs: No Vision needs: No Physical Exam ED Vital Signs: Vital Signs - 24 hr 06/06/24 12:48 06/06/24 14:44 06/06/24 15:29 Temperature 99.5 F Pulse Rate 86 78 84 Respiratory Rate 18 17 18 Blood Pressure 128/62 125/57 L 139/65 Pulse Oximetry 96 99 99 Oxygen Delivery Method Room Air Room Air Room Air BMI result Body Mass Index 28.7 Const General: cooperative, healthy appearing and no acute distress Orientation/consciousness: patient oriented x3 Limitations: no limitations HENMT Other: Please refer to images above. Hematomas noted to forehead. Ecchymosis and swelling noted to right side of face/periorbitally. Eye exam difficult due to swelling, but EOMs appear intact Superficial abrasion to nose, no septal hematoma. Ears: hearing grossly normal bilaterally Throat: Yes posterior oropharynx normal Eyes Other: no hyphema, no proptosis. EOMs intact Direct Ophthalmoscopy: normal light reflex Neck Other: C-collar in place Neck: Yes normal visual inspection and Yes no meningeal signs Chest Chest palpation & inspection: normal inspection of the chest, no crepitus and no tenderness Resp Effort & Inspection: normal respiratory effort and no respiratory distress Auscultation: clear to auscultation bilaterally Cardio Rate: regular rate Heart sounds: S1 normal heart sound present and S2 normal heart sound present GI Inspection: Yes normal to inspection Palpation (GI): Soft to palpation, nontender, no guarding and not rigid General: Yes no CVA tenderness Back/Spine/Pelvis Other: No midline thoracic/lumbar spinous tenderness/step-off or deformity Back: no CVA tenderness Skin Rashes: no rashes Wounds: no wounds Neuro General: patient oriented x3, tone normal, moves all extremities, no meningeal signs, no focal motor deficits and CN's II-XI intact bilaterally Cranial nerves: Yes CN's II-XII intact bilaterally Gait exam (Neuro): Normal gait present Motor exam (neuro): 5/5 motor strength present throughout Extrem General: Yes normal to inspection Course Course Course Narrative: This is a Rapid Medical Examination (RME) performed by Rachel Mills PA-C in triage. Full HPI, ROS, assessment and treatment plan per primary provider in the Main ED. 63 yo female hx of CHF, anemia, anxiety, GERD, alcoholic/HCV cirrhosis (sober x3 years), hx substance abuse on methadone (dosed today) here w/ daughter for eval s/p unwitnessed mechanical fall last night. per daughter, patient was not answering her phone this morning. her daughter showed up at her house and found the pt walking around with bruising/ swelling noted to right eye. pt reported trip and fall down 3 cement steps in her backyard last night with right head/facial strike on the cement. she is denying LOC and recalls the event. able to stand and ambulate. reporting right sided neck pain at present. of note, daughter reports concern for patient's safety living home alone. Her and her sister have been looking into section 35 for patient. She is requesting to speak with pillowcase turner. + noted swelling/ ecchymosis to right eye. unable to fully visualize the right eye. Abrasion noted to nasal bridge. No septal hematoma. no palpable skull fracture. oriented to person, place, time and situation. no pronator drift. no facial droop. slurred speech as patient is adentulous, daughter states this is her baseline. no midline spinous tenderness or step off. Plan: labs, CT head/cspine/facial bones 1611--CT head/brain wo IV con/CT cervical spine wo IV con/CT facial bones wo IV con IMPRESSION: 1. No evidence of acute intracranial hemorrhage or edematous territorial infarction. Mild underlying microangiopathy. 2. No evidence of acute fracture or traumatic subluxation of the cervical spine. Moderate multilevel degenerative spondyloarthropathy of the cervical spine. 3. No evidence of acute fracture of the maxillofacial bones. 4. Moderate right-sided scalp hematoma extending into the right-sided face (including the right periorbital soft tissues) without associated osseous calvarial abnormalities. > results discussed with patient and family. Daughter does not feel comfortable with patient's safety at home. Lives home alone. Will obtain case management consult. Physician observation initiated at 16:21 -1630--ED care transferred to ELIZABETH Jin pending case management Medical Decision Making Medical Decision Making MDM Narrative: 63-year-old female with a past medical history of iron-deficiency anemia, ETOH use disorder, cirrhosis, substance abuse on methadone, presenting to ED with daughter with complaining of facial trauma/bruising and swelling to right eye s/p mechanical unwitnessed fall last night. On exam vital signs stable, NAD, A&O x3, physical exam as noted above, please refer to images. Concern for orbital fracture vs contusion vs ICH vs substance abuse. Rule out metabolic abnormalities. Low suspicion for infectious etiology Plan: Labs, UA, tox screen, CT head, face/cervical spine Please refer to course for remaining clinical decision making, interpretation of labs/imaging results, and discussions with consultants and/or family members. Differential Diagnosis Differential Diagnoses: The differential diagnosis associated with the presentation includes As above Admission/Observation Consideration of admission/observation: Escalation of care including admission/observation considered Lab Data MDM Lab Attestation statement: I reviewed the patient's lab results. 06/06/24 13:17 06/06/24 13:17 Labs: Lab Results 06/06/24 Range/Units 13:17 WBC 4.3 L (4.8-10.8) X10*3/uL RBC 3.68 L (4.20-5.50) X10*6/uL Hgb 11.6 L D (12.0-16.0) g/dl Hct 32.8 L (37.0-47.0) % MCV 89.1 (80.0-98.0) fL MCH 31.5 (27.0-33.0) pg MCHC 35.4 H (31.0-35.0) g/dl RDW 14.8 (11.0-16.0) % Plt Count 32 L D (160-400) X10*3/uL MPV 9.5 (9.4-12.3) fL Immature Gran % (Auto) 0.5 H (0.0-0.4) % Neut % (Auto) 59.3 (45-73) % Lymph % (Auto) 27.6 (20-40) % Churchill % (Auto) 9.8 (2-11) % Eos % (Auto) 2.1 (0-4) % Baso % (Auto) 0.7 (0-2) % Lymph # (Auto) 1.2 (1.2-4.9) X10*3/uL Churchill # (Auto) 0.4 (0.1-1.2) X10*3/uL Eos # (Auto) 0.1 (0.0-0.4) X10*3/uL Baso # (Auto) 0.0 (0.0-0.2) X10*3/uL Abs Immat Gran (auto) 0.02 (0.00-0.03) X10*3/uL Absolute Neuts (auto) 2.5 (2.0-8.3) x10*3/uL Absolute Nucleated RBC 0.000 (0.0-0.012) X10*3/uL Nucleated RBC % (auto) 0.0 (0.0-0.2) /100WBC PT 16.5 H (11.1-13.3) SEC INR 1.4 H (0.9-1.1) Hold Blue Top SEE NOTE Sodium 142 (135-145) mmol/L Potassium 3.4 (3.3-5.1) mmol/L Chloride 112 H (96-108) mmol/L Carbon Dioxide 22 (22-29) mmol/L Anion Gap 11 L (12-20) BUN 21 H (9-16) mg/dL Creatinine 0.76 (0.5-1.4) mg/dL Estim Creat Clear Calc 77.5 Estimated GFR > 60 Random Glucose 178 H (60-115) mg/dL Calcium 9.3 (8.4-10.2) mg/dL Magnesium 1.8 (1.6-2.6) mg/dL Total Bilirubin 4.2 H (0.0-1.0) mg/dL AST 34 H (5-31) U/L ALT 21 (0-31) U/L Alkaline Phosphatase 69 (39-117) U/L Total Protein 6.3 L (6.5-8.0) g/dL Albumin 3.5 (3.5-5.0) g/dL Ethyl Alcohol < 10 mg/dL Independent Interpretation I performed an independent interpretation of an: CT Scan Radiology Impression Discussion of test interpretation with radiology: I have reviewed the radiologist's reading. Independent Historian Clinical information obtained from an independent historian. History obtained from or confirmed by: Other (Daughter) External Record Review External record reviewed: Inpatient record, Office record, Outpatient record, Prior outpatient labs, Prior outpatient radiology, Primary care record and Outside ED record Tests considered The following testing was considered but not selected: As above Social Determinants Patient?s care significantly limited by Social Determinants of Health including: Alcoholism and drug addiction in family and Problems related to primary support group Critical Care Time Critical Care Time Critical Care Time: Yes Total Critical Care Time: 40 Attestation: I have personally provided critical care time exclusive of time spent on separately billable procedures. Time includes review of lab data, radiology results, discussion with consultants, and monitoring for potential decompensation. Intervention performed as documented. Discharge Plan Discharge Clinical Impression: Scalp hematoma, Traumatic hematoma of face Patient Disposition: Still a Patient Prescriptions: No Action folic acid 1 mg tablet 1 mg PO DAILY Qty: 90 0RF pyridoxine (vitamin B6) 50 mg tablet 50 mg PO DAILY Qty: 90 1RF multivitamin with folic acid [Therems Multivitamin] 400 mcg tablet 1 tab PO BEDTIME Qty: 90 0RF lactulose 20 gram/30 mL solution 40 g PO DAILY 30 Days Qty: 1800 0RF prednisone 20 mg tablet 20 mg PO BID 3 Days Qty: 6 0RF famotidine [Pepcid] 20 mg tablet 20 mg PO BID 3 Days Qty: 6 0RF diphenhydramine HCl [Benadryl] 25 mg capsule 25 mg PO BID 3 Days Qty: 6 0RF cholecalciferol (vitamin D3) 50 mcg (2,000 unit) capsule 50 mcg PO DAILY Qty: 90 0RF ferrous sulfate 325 mg (65 mg iron) tablet 325 mg PO DAILY Qty: 90 0RF hydroxyzine HCl 10 mg tablet 10 mg PO BID PRN (Reason: anxiety) 30 Days Qty: 60 0RF bumetanide 1 mg tablet 1 mg PO DAILY Qty: 90 3RF spironolactone 25 mg tablet 12.5 mg PO DAILY Qty: 15 0RF Rx Instructions: OVERDUE FOR APPT. PLEASE CALL [phone] TO SCHEDULE FOLLOW UP FOR 2022 SO WE CAN CONTINUE REFILLING YOUR MEDICATIONS. If you do not want to schedule appt with freight car builder, you can opt to get future refills from your PCP. Thank you. polyethylene glycol 3350 [Miralax] 17 gram Powder In Packet 17 g PO DAILY bismuth subsalicylate [Pepto-Bismol] 262 mg/15 mL Suspension 524 mg PO Q30M PRN (Reason: Gastric Reflux) Rx Instructions: do not exceed 8 doses in a 24 hour period docusate sodium 100 mg Tablet 100 mg PO DAILY methadone 10 mg/mL Concentrate 65 mg PO DAILY midodrine 5 mg Tablet 5 mg PO TID 90 Days Qty: 270 0RF nadolol 20 mg tablet 10 mg PO DAILY Qty: 30 0RF lorazepam 1 mg tablet 1 mg PO TID PRN (Reason: anxiety) Qty: 9 0RF ergocalciferol (vitamin D2) [Vitamin D2] 1,250 mcg (50,000 unit) capsule 1,250 mcg PO QWEEK magnesium oxide 400 mg (241.3 mg magnesium) tablet 400 mg PO BID melatonin 3 mg tablet 3 mg PO BEDTIME PRN (Reason: Sleep) ascorbic acid (vitamin C) 100 mg tablet 100 mg PO DAILY (DME) Blood Pressure Cuff Misc See Rx Instructions .Route Qty: 1 0RF Rx Instructions: As directed, take BP twice a day. thiamine HCl (vitamin B1) 100 mg tablet 100 mg PO DAILY Qty: 30 0RF pantoprazole 40 mg tablet,delayed release (DR/EC) 40 mg PO DAILY Qty: 90 2RF Print Language: Swedish
[2024-06-06 13:22] LABS: MANUAL DIFF FLAG NO
[2024-06-06 13:24] LABS: Basophils Percent Auto 0.7 % (0-2); Eosinophils Absolute Auto 0.1 X10*3/uL (0.0-0.4); Eosinophils Percent Auto 2.1 % (0-4); Hematocrit 32.8 % (37.0-47.0); Hemoglobin 11.6 g/dl (12.0-16.0); Imm Gran Abs Auto 0.02 X10*3/uL (0.00-0.03); Imm Gran Pct Auto 0.5 % (0.0-0.4); Lymphocytes Absolute Auto 1.2 X10*3/uL (1.2-4.9); Lymphocytes Percent Auto 27.6 % (20-40); Mean Corpuscular HGB Conc 35.4 g/dl (31.0-35.0); Mean Corpuscular Hemoglobin 31.5 pg (27.0-33.0); Mean Corpuscular Volume 89.1 fL (80.0-98.0); Mean Platelet Volume 9.5 fL (9.4-12.3); Monocytes Absolute Auto 0.4 X10*3/uL (0.1-1.2); Monocytes Percent Auto 9.8 % (2-11); Neutrophils Absolute Auto 2.5 x10*3/uL (2.0-8.3); Neutrophils Percent Auto 59.3 % (45-73); Red Blood Count 3.68 X10*6/uL (4.20-5.50); Red Cell Distribution Width 14.8 % (11.0-16.0); White Blood Count 4.3 X10*3/uL (4.8-10.8)
[2024-06-06 13:29] LABS: Platelet Count 32 X10*3/uL (160-400)
[2024-06-06 13:37] LABS: Ethanol < 10 mg/dL
[2024-06-06 13:38] LABS: Alanine Aminotransferase 21 U/L (0-31); Albumin Level 3.5 g/dL (3.5-5.0); Alkaline Phosphatase 69 U/L (39-117); Anion Gap 11 (12-20); Aspartate Amino Transferase 34 U/L (5-31); Bilirubin Total 4.2 mg/dL (0.0-1.0); Blood Urea Nitrogen 21 mg/dL (9-16); Calcium 9.3 mg/dL (8.4-10.2); Carbon Dioxide 22 mmol/L (22-29); Chloride 112 mmol/L (96-108); Creatinine Clr Calc Pharmacy 77.5; Estimated Glomerular Filt Rate > 60; Glucose Random 178 mg/dL (60-115); Magnesium 1.8 mg/dL (1.6-2.6); Potassium 3.4 mmol/L (3.3-5.1); Sodium 142 mmol/L (135-145); Total Protein 6.3 g/dL (6.5-8.0)
[2024-06-06 13:52] LABS: INTERNATIONAL NORM RATIO 1.4 (0.9-1.1); Prothrombin Time 16.5 SEC (11.1-13.3)
[2024-06-06 14:44] VITALS: BP 125/57; PULSE 78; RESP 17; O2SAT 99
--- NOTE | 2024-06-06 15:28 | PC.NURSE ---
axox 3 large black eye/swelling unable to open right eye. collarinplace. no unilat neuro deficits noted. ice pack applied by this rn. awaits rad readings. family at bedside and aware of plan of care.
[2024-06-06 15:29] VITALS: BP 139/65; PULSE 84; RESP 18; O2SAT 99
--- NOTE | 2024-06-06 18:58 | MHC.CM.ED ---
Addendum entered by Gabi Herrera 06/06/24 19:07: Pt's brother spoke to CM privately about a section 35, as he feels his sister is not safe and is falling due to her alcohol consumption. He asks if the doctor can file a section 35. Pt is not intoxicated. CM explained to brother that he would need to obtain paperwork from the court, complete the paperwork and go to court. Brother understands the situation. CM encouraged brother to file with the courts if he feels she needs help. Pt tells CM is not not drinking and that her methadone is working for her. Provider aware. Original Note: CM met with patient at the request of Britt JOHNSON. Pt has fallen 3 times in 3months. Has hx alcohol use disorder and substance use disorder. Pt is on Methadone 80mg. Pt denies current alcohol use. Pt had a fall yesterday. Has very swollen shut and ecchymotic right eye. Pt is medically cleared.Pt is a self pay. Has no insurance. Pt did have MH, but let in lapse in February. Has not been able to see her PCP due to lack of insurance. Daughter has been working with [facility] financial services to complete MH application. Has completed paperwork within the last week. Per registration, Pt does not have active MH insurance. Pt goes to the [facility] on [address] in [place]. She has a walker, that she does not use. She has no services. Her daughter helps her daily and has groceries delivered to her apartment. PCP is Doris Kimball at [address] CM is unable to arrange VNA, STR or any services due to patient's lack of insurance. Daughter and patient's brother are aware. Per Davin JOHNSON, patient may remain overnight so daughter can develop a safe discharge plan to care for her mother.
[2024-06-06 19:55] VITALS: BP 125/57; PULSE 71; RESP 18; TEMP 36.4; O2SAT 99
--- NOTE | 2024-06-06 20:16 | PC.NURSE ---
no change in assessment. resting in bed. ice provided for right eye. has asked to leave ED to smoke. provider approached for smoking sessation.
[2024-06-07 01:03] VITALS: BP 132/71; PULSE 69; RESP 16; TEMP 36.8; O2SAT 100
--- NOTE | 2024-06-07 01:16 | MHC.EDTECH ---
This tech took over care of patient at 2300 hourly rounds and vitals completed,ambulated patient to the bathroom with a 1assist pt has a steady gait obtained a urine sample, and sent to lab. Call bernadine in reach
--- NOTE | 2024-06-07 01:20 | MHC.EDTECH ---
Belongings list completed,patient signed and copy placed in chart.
[2024-06-07 01:31] LABS: Appearance Urine Clear; Color Urine Dark Yellow; Glucose Urine UA Negative (Negative); Leukocyte Esterase Urine Trace (Negative); Nitrite Urine Negative (Negative); PH 7.5 (5.0-9.0); Specific Gravity - Urine 1.025 (1.005-1.025); UMIC TRIGGER UACC YES; Urine Blood Negative (Negative); Urine Ketones Negative (Negative); Urine Protein Negative (Neg-Trace)
[2024-06-07 01:33] LABS: Bacteria Urine Trace (None Seen); Hyaline Casts Urine 0-2 /LPF (0-2); RBC Urine 0-2 /HPF (0-2); Squamous Epithelial Cell Urine 0-2 /HPF (0-2); WBC Urine 0-5 /HPF (0-5)
[2024-06-07 01:42] LABS: Amphetamine Screen Urine Not Detected (Not Detect); Barbiturates, Urine Not Detected (Not Detect); Benzodiazepines Screen Urine Not Detected (Not Detect); Buprenorphine Scr Not Detected (Not Detect); Cannabinoid Screen Urine Not Detected (Not Detect); Cocaine Screen Urine POSITIVE (Not Detect); Fentanyl, urine POSITIVE (Not Detect); Methadone Screen, Urine Positive (Not Detect); Opiate Screen Urine Not Detected (Not Detect); Oxycodone Screen Urine Not Detected (Not Detect); Phencyclidine Screen Urine Not Detected (Not Detect)
--- NOTE | 2024-06-07 05:47 | MHC.EDTECH ---
Hourly rounds and vitals completed,patient is resting comfortably,call colindres in reach
[2024-06-07 05:49] VITALS: BP 130/63; PULSE 63; RESP 16; TEMP 36.9; O2SAT 99
--- NOTE | 2024-06-07 09:57 | PC.NURSE ---
Alba (daughter) called and states she is on her way to transport pt home.
[2024-06-07 11:37] VITALS: BP 131/63; PULSE 76; RESP 16; TEMP 36.6; O2SAT 98
== END 2024-06-07 11:43 | disposition home or self-care (01) ==
PROVIDERS: Physician Assistant; Physician Assistant Medical; Emergency Provider Emergency Medicine
DX: S00.11XA Contusion of right eyelid and periocular area, initial encounter (principal); S00.03XA Contusion of scalp, initial encounter; W10.8XXA Fall (on) (from) other stairs and steps, initial encounter; F17.210 Nicotine dependence, cigarettes, uncomplicated; F11.20 Opioid dependence, uncomplicated; Y93.89 Activity, other specified; Y92.008 Other place in unspecified non-institutional (private) residence as the place of occurrence of the external cause; Y99.9 Unspecified external cause status; Z79.899 Other long term (current) drug therapy
CPT/HCPCS: 36415; 70450; 70486; 72125; 80053; 80307; 81001; 83735; 85025; 85610; 99284; 99285

== ENCOUNTER 2024-06-30 21:08 | Inpatient (IN) | payer OTHER, SELFPAY ==
--- NOTE | ~2024-06-30 | CT_ITS ---
EXAMINATION: CT HEAD WITHOUT CONTRAST CLINICAL INFORMATION: Encephalopathy COMPARISON: Prior brain CT of 06/06/2024. TECHNIQUE: Contiguous axial imaging was performed from the skull base to vertex without intravenous administration of contrast. This CT examination was performed using dose optimization techniques as appropriate, variously including the following: *Automated exposure control *Adjustment of mA and/or kV according to patient size (this includes techniques or standardized protocols for targeted exams where dose is matched to indication/reason for exam; i.e. extremities or head) *Use of iterative reconstruction technique DLP: 592 mGy-cm FINDINGS: The ventricles and sulci are normal in size and configuration. No acute hemorrhage, mass effect or shift is evident. Moy-white differentiation is maintained. In the posterior fossa, the brainstem, cerebellum and fourth ventricle image normally. The orbits and calvarium are intact. The previously seen right frontal scalp hematoma has resolved. The paranasal sinuses and mastoid air cells are well pneumatized and clear. CT/CT head/brain wo IV con IMPRESSION: 1. Unremarkable noncontrast brain CT. No acute hemorrhage, mass effect or shift. Electronically signed by: Cristiano Barragan MD 07/06/2024 03:41 PM EDT
--- NOTE | ~2024-06-30 | CT_ITS ---
EXAMINATION: CT ABDOMEN AND PELVIS WITHOUT CONTRAST CLINICAL INFORMATION: Abdominal swelling. Question ascites. COMPARISON: None available. TECHNIQUE: Multidetector volumetric imaging was performed from the superior aspect of the liver through the pubic symphysis. Sagittal and coronal reformatted images were obtained on the technologist's workstation. This CT examination was performed using dose optimization techniques as appropriate, variously including the following: *Automated exposure control *Adjustment of mA and/or kV according to patient size (this includes techniques or standardized protocols for targeted exams where dose is matched to indication/reason for exam; i.e. extremities or head) *Use of iterative reconstruction technique DLP: 813 mGy-cm FINDINGS: LUNG BASES: Mild bronchial wall thickening is suspected in the lower lobes. Associated patchy foci of groundglass attenuation may correspond to an expiratory study, though a superimposed infectious or inflammatory process remains possible. No dense airspace consolidation. LIVER, GALLBLADDER, AND BILIARY TREE: Nodular contour of the hepatic parenchyma is consistent with cirrhosis. Liver is at the upper limits of normal in size. No focal lesions are identified, though sensitivity is limited without intravenous contrast. No appreciable biliary ductal dilatation. The gallbladder is unremarkable with no evidence of radiopaque gallstones, gallbladder wall thickening, or obvious pericholecystic inflammatory changes. PANCREAS: Mild pancreatic atrophy. No focal abnormalities. No ductal dilatation. SPLEEN: Enlarged, measuring 16 cm in diameter. ADRENAL GLANDS: Unremarkable. KIDNEYS AND URETERS: The kidneys are normal in size, shape, and attenuation. No hydronephrosis, hydroureter, or calculi seen. No perinephric stranding. BLADDER: Unremarkable. GASTROINTESTINAL TRACT: Stomach, small bowel, and colon are normal in caliber. No bowel wall thickening or surrounding inflammatory changes. Moderate volume of stool throughout the colon. Appendix is normal. No intraperitoneal free fluid or free air. ABDOMINAL WALL: Anasarca. There is a recanalized periumbilical vein with collaterals extending into the small fat-containing umbilical hernia. LYMPH NODES: No appreciable adenopathy. VASCULAR: Multiple portosystemic collaterals are suspected including a recanalized periumbilical vein, though sensitivity is limited without intravenous contrast. Abdominal aorta is normal in caliber. PELVIC VISCERA: Unremarkable. OSSEOUS STRUCTURES: [id number] multilevel degenerative disc disease in the thoracolumbar spine. No acute osseous abnormalities. CT/CT abdomen pelvis wo IV con IMPRESSION: 1. Cirrhosis with sequela of portal hypertension including splenomegaly and portosystemic collaterals. No ascites. 2. Anasarca. 3. Mild bronchial wall thickening in the lower lobes with associated patchy foci of groundglass attenuation. This may correspond to an expiratory study, though a superimposed infectious or inflammatory process remains possible. Fleischner guidelines were followed.
[2024-06-30 21:15] VITALS: BP 150/70; PULSE 95; RESP 16; TEMP 37.2; O2SAT 98; BMI 30.1
[2024-06-30 21:54] LABS: Eosinophils Absolute Auto 0.1 X10*3/uL (0.0-0.4); Eosinophils Percent Auto 1.4 % (0-4); Imm Gran Abs Auto 0.02 X10*3/uL (0.00-0.03); Imm Gran Pct Auto 0.4 % (0.0-0.4); MANUAL DIFF FLAG SCAN; Monocytes Absolute Auto 0.5 X10*3/uL (0.1-1.2); PLT CLUMP 1; SCAN SMEAR FLAG 1
[2024-06-30 21:55] LABS: Appearance Urine Clear; Color Urine Yellow; Glucose Urine UA Negative (Negative); Leukocyte Esterase Urine Negative (Negative); Nitrite Urine Negative (Negative); Specific Gravity - Urine <= 1.005 (1.005-1.025); Urine Blood Negative (Negative); Urine Ketones Negative (Negative); Urine Protein Negative (Neg-Trace)
[2024-06-30 21:56] LABS: Basophils Percent Auto 0.8 % (0-2); Hematocrit 35.3 % (37.0-47.0); Hemoglobin 12.4 g/dl (12.0-16.0); Lymphocytes Absolute Auto 1.1 X10*3/uL (1.2-4.9); Lymphocytes Percent Auto 22.2 % (20-40); Mean Corpuscular HGB Conc 35.1 g/dl (31.0-35.0); Mean Corpuscular Hemoglobin 31.6 pg (27.0-33.0); Mean Corpuscular Volume 90.1 fL (80.0-98.0); Mean Platelet Volume 10.6 fL (9.4-12.3); Monocytes Percent Auto 9.8 % (2-11); Neutrophils Absolute Auto 3.3 x10*3/uL (2.0-8.3); Neutrophils Percent Auto 65.4 % (45-73); Red Blood Count 3.92 X10*6/uL (4.20-5.50); Red Cell Distribution Width 15.4 % (11.0-16.0)
[2024-06-30 22:06] LABS: Alanine Aminotransferase 29 U/L (0-31); Alkaline Phosphatase 98 U/L (39-117); Anion Gap 15 (12-20); Aspartate Amino Transferase 39 U/L (5-31); Bilirubin Direct 0.9 mg/dL (0.0-0.5); Bilirubin Total 2.9 mg/dL (0.0-1.0); Blood Urea Nitrogen 15 mg/dL (9-16); Carbon Dioxide 27 mmol/L (22-29); Chloride 108 mmol/L (96-108); Creatinine Clr Calc Pharmacy 79.1; Estimated Glomerular Filt Rate > 60; Glucose Random 116 mg/dL (60-115); Potassium 3.6 mmol/L (3.3-5.1); Sodium 146 mmol/L (135-145); Total Protein 7.5 g/dL (6.5-8.0)
[2024-06-30 22:16] LABS: Ammonia 98 umol/L (13-55)
[2024-06-30 22:24] LABS: Platelet Count 42 X10*3/uL (160-400); SLIDE REVIEW VERIFIED
[2024-06-30 22:33] LABS: Influenza A PCR NEGATIVE (Negative); Influenza B PCR NEGATIVE (Negative); Resp Syncy Virus RNA Qual PCR NEGATIVE (Negative); SARS COV2 PCR INHOUSE NEGATIVE (Negative)
--- NOTE | 2024-06-30 22:40 | ED.AMS ---
HPI - Altered Mental Status General Chief Complaint: Altered Mental Status Stated Complaint: unsteady gait, confusion Time Seen by Provider: 06/30/24 22:35 Source: patient and family Mode of arrival: ambulatory History of Present Illness ED Provider: breanna PABLO narrative: Patient's history of alcohol use disorder cirrhosis on methadone brought by her daughter for increased confusion for last 2- 3 days patient is admitted [facility] last week discharge for same no fever no chills patient apparently fell 06/04/had CT scan at that time was negative no recent fall after patient is having semi solid stool lately today patient was confused per daughter and went to a neighbor's house and set up her own house with bizarre behavior taking lactulose daily last bowel movement was yesterday semi solid no abdominal pain no fever no chills no recent fall Related Data Home Medications ?Medication ?Instructions ?Recorded ?Confirmed ascorbic acid (vitamin C) 100 mg 100 mg PO DAILY 01/20/22 05/08/22 tablet ergocalciferol (vitamin D2) 1,250 1,250 mcg PO QWEEK 01/20/22 05/08/22 mcg (50,000 unit) capsule (Vitamin D2) magnesium oxide 400 mg (241.3 mg 400 mg PO BID 01/20/22 05/08/22 magnesium) tablet melatonin 3 mg tablet 3 mg PO BEDTIME PRN Sleep 01/20/22 05/08/22 bismuth subsalicylate 262 mg/15 mL 524 mg PO Q30M PRN Gastric Reflux 04/07/22 05/08/22 oral suspension (Pepto-Bismol) docusate sodium 100 mg tablet 100 mg PO DAILY 04/07/22 05/08/22 polyethylene glycol 3350 17 gram 17 g PO DAILY 04/07/22 05/08/22 oral powder packet (Miralax) methadone 10 mg/mL oral concentrate 65 mg PO DAILY 04/09/22 05/08/22 Previous Rx's ?Medication ?Instructions ?Recorded miscellaneous medical supply #1 ea 02/17/22 (Blood Pressure Cuff) folic acid 1 mg tablet 1 mg PO DAILY #90 tabs 03/17/22 multivitamin with folic acid 400 1 tab PO BEDTIME #90 tabs 03/17/22 mcg tablet (Therems Multivitamin) pantoprazole 40 mg tablet,delayed 40 mg PO DAILY #90 tabs 03/17/22 release pyridoxine (vitamin B6) 50 mg 50 mg PO DAILY #90 tabs 03/17/22 tablet thiamine HCl (vitamin B1) 100 mg 100 mg PO DAILY #30 tabs 03/17/22 tablet midodrine 5 mg tablet 5 mg PO TID 90 days #270 tabs 04/19/22 nadolol 20 mg tablet 10 mg (1/2 x 20 mg) PO DAILY #30 04/19/22 tabs lactulose 20 gram/30 mL oral 40 g (60 mL) PO DAILY 30 days 05/19/22 solution #1,800 mL diphenhydramine HCl 25 mg capsule 25 mg PO BID allergy symptoms 3 05/30/22 (Benadryl) days #6 caps famotidine 20 mg tablet (Pepcid) 20 mg PO BID 3 days #6 tabs 05/30/22 prednisone 20 mg tablet 20 mg PO BID 3 days #6 tabs 05/30/22 cholecalciferol (vitamin D3) 50 50 mcg PO DAILY #90 caps 06/19/22 mcg (2,000 unit) capsule ferrous sulfate 325 mg (65 mg 325 mg PO DAILY #90 tabs 06/19/22 iron) tablet hydroxyzine HCl 10 mg tablet 10 mg PO BID PRN anxiety 30 days 07/11/22 #60 tabs bumetanide 1 mg tablet 1 mg PO DAILY #90 tabs 10/25/22 spironolactone 25 mg tablet 12.5 mg (1/2 x 25 mg) PO DAILY #15 06/13/23 tabs lorazepam 1 mg tablet 1 mg PO TID PRN anxiety #9 tabs 02/16/24 Allergies Allergy/AdvReac Type Severity Reaction Status Date / Time Iodinated Contrast Media Allergy Intermediate blood in Verified 06/30/24 21:18 urine Shellfish Allergy Unknown Hives Uncoded 06/30/24 21:18 Review of Systems Review of Systems: Yes all other systems are reviewed and are negative PMFSH Past Medical History Medical History Splenomegaly Iron deficiency anemia Alcohol use disorder, moderate, in early remission, dependence Cirrhosis, alcoholic Obesity (BMI 30-39.9) Smoker History of substance abuse Hemorrhoids Constipation Lumbar back pain with radiculopathy affecting right lower extremity Surgical History History of tubal ligation Hx of hemorrhoidectomy H/O: hysterectomy Family History Family History Father No problems noted. Mother Active asthma Social History Social History Household Members: Spouse Housing: House Are you a primary nurse care manager to a significant other at home: No Do you presently have visiting nurse or other home services: No Alcohol intake: current Alcohol intake frequency: holidays/special occasions only Patient Tobacco Use Status: Never used Tobacco Tobacco use type: Cigarette Smoked in Last 30 Days: Yes e-Cigarette/Vaping Use: Never Used Substance Use Type: Former Substance User Advance Directives: Yes Advance Directives Information Provided: No Advance Directives on File: No Advance Directives Date on File: 04/08/22 Do you have a plan to hurt others: No Plan service: No Current occupational status: unemployed 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 Oriented X icterus 3. No acute distress. Scalp back home forehead Eyes: PERRLA, No Nystagmus ENT: Pharynx normal. Oral Mucosa moist pseudo sutures in place on forehead old ecchymosis right cheek area Neck: Normal inspection. Neck supple. CVS: Normal heart rate and rhythm. Pulses normal. Respiratory: No respiratory distress. Equal air entry bilateral, no wheezing/rales/rhonchi Abdomen: Soft and nontender. Bowel sounds are present, no mass palpable, no CVA tenderness Skin: Skin warm and dry. Normal skin color. Normal skin turgor. Extremities: No lower extremity edema. No calf tenderness Neuro: Oriented X 3. No motor deficit. No sensory deficit.No cerebellar signs , cranial nerves II-XII intact + hepatic flap Medications Administered Generic Name Dose Route Start Last Admin Trade Name Freq PRN Reason Stop Dose Admin Sodium Chloride 3 ml 07/01/24 00:00 06/30/24 23:51 0.9 % Sodium Chloride Flush 3 Ml Syringe IVFLUSH Not Given QSHIFT KIRSTIE Discontinued Medications Generic Name Dose Route Start Last Admin Trade Name Debra PRN Reason Stop Dose Admin Sodium Chloride 1,000 mls @ 999 mls/hr 06/30/24 22:43 06/30/24 23:41 Ns IV 06/30/24 23:43 999 mls/hr .Q1H1M ONE Administration Lactulose 20 gm 06/30/24 22:43 06/30/24 23:51 Lactulose 20 Gm/30 Ml Solution PO 06/30/24 22:44 20 gm ONCE ONE Administration Medical Decision Making Medical Decision Making [facility] Narrative: Patient has hepatic encephalopathy with ammonia of 98 with increased confusion will admit patient for observation will give lactulose no signs of infection with sepsis. CT scan of the abdomen was done per hospitalist request no ascites noticed chronic changes cirrhosis Differential Diagnosis Differential Diagnoses: The differential diagnosis associated with the presentation includes Admission/Observation Consideration of admission/observation: Escalation of care including admission/observation considered Consult Healthcare Provider Management of the patient was discussed with: Hospitalist Lab Data [facility] Lab Attestation statement: I reviewed the patient's lab results. 06/30/24 21:42 06/30/24 21:42 Labs: Lab Results 06/30/24 06/30/24 Range/Units 21:42 23:16 WBC 5.0 (4.8-10.8) X10*3/uL RBC 3.92 L (4.20-5.50) X10*6/uL Hgb 12.4 (12.0-16.0) g/dl Hct 35.3 L (37.0-47.0) % MCV 90.1 (80.0-98.0) fL MCH 31.6 (27.0-33.0) pg MCHC 35.1 H (31.0-35.0) g/dl RDW 15.4 (11.0-16.0) % Plt Count 42 L D (160-400) X10*3/uL MPV 10.6 (9.4-12.3) fL Immature Gran % (Auto) 0.4 (0.0-0.4) % Neut % (Auto) 65.4 (45-73) % Lymph % (Auto) 22.2 (20-40) % [place] % (Auto) 9.8 (2-11) % Eos % (Auto) 1.4 (0-4) % Baso % (Auto) 0.8 (0-2) % Lymph # (Auto) 1.1 L (1.2-4.9) X10*3/uL [place] # (Auto) 0.5 (0.1-1.2) X10*3/uL Eos # (Auto) 0.1 (0.0-0.4) X10*3/uL Baso # (Auto) 0.0 (0.0-0.2) X10*3/uL Abs Immat Gran (auto) 0.02 (0.00-0.03) X10*3/uL Absolute Neuts (auto) 3.3 (2.0-8.3) x10*3/uL Absolute Nucleated RBC 0.000 (0.0-0.012) X10*3/uL Nucleated RBC % (auto) 0.0 (0.0-0.2) /100WBC Smear Tech's Comments VERIFIED PT 15.9 H (11.1-13.3) SEC INR 1.3 H (0.9-1.1) APTT 29.1 (26.0-36.8) SEC Sodium 146 H (135-145) mmol/L Potassium 3.6 (3.3-5.1) mmol/L Chloride 108 (96-108) mmol/L Carbon Dioxide 27 (22-29) mmol/L Anion Gap 15 (12-20) BUN 15 (9-16) mg/dL Creatinine 0.79 (0.5-1.4) mg/dL Estim Creat Clear Calc 79.1 Estimated GFR > 60 Random Glucose 116 H (60-115) mg/dL Calcium 10.0 D (8.4-10.2) mg/dL Magnesium 1.9 (1.6-2.6) mg/dL Total Bilirubin 2.9 H (0.0-1.0) mg/dL Direct Bilirubin 0.9 H (0.0-0.5) mg/dL AST 39 H (5-31) U/L ALT 29 (0-31) U/L Alkaline Phosphatase 98 (39-117) U/L Ammonia 98 H (13-55) umol/L Total Protein 7.5 (6.5-8.0) g/dL Albumin 4.0 (3.5-5.0) g/dL Urine Color Yellow Urine Appearance Clear Urine pH 6.0 (5.0-9.0) Ur Specific [place] <= 1.005 (1.005-1.025) Urine Protein Negative (Neg-Trace) mg/dL Urine Glucose (UA) Negative (Negative) mg/dL Urine Ketones Negative (Negative) mg/dL Urine Blood Negative (Negative) Urine Nitrite Negative (Negative) Ur Leukocyte Esterase Negative (Negative) Influenza Type A (PCR) NEGATIVE (Negative) Influenza Type B (PCR) NEGATIVE (Negative) RSV RNA Qual (PCR) NEGATIVE (Negative) SARS-CoV-2 RNA (RT-PCR) NEGATIVE (Negative) Independent Interpretation I performed an independent interpretation of an: CT Scan Radiology Impression Discussion of test interpretation with radiology: I have reviewed the radiologist's reading. Radiologist Impression: CT/CT abdomen pelvis wo IV con IMPRESSION: 1. Cirrhosis with sequela of portal hypertension including splenomegaly and portosystemic collaterals. No ascites. 2. Anasarca. 3. Mild bronchial wall thickening in the lower lobes with associated patchy foci of groundglass attenuation. This may correspond to an expiratory study, though a superimposed infectious or inflammatory process remains possible. Fleischner guidelines were followed. Discharge Plan Discharge Clinical Impression: Acute hepatic encephalopathy Patient Disposition: Admitted As Inpatient
[2024-06-30 23:08] LABS: Magnesium 1.9 mg/dL (1.6-2.6)
--- NOTE | 2024-06-30 23:23 | P.HPHOSP_ITS ---
History of Present Illness Date of Service: 06/30/24 Chief Complaint: AMS This is a 63-year-old female with pertinent history of opioid use disorder on methadone, alcoholic cirrhosis with varices, congestive heart failure unspecified EF, gastroesophageal reflux disease, mood disorder who was brought to the emergency department for evaluation of altered mentation. Unable to obtain history from the patient as she is only oriented due to self and does not know why she is in the hospital. Tried calling the patient's daughter but no answer. History obtained with the help of ER provider and chart review. Patient with increased confusion over the last 2 3 days and hence was brought to the ER. There is no report of noncompliance with lactulose. No abdominal discomfort. No melena or hematochezia. No hematemesis. Unable to obtain review of systems. Review of Systems 2 Review of Systems: Yes Unobtainable due to mental status PMFSH Medical History Splenomegaly Iron deficiency anemia Alcohol use disorder, moderate, in early remission, dependence Cirrhosis, alcoholic Obesity (BMI 30-39.9) Smoker History of substance abuse Hemorrhoids Constipation Lumbar back pain with radiculopathy affecting right lower extremity Family History Father No problems noted. Mother Active asthma Surgical History History of tubal ligation Hx of hemorrhoidectomy H/O: hysterectomy Social History Household Members: Spouse Housing: House Are you a primary progressive care manager to a significant other at home: No Do you presently have visiting nurse or other home services: No Alcohol intake: current Alcohol intake frequency: holidays/special occasions only Patient Tobacco Use Status: Never used Tobacco Tobacco use type: Cigarette Smoked in Last 30 Days: Yes e-Cigarette/Vaping Use: Never Used Substance Use Type: Former Substance User Advance Directives: Yes Advance Directives Information Provided: No Advance Directives on File: No Advance Directives Date on File: 04/08/22 Do you have a plan to hurt others: No Plan service: No Current occupational status: unemployed 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 Cognitive needs: No Hearing needs: No Vision needs: No Meds Allergies Allergy/AdvReac Type Severity Reaction Status Date / Time Iodinated Contrast Media Allergy Intermediate blood in Verified 06/30/24 21:18 urine Shellfish Allergy Unknown Hives Uncoded 06/30/24 21:18 Active Medications: Current Medications Sodium Chloride (Ns) 1,000 mls @ 999 mls/hr IV .Q1H1M ONE Stop: 06/30/24 23:43 Home Medications ?Medication ?Instructions ?Recorded ?Confirmed ?Last Taken ?Type ascorbic acid (vitamin C) 100 mg 100 mg PO DAILY 01/20/22 05/08/22 Unknown History tablet ergocalciferol (vitamin D2) 1,250 1,250 mcg PO QWEEK 01/20/22 05/08/22 Unknown History mcg (50,000 unit) capsule (Vitamin D2) magnesium oxide 400 mg (241.3 mg 400 mg PO BID 01/20/22 05/08/22 Unknown History magnesium) tablet melatonin 3 mg tablet 3 mg PO BEDTIME PRN Sleep 01/20/22 05/08/22 Unknown History bismuth subsalicylate 262 mg/15 mL 524 mg PO Q30M PRN Gastric Reflux 04/07/22 05/08/22 Unknown History oral suspension (Pepto-Bismol) docusate sodium 100 mg tablet 100 mg PO DAILY 04/07/22 05/08/22 Unknown History polyethylene glycol 3350 17 gram 17 g PO DAILY 04/07/22 05/08/22 Unknown History oral powder packet (Miralax) methadone 10 mg/mL oral concentrate 65 mg PO DAILY 04/09/22 05/08/22 04/06/22 History Physical Exam 2 Vital Signs and Narrative: Vital Signs: Last Vital Signs Temp 98.9 F 06/30/24 21:15 Pulse 95 06/30/24 21:15 Resp 16 06/30/24 21:15 BP 150/70 H 06/30/24 21:15 Pulse Ox 98 06/30/24 21:15 O2 Del Method Room Air 06/30/24 21:15 BMI result Body Mass Index 30.1 Middle-aged female lying in bed in no distress Neck supple, no JVD Regular rate and rhythm, S1-S2 heard Regular breath sounds bilaterally, no wheezing or crackles appreciated Abdomen soft nontender, no guarding, no rigidity Patient is eye opening to verbal stimulus but falls back asleep, oriented to self but disoriented to place, person and time Psych: Drowsy No pedal edema Results Labs 06/30/24 21:42 06/30/24 21:42 Labs: Laboratory Results - last 24 hr 06/30/24 21:42 MCV 90.1 MCH 31.6 MCHC 35.1 H RDW 15.4 Plt Count 42 L D MPV 10.6 Immature Gran % (Auto) 0.4 Neut % (Auto) 65.4 Lymph % (Auto) 22.2 [place] % (Auto) 9.8 Eos % (Auto) 1.4 Baso % (Auto) 0.8 Lymph # (Auto) 1.1 L [place] # (Auto) 0.5 Eos # (Auto) 0.1 Baso # (Auto) 0.0 Abs Immat Gran (auto) 0.02 Absolute Neuts (auto) 3.3 Absolute Nucleated RBC 0.000 Nucleated RBC % (auto) 0.0 Smear Tech's Comments VERIFIED Anion Gap 15 Estim Creat Clear Calc 79.1 Estimated GFR > 60 Random Glucose 116 H Calcium 10.0 D Magnesium 1.9 Total Bilirubin 2.9 H Direct Bilirubin 0.9 H AST 39 H ALT 29 Alkaline Phosphatase 98 Ammonia 98 H Total Protein 7.5 Albumin 4.0 Urine Color Yellow Urine Appearance Clear Urine pH 6.0 Ur Specific [place] <= 1.005 Urine Protein Negative Urine Glucose (UA) Negative Urine Ketones Negative Urine Blood Negative Urine Nitrite Negative Ur Leukocyte Esterase Negative Influenza Type A (PCR) NEGATIVE Influenza Type B (PCR) NEGATIVE RSV RNA Qual (PCR) NEGATIVE SARS-CoV-2 RNA (RT-PCR) NEGATIVE Assessment and Plan (1) Hepatic encephalopathy: Status: Acute Plan This is a 63-year-old female with pertinent history of opioid use disorder on methadone, alcoholic cirrhosis with varices, congestive heart failure unspecified EF, gastroesophageal reflux disease, mood disorder who was brought to the emergency department for evaluation of altered mentation. #. Acute hepatic encephalopathy grade 2/3 in a patient with alcoholic cirrhosis: Will admit patient and initiate lactulose every 8 hours to target 3- 4 bowel movements per day. May have to increase her lactulose home dose. Unclear precipitating cause, no GI bleed, no infection, electrolytes and kidney function okay, hold no hypoxia, no hypoglycemia. Monitor mentation and pneumonia levels #. Alcoholic cirrhosis with varices: Continue diuretics and nadolol. Lactulose as above #. Congestive heart failure, unspecified EF: No decompensation. Continue home diuretics #. Gastroesophageal reflux disease: On PPI #. Mood disorder: Hold home mood stabilizers until mentation improves #. Thrombocytopenia due to cirrhosis: Defer Lovenox #. Opioid use disorder on methadone Med rec pending DVT prophylaxis: SCDs Full code Admit as inpatient and will require two night minimum hospital stay for monitoring of mentation, treatment of hepatic encephalopathy (as above), which is not possible in a lesser acute setting. Quality Stroke Does the patient have a stroke diagnosis?: No VTE Prior VTE?: No VTE Risk Level:: Medical - moderate - high VTE Device Contraindication: N/A - Device Ordered VTE Drug Contraindication: Treatment Not Indicated
[2024-06-30] MEDS: 0.9 % Sodium Chloride 1,000 ML 999 ML IV (23:41)
[2024-06-30 23:45] LABS: Partial Thromboplastin Time 29.1 SEC (26.0-36.8)
[2024-06-30 23:49] LABS: INTERNATIONAL NORM RATIO 1.3 (0.9-1.1); Prothrombin Time 15.9 SEC (11.1-13.3)
[2024-06-30] MEDS: Lactulose 20 GM/30 ML SOLUTION PO (23:51)
--- NOTE | 2024-06-30 23:59 | PC.NURSE ---
Per Dr. Chen patient may have food and oral fluids.
--- NOTE | 2024-07-01 00:01 | MHC.EDTECH ---
Pt assisted to commode to urinate. RN explained a purewick to Pt who was agreeable, and this was placed for Pt. Pt given sandwich and diet gingerale. Call colindres within reach.
[2024-07-01 01:24] VITALS: BP 119/57; PULSE 68; RESP 12; TEMP 36.6; O2SAT 100
[2024-07-01 01:59] LABS: B Type Natriuretic Peptide 78 pg/mL (<100)
--- NOTE | 2024-07-01 03:21 | MHC.EDTECH ---
This tech and RN assisted Pt to commode to urinate. Pt helped back into bed, call colindres within reach.
--- NOTE | 2024-07-01 03:22 | PC.NURSE ---
Patient reports discomfort to IV site in R forearm, this RN attempted to flush IV line with no success, IV line removed. Patient refused a new IV line placement. Dr. Chen notified.
[2024-07-01 05:12] LABS: MANUAL DIFF FLAG NO
[2024-07-01 05:16] LABS: Basophils Percent Auto 0.7 % (0-2); Eosinophils Absolute Auto 0.1 X10*3/uL (0.0-0.4); Eosinophils Percent Auto 2.1 % (0-4); Hematocrit 32.4 % (37.0-47.0); Hemoglobin 11.2 g/dl (12.0-16.0); Lymphocytes Absolute Auto 1.4 X10*3/uL (1.2-4.9); Lymphocytes Percent Auto 32.6 % (20-40); Mean Corpuscular HGB Conc 34.6 g/dl (31.0-35.0); Mean Corpuscular Hemoglobin 31.3 pg (27.0-33.0); Mean Corpuscular Volume 90.5 fL (80.0-98.0); Mean Platelet Volume 10.7 fL (9.4-12.3); Monocytes Absolute Auto 0.6 X10*3/uL (0.1-1.2); Monocytes Percent Auto 12.5 % (2-11); Neutrophils Absolute Auto 2.3 x10*3/uL (2.0-8.3); Neutrophils Percent Auto 52.1 % (45-73); Red Blood Count 3.58 X10*6/uL (4.20-5.50); Red Cell Distribution Width 15.1 % (11.0-16.0); White Blood Count 4.4 X10*3/uL (4.8-10.8)
[2024-07-01 05:23] LABS: Platelet Count 40 X10*3/uL (160-400)
[2024-07-01 05:30] LABS: Anion Gap 13 (12-20); Blood Urea Nitrogen 13 mg/dL (9-16); Calcium 9.4 mg/dL (8.4-10.2); Carbon Dioxide 25 mmol/L (22-29); Chloride 110 mmol/L (96-108); Creatinine Clr Calc Pharmacy 83.3; Estimated Glomerular Filt Rate > 60; Glucose Random 79 mg/dL (60-115); Potassium 3.1 mmol/L (3.3-5.1); Sodium 145 mmol/L (135-145)
[2024-07-01 06:07] VITALS: BP 144/66; PULSE 65; RESP 12; TEMP 36.7; O2SAT 100
[2024-07-01 07:51] VITALS: BP 105/45; PULSE 68; RESP 13; O2SAT 100
--- NOTE | 2024-07-01 07:52 | PC.NURSE ---
Care of Pt assumed at change of shift. VSS, unable to establish level of orientation at this time as Pt is resting quietly. NAD noted. Will continue to monitor and further assess when Pt is awake.
[2024-07-01 09:13] VITALS: BP 126/61; PULSE 71; RESP 16; TEMP 36.8; O2SAT 100
[2024-07-01 09:56] LABS: Ammonia 153 umol/L (13-55)
[2024-07-01] MEDS: Potassium Chloride ER 20 MEQ TAB.ER.PRT 40 MEQ PO (10:26)
[2024-07-01] MEDS: Lactulose 20 GM/30 ML SOLUTION 30 GM PO ×2 (10:26→14:58)
--- NOTE | 2024-07-01 11:18 | MHC.CM.PN ---
Patient states that she lives alone. She is independent with ADLs. She uses a walker PRN. Patient is on Methadone. Her community dispensary [facility] in [facility]. Her Sister Alba is her HCP. A copy has been requested. [facility] resume Methadone program. Sister Alba will provide transport home.
--- NOTE | 2024-07-01 11:39 | PHA.MEDREC ---
Pharmacy Consult ? Medication Reconciliation Pharmacy has completed the medication reconciliation. Spoke to patient and daughter Alba at bedside to confirm medication list. Patient said she's only on 4 medications..lactulose, furosemide, xifaxan and methadone. She last took her medications yesterday.
--- NOTE | 2024-07-01 12:38 | HE.PHANOTE ---
RE: METHADONE DOSING Last dose of methadone 80 mg was given on 06/30/2024 @1400 at [facility] per Annalise.
[2024-07-01] MEDS: methADONE HCl 20 MG/2 ML ORAL.CONC 80 MG PO (14:58)
[2024-07-01] MEDS: rifAXIMin 550 MG TABLET PO ×2 (14:58→21:18)
[2024-07-01 16:00] VITALS: BP 130/72; PULSE 66; RESP 18; TEMP 36.4; O2SAT 100
--- NOTE | 2024-07-01 16:15 | HO.PM.IMPN ---
Subjective Subjective Date of Service: 07/01/24 Interval History: hepatic encepahlopathy Review of Systems elevated ammonia levels menatal status improving she said she was taking lactulose but had only 1 bm everyday no fevers Physical Exam Vital Signs: Vital Signs: Last Vital Signs Temp 97.6 F 07/01/24 16:00 Pulse 66 07/01/24 16:00 Resp 18 07/01/24 16:00 BP 130/72 07/01/24 16:00 Pulse Ox 100 07/01/24 16:00 O2 Del Method Room Air 07/01/24 16:00 BMI result Body Mass Index 30.1 Appearance: Alert.? Oriented X2 .? cvs: rrr, [id number] , no murmur res: clear to auscultation ,no rhonchii or wheezing abd: no rebound or guarding ,nt, bs present. ext pulses present , no cyanosis . neuro: axo3 , nonfocal. Objective Data Active Medications Acetaminophen (Acetaminophen 325 Mg Tablet) 650 mg PO Q6H PRN PRN Reason: Pain, Mild (Pain Scale 1-3), fever or headache Calcium Carbonate (Calcium Carbonate 750 Mg Tab.Chew) 750 mg PO Q4H PRN PRN Reason: Heartburn Furosemide (Furosemide 20 Mg Tablet) 20 mg PO Q48H [facility]; Protocol Lactulose (Lactulose 20 Gm/30 Ml Solution) 30 gm PO TID [facility] Last Admin: 07/01/24 14:58 Dose: 30 gm Documented By: MARYAN Magnesium Hydroxide (Milk Of Magnesia 30 Ml Oral.Susp) 30 ml PO DAILY PRN PRN Reason: Constipation Melatonin (Melatonin 3 Mg Tablet) 6 mg PO BEDTIME PRN PRN Reason: Insomnia Methadone HCl (Methadone Hcl 20 Mg/2 Ml Oral.Conc) 80 mg PO DAILY [facility] Last Admin: 07/01/24 14:58 Dose: 80 mg Documented By: MARYAN Co-signed By: SHAUN Ondansetron HCl (Ondansetron Hcl 4 Mg/2 Ml Vial) 4 mg IVPUSH Q8H PRN PRN Reason: Nausea and Vomiting Rifaximin (Rifaximin 550 Mg Tablet) 550 mg PO BID [facility] Last Admin: 07/01/24 14:58 Dose: 550 mg Documented By: MARYAN Sodium Chloride (0.9 % Sodium Chloride Flush 3 Ml Syringe) 3 ml IVFLUSH QSHIFT KIRSTIE Last Admin: 07/01/24 07:18 Dose: Not Given Documented By: ISABEL Non-Admin Reason: No Access Labs 07/01/24 04:24 07/01/24 04:24 Labs: Laboratory Results - last 24 hr 06/30/24 06/30/24 07/01/24 21:42 23:16 04:24 MCV 90.1 90.5 MCH 31.6 31.3 MCHC 35.1 H 34.6 RDW 15.4 15.1 Plt Count 42 L D 40 L MPV 10.6 10.7 Immature Gran % (Auto) 0.4 0.0 Neut % (Auto) 65.4 52.1 Lymph % (Auto) 22.2 32.6 [place] % (Auto) 9.8 12.5 H Eos % (Auto) 1.4 2.1 Baso % (Auto) 0.8 0.7 Lymph # (Auto) 1.1 L 1.4 [place] # (Auto) 0.5 0.6 Eos # (Auto) 0.1 0.1 Baso # (Auto) 0.0 0.0 Abs Immat Gran (auto) 0.02 0.00 Absolute Neuts (auto) 3.3 2.3 Absolute Nucleated RBC 0.000 0.000 Nucleated RBC % (auto) 0.0 0.0 Smear Tech's Comments VERIFIED PT 15.9 H INR 1.3 H APTT 29.1 Anion Gap 15 13 Estim Creat Clear Calc 79.1 83.3 Estimated GFR > 60 > 60 Random Glucose 116 H 79 Calcium 10.0 D 9.4 Magnesium 1.9 Total Bilirubin 2.9 H Direct Bilirubin 0.9 H AST 39 H ALT 29 Alkaline Phosphatase 98 Ammonia 98 H B-Natriuretic Peptide 78 Total Protein 7.5 Albumin 4.0 Urine Color Yellow Urine Appearance Clear Urine pH 6.0 Ur Specific [place] <= 1.005 Urine Protein Negative Urine Glucose (UA) Negative Urine Ketones Negative Urine Blood Negative Urine Nitrite Negative Ur Leukocyte Esterase Negative Influenza Type A (PCR) NEGATIVE Influenza Type B (PCR) NEGATIVE RSV RNA Qual (PCR) NEGATIVE SARS-CoV-2 RNA (RT-PCR) NEGATIVE 07/01/24 09:17 MCV MCH MCHC RDW Plt Count MPV Immature Gran % (Auto) Neut % (Auto) Lymph % (Auto) [place] % (Auto) Eos % (Auto) Baso % (Auto) Lymph # (Auto) [place] # (Auto) Eos # (Auto) Baso # (Auto) Abs Immat Gran (auto) Absolute Neuts (auto) Absolute Nucleated RBC Nucleated RBC % (auto) Smear Tech's Comments PT INR APTT Anion Gap Estim Creat Clear Calc Estimated GFR Random Glucose Calcium Magnesium Total Bilirubin Direct Bilirubin AST ALT Alkaline Phosphatase Ammonia 153 H B-Natriuretic Peptide Total Protein Albumin Urine Color Urine Appearance Urine pH Ur Specific [place] Urine Protein Urine Glucose (UA) Urine Ketones Urine Blood Urine Nitrite Ur Leukocyte Esterase Influenza Type A (PCR) Influenza Type B (PCR) RSV RNA Qual (PCR) SARS-CoV-2 RNA (RT-PCR) Assessment and Plan (1) Acute hepatic encephalopathy: Status: Acute Assessment and Plan: 63-year-old female with pertinent history of opioid use disorder on methadone, alcoholic cirrhosis with varices, congestive heart failure unspecified EF, gastroesophageal reflux disease, mood disorder who was brought to the emergency department for evaluation of altered mentation. Acute hepatic encephalopathy grade 2/3 in a patient with alcoholic cirrhosis: Will admit patient and initiate lactulose every 8 hours to target 3-4 bowel movements per day. May have to increase her lactulose home dose. Unclear precipitating cause, no GI bleed, no infection, electrolytes and kidney function okay, hold no hypoxia, no hypoglycemia. Monitor mentation and pneumonia levels Alcoholic cirrhosis with varices: Continue diuretics and nadolol. Lactulose as above Congestive heart failure, unspecified EF: No decompensation. Continue home diuretics Gastroesophageal reflux disease: On PPI Mood disorder: Hold home mood stabilizers until mentation improves Thrombocytopenia due to cirrhosis: Defer Lovenox Opioid use disorder on methadone DVT prophylaxis: SCDs . Full code ongoing hospital stay for monitoring of mentation, treatment of hepatic encephalopathy (as above), which is not possible in a lesser acute setting. Quality Stroke Does the patient have a stroke diagnosis?: No VTE Prior VTE?: No VTE Risk Level:: Medical - moderate - high VTE Device Contraindication: N/A - Device Ordered VTE Drug Contraindication: Treatment Not Indicated
[2024-07-01] MEDS: 0.9 % Sodium Chloride Flush 3 ML SYRINGE IVFLUSH ×2 (16:33→21:19)
[2024-07-01 19:13] VITALS: BP 118/57; PULSE 68; RESP 18; TEMP 36.6; O2SAT 100
[2024-07-01] MEDS: Melatonin 3 MG TABLET 6 MG PO (22:06)
[2024-07-02 03:21] VITALS: BP 124/58; PULSE 69; RESP 16; TEMP 36.3; O2SAT 99
[2024-07-02] MEDS: Acetaminophen 325 MG TABLET 650 MG PO (05:15)
[2024-07-02 07:33] VITALS: BP 110/55; PULSE 74; RESP 14; TEMP 36; O2SAT 99
--- OUTSIDE RECORDS SUMMARY | 2024-07-02 07:59 | XMS_ITS | Continuity of Care Document ---
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 Name Role Phone Not on Staff, PCP Primary Care Physician Unavail able Encounter [facility] – [place] Date(s): 06/21/24 - 06/23/[address] [id number] Encounter Diagnosis Fall on steps(Final) - 06/21/24 Subarachnoid hemorrhage(Final) - 06/21/24 Discharge Disposition: A-D/C Home Attending Physician: Alejandro HENDRICKSON, Sandeep Admitting Physician: Tess Nolasco MD Referring Physician: Not on Staff, Referring [...] Given tetanus-diphtheria toxoids (Td) 08/21/12 Given Medications lactulose 10 gm/15 ml oral syrup 30 mL = 20 Gm, By Mouth, 4 times a day, for 30 days, # 1,000 mL, 6 Refills, Acute 01/19/25 12:25:00EDT, 06/23/24 12:25:00 EDT, Syrup, [facility], Partial fill upon patient request if the prescription is for a schedule II opioid drug., 3... Start Date: 06/23/24 Stop Date: 01/19/25 Status: Ordered Lasix 20 mg oral tablet 1, capsule, By Mouth, Every other day, # 15 capsule, Refills 5, Tot. Refills 5, Soft Stop, 06/23/2412:26:00 EDT, Route to Pharmacy Electronically, [facility], Partial fill upon patientrequest if the prescription is for a schedule II op... Start Date: 06/23/24 Stop Date: 12/20/24 Status: Ordered Methadone = 50 mg, By Mouth, Daily, 0 Refills, Maintenance, 06/23/24 12:25:00 EDT, Tablet, Partial fill upon patient request if the prescription is for a schedule II opioid drug. Start Date: 06/23/24 Status: Ordered Methadone Tablet 50 mg, Tablet, By Mouth, 06/23/24 11:12:00 EDT Start Date: 06/23/24 Stop Date: 06/23/24 Status: Completed rifAXIMin 550 mg oral tablet = 550 mg, By Mouth, 2 times a day, # 60 tablet, 2 Refills, Maintenance, 06/23/24 12:26:00 EDT, Tablet, [facility], Partial fill upon patient request if the prescription is for a schedule II opioid drug., 163, cm, 06/23/24 5:49:00 EDT, He... Start Date: 06/23/24 Stop Date: 09/21/24 Status: Ordered Problem List Condition Confirmation Course Effective Dates Status Health St atus Informant Anxiety Confirmed Active Asthma Confirmed Active Chronic low back pain Confirmed Active Depression Confirmed Active IVDU - Intravenous drug user 1 Confirmed Active Obese class I Confirmed Active Pt reports she quit 1mo ago Results Radiology Reports * Exam Date Time Procedure Performing Provider Status 06/22/24 10:13 AM US RUQ Mary Aguila; Au th (Verified) Notes: (US RUQ) Reason For Exam: Abnormal labs;Cirrhosis RESULT: US RUQ US RUQ Reason: Abnormal labs; Clinical Question(s): Cirrhosis; Order Comment: COMPARISON: December 2021 FINDINGS: Liver: Coarse hepatic echotexture and echogenic parenchyma. No suspicious lesion. Mildly nodular hepatic contour. Main portal vein patent with normal hepatopetal direction of flow. Gallbladder: Mildly distended gallbladder without wall thickening. Sonographic Collier sign is negative. No evidence of cholelithiasis. Mild nonspecific focal wall thickening versus fatty sparing at the gallbladder fossa. Biliary Tree: No intrahepatic or extrahepatic bile duct dilation is identified. Common duct measures: 0.5 cm. Pancreas: No abnormality in the visualized portions of the pancreas. Right kidney: 12.8 cm in length. Normal parenchymal echotexture and thickness. No hydronephrosis, stone or mass. IMPRESSION: 1. Coarse hepatic echotexture and echogenic parenchyma likely due to underlying hepatocellular disease. 2. No cholelithiasis or convincing evidence of acute cholecystitis. WSN: [id number] Ordering Physician: Jeremie Bland Dictated By: Rafi Schafer MD Dictated Date/Time: 06/22/24 10:34 a Reviewed By: Rafi Schafer MD Signed By: Rafi Schafer MD Signed Date/Time: 06/22/24 10:34 am Transcribed By: CALIN Transcribed Date/Time: 06/22/24 10:31 am * Exam Date Time Procedure Performing Provider Status 06/21/24 4:[address] Head/Brain W/O Contrast Isma Barajas; Auth (Verified) Notes: (CT Head/Brain W/O Contrast) Reason For Exam: Reeval acute subarachnoid hemorrhage;Other: RESULT: CT Head/Brain W/O Contrast CT Head/Brain W/O Contrast INDICATION: Hx of Present Illness: Fall with head strike; Reason: Other:; Reeval acute subarachnoidhemorrhage; Clinical Question(s): Progression Regression; Order Comment: TECHNIQUE: Noncontrast head CT using axial technique and reconstructed in axial and coronal planes.Iterative reconstruction techniques are used to optimize dose and image quality. CTDIvol Head: 46.00 mGy, DLP Head: 736 mGy*cm. COMPARISON: CT scan of the head performed on 06/21/2024 and 04/06/2019. FINDINGS: Core Rescuer view findings, lines and tubes: None. BRAIN AND EXTRA-AXIAL SPACES: No parenchymal hemorrhage, midline shift, or mass effect. Moy-white matter differentiation is wellpreserved. No acute infarct. Ventricles, sulci, and basilar cisterns are normal. No white matter lesions. Again demonstrated is subarachnoid hemorrhage in the right parietal lobe which remains unchanged. CALVARIUM, SKULL BASE, AND SOFT TISSUES: No fractures or suspicious bony lesions. The paranasal sinuses and mastoid air cells are clear. Visualized orbits and globes are intact. Again demonstrated is right frontal scalp laceration. IMPRESSION: Stable right parietal subarachnoid hemorrhage without evidence of interval change. WSN: [id number] Ordering Physician: Aishwarya Summers Dictated By: Rafaela Woodall MD Dictated Date/Time: 06/21/24 4:48 pm Reviewed By: Rafaela Woodall MD Signed By: Rafaela Woodall MD Signed Date/Time: 06/21/24 4:48 pm Transcribed By: CALIN Transcribed Date/Time: 06/21/24 4:40 pm * Exam Date Time Procedure Performing Provider Status 06/21/24 11:[address] Cervical Spine W/O Contrast Phuong Drew; Auth (Verified) Notes: (CT Cervical Spine W/O Contrast) Reason For Exam: Neck trauma, dangerous injury mechanism;Other: RESULT: CT Cervical Spine W/O Contrast CT Head/Brain W/O Contrast, CT Maxilloface W/O Contrast, CT Cervical Spine W/O Contrast INDICATION: Hx of Present Illness: Fall with head strike; Reason: Trauma; Clinical Question(s): Other:; fall with headstrike Hx of Present Illness: Fall with head strike; Reason: Other:; Neck trauma, dangerous injury mechanism; Clinical Question(s): Fracture Dislocation; Order Comment: TECHNIQUE: Noncontrast head CT using axial technique was reconstructed in axial and coronal planes.Noncontrast spiral CT through the facial bones and cervical spine was formatted in 3 planes. Automatic tube modulation was used for the cervical spine and iterative dose reconstruction was used for the head, face, and cervical spine to optimize scan parameters and image quality. CTDIvol Body: 10.50 mGy, DLP Body: 301 mGy*cm. CTDIvol Head: 38.60 mGy, DLP Head: 671 mGy*cm. COMPARISON: CT head 04/06/2019 FINDINGS: Core Rescuer View Findings, Lines and Tubes: None. BRAIN AND EXTRA-AXIAL SPACES: There is a curvilinear serpiginous region of high density subarachnoid hemorrhage within the RIGHT central sulcus (201:22-24). No additional regions of high density hemorrhage. No intraparenchymal hemorrhage. No midline shift or mass effect. Moy-white matter differentiation is well preserved. No acute infarct. Negative insular ribbon and hyperdense vessel signs. Ventricles, sulci, and basilar cisterns are normal. No hydrocephalus or intraventricular hemorrhage. No white matter lesions. No subdural or epidural collection. CALVARIUM, SKULL BASE, AND SOFT TISSUES: No fractures or suspicious bony lesions. The paranasal sinuses and mastoid air cells are clear. There is RIGHT frontal/supraorbital scalp laceration, with few foci of air in the subcutaneous fat. MAXILLOFACIAL: Facial soft tissues: RIGHT frontal and supraorbital soft tissue swelling with a focus of gas. Nasal bones: No fracture. Orbits and orbital crowe: No fracture of the orbital crowe. No intraorbital hematoma. There is RIGHT preseptal periorbital soft tissue swelling with hazy infiltration of the subcutaneous fat. No postseptal intraorbital abnormality. Intact globes. Maxilla and alveolus: No fracture. Pterygoid plates: No fracture. Visualized parapharyngeal spaces: Symmetric without suspicious or acute abnormality. Zygomatic arches: No fracture. Mandible: No fracture or dislocation. CERVICAL SPINE: There is no acute cervical spine fracture. Normal alignment. No locked or perched facet. Mild to moderate diminished disc height at C5-C6 withendplate spurring. OTHER BONES: No acute abnormality. CERVICAL SOFT TISSUES AND LUNG APICES: Retropharyngeal course of the common carotid arteries. Visualized lung apices are clear. IMPRESSION: 1. Small amount of acute subarachnoid hemorrhage in the high RIGHT posterior frontal region. No subdural or intraparenchymal hemorrhage. No mass effect. 2. No acute skull fracture. 3. Mild RIGHT frontal scalp and RIGHT preseptal periorbital soft tissue swelling. No intraorbital hematoma. 4. No acute maxillofacial bone fracture. 5. No acute cervical spine fracture. This critical result was sent by [employer] to Physician: Aishwarya Summers DO with receipt confirmation on 06/21/2024 11:40 AM and it was ascertained that the results were received and understood at the time of direct communication. WSN: [id number] Ordering Physician: Aishwarya Summers Dictated By: Maria Luisa Interiano MD Dictated Date/Time: 06/21/24 11:43 a Reviewed By: Maria Luisa Interiano MD Signed By: Maria Luisa Interiano MD Signed Date/Time: 06/21/24 11:43 am Transcribed By: CALIN Transcribed Date/Time: 06/21/24 11:21 am * Exam Date Time Procedure Performing Provider Status 06/21/24 11:[address] Maxilloface W/O Contrast Phuong Rivas i; S[place]ia (Verified) Notes: (CT Maxilloface W/O Contrast) Reason For Exam: Trauma RESULT: CT Maxilloface W/O Contrast CT Head/Brain W/O Contrast, CT Maxilloface W/O Contrast, CT Cervical Spine W/O Contrast INDICATION: Hx of Present Illness: Fall with head strike; Reason: Trauma; Clinical Question(s): Other:; fall with headstrike Hx of Present Illness: Fall with head strike; Reason: Other:; Neck trauma, dangerous injury mechanism; Clinical Question(s): Fracture Dislocation; Order Comment: TECHNIQUE: Noncontrast head CT using axial technique was reconstructed in axial and coronal planes.Noncontrast spiral CT through the facial bones and cervical spine was formatted in 3 planes. Automatic tube modulation was used for the cervical spine and iterative dose reconstruction was used for the head, face, and cervical spine to optimize scan parameters and image quality. CTDIvol Body: 10.50 mGy, DLP Body: 301 mGy*cm. CTDIvol Head: 38.60 mGy, DLP Head: 671 mGy*cm. COMPARISON: CT head 04/06/2019 FINDINGS: Core Rescuer View Findings, Lines and Tubes: None. BRAIN AND EXTRA-AXIAL SPACES: There is a curvilinear serpiginous region of high density subarachnoid hemorrhage within the RIGHT central sulcus (201:22-24). No additional regions of high density hemorrhage. No intraparenchymal hemorrhage. No midline shift or mass effect. Moy-white matter differentiation is well preserved. No acute infarct. Negative insular ribbon and hyperdense vessel signs. Ventricles, sulci, and basilar cisterns are normal. No hydrocephalus or intraventricular hemorrhage. No white matter lesions. No subdural or epidural collection. CALVARIUM, SKULL BASE, AND SOFT TISSUES: No fractures or suspicious bony lesions. The paranasal sinuses and mastoid air cells are clear. There is RIGHT frontal/supraorbital scalp laceration, with few foci of air in the subcutaneous fat. MAXILLOFACIAL: Facial soft tissues: RIGHT frontal and supraorbital soft tissue swelling with a focus of gas. Nasal bones: No fracture. Orbits and orbital crowe: No fracture of the orbital crowe. No intraorbital hematoma. There is RIGHT preseptal periorbital soft tissue swelling with hazy infiltration of the subcutaneous fat. No postseptal intraorbital abnormality. Intact globes. Maxilla and alveolus: No fracture. Pterygoid plates: No fracture. Visualized parapharyngeal spaces: Symmetric without suspicious or acute abnormality. Zygomatic arches: No fracture. Mandible: No fracture or dislocation. CERVICAL SPINE: There is no acute cervical spine fracture. Normal alignment. No locked or perched facet. Mild to moderate diminished disc height at C5-C6 withendplate spurring. OTHER BONES: No acute abnormality. CERVICAL SOFT TISSUES AND LUNG APICES: Retropharyngeal course of the common carotid arteries. Visualized lung apices are clear. IMPRESSION: 1. Small amount of acute subarachnoid hemorrhage in the high RIGHT posterior frontal region. No subdural or intraparenchymal hemorrhage. No mass effect. 2. No acute skull fracture. 3. Mild RIGHT frontal scalp and RIGHT preseptal periorbital soft tissue swelling. No intraorbital hematoma. 4. No acute maxillofacial bone fracture. 5. No acute cervical spine fracture. This critical result was sent by [employer] to Physician: Aishwarya Summers DO with receipt confirmation on 06/21/2024 11:40 AM and it was ascertained that the results were received and understood at the time of direct communication. WSN: [id number] Ordering Physician: Aishwarya Summers Dictated By: Maria Luisa Interiano MD Dictated Date/Time: 06/21/24 11:43 a Reviewed By: Maria Luisa Interiano MD Signed By: Maria Luisa Interiano MD Signed Date/Time: 06/21/24 11:43 am Transcribed By: CALIN Transcribed Date/Time: 06/21/24 11:21 am * Exam Date Time Procedure Performing Provider Status 06/21/24 11:[address] Head/Brain W/O Contrast Phuong Arriola; Auth (Verified) Notes: (CT Head/Brain W/O Contrast) Reason For Exam: Trauma RESULT: CT Head/Brain W/O Contrast CT Head/Brain W/O Contrast, CT Maxilloface W/O Contrast, CT Cervical Spine W/O Contrast INDICATION: Hx of Present Illness: Fall with head strike; Reason: Trauma; Clinical Question(s): Other:; fall with headstrike Hx of Present Illness: Fall with head strike; Reason: Other:; Neck trauma, dangerous injury mechanism; Clinical Question(s): Fracture Dislocation; Order Comment: TECHNIQUE: Noncontrast head CT using axial technique was reconstructed in axial and coronal planes.Noncontrast spiral CT through the facial bones and cervical spine was formatted in 3 planes. Automatic tube modulation was used for the cervical spine and iterative dose reconstruction was used for the head, face, and cervical spine to optimize scan parameters and image quality. CTDIvol Body: 10.50 mGy, DLP Body: 301 mGy*cm. CTDIvol Head: 38.60 mGy, DLP Head: 671 mGy*cm. COMPARISON: CT head 04/06/2019 FINDINGS: Core Rescuer View Findings, Lines and Tubes: None. BRAIN AND EXTRA-AXIAL SPACES: There is a curvilinear serpiginous region of high density subarachnoid hemorrhage within the RIGHT central sulcus (201:22-24). No additional regions of high density hemorrhage. No intraparenchymal hemorrhage. No midline shift or mass effect. Moy-white matter differentiation is well preserved. No acute infarct. Negative insular ribbon and hyperdense vessel signs. Ventricles, sulci, and basilar cisterns are normal. No hydrocephalus or intraventricular hemorrhage. No white matter lesions. No subdural or epidural collection. CALVARIUM, SKULL BASE, AND SOFT TISSUES: No fractures or suspicious bony lesions. The paranasal sinuses and mastoid air cells are clear. There is RIGHT frontal/supraorbital scalp laceration, with few foci of air in the subcutaneous fat. MAXILLOFACIAL: Facial soft tissues: RIGHT frontal and supraorbital soft tissue swelling with a focus of gas. Nasal bones: No fracture. Orbits and orbital crowe: No fracture of the orbital crowe. No intraorbital hematoma. There is RIGHT preseptal periorbital soft tissue swelling with hazy infiltration of the subcutaneous fat. No postseptal intraorbital abnormality. Intact globes. Maxilla and alveolus: No fracture. Pterygoid plates: No fracture. Visualized parapharyngeal spaces: Symmetric without suspicious or acute abnormality. Zygomatic arches: No fracture. Mandible: No fracture or dislocation. CERVICAL SPINE: There is no acute cervical spine fracture. Normal alignment. No locked or perched facet. Mild to moderate diminished disc height at C5-C6 withendplate spurring. OTHER BONES: No acute abnormality. CERVICAL SOFT TISSUES AND LUNG APICES: Retropharyngeal course of the common carotid arteries. Visualized lung apices are clear. IMPRESSION: 1. Small amount of acute subarachnoid hemorrhage in the high RIGHT posterior frontal region. No subdural or intraparenchymal hemorrhage. No mass effect. 2. No acute skull fracture. 3. Mild RIGHT frontal scalp and RIGHT preseptal periorbital soft tissue swelling. No intraorbital hematoma. 4. No acute maxillofacial bone fracture. 5. No acute cervical spine fracture. This critical result was sent by [employer] to Physician: Aishwarya Summers DO with receipt confirmation on 06/21/2024 11:40 AM and it was ascertained that the results were received and understood at the time of direct communication. WSN: [id number] Ordering Physician: Aishwarya Summers Dictated By: Maria Luisa Interiano MD Dictated Date/Time: 06/21/24 11:43 a Reviewed By: Maria Luisa Interiano MD Signed By: Maria Luisa Interiano MD Signed Date/Time: 06/21/24 11:43 am Transcribed By: CALIN Transcribed Date/Time: 06/21/24 11:21 am Vital Signs Most recent to oldest [Reference Range]: 1 2 3 Height 163 cm (06/23/24 1:14 PM) 163 cm (06/23/24 5:49 AM) 163 cm (06/22/24 9:56 PM) Weight 81.8 kg (06/22/24 9:50 AM) 81.8 kg (06/21/24 10:40 PM) Oxygen Saturation [94-100 %] 100 % (06/23/24 1:14 PM) 98 % (06/23/24 5:49 AM) 100 % (06/22/24 9:56 PM) Pulse Rate [55-90 bpm] 72 bpm (06/23/24 1:14 PM) 75 bpm (06/23/24 5:49 AM) 69 bpm (06/22/24 9:56 PM) Body Mass Index [18.5-24.99 kg/m2] 30.79 kg/m2 *>HHI* (06/21/24 10:40 PM) Blood Pressure [90-138/55-84 mm Hg] 108/57mm Hg (06/23/24 1:14 PM) 129/58mm Hg (06/23/24 5:49 AM) 118/58mm Hg (06/22/24 9:56 PM) Respiratory Rate [16-30 br/min] 18 br/min (06/23/24 1:14 PM) 17 br/min (06/23/24 12:23 PM) 17 br/min (06/23/24 5:49 AM) Temperature [96.8-100.4 DegF] 98.3 DegF (06/23/24 1:14 PM) 98.2 DegF (06/23/24 5:49 AM) 98.4 DegF (06/22/24 9:56 PM) Mode of Delivery (Oxygen) Room air (06/23/24 1:14 PM) Room air (06/23/24 5:49 AM) Room air (06/22/24 9:56 PM) Blood pressure sites Arm, left (06/23/24 1:14 PM) Arm, right (06/23/24 5:49 AM) Arm, right (06/22/24 9:56 PM) Temperature Route Oral (06/23/24 1:14 PM) Axillary (06/23/24 5:49 AM) Oral (06/22/24 9:56 PM) Dry Weight 81.8 kg (06/21/24 10:40 PM) Weight Obtained Via Bed scale (06/21/24 10:40 PM) Dry Weight Obtained Via Bed scale (06/21/24 10:40 PM) Social History Social History Type Response Smoking Status Former smoker, quit more than 30 days ago; Type: Cigarettes entered on: 04/06/19 Sex Admission evaluation note * Alonzo Ruiz MD: MODIFY Jeremie Bland DO: PERFORM Event Display: Admission Note Authored Date: [id number] Patient: ??GILA TEJADA ? Age:??63 Years?Sex:??Female?:??1960?? History of Present Illness 63-year-old female with a history??of cirrhosis, hepatitis C??status posttreatment, polysubstance??use disorder with both??alcohol??and heroin??who presented to the emergency department today after??unwitnessed mechanical fall. ?? Patient tells me that she was outside playing with her dog when she started feeling hot??which she says was due to the weather.?? She went to go inside??at her??screened in [place] with her for steps??and she??tripped going up the stairs. ??She did extend her arms to brace herself however she still hit her head and had a??laceration on her forehead which began to bleed. ??She immediately got up??noticed that she was bleeding and called her daughter.?? She tells me that she did not lose consciousness and remembers all of the??events that took place. ??She denies any dizziness or lightheadedness prior to the event. ??She denies any headache??or vision changes. ?? Daughter was at bedside and daughter tells me this is her second fall in the past couple of weeks.?? Patient had a fall approximately 2 weeks ago that??they also said was a mechanical fall??due to tripping.?? Additionally the daughter tells me that??for the past couple months she noticed that at times her mother will have??what she calls confusion however her mother??disagrees with her.?Daughter tells me mom will call asking where the phone is while being on the phone.?? Denies any changes in gait but does endorse that the patient has had falls. ?? Patient has a history of alcohol use disorder but she quit approximately 7 years ago.?? She has a history of heroin use for which she used daily but she quit approximately 2 months ago??and started taking methadone??for which she takes??85 mg that she gets at [facility] on 03.[address] [place] . ?? Upon arrival to the emergency department patient was afebrile 98.6, tachycardic 102, blood [id number], saturating 99% on room air.?? Patient underwent CT head/brain, CT maxillofacial, CT cervical spine. ?? Findings were positive for small amount of acute subarachnoid hemorrhage in the high right posterior frontal region.?? No subdural intraparenchymal hemorrhage.?? No acute skull fractures, maxillofacial bone fractures, cervical spine fractures.?? Repeat CT head 5 hours later showed stable right parietal subarachnoid hemorrhage without evidence of interval change. ?? Neurosurgery was consulted recommended every 4 hours neurochecks, stat head CT for neurologic decline and then signed off. Trauma surgery was consulted recommended no acute surgical interventions will do tertiary survey inthe morning. ?? Lab work showed WBC 4.9, hemoglobin 10.8, platelet 41, INR 1.2, AST 39, ALT 21, total bilirubin 2.7, ammonia level 143. ?? Patient is being admitted for metabolic hepatic encephalopathy and had a subarachnoid hemorrhage. Review of Systems GEN: ??Denies any issues with sleep, fatigue or changes in wt. HEENT: Denies runny nose, dry mouth, ??sore throat or changes to his vision. CV: Denies CP, palpitations, edema or orthopnea. PULM: Denies any SOB, wheezing, cough. ABD: Denies any abdominal pain, N/V/D, heartburn. ??Denies any changes to bowel habits or stool character.?? : Denies dysuria, polyuria, or hematuria. EXT: Denies any joint pain, stiffness, +??numbness??+ tingling in bottom of bilateral feet PSYCH: Denies any depression or anxiety. Objective Measurements?? Height: 163 cm (06/21/24) Weight: 81.8 kg (06/21/24) Dry Weight: 81.8 kg (06/21/24) Body Mass Index:??30.79 kg/m2??Critical (06/21/24) ? Vital Signs?? Temperature: 98.4 DegF (06/21/24 22:40:00) Temperature Route: Oral (06/21/24 22:40:00) Pulse Rate: 73 bpm (06/21/24 22:40:00) Respiratory Rate: 17 br/min (06/21/24 22:40:00) Systolic Blood Pressure: 120 mm Hg (06/21/24 22:40:00) Diastolic Blood Pressure: 55 mm Hg (06/21/24 22:40:00) Blood pressure sites: Arm, left (06/21/24 22:40:00) Mean Arterial Pressure: 77 mm Hg (06/21/24 22:40:00) Pulse Pressure: 65 mm Hg (06/21/24 22:40:00) Oxygen Saturation: 100 % (06/21/24 22:40:00) Mode of Delivery (Oxygen): Room air (06/21/24 22:40:00) Early Warning Score: 6 (06/21/24 23:21:37) ? Physical Exam General: No acute distress, resting in bed comfortably HEENT: EOMI, mucous membranes moist CV: RRR S1 S2 present. No murmurs, gallops, rubs appreciated. No JVD. No edema. Respiratory: All mcmahon clear to auscultation bilaterally. No wheezes, rales, rhonchi appreciated Abdominal: Soft, nontender. No rebound tenderness. Bowel sounds noted all four quadrants. : No suprapubic tenderness. Neuro: A&OX3. Moving upper and lower extremities. No gross neurological deficits.??Cranial??nerves??intact,??heel to??lazaro testing??normal Psych: Affect appropriate Skin: right forehead laceration, right sided facial bruising.?? Assessment/Plan Diagnoses Cirrhosis ??(K74.60) Fall on steps ??(W10.8XXA) Hepatic encephalopathy ??(K76.82) Normocytic anemia ??(D64.9) Opioid use disorder in remission ??(F11.91) Subarachnoid hemorrhage ??(I60.9) Thrombocytopenia ??(D69.6) ?? 63-year-old female with a history??of cirrhosis, hepatitis C??status posttreatment, polysubstance??use disorder with both??alcohol??and heroin??who presented to the emergency department today after??unwitnessed mechanical fall. Found to have subarahcnoid bleed and hyperammonemia and being admitted for hepatic encephalopathy and subarachnoid hemorrhage.? Subarachnoid hemorrhage (I60.9) ?Associated with??Fall on steps (W10.8XXA) ? secondary to mechanical??fall??with possibility from underlying??gait disturbance from hepatic encephalopathy. seen by neurosurgery who signed off - no treatment seen by trauma??surgery - no surgical intervention at this time plan: - q4 neuro checks - stat CT Head with neuro changes - trauma surgery to do tertiary assessment tomorrow morning.?Antithrombotic Therapy by End of Hospital Day 2:??Hemorrhagic Stroke ?Statin Ordered:??Hemorrhagic Stroke ?? Hepatic encephalopathy (K76.82) ?Associated with??Cirrhosis (K74.60) ? likely secondary to history of ETOH use disorder and underlying cirrhosis.?? soft non tender, non distended belly on exam ?? GI history:?? evaluated in 2021 for decompensated cirrhosis. noted to be non compliant. never had repeat RUQ US.?? 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 Not bleeding.? plan: - lactulose TID - rifaximin 550mg BID - RUQ US - order??Hep C and Hep B labs - no indication for starting abx??for SBP coverage ?? Normocytic anemia (D64.9):??chronic going back to 2021.?? plan: - will order iron level, ferritin, TIBC,??B12, B9 levels ?? Thrombocytopenia (D69.6):??likely secondary to decompensated cirrhosis INR 1.2 plan: - continue to monitor, no indication for transfusion, no active bleeding. ?? Opioid use disorder in remission (F11.91):??currently on suboxone, reports 85mg daily plan: - day team to call methadone clinic in AM to confirm dose. [facility] [phone] - patient reports she already had her dose today.? VTE Prophylaxis:??SCD ?VTE Prophylaxis Assessment:??VTE Prophylaxis Ordered ?? Code Status:??Full ?Order Code Status:??Code Status Ordered ?? HCP/Family Update: HCP daughterAlba. [phone]. updated at bedside. ?? Patient seen and discussed with Dr. Joseph Bland, DO Internal Medicine PGY2 ?? Addendum to the above note: Patient personally seen and examined before midnight. Agree with history and physical examination, assessment and plan as outlined above by Dr. Jeremie Bland Histories Allergies Allergies ?(Active and Proposed Allergies Only) shellfish? (Severity: Unknown severity, Onset: Unknown) Seafood? (Severity: Unknown severity, Onset: Unknown) ? Past Medical History/Problem List Active Problems(9) Anxiety Asthma Chronic low back pain Depression IVDU - Intravenous drug user Macrocytic anemia Obese class I Opioid use disorder, moderate, on maintenance therapy Thrombocytopenia ? Past Surgical History EGD - Esophagogastroduodenoscopy: 03/07/22 Colonoscopy, flexible; with removal of tumor(s), polyp(s), or other lesion(s) by snare technique: 03/07/22 History of hysterectomy: 2015 Hemorrhoidectomy ? Social History Alcohol Details:??Use: Never. 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 Home/Environment Details:??Living situation: Home/Independent. ??Lives with: Mother. Substance Abuse Details:??Use: Current. ??Type: Heroin. ??Frequency: using 1 bundle a day until past month. Has used in the past 2 weeks but not daily. ??Previous treatment: methadone 2011. Tobacco Details:??Use: Former smoker, quit more than 30 days ago. ??Type: Cigarettes. ? Family History No Family History documented. ? Medications Home Medications Methadone?85?By Mouth?Daily?85mg daily ? Inpatient Medications Medications (12) Active SCHEDULED: (4) Acetaminophen 325 mg Tablet (Acetaminophen Tablet) ??650 mg, By Mouth, Once Lactulose 20 Gm/30mL Syrup (lactulose 10 gm/15 ml oral syrup) ??20 Gm 30 mL, By Mouth, 3 times a day NaCl 0.9% Flush 3ml (NaCL 0.9% Flush) ??3 mL, IV Push, Every 8 hours Rifaximin (RifAXIMIN Tablet) ??550 mg, By Mouth, 2 times a day CONTINUOUS: (0) PRN: (8) Acetaminophen 325 mg Tablet (Acetaminophen Tablet) ??650 mg, By Mouth, Every 4 hours Dextromethorphan-Guaifenesin 20 mg-200 mg/10 mL Liqu UD (Robitussin DM Liquid) ??10 mL, By Mouth, Every 4 hours Docusate Sodium 100 mg Capsule (Docusate Sodium Capsule) ??100 mg 1 capsule, By Mouth, 2 times a day Melatonin 3 mg Tablet (Melatonin Tablet) ??3 mg, By Mouth, Daily at bedtime NaCl 0.9% Flush 3ml (NaCL 0.9% Flush) ??3 mL, IV Push, Every 8 hours Polyethylene Glycol 17 Gm Powder (MiraLax Powder) ??17 Gm 1 pack/packet, By Mouth, Daily Senna Tablet ??8.6 mg 1 tablet, By Mouth, 2 times a day Simethicone 80 mg Chewable Tablet (Simethicone Tablet) ??80 mg, Chew, 3 times a day ? Results Recent Labs BLOOD COUNT & DIFF WBC 4.9 k/mm3 ()?? 06/21/2024 10:40 RBC 3.54 m/mm3 (Low)?? 06/21/2024 10:40 Hgb 10.8 Gm/dL (Low)?? 06/21/2024 10:40 Hct 31.4 % (Low)?? 06/21/2024 10:40 MCV 88.7 femtoliters ()?? 06/21/2024 10:40 MCH 30.5 pg ()?? 06/21/2024 10:40 MCHC 34.4 g/dL ()?? 06/21/2024 10:40 Platelet Count 41 k/mm3 (Low)?? 06/21/2024 10:40 RDW-SD 51.1 femtoliters (High)?? 06/21/2024 10:40 MPV 9.8 femtoliters ()?? 06/21/2024 10:40 Nucleated RBC (Automated) 0.0 #/100 WBC'S ()?? 06/21/2024 10:40 Abs. NRBC 0.0 k/mm3 ()?? 06/21/2024 10:40 Abs. Neut 3.3 k/mm3 ()?? 06/21/2024 10:40 Abs. Lymph 0.9 k/mm3 ()?? 06/21/2024 10:40 Abs. Hand 0.6 k/mm3 ()?? 06/21/2024 10:40 Abs. Eo 0.1 k/mm3 ()?? 06/21/2024 10:40 Abs. Baso 0.0 k/mm3 ()?? 06/21/2024 10:40 Neut % 67.0 % ()?? 06/21/2024 10:40 Lymph % 18.6 % ()?? 06/21/2024 10:40 Hand % 12.2 % (High)?? 06/21/2024 10:40 Eos % 1.4 % ()?? 06/21/2024 10:40 Baso % 0.6 % ()?? 06/21/2024 10:40 Imm Gran 0.2 % ()?? 06/21/2024 10:40 Abs. Imm Gran 0.0 k/mm3 ()?? 06/21/2024 10:40 ?? CHEM GENERAL Sodium 143 mmol/L ()?? 06/21/2024 10:40 Potassium 3.8 mmol/L ()?? 06/21/2024 10:40 Chloride 111 mmol/L (High)?? 06/21/2024 10:40 Bicarbonate Level 24 mmol/L ()?? 06/21/2024 10:40 Anion Gap 8 ()?? 06/21/2024 10:40 Glucose Level 107 mg/dL (High)?? 06/21/2024 10:40 BUN 20 mg/dL ()?? 06/21/2024 10:40 Creatinine-Blood 0.63 mg/dL ()?? 06/21/2024 10:40 Estimated GFR Creatinine 101 ML/MIN/1.73 M2 ()?? 06/21/2024 10:40 Calcium 9.2 mg/dL ()?? 06/21/2024 10:40 Protein, Total 6.1 Gm/dL (Low)?? 06/21/2024 10:40 Albumin 3.6 Gm/dL ()?? 06/21/2024 10:40 AG Ratio 1.4 ()?? 06/21/2024 10:40 Alkaline Phosphatase 83 units/L ()?? 06/21/2024 10:40 AST (SGOT) 39 units/L (High)?? 06/21/2024 10:40 ALT (SGPT) 21 units/L ()?? 06/21/2024 10:40 Bilirubin, Total 2.7 mg/dL (High)?? 06/21/2024 10:40 ?? COAG INR 1.2 (High)?? 06/21/2024 11:46 Protime (PT) 13.0 seconds (High)?? 06/21/2024 11:46 ?? ENDOCRINE/TUMOR MARKER TSH 0.81 uIU/mL ()?? 06/21/2024 10:40 ?? MISC. CHEMISTRY Ammonia, Venous 143 ??mole/L (High)?? 06/21/2024 15:15 ?? TOXICOLOGY/TDM Ethanol, Serum or Plasma NONE DETECTED mg/dL ()?? 06/21/2024 10:40 ?? URINE OTHER Est Creatinine Clearance 81.57 mL/min ()?? 06/21/2024 23:21 ? EKG study * Event Display: ECG 12-Lead Authored Date: Please click on pdf link to open report * Event Display: ECG 12-Lead Authored Date: Ventricular Rate: 74 BPM Atrial Rate: 74 BPM P-R Interval: 176 ms QRS Duration: 70 ms Q-T Interval: 444 ms QTC Calculation(Bazett): 492 ms P Boardman: 57 degrees R Boardman: 50 degrees T Boardman: -60 degrees Normal sinus rhythm Nonspecific T wave abnormality Abnormal ECG When compared with ECG of 02-JAN-2022 20:17, Inverted T waves have replaced nonspecific T wave abnormality in Lateral leads Confirmed by MELODY HENDRICKSON [facility] ([id number]) on 06/22/2024 8:07:56 AM [place]: [facility] * Alejandro HENDRICKSON, Noor: PERFORM Event Display: [facility] Authored Date: Patient: ??GILA TEJADA ? Age:??63 Years?Sex:??Female?:??1960?? _ ??METHADONE LAS DOSE LETTER - to whom it may concern ?? Patient , Gila Tejada ( 1960) admitted at [facility] on 06/21/24 to 06/23/24 . she has been on Methadone 85 mg prior to hospitalization . - while inpatient QTc noted to be 490. decreased dose to 50 mg daily. - patient felt better at 50 mg methadone daily dose. last dose she received??on 06/23/24 at 12:23 pm. ?sincerely, Sandeep Allen MD internal medicine ?? * Candy CM, [place] Perez: PERFORM Event Display: Progress Note Hospital Authored Date: [id number] Patient: ??GILA TEJADA ? Age:??63 Years?Sex:??Female?:??1960?? Subjective No acute events overnight. Denies pain. Denies nausea or vomiting. Voiding without issue. ?? Ambulating in the room. Denies fever/chills, chest pain or SOB. ? Review of Systems As per HPI Physical Exam Vitals & Measurements T:??98.2?F?? HR:??75??(Peripheral)?? RR:??17?? BP:??129/58?? SpO2:??98%?? HT:??163??cm?? WT:??81.8??kg?? BMI:??30.79?? Constitutional: Alert, in no distress. Mental Status: Oriented to person, place and time.. Respiratory: Clear to auscultation. No wheezing, rales or rhonchi. Cardiovascular: S1 S2 regular. No murmurs, rubs or gallops. Gastrointestinal: Abdomen soft, non-tender, non-distended. Normal bowel sounds.?? Neurologic: No focal neurological deficits. Moves all extremities spontaneously. Sensation intact bilaterally. Musculoskeletal: No cyanosis or clubbing. No gross deformities. Normal range of motion. Assessment/Plan Gila Tejada is a 63F with history of cirrhosis, HCV (s/p SVR), polysubstance abuse in remission who presented to [facility] [place] after suffering a mechanical fall from standing for whom surgery is being consultedfor evaluation of a R small SAH. ??Patient suffered a mechanical fall??from standing??without loss of consciousness.?? On exam??she is GCS 15 and neurologically intact. ??CT of the head revealed a small??subarachnoid hemorrhage measuring??up to 2 mm in dimension,??localized to the??right frontoparietal region.?? Due to thrombocytopenia on initial lab work,??repeat CT head obtained??6 hours after, showing no interval change.?? Neurosurgery was consulted??and??did not have additional recommendations.?? After further discussion with family,??patient??has been having??worsening encephalopathy over the last few months.?? Ammonia level in the ED 140. ??Patient does not??require further workup or imaging??from??trauma surgery perspective, however should be evaluated for??decompensating cirrhosis. No new injuries on tertiary. ?? Injuries Right subarachnoid hemorrhage Hepatic encephalopathy ?? Plan ??? No acute surgical interventions ??? f/u NSx c/s No routine??repeat CT head, ok for q4NC, repeat CT if change in GCS ??? Medical workup for progressive??hepatic encephalopathy -Forehead sutures can??be removed on 06/26 at PCP office if unable Trauma clinic number listed in [email or web address] -Trauma will sign off at this time ?? To be discussed with Dr. Sarabia Trauma Surgery [id number] Intake and Output Intake and Output Results?? This visit (24 hour periods starting at 07:00 EDT)? 06/22/24 *?? 06/21/24?? 06/20/24?? Total Summary?Intake mL?? --?? --?? --?Output mL?? 450?? --?? --?Fluid Balance ?? -450?? --?? --?? Intake (0)? Output (1)?Urine Voided mL?? 450?? --?? --?Total?? 450?? --?? --?? Counts (2)?Urine Count ?? 1?? --?? --?Urine Voided mL?? 450?? --?? --? * This column has not completed the indicated time period.?? Labs Last 24 Hours No qualifying data available. * Catarino Sarabia MD: PERFORM Event Display: Progress Note Hospital Authored Date: I Dr Catarino Sarabia saw and examined the patient on the recorded date and reviewed the case with the originator of the note.?? This note summarizes my findings and plan * Alejandro HENDRICKSON, Noor: PERFORM Event Display: Progress Note Hospital Authored Date: Patient: ??GILA TEJADA ? Age:??63 Years?Sex:??Female?:??1960?? Subjective Patient was admitted overnight for??questionable hepatic encephalopathy/history of??polysubstance use and currently on methadone??as reported by patient she takes 85 mg last dose was yesterday??Priorto coming to hospital. -?? I tried to??confirm her methadone dose??with her clinic??and left voice messages twice.?? Due to weekend??-unclear if clinic is closed. EKG on admission??showed??mildly elevated QTc??.?Will methadone??50 mg and 25 mg and will try to??confirm dose again tomorrow.?Social work consult placed.?? -Right upper quadrant ultrasound??negative for acute cholecystitis..?Continue??to monitor/encephalopathy improving and currently??coming back??to near baseline??AOA x 3..? -Trauma surgery evaluated/neurosurgery??evaluated??for??subarachnoid hemorrhage status post mechanical fall.?? No acute intervention needed.?Continue neurochecks every 4 hours.?? Mentation and neuroexam??nonfocal..? If patient continues to clinically improve??anticipating discharge -on 06/23.?? PT recommended home with services Review of Systems Objective Intake/Output? 06/21 21:54 06/22 07:00 06/21 07:00 06/20 07:00 06/19 07:00 ?? 06/22 11:57 06/22 11:57 06/22 06:59 06/21 06:59 06/20 06:59 Intake ?0 ?0 ?0 ?0 ?0 Output ?450 ?450 ?0 ?0 ?0 Net Total ? -450 ? -450 ?0 ?0 ?0 ? Physical Exam Respiratory: All mcmahon clear to auscultation bilaterally. No wheezes, rales, rhonchi appreciated Abdominal: Soft, nontender. No rebound tenderness. Bowel sounds noted all four quadrants. : No suprapubic tenderness. Neuro: A&OX3.?No focal neurologic deficit HEENT:??Laceration/sutured??over??right forehead.?Ecchymosis??below??right eye.? Results Reviewed ?? Assessment/Plan Cirrhosis ??(K74.60) Fall on steps ??(W10.8XXA) Hepatic encephalopathy ??(K76.82) Normocytic anemia ??(D64.9) Opioid use disorder in remission ??(F11.91) Subarachnoid hemorrhage ??(I60.9) Thrombocytopenia ??(D69.6) ?? 63-year-old female with a history??of cirrhosis, hepatitis C??status posttreatment, polysubstance??use disorder with both??alcohol??and heroin??who presented to the emergency department today after??unwitnessed mechanical fall. Found to have subarahcnoid bleed and hyperammonemia and being admitted for hepatic encephalopathy and subarachnoid hemorrhage.? Subarachnoid hemorrhage (I60.9) ?Associated with??Fall on steps (W10.8XXA) ? secondary to mechanical??fall??with possibility from underlying??gait disturbance from hepatic encephalopathy. seen by neurosurgery who signed off - no treatment seen by trauma??surgery - no surgical intervention at this time. ? -Trauma surgery evaluated/neurosurgery??evaluated??for??subarachnoid hemorrhage status post mechanical fall.?? No acute intervention needed.?Continue neurochecks every 4 hours.?? Mentation and neuroexam??nonfocal..? plan: - q4 neuro checks - stat CT Head with neuro changes ?Antithrombotic Therapy by End of Hospital Day 2:??Hemorrhagic Stroke ?Statin Ordered:??Hemorrhagic Stroke ?? Hepatic encephalopathy (K76.82)?? -improving. ??Almost near baseline. ?Associated with??Cirrhosis (K74.60) ? likely secondary to history of ETOH use disorder and underlying cirrhosis.?? soft non tender, non distended belly on exam ?? GI history:?? evaluated in 2021 for decompensated cirrhosis. noted to be non compliant. never had repeat RUQ US.?? 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 Not bleeding.? plan: - lactulose TID - rifaximin 550mg BID - Right upper quadrant ultrasound??negative for acute cholecystitis..? -Continue??to monitor/encephalopathy improving and currently??coming back??to near baseline??AOA x 3..?? - no indication for starting abx??for SBP coverage ?? Normocytic anemia (D64.9):??chronic going back to 2021.?? plan: - will order iron level, ferritin, TIBC,??B12, B9 levels ?? Thrombocytopenia (D69.6):??likely secondary to decompensated cirrhosis INR 1.2 plan: - continue to monitor, no indication for transfusion, no active bleeding. ?? Opioid use disorder in remission (F11.91):?? Per patient??: currently on??methadone- ??reports 85mg daily. Last dose per patient??06/21 morning. ?? -?? I tried to??confirm her methadone dose??with her clinic??and left voice messages twice.?? Due to weekend??-unclear if clinic is closed. EKG on admission??showed??mildly elevated QTc??.? -Will methadone??50 mg and 25 mg and will try to??confirm dose again tomorrow. -Will recheck EKG tomorrow ??On 06/23 -??social work consult placed.? plan: [facility] [phone] ?? VTE Prophylaxis:??SCD ?VTE Prophylaxis Assessment:??VTE Prophylaxis Ordered ?? Code Status:??Full ?Order Code Status:??Code Status Ordered ?? onm: Methadone dose confirmation/neurochecks every 4 hours/mild encephalopathy-improving. Anticipating discharge??06/23 home with services Consult note * Alan Hernandez MD: PERFORM, MODIFY, MODIFY Bi Brown DO: MODIFY Event Display: Consultation Note Authored Date: [id number] Patient: ??GILA TEJADA ? Age:??63 Years?Sex:??Female?:??1960?? Chief Complaint/Reason for Consult R SAH History of Present Illness Gila Tejada is a 63F with history of cirrhosis, HCV (s/p SVR), polysubstance abuse in remission who presented to [facility] [place] after suffering a mechanical fall from standing for whom surgery is being consultedfor evaluation of a R small SAH. Patient reported she was playing with her dog this morning and gotoverheated.?? She ran into her home, and attempted to go up the stairs. ??She tripped while elevating her foot, causing her to fall??onto her face. ??She was able to brace??with bilateral upper extremities however??still hit her head. ??She did not lose consciousness. ??She was able to get up??and walk to a phone??and call her daughter.?? On arrival??daughter found her to have a forehead laceration that was actively bleeding and thus decided to bring her to the ED??for further evaluation.?? In the ED??underwent a CT scan of the head that revealed a small right frontoparietal??subarachnoid. ??Neurosurgery was consulted,??deemed to every 4 neurochecks with no routine follow-up or??need of repeat scans.?? On further history with daughter, reports??a multiple??month history of??muffled speech, confusion, repeated calls with disorientation.?? Patient has a history of cirrhosis,??not routinely followed by gastroenterology. Review of Systems Constitutional:??No weight loss, fever, chills, weakness or fatigue. Respiratory: No SOB, cough, or dyspnea Cardiovascular: No chest pain, flutters or palpitations?? Gastrointestinal:??No N/V, pain, diarrhea or constipation Genitourinary:??No frequency or burning with urination. Neurologic:??Confusion, asking repetitive question??over??3-4 months Skin:??No rashes, bruises??or itching. Endocrine:??No heat or cold intolerance. Psychiatric:??No depression or anxiety. Physical Exam Vitals & Measurements T:??98.6?F?? HR:??77??(Peripheral)?? RR:??18?? BP:??110/59?? SpO2:??99%?? General: no acute distress, alert, awake Head: Mid forehead laceration measuring approximately??1 cm,??no active bleeding. Face: Right periorbital??ecchymosis. Eyes: pupils are 4mm, equal, round, and reactive; extraocular movement intact Ears: no hemotympanum, no blood in external auditory canal, no abrasions, no mosley's sign Nose: no epistaxis, no deformity Mandible: no deformity, no malocclusion Neck: no hematoma, no ecchymosis, no wounds, trachea midline Chest: symmetric, no deformity, sternum, chest wall, and clavicles are nontender to palpation, no crepitus appreciated Heart: regular rate and rhythm Lungs: clear to auscultation bilaterally Abdomen: soft, nondistended, nontender, no wounds, no ecchymosis, no hematoma Pelvis: stable, nontender Back: no ecchymosis, no abrasions, no hematoma, no wounds Cervical spine: no midline deformities or step offs, no tenderness, cervical- collar in place Thoracic spine: no midline deformities or step offs, no tenderness Lumbar spine: no midline deformities or step offs, no tenderness Extremities: Bilateral lower extremities with??nonpitting edema,??motor or sensory intact. Neurologic: GCS15; 5/5 strength and sensation to light touch intact in the bilateral upper and lower extremities. ??Asterixis??when hands are extended??forward. Vascular: Palpable pulses in bilateral upper extremities. Assessment/Plan Gila Tejada is a 63F with history of cirrhosis, HCV (s/p SVR), polysubstance abuse in remission who presented to [facility] [place] [place] after suffering a mechanical fall from standing for whom surgery is being consultedfor evaluation of a R small SAH. ??Patient suffered a mechanical fall??from standing??without loss of consciousness.?? On exam??she is GCS 15 and neurologically intact. ??CT of the head revealed a small??subarachnoid hemorrhage measuring??up to 2 mm in dimension,??localized to the??right frontoparietal region.?? Due to thrombocytopenia on initial lab work,??repeat CT head obtained??6 hours after, showing no interval change.?? Neurosurgery was consulted??and??did not have additional recommendations.?? After further discussion with family,??patient??has been having??worsening encephalopathy over the last few months.?? Ammonia level in the ED 140. ??Patient does not??require further workup or imaging??from??trauma surgery perspective, however should be evaluated for??decompensating cirrhosis. ?? Injuries Right subarachnoid hemorrhage Hepatic encephalopathy ?? Plan ??? No acute surgical interventions ??? f/u NSx c/s No routine??repeat CT head, ok for q4NC, repeat CT if change in GCS ??? Tertiary survey in the morning ??? Medical workup for progressive??hepatic encephalopathy ?? Discussed with Dr. Brown Trauma Surgery [id number] ?? Trauma Fellow Addendum This is a 63-year-old female with history of hepatitis C cirrhosis that was treated??and polysubstance abuse.?? She presented to [facility]??after falling going up the stairs hitting herhead on the stairs and suffering laceration.?? CT of head performed in the ER showed??small subarach noid hemorrhage in the right frontoparietal region.?? Patient was also found to be thrombocytopenicwith platelets of 41 at this time.?? Given thrombocytopenia??and poor liver function for clotting factors.?? Decision was made to repeat CT head in 6 hours and consult neurosurgery.?? Repeat CT head s howed no evolution??of the bleed.?? As well as??neurosurgery consult??recommended no follow-up??andonly imaging as needed if symptoms??worsen.?? Patient was found to have??elevated ammonia level??and was symptomatic from this. ??Given his medicine was consulted??for admission.?? Plan for tertiary trauma survey in the a.m. ??Dressing was placed over laceration on forehead. ?? Thank you ?? Bi Brown DO, PGY-6 Trauma/SICU Fellow Problem List/Past Medical History Hepatitis C Morbid obesity EtOH??abuse IVDA Obesity Procedure/Surgical History Hysterectomy ('15) Home Medications Methadone Allergies Seafood shellfish Social History Remote smoking history No EtOH use IVDA in the past Family History No family history recorded. Radiology RESULT: CT Cervical Spine W/O Contrast CT Head/Brain W/O Contrast, CT Maxilloface W/O Contrast, CT Cervical Spine W/O Contrast? INDICATION: Hx of Present Illness: Fall with head strike; Reason: Trauma; Clinical Question(s): Other:; fall with headstrike Hx of Present Illness: Fall with head strike; Reason: Other:; Neck trauma, dangerous injury mechanism; Clinical Question(s): Fracture Dislocation; Order Comment: ?? TECHNIQUE: Noncontrast head CT using axial technique was reconstructed in axial and coronal planes.Noncontrast spiral CT through the facial bones and cervical spine was formatted in 3 planes. Automatic tube modulation was used for the cervical spine and iterative dose reconstruction was used for the head, face, and cervical spine to optimize scan parameters and image quality. ? CTDIvol Body: 10.50 mGy, ??DLP Body: 301 mGy*cm. ? CTDIvol Head: 38.60 mGy, DLP Head: 671 mGy*cm. ? COMPARISON: CT head 04/06/2019 ?? FINDINGS:? Core Rescuer View Findings, Lines and Tubes: None. ?? BRAIN AND EXTRA-AXIAL SPACES: There is a curvilinear serpiginous region of high density subarachnoid hemorrhage within the RIGHT central sulcus (201:22-24). No additional regions of high density hemorrhage. No intraparenchymal hemorrhage. ?? No midline shift or mass effect. Moy-white matter differentiation is well preserved. No acute infarct. Negative insular ribbon and hyperdense vessel signs. ?? Ventricles, sulci, and basilar cisterns are normal. No hydrocephalus or intraventricular hemorrhage. ?? No white matter lesions. ?? No subdural or epidural collection. ?? CALVARIUM, SKULL BASE, AND SOFT TISSUES: No fractures or suspicious bony lesions.? The paranasal sinuses and mastoid air cells are clear.? There is RIGHT frontal/supraorbital scalp laceration, with few foci of air in the subcutaneous fat. ?? MAXILLOFACIAL: Facial soft tissues: RIGHT frontal and supraorbital soft tissue swelling with a focus of gas. ?? Nasal bones: No fracture. ?? Orbits and orbital crowe: No fracture of the orbital crowe. No intraorbital hematoma. There is RIGHT preseptal periorbital soft tissue swelling with hazy infiltration of the subcutaneous fat. No postseptal intraorbital abnormality. Intact globes. ?? Maxilla and alveolus: No fracture. ?? Pterygoid plates: No fracture. ?? Visualized parapharyngeal spaces: Symmetric without suspicious or acute abnormality. ?? Zygomatic arches: No fracture. ?? Mandible: No fracture or dislocation. ?? CERVICAL SPINE:?? There is no acute cervical spine fracture. ?? Normal alignment. No locked or perched facet. Mild to moderate diminished disc height at C5-C6 withendplate spurring. ?? OTHER BONES:?? No acute abnormality. ?? CERVICAL SOFT TISSUES AND LUNG APICES:?? Retropharyngeal course of the common carotid arteries. Visualized lung apices are clear. ?? IMPRESSION: ?? 1. ??Small amount of acute subarachnoid hemorrhage in the high RIGHT posterior frontal region. No subdural or intraparenchymal hemorrhage. No mass effect. 2. ??No acute skull fracture. 3. ??Mild RIGHT frontal scalp and RIGHT preseptal periorbital soft tissue swelling. No intraorbitalhematoma. 4. ??No acute maxillofacial bone fracture. 5. ??No acute cervical spine fracture. ?? RESULT: CT Head/Brain W/O Contrast CT Head/Brain W/O Contrast? INDICATION: Hx of Present Illness: Fall with head strike; Reason: Other:; Reeval acute subarachnoidhemorrhage; Clinical Question(s): Progression Regression; Order Comment: ?? TECHNIQUE: Noncontrast head CT using axial technique and reconstructed in axial and coronal planes.Iterative reconstruction techniques are used to optimize dose and image quality.? CTDIvol Head: 46.00 mGy, DLP Head: 736 mGy*cm. ? COMPARISON: CT scan of the head performed on 06/21/2024 and 04/06/2019. ?? FINDINGS:? Core Rescuer view findings, lines and tubes: None. ?? BRAIN AND EXTRA-AXIAL SPACES: No parenchymal hemorrhage, midline shift, or mass effect. Moy-white matter differentiation is wellpreserved. No acute infarct. ?? Ventricles, sulci, and basilar cisterns are normal.? No white matter lesions. ?? Again demonstrated is subarachnoid hemorrhage in the right parietal lobe which remains unchanged. ?? CALVARIUM, SKULL BASE, AND SOFT TISSUES: No fractures or suspicious bony lesions.? The paranasal sinuses and mastoid air cells are clear. ?? Visualized orbits and globes are intact.? Again demonstrated is right frontal scalp laceration. ?? IMPRESSION: ?? Stable right parietal subarachnoid hemorrhage without evidence of interval change ?? Lab Results Labs Last 24 Hours BLOOD COUNT & DIFF ? Event Name?? Event Result?? Date/Time?? WBC 4.9 k/mm3 06/21/24 10:40:00 RBC 3.54 m/mm3??Low 06/21/24 10:40:00 Hgb 10.8 Gm/dL??Low 06/21/24 10:40:00 Hct 31.4 %??Low 06/21/24 10:40:00 MCV 88.7 femtoliters 06/21/24 10:40:00 MCH 30.5 pg 06/21/24 10:40:00 MCHC 34.4 g/dL 06/21/24 10:40:00 Platelet Count 41 k/mm3??Low 06/21/24 10:40:00 MPV 9.8 femtoliters 06/21/24 10:40:00 Nucleated RBC (Automated) 0 #/100 WBC'S 06/21/24 10:40:00 ? COAG ? Event Name?? Event Result?? Date/Time?? INR 1.2??High 06/21/24 11:46:00 Protime (PT) 13 seconds??High 06/21/24 11:46:00 ? CHEM GENERAL ? Event Name?? Event Result?? Date/Time?? Sodium 143 mmol/L 06/21/24 10:40:00 Chloride 111 mmol/L??High 06/21/24 10:40:00 Bicarbonate Level 24 mmol/L 06/21/24 10:40:00 Anion Gap 8 06/21/24 10:40:00 Glucose Level 107 mg/dL??High 06/21/24 10:40:00 BUN 20 mg/dL 06/21/24 10:40:00 Creatinine-Blood 0.63 mg/dL 06/21/24 10:40:00 Alkaline Phosphatase 83 units/L 06/21/24 10:40:00 AST (SGOT) 39 units/L??High 06/21/24 10:40:00 ALT (SGPT) 21 units/L 06/21/24 10:40:00 Bilirubin, Total 2.7 mg/dL??High 06/21/24 10:40:00 ? * Jitendra Fry: PERFORM Event Display: Consultation Note Authored Date: Patient: ??GILA TEJADA ? Age:??63 Years?Sex:??Female?:??1960?? Chief Complaint/Reason for Consult pt tripped up her stairs and fell, striking her head. disoriented to place. slurred speech. 1 lac to forehead. History of Present Illness This is a 63-year-old female past medical history significant for EtOH abuse, hepatitis C, cirrhosis, hepatic encephalopathy, right sternoclavicular septic arthritis and abscess, asthma, anxiety, depression, IV drug use, on methadone.?? According to patient she was playing with her dog outside whenshe felt hot and decided to go back inside when she tripped and fell she denies any loss of consciousness.?? Patient was subsequently transported to [facility] where she underwent head CT with finding for small right posterior frontal subarachnoid hemorrhage.?? No reported anticoagulation or antiplatelet therapy. Review of Systems ?? Denies headache, dizziness,??vision changes,??numbness tingling or weakness of the upper or lower extremities. Physical Exam Vitals & Measurements T:??98.6?F?? HR:??77??(Peripheral)?? RR:??18?? BP:??110/59?? SpO2:??99%?? Physical Exam?? GENERAL:??In no apparent distress?? RESPIRATORY:??Equal rise and fall of chest, unlabored? CHEMICAL DETECTION EXPERT:??Alert and oriented x 3 ??-eye open spontaneously?- Speech clear fluent and appropriate?? - EOMI?? -Following commands?? - Moving all extremities?? -Strength 5/5 bilat upper and lower extremity? -Sensation grossly intact?? -Edema of bilateral lower extremities ?? GCS:15 ?? PSYCHIATRIC:??Calm and co-operative HEME:??No lymphadenopathy. SKIN:??Warm and dry. Assessment/Plan 63 y/o??female s/p fall with??small Posterior frontal SAH ?? PLan?? No neurosurgical intervention STAT head CT for neurologic decline?? No schedule follow up necessary Any question page [id number] Signing off ?? Attending Dr. Hogan Problem List/Past Medical History Ongoing Anxiety Asthma Chronic low back pain Depression IVDU - Intravenous drug user Macrocytic anemia Obese class II Opioid use disorder, moderate, on maintenance therapy Thrombocytopenia Procedure/Surgical History EGD - Esophagogastroduodenoscopy: 03/07/22 Colonoscopy, flexible; with removal of tumor(s), polyp(s), or other lesion(s) by snare technique: 03/07/22 History of hysterectomy: 2015 Hemorrhoidectomy Home Medications Acetaminophen: 650 mg, By Mouth, Every 4 hours, PRN (Pain , Mild), Temperature Greater than 100.5 Albuterol: 1 puffs, Inhalation, 4 times a day, PRN (as needed for wheezing) Docusate-Senna: 1 tablet, By Mouth, 2 times a day, PRN (Constipation) Ergocalciferol: 50,000 International_Units = 1 capsule, By Mouth, Every week Folic Acid: 1 mg = 1 tablet, By Mouth, Daily HydrOXYzine: 20 mg = 2 tablet, By Mouth, Every 6 hours, PRN (Anxiety) Lactulose: 20 Gm = 30 mL, By Mouth, 3 times a day, please titrate it to two- three bowel ??movementsper day Magnesium Oxide: 400 mg = 1 tablet, By Mouth, 2 times a day Melatonin: 3 mg, By Mouth, Daily at bedtime, PRN (Insomnia) Methadone: 65 mg = 32.5 mL, By Mouth, Daily Multivitamin: 1 capsule, By Mouth, Daily Nadolol: 20 mg = 1 tablet, By Mouth, Daily Nicotine: 2 mg, Chew, Every hour, PRN (Other), Nicotine Withdrawal Symptoms (NOT to exceed 24 pieces per day) Pantoprazole: 40 mg, By Mouth, Daily PEG Electrolyte Solution: See Instructions, 4 liters By Mouth for colonoscopy Pyridoxine: 50 mg = 1 tablet, By Mouth, Daily Thiamine: 100 mg = 1 tablet, By Mouth, Daily Allergies Seafood shellfish Social History Alcohol Use: Never. 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 Home/Environment Living situation: Home/Independent. Lives with: Mother. Substance Abuse Use: Current. Type: Heroin. Frequency: using 1 bundle a day until past month. Has used in the past 2 weeks but not daily. Previous treatment: methadone 2011. Tobacco Use: Former smoker, quit more than 30 days ago. Type: Cigarettes. Family History No family history recorded. Note * Ivett Sheppard RN: PERFORM Event Display: Discharge/Transfer Note Hospital Authored Date: Nursing Discharge Note Entered On: 06/23/2024 13:14 EDT Performed On: 06/23/2024 13:14 EDT by Ivett Sheppard RN Nursing Discharge Note 2 Discharge Time : 06/23/2024 13:50 EDT Discharge Comments : no changes from reporting rn transport Ivett Sheppard RN - 06/23/2024 13:53 EDT Discharge Level of Care at Discharge : Home/Penitentiary/Foster Care Patient Left Unit Via : Wheelchair Patient Accompanied Off Unit with : Responsible adult DC Instructions Provided & Signed by Pt : Yes Patient Understands D/C Instructions : Yes Verbalized Understanding of D/C Plan By : Patient Patient Instructions Discharge Signed : Yes Did Pt have Specialty Bed or Wound Vac : No Ivett Sheppard RN - 06/23/2024 13:14 EDT * Alejandro HENDRICKSON, Noor: PERFORM Event Display: Discharge/Transfer Note Hospital Authored Date: Patient: ??GILA TEJADA ? Age:??63 Years?Sex:??Female?:??1960?? Patient Information Discharge Location: [facility] Primary Care Physician: Suri CM, Anel Haywood Admit Date/Time: 06/21/24 21:54 Discharge Disposition Discharge Disposition: Home: No Services Discharge Diagnosis Fall on steps (W10.8XXA) Subarachnoid hemorrhage (I60.9) Opioid use disorder in remission (F11.91) Hepatic encephalopathy (K76.82) Cirrhosis (K74.60) Normocytic anemia (D64.9) Thrombocytopenia (D69.6) _ Discharge Medications Furosemide (Lasix 20 mg oral tablet)?1?capsule?By Mouth?Every other day?for 30?Days Lactulose (lactulose 10 gm/15 ml oral syrup)?30?Milliliter?20?gram?By Mouth?4 times a day?for 30?Days Methadone?50?Milligram?By Mouth?Daily Rifaximin (rifAXIMin 550 mg oral tablet)?550?Milligram?By Mouth?2 times a day?for 30?Days ? Quality Measures Stroke Quality Measures:?Discharged on Antithrombotic Therapy:??Hemorrhagic Stroke ?Statin Prescribed at Discharge:??Hemorrhagic Stroke ? Medications Started lactulose rifaximine lasix Medications Discontinued none Doses Changed none Allergies Allergies ?(Active and Proposed Allergies Only) shellfish? (Severity: Unknown severity, Onset: Unknown) Seafood? (Severity: Unknown severity, Onset: Unknown) ? PCP Follow-Up/Heads-Up ??- need out patient PT follow up strength/ PT. -out patient trauma surgery follow up - GI follow up . Hospital Course Gila Tejdaa is a 63F with history of cirrhosis, HCV (s/p SVR), polysubstance abuse in remission who presented to [facility] [place] [place] after suffering a mechanical fall from standing. trauma surgery was consulted. On exam she is GCS [address] of the head revealed a small subarachnoid hemorrhagemeasuring up to 2 mm in dimension, localized to the right frontoparietal region. Due to thrombocytopenia on initial lab work, repeat CT head obtained 6 hours after, showing no interval change. Neurosurgery was consulted and did not have additional recommendations. After further discussion with family, patient has been having worsening encephalopathy over the last few months. Ammonia level in the ED 140. was admitted for hepatic encephalopathy and subarachnoid hemorrhage.? - per trauma surgery - patient will need suture removal from forehead after discharge around 06/25. - since as of yet patient does not have established PCP - trauma surgery contacted for out patient follow up. - trauma clinic informational in Discharge summary- would ask patient to call clinic to set up appointment after discharge for suture removal. ? Hepatic encephalopathy (K76.82) on admission. - completely now back to baseline. - Right upper quadrant ultrasound negative for acute cholecystitis.. - started on lactulose ( take 30 ml three times a day with daily bowel movemnet goal 203). - hold lactulose dose if bowel movement >3 per day. - take rifaximine 550mg teice daily - starting lasix 20 mg oral tablet once daily., - Please call out patient clinic: [facility] to schedule out patient appointment forliver cirrhosis and medication refill. ?? Off not GI history: evaluated in 2021 for decompensated cirrhosis. noted to be non compliant. never had repeat RUQ US. 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 Not bleeding. ? Thrombocytopenia (D69.6): likely secondary to decompensated cirrhosis INR 1.2 ? Opioid use disorder in remission (F11.91): Per patient : currently on methadone- dose was confirmed at her clinic and she takes 85 mg daily. - EKg showed QTc 490. dose was reduced to 50 mg daily methadone. - patient felt better with 50 mg daily dose. - last dose received in hospital on 06/23 . valentino give last dose letter with recommended dose 50 mg daily [facility] [phone] ? Objective Vital Signs?? Temperature: 98.2 DegF (06/23/24 05:49:00) Temperature Route: Axillary (06/23/24 05:49:00) Pulse Rate: 75 bpm (06/23/24 05:49:00) Respiratory Rate: 17 br/min (06/23/24 12:23:00) Systolic Blood Pressure: 129 mm Hg (06/23/24 05:49:00) Diastolic Blood Pressure: 58 mm Hg (06/23/24 05:49:00) Blood pressure sites: Arm, right (06/23/24 05:49:00) Mean Arterial Pressure: 82 mm Hg (06/23/24 05:49:00) Pulse Pressure: 71 mm Hg (06/23/24 05:49:00) Oxygen Saturation: 98 % (06/23/24 05:49:00) Mode of Delivery (Oxygen): Room air (06/23/24 05:49:00) Early Warning Score: 6 (06/23/24 12:23:25) ? . Physical Exam Respiratory: All mcmahon clear to auscultation bilaterally. No wheezes, rales, rhonchi appreciated Abdominal: Soft, nontender. No rebound tenderness. Bowel sounds noted all four quadrants. : No suprapubic tenderness. Neuro: A&OX3.?No focal neurologic deficit HEENT:??Laceration/sutured??over??right forehead.?Ecchymosis??below??right eye.?? Pending Results Hepatitis C RNA PCR Quant ordered on 06/22/2024 Follow-Up Appointments Added Follow Up ?Time Frame ?Comments Suri CM, Anel Haywodo?1 week [facility]?Only if Needed.?Please call to book appointment for suture removal?? Patient Instructions You were treated for concussion symptoms or have a mild traumatic brain injury that resulted in a minor bleed within your skull. ??The following symptoms are expected over the next few weeks: -Headache, dizziness, lightheadedness, confusion, light sensitivity, sleep difficulties, mood changes- however these are temporary and should resolve within the first few weeks?? -If symptoms are occurring can take time off of work, but should follow up with PCP for return to work?? -You will follow up with the trauma concussion clinic in 3 weeks after discharge and this appointment is already made for you, details are in your discharge paperwork -You will be contacted by the office staff a week prior to appointment to see if you are still experiencing symptoms, if you are not then the appointment is not needed. ??If symptoms have not resolved by this time the appointment will be confirmed. -Can try to increase activities as tolerated, try some light activity such as walking inside or outside, can use TVs or phones but stop if symptoms get worse -If headache gets suddenly worse and pain meds aren???t helping, dizziness with associated vomitingnot controlled by meds, sudden confusion/ forgetfulness that worsens with time, new balance issues please call concussion clinic at [phone] or visit nearest emergency room immediately? Hepatic encephalopathy (K76.82) on admission. - completely now back to baseline. - Right upper quadrant ultrasound negative for acute cholecystitis.. - started on lactulose ( take 30 ml three times a day with daily bowel movement goal 203). - hold lactulose dose if bowel movement >3 per day. - take rifaximin 550mg twice daily - starting Lasix 20 mg oral tablet?? one time every other day - Please call out patient clinic: [facility] to schedule out patient appointment forliver cirrhosis and medication refill. ? Opioid use disorder in remission (F11.91): Per patient : currently on methadone- dose was confirmed at her clinic and she takes 85 mg daily. - patient felt better with 50 mg daily dose. - last dose received in hospital on 06/23 . valentino give last dose letter with recommended dose 50 mg daily [facility] [phone] ?? Post Discharge Care Discharge ?06/23/24 12:02:00 EDT Discharge Prescriptions ?ePrescribed, 06/23/24 12:02:00 EDT Home Health Face to Face ^HomeHealthFTF Results Discharge Labs BLOOD COUNT & DIFF WBC 4.1 k/mm3 ()?? 06/22/2024 01:52 RBC 3.16 m/mm3 (Low)?? 06/22/2024 01:52 Hgb 9.9 Gm/dL (Low)?? 06/22/2024 01:52 Hct 28.7 % (Low)?? 06/22/2024 01:52 MCV 90.8 femtoliters ()?? 06/22/2024 01:52 MCH 31.3 pg ()?? 06/22/2024 01:52 MCHC 34.5 g/dL ()?? 06/22/2024 01:52 Platelet Count 37 k/mm3 (Low)?? 06/22/2024 01:52 RDW-SD 51.7 femtoliters (High)?? 06/22/2024 01:52 MPV 11.0 femtoliters ()?? 06/22/2024 01:52 Nucleated RBC (Automated) 0.0 #/100 WBC'S ()?? 06/22/2024 01:52 Abs. NRBC 0.0 k/mm3 ()?? 06/22/2024 01:52 Abs. Neut 2.0 k/mm3 ()?? 06/22/2024 01:52 Abs. Lymph 1.5 k/mm3 ()?? 06/22/2024 01:52 Abs. Hand 0.5 k/mm3 ()?? 06/22/2024 01:52 Abs. Eo 0.1 k/mm3 ()?? 06/22/2024 01:52 Abs. Baso 0.0 k/mm3 ()?? 06/22/2024 01:52 Neut % 48.8 % ()?? 06/22/2024 01:52 Lymph % 35.7 % ()?? 06/22/2024 01:52 Hand % 12.6 % (High)?? 06/22/2024 01:52 Eos % 2.2 % ()?? 06/22/2024 01:52 Baso % 0.5 % ()?? 06/22/2024 01:52 Imm Gran 0.2 % ()?? 06/22/2024 01:52 Abs. Imm Gran 0.0 k/mm3 ()?? 06/22/2024 01:52 ?? CHEM GENERAL Sodium 141 mmol/L ()?? 06/23/2024 09:42 Potassium 4.0 mmol/L ()?? 06/23/2024 09:42 Chloride 108 mmol/L (High)?? 06/23/2024 09:42 Bicarbonate Level 24 mmol/L ()?? 06/23/2024 09:42 Anion Gap 9 ()?? 06/23/2024 09:42 Glucose Level 99 mg/dL ()?? 06/23/2024 09:42 Glucose, POC 78 mg/dL ()?? 06/22/2024 08:24 BUN 9 mg/dL ()?? 06/23/2024 09:42 Creatinine-Blood 0.57 mg/dL ()?? 06/23/2024 09:42 Estimated GFR Creatinine 103 ML/MIN/1.73 M2 ()?? 06/23/2024 09:42 Calcium 9.3 mg/dL ()?? 06/23/2024 09:42 Protein, Total 5.1 Gm/dL (Low)?? 06/22/2024 01:52 Albumin 3.1 Gm/dL (Low)?? 06/22/2024 01:52 AG Ratio 1.6 ()?? 06/22/2024 01:52 Alkaline Phosphatase 71 units/L ()?? 06/22/2024 01:52 AST (SGOT) 31 units/L ()?? 06/22/2024 01:52 ALT (SGPT) 22 units/L ()?? 06/22/2024 01:52 Bilirubin, Total 2.8 mg/dL (High)?? 06/22/2024 01:52 Vitamin B12 Level 714 pg/mL ()?? 06/22/2024 01:52 Folic Acid Level 13.4 ng/mL ()?? 06/22/2024 01:52 Iron Level 130 mcg/dL ()?? 06/22/2024 01:52 Iron Binding Capacity, Unsaturated 129 mcg/dL ()?? 06/22/2024 01:52 Iron Binding Capacity, Estimated Total 259 mcg/dL ()?? 06/22/2024 01:52 % Iron Saturation 50 % ()?? 06/22/2024 01:52 Ferritin Level 150 ng/mL ()?? 06/22/2024 01:52 ? COAG INR 1.3 (High)?? 06/22/2024 01:52 Protime (PT) 13.2 seconds (High)?? 06/22/2024 01:52 ?? ENDOCRINE/TUMOR MARKER TSH 0.81 uIU/mL ()?? 06/21/2024 10:40 ? HEME OTHER Hold Lavender Top SPECIMEN DISCARDED AFTER 24 HOURS. ()?? 06/21/2024 15:15 ? MISC. CHEMISTRY Ammonia, Venous 143 ??mole/L (High)?? 06/21/2024 15:15 Hold Green Top SPECIMEN DISCARDED AFTER 1 WEEK ()?? 06/21/2024 15:15 Hold Moy Top SPECIMEN DISCARDED AFTER 1 WEEK ()?? 06/21/2024 15:15 ? SEROLOGY INF DISEASE Hepatitis B Surface Antigen NON REACTIVE ()?? 06/22/2024 01:52 ? TOXICOLOGY/TDM Ethanol, Serum or Plasma NONE DETECTED mg/dL ()?? 06/21/2024 10:40 Barbiturate Screen, Urine NONE DETECTED ()?? 06/22/2024 09:18 Cannabinoid Screen, Urine NONE DETECTED ()?? 06/22/2024 09:18 Cocaine Metabolite Screen, Urine NONE DETECTED ()?? 06/22/2024 09:18 Benzodiazepine Screen, Urine NONE DETECTED ()?? 06/22/2024 09:18 Amphetamine Screen, Urine NONE DETECTED ()?? 06/22/2024 09:18 Opiate Screen, Urine NONE DETECTED ()?? 06/22/2024 09:18 ? URINE OTHER Est Creatinine Clearance 90.15 mL/min ()?? 06/23/2024 10:37 ? _ 55 minutes spent on discharge * Silver GEE, Ivett Lara: PERFORM Event Display: Patient Education/Instruction Authored Date: Inpatient Adult Discharge Instructions. [address] [id number] Name: GILA TEJADA : 1960?? Visit: 06/21/2024 21:54?? Current Date: 06/23/2024 13:14 ?? Account: [id number]?? Inpatient Adult Discharge Instructions We would like to thank you for allowing us to assist you with your healthcare needs. The following includes patient education materials and information regarding your injury/illness. Our entire staffstrives to provide an excellent experience for our patients and their families. PLEASE ENSURE YOU FOLLOW-UP PER THE INSTRUCTIONS BELOW! ?? YOUR OPINION IS IMPORTANT TO US! Please complete the survey you may receive by mail or email. Your feedback will be used to make improvements to the healthcare experiences of our patients and their families. Surveys are administered by [employer] ?? If further treatment with your primary care physician or another doctor is recommended, it is important for you to keep the appointment. Call your primary care physician or return to the Emergency Department immediately if your condition worsens, fails to improve, or new symptoms develop. If you need to find a doctor, you can call [facility] Link for a referral at [phone] or toll free at [phone]) or log in to [email or web address].. ?? [facility], in keeping with [facility] guidance, no longer requires face masks for staff, patientsor visitors in most situations. Similiar to time spent indoors at other locations, there is the chance that you were exposed to repiratory viruses during your time with us (such as flu or COVID-19). If you develop symptoms concerning for a viral respiratory infection, please seek testing (and treatment if indicated) from your medical provider or home test kit. ?? You can view and manage your care through the patient portal or by using a health care joe of your choosing. [employer] is a website that allows you to securely view your medical information including your hospital discharge summary, office visit summaries, medications and follow-up visits. You can also request appointments, renew medications, and request access to your medical information using a health care joe of your choosing, or just ask a question. You can enroll at [email or web address] or register during your next office visit. You have been discharged from [facility], Patient Care Unit: S3??. If you have any questions regarding these instructions, including results of studies pending, afteryou leave, please call us and we will be happy to assist you 04/06. [facility] Your Care Team Attending Physician Alejandro HENDRICKSON, Noor?? Consulting Providers Alejandro HENDRICKSON, Noor?? Discharging Providers Alejandro HENDRICKSON, Noor Reason for Your Visit pt tripped up her stairs and fell, striking her head. disoriented to place. slurred speech. 1 lac to forehead.?? Your Diagnosis Cirrhosis General medical Hepatic encephalopathy Normocytic anemia Opioid use disorder in remission Thrombocytopenia Tests Performed Below is a partial list of the tests performed during your hospitalization. You may have had other tests and procedures not included in this list. Please discuss all test results with your provider. Alcohol Level Ammonia Venous Amphetamine Urine Screen B12 Vitamin Level Barbiturate Urine Screen Basic Metabolic Panel Benzodiazepine Urine Screen Cannabinoid Urine Screen CBC w/ Differential Cocaine Urine Screen Comprehensive Metabolic Panel Ferritin Folate Level GLUCOSE POC Hepatitis B Surface Antigen HOLD MOY TUBE HOLD GREEN TUBE HOLD LAVENDER TUBE INR Iron + Iron Binding Capacity Opiate Screen Urine PT (INR) TSH with T4 Reflex (Adults Only) CT Cervical Spine W/O Contrast CT Head/Brain W/O Contrast CT Maxilloface W/O Contrast RUQ (US) Ammonia Venous?? Amphetamine Urine Screen?? Barbiturate Urine Screen?? Basic Metabolic Panel?? Benzodiazepine Urine Screen?? CBC w/ Differential?? CT Cervical Spine W/O Contrast?? CT Head/Brain W/O Contrast?? CT Maxilloface W/O Contrast?? Cannabinoid Urine Screen?? Cocaine Urine Screen?? Comprehensive Metabolic Panel?? Ethanol Level (Alcohol Level)?? Ferritin?? Folate Level?? Glucose POC?? Hepatitis B Surface Antigen?? Hepatitis C RNA PCR Quant?? Hold Moy Top Tube (HOLD MOY TUBE)?? Hold Green Top Tube (HOLD GREEN TUBE)?? Hold Lavender Top Tube (HOLD LAVENDER TUBE)?? INR (PT (INR))?? Iron + Iron Binding Capacity?? Opiate Screen Urine?? TSH with T4 Reflex (Adults Only)?? US RUQ (RUQ (US))?? Vitamin B12 Level (B12 Vitamin Level)?? Primary Care Provider Suri CM, Anel Haywood? Advance Directive Health Care Proxy on File Yes - Health Care Proxy Discharge Vitals Temperature: 98.2 DegF Height: 163 cm Pulse Rate: 75 bpm Weight: 81.8 kg Respiratory Rate: 17 br/min Body Mass Index:??30.79 kg/m2??Critical Systolic Blood Pressure: 129 mm Hg Body surface area: 1.92 Diastolic Blood Pressure: 58 mm Hg ?? Oxygen Saturation: 98 % ?? Studies Pending All studies ordered during this hospital stay have been completed unless listed below. Please discuss all pending results with your provider listed above in these instructions. ?? Hepatitis C RNA PCR Quant?? What to do next Instructions From Your Doctor You were treated for concussion symptoms or have a mild traumatic brain injury that resulted in a minor bleed within your skull. ??The following symptoms are expected over the next few weeks: -Headache, dizziness, lightheadedness, confusion, light sensitivity, sleep difficulties, mood changes- however these are temporary and should resolve within the first few weeks?? -If symptoms are occurring can take time off of work, but should follow up with PCP for return to work?? -You will follow up with the trauma concussion clinic in 3 weeks after discharge and this appointment is already made for you, details are in your discharge paperwork -You will be contacted by the office staff a week prior to appointment to see if you are still experiencing symptoms, if you are not then the appointment is not needed. ??If symptoms have not resolved by this time the appointment will be confirmed. -Can try to increase activities as tolerated, try some light activity such as walking inside or outside, can use TVs or phones but stop if symptoms get worse -If headache gets suddenly worse and pain meds aren???t helping, dizziness with associated vomitingnot controlled by meds, sudden confusion/ forgetfulness that worsens with time, new balance issues please call concussion clinic at [phone] or visit nearest emergency room immediately? Hepatic encephalopathy (K76.82) on admission. - completely now back to baseline. - Right upper quadrant ultrasound negative for acute cholecystitis.. - started on lactulose ( take 30 ml three times a day with daily bowel movement goal 203). - hold lactulose dose if bowel movement >3 per day. - take rifaximin 550mg twice daily - starting Lasix 20 mg oral tablet?? one time every other day - Please call out patient clinic: [facility] to schedule out patient appointment forliver cirrhosis and medication refill. ? Opioid use disorder in remission (F11.91): Per patient : currently on methadone- dose was confirmed at her clinic and she takes 85 mg daily. - patient felt better with 50 mg daily dose. - last dose received in hospital on 06/23 . valentino give last dose letter with recommended dose 50 mg daily [facility] [phone] ? Orders? 06/23/24 12:02:00 EDT?? Prescriptions??, ??06/23/24 12:02:00 EDT?? You Need to Schedule the Following Appointments Follow Up with??Suri CM, Anel Haywood When:??Within 1 week Where: [address] [place] [address]- Follow Up with??[facility] When:??Only if needed Why: Please call to book appointment for suture removal?? Where: [address] [place] [id number]- Discharge Medications GILA TEJADA :1960 Visit Date:06/21/2024 Medications: Please continue your medications until treatment is completed or stopped by your provider. Medications not listed below should be discontinued. Discuss any questions related to medications with your provider. What How Much When Instructions Next Dose New Furosemide (Lasix 20 mg oral tablet) 1 capsule Oral Every other day Duration: 30 Days Refills: 5 Pickup at [facility] 3 06/24 tomorrow morning New Rifaximin (rifAXIMin 550 mg oral tablet) 550 Milligram Oral Twice a day Duration: 30 Days Refills: 2 Pickup at [facility] 3 06/23 tonight Changed Lactulose (lactulose 10 gm/ 15 ml oral syrup) 30 Milliliter Oral 4 times a day Duration: 30 Days Pickup at [facility] 3 06/23 today at 2pm Changed Methadone 50 Milligram Oral Daily 06/24 tomorrow morning Pharmacy Information [facility] 3: [address] [place], [place] [id number] [phone] ?? What How Much When Comments Stop Taking Acetaminophen (acetaminophen 325 mg oral tablet) 650 Milligram Oral Every 4 hours as needed for Pain , Mild Temperature Greater than 100.5 ?? Stop Taking Albuterol (albuterol CFC free 90 mcg/ inh inhalation aerosol) 1 puff(s) Inhalation 4 times a day as needed for as needed for wheezing Stop Taking Docusate-Senna (Docusate/ Senna Tablet) 1 tab(s) Oral Twice a day as needed for Constipation Stop Taking Ergocalciferol (Vitamin D2 50,000 intl units (1.25 mg) oral capsule) 1 capsule Oral Every week Duration: 12 week(s) Stop Taking Folic Acid (folic acid 1 mg oral tablet) 1 tab(s) Oral Daily Stop Taking HydrOXYzine (hydrOXYzine hydrochloride 10 mg oral tablet) 2 tab(s) Oral Every 6 hours as needed for Anxiety Stop Taking Magnesium Oxide (magnesium oxide 400 mg oral tablet) 1 tab(s) Oral Twice a day Stop Taking Melatonin (melatonin 3 mg oral tablet) 3 Milligram Oral Daily at Bedtime as needed for Insomnia Stop Taking Multivitamin (Therapeutic Multiple Vitamins oral capsule) 1 capsule Oral Daily Stop Taking Nadolol (nadolol 20 mg oral tablet) 1 tab(s) Oral Daily Stop Taking Nicotine (nicotine 2 mg oral transmucosal gum) 2 Milligram Chew Every hour as needed for Other Duration: 4 week(s) Nicotine Withdrawal Symptoms (NOT to exceed 24 pieces per day) ?? Stop Taking Pantoprazole (pantoprazole 40 mg oral delayed release tablet) 40 Milligram Oral Daily Stop Taking PEG Electrolyte Solution (NuLYTELY with Flavor Packs oral powder for reconstitution) See instructions 4 liters By Mouth for colonoscopy ?? Stop Taking Pyridoxine (pyridoxine 50 mg oral tablet) 1 tab(s) Oral Daily Stop Taking Thiamine (thiamine 100 mg oral tablet) 1 tab(s) Oral Daily Prescription Given During Visit Furosemide (Lasix 20 mg oral tablet) - 1 capsule, By Mouth, Every other day, # 15 capsule, 5 Refills, [place] [address] [phone]?? Lactulose (lactulose 10 gm/15 ml oral syrup) - 30 mL = 20 Gm, By Mouth, 4 times a day, # 1,000 mL, 6 Refills, [place] [address] [phone]?? Rifaximin (rifAXIMin 550 mg oral tablet) - 550 mg, By Mouth, 2 times a day, # 60 tablet, 2 Refills,[place] [address] [phone]?? Laboratory Results Below is a partial list of the most recent Laboratory test results done prior to this discharge. You may have had other tests and procedures not included in this list. Please discuss all test resultswith your provider. Est Creatinine Clearance - 90.15 mL/min (06/23/2024) Alcohol Level (06/21/2024) ???Ethanol, Serum or Plasma - NONE DETECTED Ammonia Venous (06/21/2024) ???Ammonia, Venous - 143 ??mole/L Amphetamine Urine Screen (06/22/2024) ???Amphetamine Screen, Urine - NONE DETECTED B12 Vitamin Level (06/22/2024) ???Vitamin B12 Level - 714 pg/mL Barbiturate Urine Screen (06/22/2024) ???Barbiturate Screen, Urine - NONE DETECTED Basic Metabolic Panel (06/23/2024) ???Sodium - 141 mmol/L???Potassium - 4.0 mmol/L???Chloride - 108 mmol/L???Bicarbonate Level - 24 mmol/L???Anion Gap - 9???Glucose Level - 99 mg/dL???BUN - 9 mg/dL???Creatinine-Blood - 0.57 mg/dL???Estimated GFR Creatinine - 103 ML/MIN/1.73 M2???Calcium - 9.3 mg/dL Benzodiazepine Urine Screen (06/22/2024) ???Benzodiazepine Screen, Urine - NONE DETECTED Cannabinoid Urine Screen (06/22/2024) ???Cannabinoid Screen, Urine - NONE DETECTED CBC w/ Differential (06/22/2024) ???WBC - 4.1 k/mm3???RBC - 3.16 m/mm3???Hgb - 9.9 Gm/dL???Hct - 28.7 %???MCV - 90.8 femtoliters???MCH - 31.3 pg???MCHC - 34.5 g/dL???Platelet Count - 37 k/mm3???RDW-SD - 51.7 femtoliters???MPV - 11.0femtoliters???Nucleated RBC (Automated) - 0.0 #/100 WBC'S???Abs. NRBC - 0.0 k/mm3???Abs. Neut - 2.0 k/mm3???Abs. Lymph - 1.5 k/mm3???Abs. Hand - 0.5 k/mm3???Abs. Eo - 0.1 k/mm3???Abs. Baso - 0.0 k/mm3???Neut % - 48.8 %???Lymph % - 35.7 %???Hand % - 12.6 %???Eos % - 2.2 %???Baso % - 0.5 %???Imm Gran- 0.2 %???Abs. Imm Gran - 0.0 k/mm3 Cocaine Urine Screen (06/22/2024) ???Cocaine Metabolite Screen, Urine - NONE DETECTED Comprehensive Metabolic Panel (06/22/2024) ???Sodium - 140 mmol/L???Potassium - 3.6 mmol/L???Chloride - 110 mmol/L???Bicarbonate Level - 22 mmol/L???Anion Gap - 8???Glucose Level - 122 mg/dL???BUN - 15 mg/dL???Creatinine-Blood - 0.62 mg/dL???Estimated GFR Creatinine - 101 ML/MIN/1.73 M2???Calcium - 8.7 mg/dL???Protein, Total - 5.1 Gm/dL???Albumin - 3.1 Gm/dL???AG Ratio - 1.6???Alkaline Phosphatase - 71 units/L???AST (SGOT) - 31 units/L???ALT (SGPT) - 22 units/L???Bilirubin, Total - 2.8 mg/dL Ferritin (06/22/2024) ???Ferritin Level - 150 ng/mL Folate Level (06/22/2024) ???Folic Acid Level - 13.4 ng/mL GLUCOSE POC (06/22/2024) ???Glucose, POC - 78 mg/dL Hepatitis B Surface Antigen (06/22/2024) ???Hepatitis B Surface Antigen - NON REACTIVE HOLD MOY TUBE (06/21/2024) ???Hold Moy Top - SPECIMEN DISCARDED AFTER 1 WEEK HOLD GREEN TUBE (06/21/2024) ???Hold Green Top - SPECIMEN DISCARDED AFTER 1 WEEK HOLD LAVENDER TUBE (06/21/2024) ???Hold Lavender Top - SPECIMEN DISCARDED AFTER 24 HOURS. INR (06/21/2024) ???INR - 1.2???Protime (PT) - 13.0 seconds Iron + Iron Binding Capacity (06/22/2024) ???Iron Level - 130 mcg/dL???Iron Binding Capacity, Unsaturated - 129 mcg/dL???Iron Binding Capacity, Estimated Total - 259 mcg/dL???% Iron Saturation - 50 % Opiate Screen Urine (06/22/2024) ???Opiate Screen, Urine - NONE DETECTED PT (INR) (06/22/2024) ???INR - 1.3???Protime (PT) - 13.2 seconds TSH with T4 Reflex (Adults Only) (06/21/2024) ???TSH - 0.81 uIU/mL You will be contacted within 72 hours with your results. Allergies (NKA means No Known Allergies) Seafood shellfish Problems Active Problems??(9) Anxiety?? Asthma?? Chronic low back pain?? Depression?? IVDU - Intravenous drug user?? Macrocytic anemia?? Obese class I?? Opioid use disorder, moderate, on maintenance therapy?? Thrombocytopenia?? Education Materials Below is the list of Educational Leaflet Providered with your Discharge Instructions. Valuables and Belongings I fully understand and agree that [facility] accepts no responsibility for all my personal property including clothing, toilet articles, radios, jewelry, dentures, hearing aids, rings, money, or any other property that is in my possession or is brought to me after admission. I understand certain valuables may be placed in a hospital safe for a short period of time. I understand that the hospital is not liable for loss or damage due to accident, fire, or other natural occurrence while said property is in the safe. I accept full responsibility for any personal property that I keep with me, and will not hold the hospital responsible in case of loss or disappearance. I acknowledge that i have been encouraged to send valuables and belongings home. ?? Date for Pt to Sign Valuables/Belongings: 06/21/24 21:26:00 ?? Other Discharge Information ? Case Management Discharge Plan?? Discharge Plan?? Discharge Level of Care at Discharge: Home/Penitentiary/Foster Care ?? Pulmonary Rehab Status?? Pulmonary Rehab Discharge Status?? Respiratory Rate: 17 br/min ? Common Emergency Awareness Tips IS IT A STROKE? Act FAST and Check for these signs: FACE Does the face look uneven? ARM Does one arm drift down? SPEECH Does their speech sound strange? TIME Call at any sign of stroke ?? Heart Attack Signs Chest discomfort: Most heart attacks involve discomfort in the center of the chest and lasts more than a few minutes, or goes away and comes back. It can feel like uncomfortable pressure, squeezing, fullness or pain. Discomfort in upper body: Symptoms can include pain or discomfort in one or both arms, back, neck, jaw or stomach. Shortness of breath: With or without discomfort. Other signs: Breaking out in a cold sweat, nausea, or lightheaded. Remember, MINUTES DO MATTER. If you experience any of these heart attack warning signs, call to get immediate medical attention! ?? Smoking can increase your chances of developing chronic health problems and can cause harmful effects to other family members in your house. If you smoke, you are strongly encouraged to quit. Please call [facility] at [phone] or [phone] [place] ([phone]) or log in to [email or web address] for referrals to smoking cessation programs. ?? 404 Suicide & Crisis Lifeline is available 04/06 if you or someone you know needs to find a reason to keep living. By calling 764 you'll be connected to a skilled, trained counselor at a crisis center in your area. INPATIENT DISCHARGE INSTRUCTIONS SIGNATURE MAGALY TEJADAEMMAEN Location:[facility] Registration Date and Time:06/21/2024 21:54 EDT Primary Care Physician: Anel Mccord NP, Attending Physician: Sandeep Allen MD, I GILA TEJDAA, have received the above patient education materials/instructions and have verbalizedunderstanding. If ambulance or transport services are being used I further acknowledge being given a choice of service. ?? If you need to contact me, please call me at this number: . 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 [id number] Rifaximin Brand Name(s): Xifaxan?? WHY is this medicine prescribed? Rifaximin 200-mg tablets are used to treat traveler's diarrhea caused by certain bacteria in adultsand children at least 12 years of age. Rifaximin 550-mg tablets are used to prevent episodes of hepatic encephalopathy (changes in thinking, behavior, and personality caused by a build-up of toxins in the brain in people who have liver disease) in adults who have liver disease and to treat irritable bowel syndrome (with diarrhea) in adults. Rifaximin is in a class of medications called antibiotics. Rifaximin treats traveler's diarrhea and irritable bowel syndrome by stopping the growth of the bacteria that cause diarrhea. Rifaximin treats hepatic encephalopathy by stopping the growth of bacteria that produce toxins and that may worsen liver disease. Rifaximin will not work to treat traveler's diarrhea that is bloody or occurs with fever. Antibiotics such as rifaximin will not work for colds, flu, or other viral infections. Taking antibiotics when they are not needed increases your risk of getting an infection later that resists antibiotic treatment. HOW should this medicine be used? Rifaximin comes as a tablet to take by mouth with or without food. When rifaximin is used to treat traveler's diarrhea, it is usually taken three times a day for 3 days. When rifaximin is used to prevent episodes of hepatic encephalopathy, it is usually taken twice a day. When rifaximin is used to treat irritable bowel syndrome, it is usually taken three times a day for 14 days. To help you remember to take rifaximin, take it around the same times every day. Follow the directions on your prescription label carefully, and ask your doctor or pharmacist to explain any part you do not understand.Take rifaximin exactly as directed. Do not take more or less of it or take it more often than prescr ibed by your doctor. If you are taking rifaximin to treat traveler's diarrhea, your symptoms should improve within 24 to48 hours after you start taking the medication. If your symptoms do not go away or they get worse, or if you develop a fever or bloody diarrhea, call your doctor. If you are taking rifamaxin to treat irritable bowel syndrome and your symptoms return after you have finished your treatment, call your doctor. Take rifaximin as directed, even if you feel better. If you are taking rifaximin to treat traveler's diarrhea or irritable bowel syndrome and you stop taking it too soon or if you skip doses, your infection may not be completely cured and the bacteria may become resistant to antibiotics. If you aretaking rifaximin to prevent hepatic encephalopathy, do not stop taking it without talking to your do ctor as you may experience symptoms of encephalopathy. Are there OTHER USES for this medicine? This medication may be prescribed for other uses; ask your doctor or pharmacist for more information. What SPECIAL PRECAUTIONS should I follow? Before taking rifaximin, ??? tell your doctor and pharmacist if you are allergic to rifaximin, rifabutin (Mycobutin), rifampin (Rifadin, Rifamate, Rifater, Rimactane), rifapentine (Priftin), any other medications, or any of the ingredients in rifaximin capsules. Ask your doctor or pharmacist for a list of the ingredients. ??? tell your doctor and pharmacist what other prescription and nonprescription medications, vitamins, nutritional supplements, and herbal products you are taking or have recently taken. Be sure to mention cyclosporine (Gengraf, Neoral, Restasis, Sandimmune) or other antibiotics. Your doctor may have to change the doses of your medications, monitor you carefully for side effects or treat your diarrhea differently. ??? tell your doctor if you have or have ever had liver disease. ??? tell your doctor if you are , plan to become , or are . If you become whiletaking rifaximin, call your doctor. What SPECIAL DIETARY instructions should I follow? Unless your doctor tells you otherwise, continue your normal diet. What should I do IF I FORGET to take a dose? Take the missed dose as soon as you remember it. However, if it is almost time for the next dose, skip the missed dose and continue your regular dosing schedule. Do not take a double dose to make up for a missed one. What SIDE EFFECTS can this medicine cause? Rifaximin may cause side effects. Tell your doctor if any of these symptoms are severe or do not goaway: ??? nausea ??? stomach pain ??? dizziness ??? excessive tiredness ??? headache ??? muscle tightening ??? joint pain ??? Some side effects can be serious. If you experience any of the following symptoms, call your doctor immediately: ??? watery or bloody diarrhea that may occur along with stomach cramps and fever during your treatment or for 2 months afterward ??? hives ??? rash ??? itching ??? difficulty breathing or swallowing ??? swelling of the face, throat, tongue, lips, eyes, hands, feet, ankles, or lower legs ??? hoarseness Rifaximin may cause other side effects. Call your doctor if you have any unusual problems while taking this medication. If you experience a serious side effect, you or your doctor may send a report to the Food and Drug Administration's (FDA) MedWatch Adverse Event Reporting program online (http://www.fda.gov/Safety/MedWatch) or by phone ( ). What should I know about STORAGE and DISPOSAL of this medication? Keep this medication in the container it came in, tightly closed, and out of reach of children. Store it at room temperature and away from excess heat and moisture (not in the bathroom). Unneeded medications should be disposed of in special ways to ensure that pets, children, and otherpeople cannot consume them. However, you should not flush this medication down the toilet. Instead,the best way to dispose of your medication is through a medicine take-back program. Talk to your pharmacist or contact your local garbage/recycling department to learn about take-back programs in your community. See the FDA's Safe Disposal of Medicines website (http://goo.gl/c4Rm4p) for more information if you do not have access to a take- back program. It is important to keep all medication out of sight and reach of children as many containers (such as weekly pill minders and those for eye drops, creams, patches, and inhalers) are not child-resistant and young children can open them easily. To protect young children from poisoning, always lock safety caps and immediately place the medication in a safe location ??? one that is up and away and out of their sight and reach. http://www.upandaway.org What should I do in case of OVERDOSE? In case of overdose, call the poison control helpline at . Information is also available online at https://www.poisonhelp.org/help. If the victim has collapsed, had a seizure, has trouble breathing, or can't be awakened, immediately call emergency services at 540. What OTHER INFORMATION should I know? Keep all appointments with your doctor. Do not let anyone else take your medication. Ask your pharmacist if you have any questions about refilling your prescription. It is important for you to keep a written list of all of the prescription and nonprescription ([id number]) medicines you are taking, as well as any products such as vitamins, minerals, or otherdietary supplements. You should bring this list with you each time you visit a doctor or if you areadmitted to a hospital. It is also important information to carry with you in case of emergencies. This report on medications is for your information only, and is not considered individual patient advice. Because of the changing nature of drug information, please consult your physician or pharmacist about specific clinical use. The [employer] represents that the information provided hereunder was formulated with a reasonable standard of care, and in conformity with professional standards in the field. The [employer] makes no representations or warranties, express or implied, including, but not limited to, any implied warranty of merchantability and/or fitness for a particular purpose, with respect to such information and specifically disclaims all such warranties. Users are advised that decisions regarding drug therapy are complex medical decisions requiring the independent, informed decision of an appropriate health healthcare corporate account director, and the information is provided for informational purposes only. The entire monograph for a drug should be reviewed for a thorough understanding of the drug's actions, uses and side effects. The [employer] does not endorse or recommend the use of any drug.The information is not a substitute for medical care. AHFS?? Patient Medication Information???. ?? Copyright, 2023. The [employer]??, [address], [address], [place], [place]. All Rights Reserved. Duplication for commercial use must be authorized by [facility]. Selected Revisions: May 26, 2018. AHFS?? Patient Medication Information???. ?? Copyright, 2023 ?? * Silver GEE, Ivett Lara: PERFORM Event Display: Patient Education Leaflets Authored Date: [id number] Furosemide ?? [id number] Furosemide Brand Name(s): Lasix??; also available generically IMPORTANT WARNING: Furosemide is a strong diuretic ('water pill') and may cause dehydration and electrolyte imbalance.It is important that you take it exactly as told by your doctor. If you experience any of the following symptoms, call your doctor immediately: decreased urination; dry mouth; thirst; nausea; vomiting; weakness; drowsiness; confusion; muscle pain or cramps; or rapid or pounding heartbeats. WHY is this medicine prescribed? Furosemide is used alone or in combination with other medications to treat high blood pressure. Furosemide is used to treat edema (fluid retention; excess fluid held in body tissues) caused by various medical problems, including heart, kidney, and liver disease. Furosemide is in a class of medications called diuretics ('water pills'). It works by causing the kidneys to get rid of unneeded water and salt from the body into the urine. High blood pressure is a common condition and when not treated, can cause damage to the brain, heart, blood vessels, kidneys and other parts of the body. Damage to these organs may cause heart disease, a heart attack, heart failure, stroke, kidney failure, loss of vision, and other problems. In addition to taking medication, making lifestyle changes will also help to control your blood pressure. These changes include eating a diet that is low in fat and salt, maintaining a healthy weight, exercising at least 30 minutes most days, not smoking, and using alcohol in moderation. HOW should this medicine be used? Furosemide comes as a tablet and as a solution (liquid) to take by mouth. It usually is taken once or twice a day. When used to treat edema, furosemide may be taken daily or only on certain days of the week. When used to treat hypertension, take furosemide around the same time(s) every day. Follow the directions on your prescription label carefully, and ask your doctor or pharmacist to explain any part you do not understand. Take furosemide exactly as directed. Do not take more or less of it ortake it more often than prescribed by your doctor. Furosemide controls high blood pressure and edema but does not cure these conditions. Continue to take furosemide even if you feel well. Do not stop taking furosemide without talking to your doctor. Are there OTHER USES for this medicine? This medicine is sometimes prescribed for other uses; ask your doctor or pharmacist for more information. What SPECIAL PRECAUTIONS should I follow? Before taking furosemide, ??? tell your doctor and pharmacist if you are allergic to furosemide, sulfonamide medications, anyother medications, or any of the ingredients in furosemide tablets or solution. Ask your pharmacistor check the patient information for a list of the ingredients. ??? tell your doctor and pharmacist what prescription and nonprescription medications, vitamins, nutritional supplements, and herbal products you are taking or plan to take. Be sure to mention any of the following: aminoglycoside antibiotics such as amikacin, gentamicin (Garamycin), or tobramycin (Bethkis, Darien); angiotensin-converting enzyme (LINH) inhibitors such as benazepril (Lotensin, in Lotrel), captopril (Capoten), fosinopril, lisinopril (in Prinzide, in Zestoretic), moexipril (Univasc, in Uniretic), perindopril (Aceon), quinapril (Accupril, in Accuretic), ramipril (Altace), and trandolapril (Mavik, in Tarka); angiotensinII receptor antagonists (ARB) such as azilsartan (Edarbi, Edarbyclor), candesartan (Atacand, in Atacand HCT), eprosartan (Teveten, in Teveten HCT), irbesartan (Avapro, in Avalide), losartan (Cozaar, in Hyzaar), olmesartan (Benicar, in Sabrina, Benicar HCT), telmisartan (Micardis, in Micardis HCT), andvalsartan (Diovan, in Diovan HCT, Exforge); aspirin and other salicylates; barbiturates such as phenobarbital and secobarbital (Seconal); corticosteroids such as betamethasone (Celestone), budesonide(Entocort), cortisone (Cortone), dexamethasone (Decadron, Dexpak, Dexasone, others), fludrocortisone (Floriner), hydrocortisone (Cortef, Hydrocortone), methylprednisolone (Medrol, Meprolone, others),prednisolone (Prelone, others), prednisone (Deltasone, Meticorten, Sterapred, others), and triamcinolone (Aristocort, Azmacort); cisplatin (Platinol); cyclosporine (Gengraf, Neoral, Sandimmune); digoxin (Lanoxin), ethacrynic acid (Edecrin); indomethacin (Indocin); laxatives; lithium (Lithobid); medications for diabetes, high blood pressure and pain; methotrexate (Trexall); probenecid (Probalan, Pr obenemid); and phenytoin (Dilantin, Phenytek). Your doctor may need to change the doses of your medications or monitor you carefully for side effects. ??? if you are taking sucralfate (Carafate), take it 2 hours before or after you take furosemide. ??? tell your doctor if you have kidney disease. Your doctor may tell you not to take furosemide. ??? tell your doctor if you have or have ever had any condition that stops your bladder from emptying completely, diabetes, gout, systemic lupus erythematosus (SLE, a chronic inflammatory condition), or liver disease. ??? tell your doctor if you are , plan to become , or are breast-feeding. Do not breast-feed while taking this medicine. If you become while taking furosemide, call your doctor. ??? if you are having surgery, tell the doctor that you are using furosemide. ??? plan to avoid unnecessary or prolonged exposure to sunlight and to wear protective clothing, sunglasses, and sunscreen. Furosemide may make your skinsensitive to sunlight. ??? you should know that furosemide may cause dizziness, lightheadedness, and fainting when you get up too quickly from a lying position. This is more common when you first start taking furosemide. To avoid this problem, get out of bed slowly, resting your feet on the floor for a few minutes before standing up. Alcohol can add to these side effects. What SPECIAL DIETARY instructions should I follow? If your doctor prescribes a low-salt or low-sodium diet, or to eat or drink increased amounts of potassium-rich foods (e.g., bananas, prunes, raisins, and orange juice) in your diet, follow these instructions carefully. What should I do IF I FORGET to take a dose? Take the missed dose as soon as you remember it. However, if it is almost time for your next dose, skip the missed dose and continue your regular dosing schedule. Do not take a double dose to make upfor a missed one. What SIDE EFFECTS can this medicine cause? Tell your doctor if any of these symptoms are severe or do not go away: ??? frequent urination ??? blurred vision ??? headache ??? constipation ??? diarrhea ??? Some side effects can be serious. If you have any of these symptoms or those listed in the IMPORTANT WARNINGS section, call your doctor immediately or seek emergency medical treatment: ??? fever ??? ringing in the ears ??? loss of hearing ??? rash ??? hives ??? blisters or peeling skin ??? itching ??? difficulty breathing or swallowing ??? yellowing of the skin or eyes If you experience a serious side effect, you or your doctor may send a report to the Food and Drug Administration's (FDA) MedWatch Adverse Event Reporting program online (http://www.fda.gov/Safety/MedWatch) or by phone ( ). What should I know about STORAGE and DISPOSAL of this medication? Keep this medicine in the container it came in, tightly closed, and out of reach of children. Storeit at room temperature and away from excess heat and moisture (not in the bathroom). Dispose of unused furosemide solution after 90 days. It is important to keep all medication out of sight and reach of children as many containers (such as weekly pill minders and those for eye drops, creams, patches, and inhalers) are not child-resistant and young children can open them easily. To protect young children from poisoning, always lock safety caps and immediately place the medication in a safe location ??? one that is up and away and out of their sight and reach. http://www.mig33ndFoneshow.org Unneeded medications should be disposed of in special ways to ensure that pets, children, and otherpeople cannot consume them. However, you should not flush this medication down the toilet. Instead,the best way to dispose of your medication is through a medicine take-back program. Talk to your pharmacist or contact your local garbage/recycling department to learn about take-back programs in your community. See the FDA's Safe Disposal of Medicines website (http://goo.gl/c4Rm4p) for more information if you do not have access to a take- back program. What should I do in case of OVERDOSE? In case of overdose, call the poison control helpline at . Information is also available online at https://www.poisonhelp.org/help. If the victim has collapsed, had a seizure, has trouble breathing, or can't be awakened, immediately call emergency services at 911. Symptoms of overdose may include: ??? extreme thirst ??? dry mouth ??? dizziness ??? confusion ??? extreme tiredness ??? vomiting ???stomach cramps What OTHER INFORMATION should I know? Keep all appointments with your doctor and the laboratory. Your blood pressure should be checked regularly, and blood tests should be done occasionally. Before having any laboratory test, tell your doctor and the laboratory personnel that you are taking furosemide. Do not let anyone else take your medicine. Ask your pharmacist any questions you have about refilling your prescription. It is important for you to keep a written list of all of the prescription and nonprescription (ikvi-[id number]) medicines you are taking, as well as any products such as vitamins, minerals, or otherdietary supplements. You should bring this list with you each time you visit a doctor or if you areadmitted to a hospital. It is also important information to carry with you in case of emergencies. This report on medications is for your information only, and is not considered individual patient advice. Because of the changing nature of drug information, please consult your physician or pharmacist about specific clinical use. The [employer] represents that the information provided hereunder was formulated with a reasonable standard of care, and in conformity with professional standards in the field. The [employer] makes no representations or warranties, express or implied, including, but not limited to, any implied warranty of merchantability and/or fitness for a particular purpose, with respect to such information and specifically disclaims all such warranties. Users are advised that decisions regarding drug therapy are complex medical decisions requiring the independent, informed decision of an appropriate health healthcare corporate account director, and the information is provided for informational purposes only. The entire monograph for a drug should be reviewed for a thorough understanding of the drug's actions, uses and side effects. The [employer] does not endorse or recommend the use of any drug.The information is not a substitute for medical care. AHFS?? Patient Medication Information???. ?? Copyright, 2023. The [employer]??, [address], [address], [place], [place]. All Rights Reserved. Duplication for commercial use must be authorized by [facility]. Selected Revisions: July 27, 2017. AHFS?? Patient Medication Information???. ?? Copyright, 2023 ?? * Silver GEE, Ivett Lara: PERFORM Event Display: Patient Education Leaflets Authored Date: [id number] Understanding Hepatic Encephalopathy (HE) ?? 40123 Understanding Hepatic Encephalopathy (HE) Hepatic encephalopathy (HE) is a brain disease that occurs when toxins that are normally cleared bythe liver build up in the brain. It happens more in people with the liver disease cirrhosis. It cancause mild symptoms that are hard to notice. But over time, it may cause symptoms such as memory changes and confusion. But symptoms can go away if HE is treated early. How to say it [id number] ?? What causes hepatic encephalopathy? Researchers don???t know all the reasons HE happens. But they know HE is caused by toxins that stayin the body too long. These are normally cleared out of the body by the liver. But when the liver doesn???t work normally, these harmful substances stay in the blood and travel to the brain. This leads to damage in the brain. It can also cause swelling and pressure in the brain. You're more at risk for HE if you have any of these: ??? Damaged and scarred liver (cirrhosis) ??? Sudden liver failure from an infection or other cause??? Chronic liver disease. This can be from alcohol- related liver disease or non-alcoholic fatty liver disease (NAFLD). ??? Portosystemic shunt. This happens when circulating blood bypasses the liver. It's also called a liver shunt. The liver normally removes toxins from the blood. But with a livershunt, toxins build up in the blood and aren't cleared from the body. A liver shunt can be present at or can happen later. If you have liver disease, the symptoms of HE can happen suddenly if you have any of these: ??? Bleeding in the stomach or intestines ??? Constipation ??? Fluid loss (dehydration) ??? Infection ??? Use of sleep medicines ??? Use of antidepressant medicines ??? Surgery ?? Symptoms of hepatic encephalopathy HE may happen slowly over time if you have liver disease. The symptoms may be mild at first, and come and go. HE can cause symptoms such as: ??? Mood changes ??? Trouble sleeping ??? Trouble paying attention ??? Memory problems In severe cases, HE can cause: ??? Low energy and tiredness (lethargy) ??? Slurred speech ??? Confusion ??? Severe anxiety ??? Trouble thinking ??? Trouble doing physical tasks ??? Impulsive behavior??? Shaking of hands or arms (called flapping) ?? Diagnosing hepatic encephalopathy Your healthcare provider will ask about your symptoms and health history. They'll ask if you've been exposed to medicines or toxins that cause HE. You may have tests such as: ??? Blood tests. These check for infection and low liver function. ??? Urine tests. These look for infection and how well your kidneys are working. ??? Paracentesis. This is a procedure where a small needle is used to removeextra fluid from your belly (abdomen). The fluid may be tested for infection. ??? Imaging tests of the brain. An MRI or CT scan of the brain may be done. This is to see if your symptoms are caused bya different problem in the brain, such as a tumor. ??? Electroencephalogram (EEG). This test looks at the electrical activity in the brain. ?? Treatment for hepatic encephalopathy Treatment will depend on your symptoms, your age, and your general health. It will also depend on how severe the condition is, and what's causing your HE. Your treatment may include: ??? Medicine to treat infection ??? Medicine to control bleeding ??? Stopping medicines that may cause symptoms ??? Antibiotics and lactulose, which can help fewer toxins be absorbed in your gut ??? Treating kidney problems Talk with your healthcare providers about the risks, benefits, and possible side effects of all medicines. ?? Possible complications of hepatic encephalopathy Untreated, HE can lead to coma and . ?? When to call your healthcare provider Call your healthcare provider if you have any of the following: ??? Fever of 100.4??F (38??C) or higher, or as directed by your provider ??? Symptoms that don???t get better, or that get worse ??? New symptoms ?? Last Reviewed Date: 2021 ?? [id number] [employer]. All rights reserved. This information is not intended as a substitute for professional medical care. Always follow your healthcare professional's instructions. ?? Patient Care team information Care Team Personnel Name: Carmella Zapata RN Position: [facility] RN Member Role: Primary Care Nurse Name: Ling Seo RN Position: S RN Member Role: Primary Care Nurse Name: Dahlia Garcia RN Position: S RN Member Role: Primary Care Nurse Name: Alana Kennedy RN Position: [facility] RN Member Role: Primary Care Nurse Name: Sierra Lara RN Position: [facility] AMB Nurse Member Role: Primary Care Nurse Name: Wendy Street RN Position: [facility] RN Member Role: Primary Care Nurse Name: Mary Guthrie NP Position: [facility] Associate Professional Member Role: Primary Care Nurse Address: Address: [address] [place] [id number] Name: Not on Staff, PCP Position: [facility] Physician (General Medicine) Member Role: PCP Name: Shoshana Best RN Position: [facility] RN Member Role: Primary Care Nurse Name: Salma Weldon RN Position: [facility] AMB Nurse Member Role: Primary Care Nurse Name: Penny Jason RN Position: [facility] RN Member Role: Primary Care Nurse Care Team Related Persons Name: DERRELL DANIELLE Address: [address] [place] [address] Name: ALBA HEARD Address: [address] [place] [address]
[2024-07-02 08:56] LABS: Ammonia 151 umol/L (13-55)
[2024-07-02] MEDS: Lactulose 20 GM/30 ML SOLUTION 30 GM PO ×2 (09:14→20:47)
[2024-07-02] MEDS: Furosemide 20 MG TABLET PO (09:14)
[2024-07-02] MEDS: 0.9 % Sodium Chloride Flush 3 ML SYRINGE IVFLUSH ×2 (09:14→23:20)
[2024-07-02] MEDS: rifAXIMin 550 MG TABLET PO ×2 (09:14→20:47)
[2024-07-02] MEDS: methADONE HCl 20 MG/2 ML ORAL.CONC 80 MG PO (09:15)
[2024-07-02 13:36] LABS: Blood Urea Nitrogen 14 mg/dL (9-16); Calcium 9.3 mg/dL (8.4-10.2); Creatinine Clr Calc Pharmacy 81.1; Estimated Glomerular Filt Rate > 60; Glucose Random 132 mg/dL (60-115)
[2024-07-02 13:46] LABS: Anion Gap 10 (12-20); Carbon Dioxide 25 mmol/L (22-29); Chloride 111 mmol/L (96-108); Potassium 3.8 mmol/L (3.3-5.1); Sodium 142 mmol/L (135-145)
[2024-07-02 15:20] VITALS: BP 109/61; PULSE 65; RESP 16; TEMP 36.3; O2SAT 93
--- NOTE | 2024-07-02 16:20 | HO.PM.IMPN ---
Subjective Subjective Date of Service: 07/02/24 Interval History: hepatic encepahlopathy Review of Systems has diarrhae ,multiple bm's as per patient/staff Physical Exam Vital Signs: Vital Signs: Last Vital Signs Temp 97.4 F 07/02/24 15:20 Pulse 65 07/02/24 15:20 Resp 16 07/02/24 15:20 BP 109/61 07/02/24 15:20 Pulse Ox 93 07/02/24 15:20 O2 Del Method Room Air 07/02/24 15:20 BMI result Body Mass Index 30.1 Appearance: Alert.? Oriented X3 .? cvs: rrr, [id number] , no murmur res: clear to auscultation ,no rhonchii or wheezing abd: no rebound or guarding ,nt, bs present. ext pulses present , no cyanosis . neuro: axo3 , nonfocal. Objective Data Active Medications Acetaminophen (Acetaminophen 325 Mg Tablet) 650 mg PO Q6H PRN PRN Reason: Pain, Mild (Pain Scale 1-3), fever or headache Last Admin: 07/02/24 05:15 Dose: 650 mg Documented By: VERONIKA Calcium Carbonate (Calcium Carbonate 750 Mg Tab.Chew) 750 mg PO Q4H PRN PRN Reason: Heartburn Furosemide (Furosemide 20 Mg Tablet) 20 mg PO Q48H KIRSTIE; Protocol Last Admin: 07/02/24 09:14 Dose: 20 mg Documented By: ELLA Lactulose (Lactulose 20 Gm/30 Ml Solution) 30 gm PO DAILY [facility] Last Admin: 07/02/24 09:14 Dose: 30 gm Documented By: ELLA Magnesium Hydroxide (Milk Of Magnesia 30 Ml Oral.Susp) 30 ml PO DAILY PRN PRN Reason: Constipation Melatonin (Melatonin 3 Mg Tablet) 6 mg PO BEDTIME PRN PRN Reason: Insomnia Last Admin: 07/01/24 22:06 Dose: 6 mg Documented By: VERONIKA Methadone HCl (Methadone Hcl 20 Mg/2 Ml Oral.Conc) 80 mg PO DAILY [facility] Last Admin: 07/02/24 09:15 Dose: 80 mg Documented By: ELLA Co-signed By: COTJEREMIAS Ondansetron HCl (Ondansetron Hcl 4 Mg/2 Ml Vial) 4 mg IVPUSH Q8H PRN PRN Reason: Nausea and Vomiting Rifaximin (Rifaximin 550 Mg Tablet) 550 mg PO BID [facility] Last Admin: 07/02/24 09:14 Dose: 550 mg Documented By: ELLA Sodium Chloride (0.9 % Sodium Chloride Flush 3 Ml Syringe) 3 ml IVFLUSH QSHIFT [facility] Last Admin: 07/02/24 09:14 Dose: 3 ml Documented By: ELLA Labs 07/01/24 04:24 07/02/24 11:52 Labs: Laboratory Results - last 24 hr 07/02/24 07/02/24 08:27 11:52 Anion Gap 10 L Estim Creat Clear Calc 81.1 Estimated GFR > 60 Random Glucose 132 H Calcium 9.3 Ammonia 151 H Assessment and Plan (1) Acute hepatic encephalopathy: Status: Acute Assessment and Plan: 63-year-old female with pertinent history of opioid use disorder on methadone, alcoholic cirrhosis with varices, congestive heart failure unspecified EF, gastroesophageal reflux disease, mood disorder who was brought to the emergency department for evaluation of altered mentation. Acute hepatic encephalopathy grade 2/3 in a patient with alcoholic cirrhosis: goal bm's: 3-4 bowel movements per day. multiple bm's amonnia levels little improivng mental status improving , has diarrhae today continue lactulose Alcoholic cirrhosis with varices: Continue diuretics and nadolol. Lactulose as above Congestive heart failure, unspecified EF: No decompensation. Continue home diuretics Gastroesophageal reflux disease: On PPI Mood disorder: Hold home mood stabilizers until mentation improves Thrombocytopenia due to cirrhosis: Defer Lovenox Opioid use disorder on methadone DVT prophylaxis: SCDs . Full code ongoing hospital stay for monitoring of mentation, treatment of hepatic encephalopathy (as above), which is not possible in a lesser acute setting. Quality Stroke Does the patient have a stroke diagnosis?: No VTE Prior VTE?: No VTE Risk Level:: Medical - moderate - high VTE Device Contraindication: N/A - Device Ordered VTE Drug Contraindication: Treatment Not Indicated
[2024-07-02 19:22] VITALS: BP 100/60; PULSE 65; RESP 16; TEMP 36.3; O2SAT 100
[2024-07-02] MEDS: Melatonin 3 MG TABLET 6 MG PO (20:50)
[2024-07-02] MEDS: Zolpidem Tartrate 5 MG TABLET PO (23:37)
[2024-07-03 03:53] VITALS: BP 123/59; PULSE 71; RESP 16; TEMP 36.2; O2SAT 100
[2024-07-03 07:47] VITALS: BP 108/55; PULSE 69; RESP 16; TEMP 36.7; O2SAT 96
[2024-07-03] MEDS: rifAXIMin 550 MG TABLET PO ×2 (09:33→20:01)
[2024-07-03] MEDS: Lactulose 20 GM/30 ML SOLUTION 30 GM PO ×4 (09:34→20:01)
[2024-07-03] MEDS: methADONE HCl 20 MG/2 ML ORAL.CONC 80 MG PO (09:37)
[2024-07-03] MEDS: 0.9 % Sodium Chloride Flush 3 ML SYRINGE IVFLUSH ×3 (09:40→20:02)
--- NOTE | 2024-07-03 12:06 | P.CNGI_ITS ---
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 Patient was brought in by her daughter after she was noted to have bizarre behaviors such as going to a different house visit of coming to her own home. Patient also reports significant discomfort in her legs due to swelling. Workup so far significant for mild leukopenia, thrombocytopenia. INR 1.3, kidney function at baseline, CT abdomen and pelvis shows cirrhosis with splenomegaly but no ascites. She does have generalized anasarca. Review of Systems 2 Review of Systems: Yes Unobtainable due to mental status PMFSH Past Medical History Medical History (Updated 07/03/24 @ 15:57 by Vera Christian MD) Splenomegaly Iron deficiency anemia Alcohol use disorder, moderate, in early remission, dependence Cirrhosis, alcoholic Obesity (BMI 30-39.9) Smoker History of substance abuse Hemorrhoids Constipation Lumbar back pain with radiculopathy affecting right lower extremity Family History Family History Father No problems noted. Mother Active asthma Surgical History Surgical History History of tubal ligation Hx of hemorrhoidectomy H/O: hysterectomy Social History Social History Household Members: None Housing: House Are you a primary intensive care anaesthetist to a significant other at home: No Do you presently have visiting nurse or other home services: No Alcohol intake: current Alcohol intake frequency: holidays/special occasions only Patient Tobacco Use Status: Current someday Tobacco user Tobacco use type: Cigarette e-Cigarette/Vaping Use: Never Used Second Hand Smoke Exposure: No Substance Use Type: Former Substance User Advance Directives Date on File: 04/08/22 service: No Current occupational status: unemployed 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 Cognitive needs: No Hearing needs: No Vision needs: No Meds Allergies Allergy/AdvReac Type Severity Reaction Status Date / Time Iodinated Contrast Media Allergy Intermediate blood in Verified 06/30/24 21:18 urine Shellfish Allergy Unknown Hives Uncoded 06/30/24 21:18 Active Medications: Current Medications Acetaminophen (Acetaminophen 325 Mg Tablet) 650 mg PO Q6H PRN PRN Reason: Pain, Mild (Pain Scale 1-3), fever or headache Last Admin: 07/02/24 05:15 Dose: 650 mg Calcium Carbonate (Calcium Carbonate 750 Mg Tab.Chew) 750 mg PO Q4H PRN PRN Reason: Heartburn Furosemide (Furosemide 20 Mg Tablet) 20 mg PO Q48H [facility]; Protocol Last Admin: 07/02/24 09:14 Dose: 20 mg Lactulose (Lactulose 20 Gm/30 Ml Solution) 30 gm PO TID [facility] Last Admin: 07/03/24 09:34 Dose: 30 gm Magnesium Hydroxide (Milk Of Magnesia 30 Ml Oral.Susp) 30 ml PO DAILY PRN PRN Reason: Constipation Melatonin (Melatonin 3 Mg Tablet) 6 mg PO BEDTIME PRN PRN Reason: Insomnia Last Admin: 07/02/24 20:50 Dose: 6 mg Methadone HCl (Methadone Hcl 20 Mg/2 Ml Oral.Conc) 80 mg PO DAILY [facility] Last Admin: 07/03/24 09:37 Dose: 80 mg Ondansetron HCl (Ondansetron Hcl 4 Mg/2 Ml Vial) 4 mg IVPUSH Q8H PRN PRN Reason: Nausea and Vomiting Rifaximin (Rifaximin 550 Mg Tablet) 550 mg PO BID [facility] Last Admin: 07/03/24 09:33 Dose: 550 mg Sodium Chloride (0.9 % Sodium Chloride Flush 3 Ml Syringe) 3 ml IVFLUSH QSHIFT [facility] Last Admin: 07/03/24 09:40 Dose: 3 ml Home Medications ?Medication ?Instructions ?Recorded ?Confirmed ?Last Taken ?Type methadone 10 mg/mL oral concentrate 80 mg PO DAILY 04/09/22 07/01/24 06/30/24 14:00 History furosemide 20 mg tablet 20 mg PO Q48H 07/01/24 07/01/24 06/30/24 History lactulose 20 gram/30 mL oral 20 g PO BID 07/01/24 07/01/24 06/30/24 History solution rifaximin 550 mg tablet (Xifaxan) 550 mg PO BID 07/01/24 07/01/24 06/30/24 History Physical Exam 2 Vital Signs: Vital Signs: Last Vital Signs Temp 98.0 F 07/03/24 07:47 Pulse 69 07/03/24 07:47 Resp 16 07/03/24 07:47 BP 108/55 L 07/03/24 07:47 Pulse Ox 96 07/03/24 07:47 O2 Del Method Room Air 07/03/24 07:47 BMI result Body Mass Index 30.1 Frail female, appears older than stated age Disheveled Abdomen soft, mildly distended, nontender No overt respiratory distress Diffuse +3 pitting edema up until mid thighs Alert and oriented x2, asterixis +++ Results Labs 07/01/24 04:24 07/02/24 11:52 Labs: BMP 07/02/24 11:52 Sodium 142 Potassium 3.8 D Chloride 111 H Carbon Dioxide 25 BUN 14 Creatinine 0.77 Calcium 9.3 Assessment and Plan (1) Hepatic encephalopathy: Status: Acute (2) Cirrhosis, alcoholic: Status: Acute (3) History of substance abuse: Status: Acute (4) Peripheral edema: Status: Acute Plan Decompensated etOH and HCV cirrhosis - MELD-Na 13 - Encephalopathy - Generalized anasarca Encephalopathy appears to be multifactorial, toxic versus metabolic versus hepatic. Will need further evaluation as below. In addition, also recommend evaluation for generalized anasarca and to rule out cardiogenic causes. UA without proteinuria. Plan: -check blood cultures x2 -chest x-ray -consider CT head to rule out delayed bleeding -ultrasound abdomen with Doppler to rule out portal venous thrombosis -continue lactulose 30 g 3 to 4 times a day for goal 2-3 bowel movements -continue rifaximin 550 b.i.d. -add zinc supplementation -add protein shakes -check echo -consider increasing furosemide to 40 mg and add Aldactone 100 mg p.o. daily -check HCV RNA Thank you for allowing me to participate in her care. Please do not hesitate to reach out for any questions or concerns Procedures Date of Service Date of Service: 07/03/24
[2024-07-03 12:19] LABS: Ammonia 144 umol/L (13-55)
[2024-07-03 15:29] VITALS: BP 125/61; PULSE 67; RESP 18; TEMP 36.4; O2SAT 99
--- NOTE | 2024-07-03 16:26 | HO.PM.IMPN ---
Subjective Subjective Date of Service: 07/03/24 Interval History: heaptic encephalopathy Review of Systems menatal status improving has 1 bm today sofar as per staff ,added extra lactulose Physical Exam Vital Signs: Vital Signs: Last Vital Signs Temp 97.6 F 07/03/24 15:29 Pulse 67 07/03/24 15:29 Resp 18 07/03/24 15:29 BP 125/61 07/03/24 15:29 Pulse Ox 99 07/03/24 15:29 O2 Del Method Room Air 07/03/24 15:29 BMI result Body Mass Index 30.1 Appearance: Alert.? Oriented X3 .? cvs: rrr, [id number] , no murmur res: clear to auscultation ,no rhonchii or wheezing abd: no rebound or guarding ,nt, bs present. ext pulses present , no cyanosis . neuro: axo3 , nonfocal. Objective Data Active Medications Acetaminophen (Acetaminophen 325 Mg Tablet) 650 mg PO Q6H PRN PRN Reason: Pain, Mild (Pain Scale 1-3), fever or headache Last Admin: 07/02/24 05:15 Dose: 650 mg Documented By: ASHANTIILFlorida Calcium Carbonate (Calcium Carbonate 750 Mg Tab.Chew) 750 mg PO Q4H PRN PRN Reason: Heartburn Furosemide (Furosemide 20 Mg Tablet) 20 mg PO Q48H [facility]; Protocol Last Admin: 07/02/24 09:14 Dose: 20 mg Documented By: ELLA Lactulose (Lactulose 20 Gm/30 Ml Solution) 30 gm PO TID [facility] Last Admin: 07/03/24 15:01 Dose: 30 gm Documented By: DIVYA Magnesium Hydroxide (Milk Of Magnesia 30 Ml Oral.Susp) 30 ml PO DAILY PRN PRN Reason: Constipation Melatonin (Melatonin 3 Mg Tablet) 6 mg PO BEDTIME PRN PRN Reason: Insomnia Last Admin: 07/02/24 20:50 Dose: 6 mg Documented By: TUMASY Methadone HCl (Methadone Hcl 20 Mg/2 Ml Oral.Conc) 80 mg PO DAILY [facility] Last Admin: 07/03/24 09:37 Dose: 80 mg Documented By: DIVYA Co-signed By: SHAGGY Ondansetron HCl (Ondansetron Hcl 4 Mg/2 Ml Vial) 4 mg IVPUSH Q8H PRN PRN Reason: Nausea and Vomiting Rifaximin (Rifaximin 550 Mg Tablet) 550 mg PO BID [facility] Last Admin: 07/03/24 09:33 Dose: 550 mg Documented By: DIVYA Sodium Chloride (0.9 % Sodium Chloride Flush 3 Ml Syringe) 3 ml IVFLUSH QSHIFT [facility] Last Admin: 07/03/24 15:02 Dose: 3 ml Documented By: DIVYA Labs 07/01/24 04:24 07/02/24 11:52 Labs: Laboratory Results - last 24 hr 07/03/24 12:03 Ammonia 144 H Assessment and Plan (1) Acute hepatic encephalopathy: Status: Acute Assessment and Plan: 63-year-old female with pertinent history of opioid use disorder on methadone, alcoholic cirrhosis with varices, congestive heart failure unspecified EF, gastroesophageal reflux disease, mood disorder who was brought to the emergency department for evaluation of altered mentation. Acute hepatic encephalopathy grade 2/3 in a patient with alcoholic cirrhosis: goal bm's: 3-4 bowel movements per day. multiple bm's amonnia levels little improivng mental status improving ,only 1 bm soafar ,added another dose lactulose continue lactulose Gi eval Alcoholic cirrhosis with varices: Continue diuretics and nadolol. Lactulose as above Congestive heart failure, unspecified EF: No decompensation. Continue home diuretics Gastroesophageal reflux disease: On PPI Mood disorder: Hold home mood stabilizers until mentation improves Thrombocytopenia due to cirrhosis: Defer Lovenox Opioid use disorder on methadone DVT prophylaxis: SCDs . Full code ongoing hospital stay for monitoring of mentation, treatment of hepatic encephalopathy (as above), which is not possible in a lesser acute setting. Quality Stroke Does the patient have a stroke diagnosis?: No VTE Prior VTE?: No VTE Risk Level:: Medical - moderate - high VTE Device Contraindication: N/A - Device Ordered VTE Drug Contraindication: Treatment Not Indicated
[2024-07-03 19:54] VITALS: BP 105/53; PULSE 67; RESP 20; TEMP 36.2; O2SAT 100
[2024-07-03] MEDS: Melatonin 3 MG TABLET 6 MG PO (20:01)
[2024-07-04 03:23] VITALS: BP 139/67; PULSE 76; RESP 18; TEMP 36.2; O2SAT 98
[2024-07-04 07:39] VITALS: BP 127/61; PULSE 69; RESP 16; TEMP 36.6; O2SAT 100
[2024-07-04 08:52] LABS: Ammonia 137 umol/L (13-55)
[2024-07-04 08:59] LABS: Anion Gap 8 (12-20); Blood Urea Nitrogen 13 mg/dL (9-16); Calcium 9.3 mg/dL (8.4-10.2); Carbon Dioxide 27 mmol/L (22-29); Chloride 112 mmol/L (96-108); Estimated Glomerular Filt Rate > 60; Glucose Random 101 mg/dL (60-115); Potassium 3.7 mmol/L (3.3-5.1); Sodium 143 mmol/L (135-145)
[2024-07-04] MEDS: rifAXIMin 550 MG TABLET PO ×2 (09:24→20:44)
[2024-07-04] MEDS: 0.9 % Sodium Chloride Flush 3 ML SYRINGE IVFLUSH ×3 (09:24→20:45)
[2024-07-04] MEDS: methADONE HCl 20 MG/2 ML ORAL.CONC 80 MG PO (09:42)
[2024-07-04 11:46] VITALS: BP 127/61; PULSE 69; O2SAT 100
[2024-07-04 15:09] VITALS: BP 109/59; PULSE 80; RESP 18; TEMP 36.5; O2SAT 100
--- NOTE | 2024-07-04 16:31 | P.PNIM_ITS ---
Subjective Subjective Date of Service: 07/04/24 Interval History: hepatic encephalopathy Review of Systems had multiple bm's overnight has 1 bm today , no fever or chills Physical Exam 2 Vital Signs: Vital Signs: Last Vital Signs Temp 97.7 F 07/04/24 15:09 Pulse 80 07/04/24 15:09 Resp 18 07/04/24 15:09 BP 109/59 L 07/04/24 15:09 Pulse Ox 100 07/04/24 15:09 O2 Del Method Room Air 07/04/24 07:39 BMI result Body Mass Index 30.1 Appearance: Alert.? Oriented 3 ,somewhat confused .? cvs: rrr, [id number] , no murmur res: clear to auscultation ,no rhonchii or wheezing abd: no rebound or guarding ,nt, bs present. ext pulses present , no cyanosis . neuro: axo3 , nonfocal. Objective Data Active Medications Acetaminophen (Acetaminophen 325 Mg Tablet) 650 mg PO Q6H PRN PRN Reason: Pain, Mild (Pain Scale 1-3), fever or headache Last Admin: 07/02/24 05:15 Dose: 650 mg Documented By: VERONIKA Calcium Carbonate (Calcium Carbonate 750 Mg Tab.Chew) 750 mg PO Q4H PRN PRN Reason: Heartburn Lactulose (Lactulose 20 Gm/30 Ml Solution) 30 gm PO BID [facility] Magnesium Hydroxide (Milk Of Magnesia 30 Ml Oral.Susp) 30 ml PO DAILY PRN PRN Reason: Constipation Melatonin (Melatonin 3 Mg Tablet) 6 mg PO BEDTIME PRN PRN Reason: Insomnia Last Admin: 07/03/24 20:01 Dose: 6 mg Documented By: AL Methadone HCl (Methadone Hcl 20 Mg/2 Ml Oral.Conc) 80 mg PO DAILY [facility] Last Admin: 07/04/24 09:42 Dose: 80 mg Documented By: RAMON Co-signed By: ELLA Ondansetron HCl (Ondansetron Hcl 4 Mg/2 Ml Vial) 4 mg IVPUSH Q8H PRN PRN Reason: Nausea and Vomiting Rifaximin (Rifaximin 550 Mg Tablet) 550 mg PO BID [facility] Last Admin: 07/04/24 09:24 Dose: 550 mg Documented By: RAMON Sodium Chloride (0.9 % Sodium Chloride Flush 3 Ml Syringe) 3 ml IVFLUSH QSHIFT [facility] Last Admin: 07/04/24 09:24 Dose: 3 ml Documented By: RAMON Labs 07/01/24 04:24 07/04/24 08:26 Labs: Laboratory Results - last 24 hr 07/04/24 08:26 Anion Gap 8 L Estim Creat Clear Calc 88.0 Estimated GFR > 60 Random Glucose 101 Calcium 9.3 Ammonia 137 H Assessment and Plan (1) Acute hepatic encephalopathy: Status: Acute Assessment and Plan: 63-year-old female with pertinent history of opioid use disorder on methadone, alcoholic cirrhosis with varices, congestive heart failure unspecified EF, gastroesophageal reflux disease, mood disorder who was brought to the emergency department for evaluation of altered mentation. Acute hepatic encephalopathy grade 2/3 in a patient with alcoholic cirrhosis: goal bm's: 3-4 bowel movements per day. multiple bm's amonnia levels little improivng mental status improving ,only 1 bm soafar ,added another dose lactulose continue lactulose-multiple bm , mental status and ammonia levels improving Alcoholic cirrhosis with varices: Continue diuretics and nadolol. Lactulose as above Congestive heart failure, unspecified EF: No decompensation. Continue home diuretics Gastroesophageal reflux disease: On PPI Mood disorder: Hold home mood stabilizers until mentation improves Thrombocytopenia due to cirrhosis: Defer Lovenox Opioid use disorder on methadone DVT prophylaxis: SCDs . Full code ongoing hospital stay for monitoring of mentation, treatment of hepatic encephalopathy (as above), which is not possible in a lesser acute setting. Quality Stroke Does the patient have a stroke diagnosis?: No VTE Prior VTE?: No VTE Risk Level:: Medical - moderate - high VTE Device Contraindication: N/A - Device Ordered VTE Drug Contraindication: Treatment Not Indicated
[2024-07-04 19:22] VITALS: BP 112/60; PULSE 66; RESP 16; TEMP 36.3; O2SAT 94
[2024-07-04] MEDS: Lactulose 20 GM/30 ML SOLUTION 30 GM PO (20:44)
--- NOTE | 2024-07-04 20:50 | MHC.PIE ---
p; pt refusing to take no more than one container of lactulose. note; ordered dose 30 mg each container contains 20 mg thus pt only took 20 mg i; dr aburto notified e; will cont to monitor
[2024-07-05] MEDS: Melatonin 3 MG TABLET 6 MG PO ×2 (00:45→21:32)
[2024-07-05 03:33] VITALS: BP 129/57; PULSE 88; RESP 16; TEMP 36; O2SAT 97
[2024-07-05 07:15] VITALS: BP 122/54; PULSE 68; RESP 16; TEMP 36.9; O2SAT 100
[2024-07-05] MEDS: rifAXIMin 550 MG TABLET PO ×2 (07:29→21:30)
[2024-07-05] MEDS: Lactulose 20 GM/30 ML SOLUTION 30 GM PO ×2 (07:29→21:35)
[2024-07-05] MEDS: 0.9 % Sodium Chloride Flush 3 ML SYRINGE IVFLUSH ×3 (07:29→21:29)
[2024-07-05] MEDS: methADONE HCl 20 MG/2 ML ORAL.CONC 80 MG PO (07:30)
--- NOTE | 2024-07-05 08:25 | MHC.CM.PN ---
CM MET WITH PT AND DAUGHTER, MARC, SEVERAL TIMES THROUGHOUT YESTERDAY DAUGHTER EXPRESSES CONCERN THAT PT MAY NEED STR PT ADAMANT SHE DOES NOT WANT STR PT NOTE SAYS HOME WITH SERVICES VS STR PT DID NOT HAVE A PCP, HOWEVER [facility] OFFICE HAS INDICATED THEY WILL SCHEDULE A POST DC APPT FOR 3-7 DAYS AFTER DC PER HOSPITALIST, PT WILL HAVE A COMPETENCY EVAL BEFORE DC
--- NOTE | 2024-07-05 13:01 | HO.PM.IMPN ---
Subjective Subjective Date of Service: 07/05/24 Interval History: hepatic encephalopathy Review of Systems seems similar denies any abd pain or nausea /vomiting Physical Exam Vital Signs: Vital Signs: Last Vital Signs Temp 98.6 F 07/05/24 07:15 Pulse 68 07/05/24 07:15 Resp 16 07/05/24 07:15 BP 106/54 L 07/05/24 07:15 Pulse Ox 100 07/05/24 07:15 O2 Del Method Room Air 07/05/24 07:15 BMI result Body Mass Index 30.1 Appearance: Alert.? Oriented 3 ,somewhat confused .? cvs: rrr, [id number] , no murmur res: clear to auscultation ,no rhonchii or wheezing abd: no rebound or guarding ,nt, bs present. ext pulses present , no cyanosis . neuro: axo3 , nonfocal. Objective Data Active Medications Acetaminophen (Acetaminophen 325 Mg Tablet) 650 mg PO Q6H PRN PRN Reason: Pain, Mild (Pain Scale 1-3), fever or headache Last Admin: 07/02/24 05:15 Dose: 650 mg Documented By: [place] Calcium Carbonate (Calcium Carbonate 750 Mg Tab.Chew) 750 mg PO Q4H PRN PRN Reason: Heartburn Lactulose (Lactulose 20 Gm/30 Ml Solution) 30 gm PO BID [facility] Last Admin: 07/05/24 07:29 Dose: 30 gm Documented By: MAGDIEL Magnesium Hydroxide (Milk Of Magnesia 30 Ml Oral.Susp) 30 ml PO DAILY PRN PRN Reason: Constipation Melatonin (Melatonin 3 Mg Tablet) 6 mg PO BEDTIME PRN PRN Reason: Insomnia Last Admin: 07/05/24 00:45 Dose: 6 mg Documented By: AL Methadone HCl (Methadone Hcl 20 Mg/2 Ml Oral.Conc) 80 mg PO DAILY [facility] Last Admin: 07/05/24 07:30 Dose: 80 mg Documented By: MAGDIEL Co-signed By: COTJEREMIAS Ondansetron HCl (Ondansetron Hcl 4 Mg/2 Ml Vial) 4 mg IVPUSH Q8H PRN PRN Reason: Nausea and Vomiting Rifaximin (Rifaximin 550 Mg Tablet) 550 mg PO BID [facility] Last Admin: 07/05/24 07:29 Dose: 550 mg Documented By: MAGDIEL Sodium Chloride (0.9 % Sodium Chloride Flush 3 Ml Syringe) 3 ml IVFLUSH QSHIFT [facility] Last Admin: 07/05/24 07:29 Dose: 3 ml Documented By: MAGDIEL Labs 07/01/24 04:24 07/04/24 08:26 Assessment and Plan (1) Acute hepatic encephalopathy: Status: Acute Assessment and Plan: 63-year-old female with pertinent history of opioid use disorder on methadone, alcoholic cirrhosis with varices, congestive heart failure unspecified EF, gastroesophageal reflux disease, mood disorder who was brought to the emergency department for evaluation of altered mentation. Acute hepatic encephalopathy grade 2/3 in a patient with alcoholic cirrhosis: goal bm's: 3-4 bowel movements per day. multiple bm's amonnia levels little improivng mental status improving ,had 2 bm's overnight continue lactulose-multiple bm , mental status and ammonia levels improving Alcoholic cirrhosis with varices: Continue diuretics and nadolol. Lactulose as above Congestive heart failure, unspecified EF: No decompensation. Continue home diuretics Gastroesophageal reflux disease: On PPI Mood disorder: Hold home mood stabilizers until mentation improves Thrombocytopenia due to cirrhosis: Defer Lovenox Opioid use disorder on methadone DVT prophylaxis: SCDs . Full code ongoing hospital stay for monitoring of mentation, treatment of hepatic encephalopathy (as above), which is not possible in a lesser acute setting. Quality Stroke Does the patient have a stroke diagnosis?: No VTE Prior VTE?: No VTE Risk Level:: Medical - moderate - high VTE Device Contraindication: N/A - Device Ordered VTE Drug Contraindication: Treatment Not Indicated
--- NOTE | 2024-07-05 13:48 | P.CNPS_ITS ---
History of Present Illness Date of Service: 07/05/2024 Chief Complaint: AMS Reason for Consult: Patient with recent elevated Ammonia from hepatic encephalitis- Hx falls 2 wks ago - one involved black eye and 2nd involved stitches. Now presented when daughter found her at home confused- Pt wants to go home, refusing rehab referral - At first was not able to tell me what brought her in cervical was too high (was referring to dr telling her platlets were too high) Does know she has hepatitis and needs to take medicine bid for this Would agree to VNA referral and tid dosing if indicated of lactulose- Pt more clear today than yesterday- Advise she stay 2 more days for dc planning to home with coordination with daugther checking on her daily - and vna around tid dosing of lactulose to further facilitate treatment if possible If this plan fails may need [facility] care - where she can be supervised. I called the daugther and she said this sounded possible- and was relieved to hear her MS had improved. Pt was A o x3 (june) Requesting physician: Humaira Aguirre Discussed with referring provider: Yes Sources of Information: patient interviewed and chart reviewed Additional Sources of Information: call with daugther HPI Narrative: see above Daughter reports no ETOH since dx with kidney /liver problems Past Psychiatric History: no Medical Evaluation Reviewed: Yes Provider concerned if patient able to be consistent at home with medications given her last falls 2 wks ago and now confusion- Personal & Social History: supportive daugther ( and ? 2 daughters who are caring for patient's dog) [facility], [facility] Medical History (Updated 07/03/24 @ 15:57 by Vera Christian MD) Splenomegaly Iron deficiency anemia Alcohol use disorder, moderate, in early remission, dependence Cirrhosis, alcoholic Obesity (BMI 30-39.9) Smoker History of substance abuse Hemorrhoids Constipation Lumbar back pain with radiculopathy affecting right lower extremity Surgical History History of tubal ligation Hx of hemorrhoidectomy H/O: hysterectomy Narrative: ? of self care at home- maybe OT eval - for home safety before dc- otherwise rehab check with family re HCP ? Family History: NA Social History: lives alone with dog , family closely involved Substance History: hx on methadone maintence, hx etoh sober since dx of hep c/liver failure Trauma History: not reviewed on this visit Diagnostics Vital Signs (24Hr): Vital Signs - 24 hr 07/04/24 15:09 07/04/24 19:22 07/05/24 03:33 Temperature 97.7 F 97.3 F 96.8 F Pulse Rate 80 66 88 Respiratory Rate 18 16 16 Blood Pressure 109/59 L 112/60 129/57 L Pulse Oximetry 100 94 97 Oxygen Delivery Method Room Air Room Air 07/05/24 07:15 Temperature 98.6 F Pulse Rate 68 Respiratory Rate 16 Blood Pressure 106/54 L Pulse Oximetry 100 Oxygen Delivery Method Room Air BMI result Body Mass Index 30.1 Labs 07/01/24 04:24 07/04/24 08:26 Labs: Laboratory Results - last 48 hr 07/04/24 08:26 Sodium 143 Potassium 3.7 Chloride 112 H Carbon Dioxide 27 Anion Gap 8 L BUN 13 Creatinine 0.71 Estim Creat Clear Calc 88.0 Estimated GFR > 60 Random Glucose 101 Calcium 9.3 Ammonia 137 H Imaging Radiology Impressions: ITS Impressions Abdomen/Pelvis CT 07/01/24 00:25 IMPRESSION: 1. Cirrhosis with sequela of portal hypertension including splenomegaly and portosystemic collaterals. No ascites. 2. Anasarca. 3. Mild bronchial wall thickening in the lower lobes with associated patchy foci of groundglass attenuation. This may correspond to an expiratory study, though a superimposed infectious or inflammatory process remains possible. Fleischner guidelines were followed. Mental Status Exam Mental Status Exam Patient Appearance: Appropriate Patient Orientation: Person, Place, Time (mostly) and Situation Level of Consciousness: Awake and Appropriate Patient Behavior: Talkative, Cooperative and Resistive to Care (with hospitalist around wanting her to go to rehab) Behavior Comments: wants to go home agreeable to home help (if this is possible) Mood Description: Calm and Labile (over last few days while confused- still mild confusion) Affect Description: Calm Patient Cognition Impaired: Yes Ability to Follow Directions: Fair Speech Pattern: Difficulty Finding Words (some words still ) and Poor Articulation Memory Description: Episodic Impaired Hallucinations: None Delusions: Not Present Thought Process: Intact and Confusion (mildly around platlets vs 'cervical vs ammonia lvl) Thought Content: positive for Goal Oriented and positive for Perseveration (about going home) Abnormal Motor Activity Signs and Symptoms: Restlessness Judgement: Fair (to poor- but clearer today than yesterday) Medications Medications Current Medications Acetaminophen (Acetaminophen 325 Mg Tablet) 650 mg PO Q6H PRN PRN Reason: Pain, Mild (Pain Scale 1-3), fever or headache Last Admin: 07/02/24 05:15 Dose: 650 mg Calcium Carbonate (Calcium Carbonate 750 Mg Tab.Chew) 750 mg PO Q4H PRN PRN Reason: Heartburn Lactulose (Lactulose 20 Gm/30 Ml Solution) 30 gm PO BID [facility] Last Admin: 07/05/24 07:29 Dose: 30 gm Magnesium Hydroxide (Milk Of Magnesia 30 Ml Oral.Susp) 30 ml PO DAILY PRN PRN Reason: Constipation Melatonin (Melatonin 3 Mg Tablet) 6 mg PO BEDTIME PRN PRN Reason: Insomnia Last Admin: 07/05/24 00:45 Dose: 6 mg Methadone HCl (Methadone Hcl 20 Mg/2 Ml Oral.Conc) 80 mg PO DAILY [facility] Last Admin: 07/05/24 07:30 Dose: 80 mg Ondansetron HCl (Ondansetron Hcl 4 Mg/2 Ml Vial) 4 mg IVPUSH Q8H PRN PRN Reason: Nausea and Vomiting Rifaximin (Rifaximin 550 Mg Tablet) 550 mg PO BID [facility] Last Admin: 07/05/24 07:29 Dose: 550 mg Sodium Chloride (0.9 % Sodium Chloride Flush 3 Ml Syringe) 3 ml IVFLUSH QSHIFT [facility] Last Admin: 07/05/24 07:29 Dose: 3 ml Allergies Allergies Allergy/AdvReac Type Severity Reaction Status Date / Time Iodinated Contrast Media Allergy Intermediate blood in Verified 06/30/24 21:18 urine Shellfish Allergy Unknown Hives Uncoded 06/30/24 21:18 Assessment & Plan Assessment & Plan (1) Peripheral edema: Status: Acute Code(s): R60.0 - Localized edema Assessment and Plan: knows this is due to her liver (2) Cirrhosis, alcoholic: Status: Acute Code(s): K70.30 - Alcoholic cirrhosis of liver without ascites Assessment and Plan: also hep c - not currently drinking (3) Acute hepatic encephalopathy: Status: Acute Code(s): K76.82 - Hepatic encephalopathy Assessment and Plan: ammonia elevation with confusion suggest hold her 2 more days- get OT eval IF safe to be at home see what services can be put in home , home PT and VNA? will follow with you - seems fairly clear enough mentally right now- but hospitalist point taken that she fell x 2 in last month- not clear supports were put in place at home to see if that could make things work has supportive family who are aware of my thoughts on this. Plan OT assessment- home PT and VNA referral - hold for better mental clearance in next few days will follow with you Total time managing care of this patient today ____ minutes. Patient educated on: diagnosis, medication risk/benefits, medical condition and other (discussed alternative potential options to rehab is agreeable to help in home) Guardian/Caregiver educated on: diagnosis, medical condition and other (potential dc planning options) Informed Consent: understands (seems to understand- but earlier was requesting dc to home today)
[2024-07-05] MEDS: LORazepam 0.5 MG TABLET PO (15:52)
[2024-07-05 16:00] VITALS: BP 124/61; PULSE 69; RESP 18; TEMP 36.2; O2SAT 100
[2024-07-05 19:31] VITALS: PULSE 84; RESP 18; TEMP 36.3; O2SAT 98
--- NOTE | 2024-07-05 23:42 | MHC.PIE ---
p; pt once again tonight refused to take no more than one container of lactulose - note; one container is 20mh , order is 30 mg. i; dr murphy made aware e; will cont to monitor
[2024-07-06] MEDS: LORazepam 0.5 MG TABLET PO (00:37)
--- NOTE | 2024-07-06 00:37 | PC.NURSE ---
p; pt anxious, restless, argumentative, demanding and crying. note; pt has been this way on and off during this hospitalization i; dr murphy notified; new order ativan po now e; will cont to monitor
[2024-07-06 04:00] VITALS: BP 118/59; PULSE 70; RESP 18; TEMP 36.3; O2SAT 97
[2024-07-06 07:49] VITALS: BP 93/52; PULSE 66; RESP 16; TEMP 36.2; O2SAT 99
[2024-07-06 09:15] VITALS: BP 130/61
[2024-07-06] MEDS: rifAXIMin 550 MG TABLET PO ×2 (09:15→20:45)
[2024-07-06] MEDS: Furosemide 20 MG TABLET PO (09:15)
[2024-07-06] MEDS: Lactulose 20 GM/30 ML SOLUTION 30 GM PO ×2 (09:15→14:58)
[2024-07-06] MEDS: Spironolactone 25 MG TABLET 12.5 MG PO (09:15)
[2024-07-06] MEDS: methADONE HCl 20 MG/2 ML ORAL.CONC 80 MG PO (09:16)
[2024-07-06] MEDS: 0.9 % Sodium Chloride Flush 3 ML SYRINGE IVFLUSH ×3 (09:17→20:45)
--- NOTE | 2024-07-06 11:11 | PC.NURSE ---
Addendum entered by Susi Dowell RN 07/06/24 19:06: Pts daughter brought vape pen home. Original Note: Purple vape pen found in bed with patient, pen locked on 4th floor locker room.
[2024-07-06] MEDS: Zinc Sulfate 220 MG CAPSULE PO (12:07)
--- NOTE | 2024-07-06 12:21 | P.PNIM_ITS ---
Subjective Subjective Date of Service: 07/06/24 Interval History: hepatic encepahlopathy Review of Systems mental status some improving still could not able to elborate plan of her management upon detailed questioning no fever or cough or abd pain Physical Exam 2 Vital Signs: Vital Signs: Last Vital Signs Temp 97.1 F 07/06/24 07:49 Pulse 66 07/06/24 07:49 Resp 16 07/06/24 07:49 BP 130/61 07/06/24 09:15 Pulse Ox 99 07/06/24 07:49 O2 Del Method Room Air 07/06/24 07:49 BMI result Body Mass Index 30.1 Appearance: Alert.? Oriented 3 ,somewhat confused .? cvs: rrr, [id number] , no murmur res: clear to auscultation ,no rhonchii or wheezing abd: no rebound or guarding ,nt, bs present. ext pulses present , no cyanosis . neuro: axo3 , nonfocal. Objective Data Active Medications Acetaminophen (Acetaminophen 325 Mg Tablet) 650 mg PO Q6H PRN PRN Reason: Pain, Mild (Pain Scale 1-3), fever or headache Last Admin: 07/02/24 05:15 Dose: 650 mg Documented By: [place] Calcium Carbonate (Calcium Carbonate 750 Mg Tab.Chew) 750 mg PO Q4H PRN PRN Reason: Heartburn Furosemide (Furosemide 20 Mg Tablet) 20 mg PO DAILY [facility]; Protocol Last Admin: 07/06/24 09:15 Dose: 20 mg Documented By: MAGDIEL Lactulose (Lactulose 20 Gm/30 Ml Solution) 30 gm PO TID [facility] Last Admin: 07/06/24 09:15 Dose: 30 gm Documented By: MAGDIEL Magnesium Hydroxide (Milk Of Magnesia 30 Ml Oral.Susp) 30 ml PO DAILY PRN PRN Reason: Constipation Melatonin (Melatonin 3 Mg Tablet) 6 mg PO BEDTIME PRN PRN Reason: Insomnia Last Admin: 07/05/24 21:32 Dose: 6 mg Documented By: AL Methadone HCl (Methadone Hcl 20 Mg/2 Ml Oral.Conc) 80 mg PO DAILY [facility] Last Admin: 07/06/24 09:16 Dose: 80 mg Documented By: MAGDIEL Co-signed By: SHAUN Ondansetron HCl (Ondansetron Hcl 4 Mg/2 Ml Vial) 4 mg IVPUSH Q8H PRN PRN Reason: Nausea and Vomiting Rifaximin (Rifaximin 550 Mg Tablet) 550 mg PO BID [facility] Last Admin: 07/06/24 09:15 Dose: 550 mg Documented By: MAGDIEL Sodium Chloride (0.9 % Sodium Chloride Flush 3 Ml Syringe) 3 ml IVFLUSH QSHIFT [facility] Last Admin: 07/06/24 09:17 Dose: 3 ml Documented By: MAGDIEL Spironolactone (Spironolactone 25 Mg Tablet) 12.5 mg PO BID@0900,1800 [facility]; Protocol Last Admin: 07/06/24 09:15 Dose: 12.5 mg Documented By: MAGDIEL Zinc Sulfate (Zinc Sulfate 220 Mg Capsule) 220 mg PO DAILY [facility] Last Admin: 07/06/24 12:07 Dose: 220 mg Documented By: MAGDIEL Labs 07/01/24 04:24 07/04/24 08:26 Assessment and Plan (1) Acute hepatic encephalopathy: Status: Acute Assessment and Plan: 63-year-old female with pertinent history of opioid use disorder on methadone, alcoholic cirrhosis with varices, congestive heart failure unspecified EF, gastroesophageal reflux disease, mood disorder who was brought to the emergency department for evaluation of altered mentation. Acute hepatic encephalopathy grade 2/3 in a patient with alcoholic cirrhosis: goal bm's: 3-4 bowel movements per day. ammonia levels little improivng mental status improving , continue to moniter bm's continue lactulose, mental status and ammonia levels improving she is still not able elborates about her care ,ademant to go home -seen by psych ( wait for Ot for safety eval) , psych -hold for better menatl clearence ,currently not cleared by psych. Alcoholic cirrhosis with varices: Continue diuretics and nadolol. Lactulose as above Congestive heart failure, unspecified EF: No decompensation. Continue home diuretics Gastroesophageal reflux disease: On PPI Mood disorder: Hold home mood stabilizers until mentation improves Thrombocytopenia due to cirrhosis: Defer Lovenox Opioid use disorder on methadone DVT prophylaxis: SCDs . Full code ongoing hospital stay for monitoring of mentation, treatment of hepatic encephalopathy (as above), which is not possible in a lesser acute setting. Quality Stroke Does the patient have a stroke diagnosis?: No VTE Prior VTE?: No VTE Risk Level:: Medical - moderate - high VTE Device Contraindication: N/A - Device Ordered VTE Drug Contraindication: Treatment Not Indicated
--- NOTE | 2024-07-06 12:42 | MHC.CM.PN ---
PER DR TOURE PT TO HAVE AN OT EVAL 07/07 ,REFERRALS MAXE TO VNAS ..DGTER ASKED AGAIN TO BRING IN HCP POSSIBLE REVAL BY PSYCH 07/07 WELL
--- NOTE | 2024-07-06 14:17 | PM.PSYCN ---
History of Present Illness Date of Service: 07/06/24 Chief Complaint: AMS Reason for Consult: Follow up on ? of competent to decide to leave- I feel that there is further evaluation we have to do to determine this- though she can not say what possible outcomes could be if she went home and failed to manage- We could possibly put some things in place that might make her more likely to continue to live independently- 1. OT eval to see if safe in home 2. PT could be at home if 1. checks out ok 3. VNA set up to help manage medications athome 4. Engage family in daily checks. Now failing Safety check with OT and IF patient still insistent on leaving- I would reassess to invoke HCP to make medical decision if she should go home/being aware of risks or go to rehab- She seems to be clearing daily and maybe she will be able to understand and repeat consequences/risks of dc without rehab- tomorrow- Requesting physician: Humaira Aguirre Discussed with referring provider: Yes Sources of Information: patient interviewed and chart reviewed Additional Sources of Information: nursing found vape in her things- pt angry about that and wanted to leave HPI Narrative: Patient became agitated today when nurse found vape pen in her room and confiscated- Pt claims just mad about about it , wasn't hers - her daugther's - But not feeling irritable with nurse- Fearful about not being dced home, feels home sick wants to be with her pet- Past Psychiatric History: none known clearing from ammonia increase, concern about falls 2 wks ago being related- worried about her self care at home Personal & Social History: has 2 daugthers involved nearly daily - [facility] Medical History (Updated 07/03/24 @ 15:57 by Vera Christian MD) Splenomegaly Iron deficiency anemia Alcohol use disorder, moderate, in early remission, dependence Cirrhosis, alcoholic Obesity (BMI 30-39.9) Smoker History of substance abuse Hemorrhoids Constipation Lumbar back pain with radiculopathy affecting right lower extremity Surgical History History of tubal ligation Hx of hemorrhoidectomy H/O: hysterectomy Family History: NA Social History: lives alone with dog , family closely involved Trauma History: not reviewed on this visit Diagnostics Vital Signs (24Hr): Vital Signs - 24 hr 07/05/24 16:00 07/05/24 19:31 07/06/24 04:00 Temperature 97.2 F 97.3 F 97.4 F Pulse Rate 69 84 70 Respiratory Rate 18 18 18 Blood Pressure 124/61 118/59 L Pulse Oximetry 100 98 97 Oxygen Delivery Method Room Air Room Air Room Air 07/06/24 07:49 07/06/24 09:15 07/06/24 09:15 Temperature 97.1 F Pulse Rate 66 Respiratory Rate 16 Blood Pressure 93/52 L 130/61 130/61 Pulse Oximetry 99 Oxygen Delivery Method Room Air BMI result Body Mass Index 30.1 Labs 07/01/24 04:24 07/04/24 08:26 Imaging Radiology Impressions: ITS Impressions Abdomen/Pelvis CT 07/01/24 00:25 IMPRESSION: 1. Cirrhosis with sequela of portal hypertension including splenomegaly and portosystemic collaterals. No ascites. 2. Anasarca. 3. Mild bronchial wall thickening in the lower lobes with associated patchy foci of groundglass attenuation. This may correspond to an expiratory study, though a superimposed infectious or inflammatory process remains possible. Fleischner guidelines were followed. Mental Status Exam Mental Status Exam Narrative: Tearful, A and 0x3, mild irritability with provider, regressed you promised which I had not- Even more labile with nurse and hospitalist- Patient Appearance: Unkempt Patient Orientation: Person, Place, Time and Situation Level of Consciousness: Awake Patient Behavior: Resistive to Care and Good Eye Contact Mood Description: Anxious and Apprehensive Affect Description: Labile Patient Cognition Impaired: Yes Ability to Follow Directions: Fair (-poor) Speech Pattern: Clear (mild slurring better today except when upset) Hallucinations: None Delusions: Not Present Thought Process: Intact, Rumination (about going home) and Goal Oriented Thought Content: positive for Perseveration Depressive Symptoms: Increased Anxiety and Increased Irritability Judgement: Fair (-poor) Medications Medications Current Medications Acetaminophen (Acetaminophen 325 Mg Tablet) 650 mg PO Q6H PRN PRN Reason: Pain, Mild (Pain Scale 1-3), fever or headache Last Admin: 07/02/24 05:15 Dose: 650 mg Calcium Carbonate (Calcium Carbonate 750 Mg Tab.Chew) 750 mg PO Q4H PRN PRN Reason: Heartburn Furosemide (Furosemide 20 Mg Tablet) 20 mg PO DAILY [facility]; Protocol Last Admin: 07/06/24 09:15 Dose: 20 mg Lactulose (Lactulose 20 Gm/30 Ml Solution) 30 gm PO TID [facility] Last Admin: 07/06/24 09:15 Dose: 30 gm Magnesium Hydroxide (Milk Of Magnesia 30 Ml Oral.Susp) 30 ml PO DAILY PRN PRN Reason: Constipation Melatonin (Melatonin 3 Mg Tablet) 6 mg PO BEDTIME PRN PRN Reason: Insomnia Last Admin: 07/05/24 21:32 Dose: 6 mg Methadone HCl (Methadone Hcl 20 Mg/2 Ml Oral.Conc) 80 mg PO DAILY [facility] Last Admin: 07/06/24 09:16 Dose: 80 mg Ondansetron HCl (Ondansetron Hcl 4 Mg/2 Ml Vial) 4 mg IVPUSH Q8H PRN PRN Reason: Nausea and Vomiting Rifaximin (Rifaximin 550 Mg Tablet) 550 mg PO BID [facility] Last Admin: 07/06/24 09:15 Dose: 550 mg Sodium Chloride (0.9 % Sodium Chloride Flush 3 Ml Syringe) 3 ml IVFLUSH QSHIFT [facility] Last Admin: 07/06/24 09:17 Dose: 3 ml Spironolactone (Spironolactone 25 Mg Tablet) 12.5 mg PO BID@0900,1800 [facility]; Protocol Last Admin: 07/06/24 09:15 Dose: 12.5 mg Zinc Sulfate (Zinc Sulfate 220 Mg Capsule) 220 mg PO DAILY [facility] Last Admin: 07/06/24 12:07 Dose: 220 mg Allergies Allergies Allergy/AdvReac Type Severity Reaction Status Date / Time Iodinated Contrast Media Allergy Intermediate blood in Verified 06/30/24 21:18 urine Shellfish Allergy Unknown Hives Uncoded 06/30/24 21:18 Assessment & Plan Assessment & Plan (1) Acute hepatic encephalopathy: Status: Acute Code(s): K76.82 - Hepatic encephalopathy Assessment and Plan: given encephalopathy and unclearness to this provider if she is really capable of caring for herself at home-= suggest OT eval for safety FAmily meeting of Casemanager with brittaney re HCP and if they have concerns about patient being home alone with VNA for med compliance and home PT PT is recommending rehab for patient and patient is refusing=- but seems mostly due to home sickness- and discomfort anxiety Unclear if patient understands the risk to herself should she go home suggested we needed more time to assess this- patient upset and wants to leave but physically unable to do so at this time. Plan 1. OT assessment 2. reassess by psych tomorrow - re ? of competency to go home if competent to go home- set up vna/home pt if not competent see if daugther feels this plan could be tried with risks or go to rehab as originally suggested Total time managing care of this patient today ____ minutes. Patient educated on: medical condition and other (competency) Informed Consent: further education needed (partially understands)
[2024-07-06 15:16] VITALS: BP 111/59; PULSE 65; RESP 18; TEMP 36.2; O2SAT 99
[2024-07-06 17:20] VITALS: BP 109/56; PULSE 66
[2024-07-06 19:19] VITALS: BP 103/61; PULSE 67; RESP 18; TEMP 36.6; O2SAT 100
[2024-07-06] MEDS: Melatonin 3 MG TABLET 6 MG PO (20:45)
[2024-07-07 04:00] VITALS: BP 143/63; PULSE 73; RESP 16; TEMP 36.3; O2SAT 100
--- NOTE | 2024-07-07 07:00 | CA_ITS ---
Transthoracic Echocardiogram Patient (Last, First, Middle): Gila Chen, Gender: Female Date of : 1960 Age: 63 Procedure Date: 07/07/2024 Procedure Type: Transthoracic Echocardiogram Location: S3E Height: 165.1 cm Weight: 81.65 kg BSA: 1.89 m2 Heart Rate: 74 bpm BP: 143 / 63 mmHg Motion Picture Set Worker: BANDAR Referring MD: Humaira Aguirre MD Spray Dyer: Rodney Razo MD Symptoms: ?chf Study Quality: Technically Difficult ECG Rhythm: Sinus Conclusions: - 1. Technically limited study 2. Normal LV ejection fraction of 60 guarded 70% with pseudonormal filling pattern 3. Mildly dilated left atrium 4. Elevated gradient across aortic valve could represent early mild aortic stenosis 5. Upper limits of normal RV systolic pressure Findings Left Ventricle Normal left ventricular size, thickness, and systolic function. The visually estimated ejection fraction is between 65-70%. Spectral Doppler is indicative of a pseudonormal filling pattern. E/E prime ratio is between 8 and 15 consistent with indeterminate filling pressures. Right Ventricle The right ventricle was not well visualized. There is normal right ventricular systolic function. Atria The left atrium is mildly dilated. There is no evidence of interatrial shunt. The right atrium is likely dilated. Aortic Valve The aortic valve was not well visualized. There is mild aortic valve stenosis. There is no aortic valve regurgitation. Mitral Valve The mitral valve was not well visualized. There is trace mitral valve regurgitation. There is no mitral valve stenosis. Pulmonic Valve The pulmonic valve was not well visualized. Tricuspid Valve Likely normal tricuspid valve structure and function. There is trace tricuspid valve regurgitation. The right ventricular systolic pressure is normal. The right ventricular systolic pressure is 35 mmHg. Normal right atrial pressure. There is no evidence of pulmonary hypertension. Great Vessels The aorta was not well visualized. The pulmonary artery was not well visualized. Venous The inferior vena cava is normal in size. Pericardium/Pleural The pericardium was not well visualized. Measurements 2D Linear Measurements IVSd: 0.72 0.6-0.9/0.6-1.0 cm LVIDd: 4.61 3.9-5.3/4.2-5.9 cm LVIDd Index: 2.44 2.4-3.2/2.2-3.1 cm/m2 LVIDs: 2.97 2.0-3.6 cm LVPWd: 0.56 0.7-1.1 cm LA Diam: 3.40 2.7-3.8/3.0-4.0 cm LAIDs Index: 1.80 1.5-2.3 cm/m2 LV Mass: 110.84 67-162/88-224 g LV Mass Index: 58.64 43-95/49-115 g/m2 LVOT Diam: 1.70 3.0+(-)1.3 cm 2D Systolic Function EF 4C: 57.90 >55% EF 2C: 75.60 >55% EF BiP: 66.90 >55% Mitral Valve MV Pk E: 1.02 MV PK A: 0.96 MV Decel Time: 228.00 E/A: 1.10 E'Lateral: 11.00 E'Medial: 9.03 E/E' Med: 11.30 E/E' Lat: 9.30 PHT: 67.00 MVA PHT: 3.28 Decel [place]: 4.49 Aortic Valve AoV Pk Trevor: 2.08 AoV Pk Grad: 17.00 RUSTY: 2.26 LVOT LVOT Pk Trevor: 1.92 LVOT Mn Trevor: 1.26 LVOT VTI: 0.40 LVOT Pk Grad: 15.00 LVOT Mn Grad: 8.00 LVOT Diam: 1.70 LVOT Area: 2.27 Diastolic Function MV Pk E: 1.02 MV Pk A: 0.96 E/A: 1.10 E'Medial: 9.03 E/E' Med: 11.30 E' Laterial: 11.00 E/E' Lat: 9.30 Right Ventricle TAPSE (mm): 35.60 TVS' Trevor: 15.30 Tricuspid Valve TR Pk Trevor: 2.84 TR Pk Grad: 32.00 RA Press: 3.00 RVSP: 35.00 Great Vessels Aorta Sinus of Valsalva: 2.30 2.0-3.5 cm Pulmonary Veins Pulm Vein S/D 1.50 Pulmonary Valve PV Pk Trevor: 1.69 Peak PV Grad: 11.00 Updated in Other Vendor System with Status of Final Rodney Razo MD electronically signed on 07/07/2024 4:18:56 PM with status of Final
[2024-07-07 08:44] VITALS: BP 120/56; PULSE 70; RESP 18; TEMP 36.7; O2SAT 100
[2024-07-07] MEDS: Zinc Sulfate 220 MG CAPSULE PO (08:44)
[2024-07-07] MEDS: methADONE HCl 20 MG/2 ML ORAL.CONC 80 MG PO (08:44)
[2024-07-07] MEDS: Spironolactone 25 MG TABLET 12.5 MG PO ×2 (08:44→18:22)
[2024-07-07] MEDS: 0.9 % Sodium Chloride Flush 3 ML SYRINGE IVFLUSH ×3 (08:45→20:24)
[2024-07-07] MEDS: rifAXIMin 550 MG TABLET PO ×2 (08:46→20:23)
[2024-07-07] MEDS: Furosemide 20 MG TABLET PO (08:46)
--- NOTE | 2024-07-07 11:43 | MHC.CM.PN ---
PT jesenia done. The recommendation is for STR. Spoke with HCP/DTR/Alba. She agrees that the patient needs STR prior to discharge home. She will come in to speak with her Mother about discharge this afternoon. The names and locations of the facilities that provide Methadone management were provided to Alba. She understands that the STR may be in [place]. Referrals have been sent to [facility] and [place] rehab. DP STR via BLS. CM will follow.
[2024-07-07] MEDS: Lactulose 20 GM/30 ML SOLUTION 30 GM PO ×2 (14:54→20:23)
--- NOTE | 2024-07-07 15:15 | P.PNIM_ITS ---
Subjective Subjective Date of Service: 07/07/24 Interval History: hepatic encephalopathy Review of Systems mental status [place],but still could not able to understand info producing bm 3 as per patient overnight Physical Exam 2 Vital Signs: Vital Signs: Last Vital Signs Temp 98.1 F 07/07/24 08:44 Pulse 70 07/07/24 08:44 Resp 18 07/07/24 08:44 BP 120/56 L 07/07/24 08:44 Pulse Ox 100 07/07/24 08:44 O2 Del Method Room Air 07/07/24 08:44 BMI result Body Mass Index 30.1 Appearance: Alert.? Oriented 3 ,somewhat confused .? cvs: rrr, [id number] , no murmur res: clear to auscultation ,no rhonchii or wheezing abd: no rebound or guarding ,nt, bs present. ext pulses present , no cyanosis . neuro: axo3 , nonfocal. Objective Data Active Medications Acetaminophen (Acetaminophen 325 Mg Tablet) 650 mg PO Q6H PRN PRN Reason: Pain, Mild (Pain Scale 1-3), fever or headache Last Admin: 07/02/24 05:15 Dose: 650 mg Documented By: ASHANTIILFlorida Calcium Carbonate (Calcium Carbonate 750 Mg Tab.Chew) 750 mg PO Q4H PRN PRN Reason: Heartburn Furosemide (Furosemide 20 Mg Tablet) 20 mg PO DAILY [facility]; Protocol Last Admin: 07/07/24 08:46 Dose: 20 mg Documented By: MANUELA Lactulose (Lactulose 20 Gm/30 Ml Solution) 30 gm PO TID [facility] Last Admin: 07/07/24 14:54 Dose: 30 gm Documented By: MANUELA Magnesium Hydroxide (Milk Of Magnesia 30 Ml Oral.Susp) 30 ml PO DAILY PRN PRN Reason: Constipation Melatonin (Melatonin 3 Mg Tablet) 6 mg PO BEDTIME PRN PRN Reason: Insomnia Last Admin: 07/06/24 20:45 Dose: 6 mg Documented By: LIBRA Methadone HCl (Methadone Hcl 20 Mg/2 Ml Oral.Conc) 80 mg PO DAILY [facility] Last Admin: 07/07/24 08:44 Dose: 80 mg Documented By: MANUELA Co-signed By: OLAYINKA Ondansetron HCl (Ondansetron Hcl 4 Mg/2 Ml Vial) 4 mg IVPUSH Q8H PRN PRN Reason: Nausea and Vomiting Rifaximin (Rifaximin 550 Mg Tablet) 550 mg PO BID [facility] Last Admin: 07/07/24 08:46 Dose: 550 mg Documented By: MANUELA Sodium Chloride (0.9 % Sodium Chloride Flush 3 Ml Syringe) 3 ml IVFLUSH QSHIFT [facility] Last Admin: 07/07/24 14:56 Dose: 3 ml Documented By: MANUELA Spironolactone (Spironolactone 25 Mg Tablet) 12.5 mg PO BID@0900,1800 [facility]; Protocol Last Admin: 07/07/24 08:44 Dose: 12.5 mg Documented By: MANUELA Zinc Sulfate (Zinc Sulfate 220 Mg Capsule) 220 mg PO DAILY [facility] Last Admin: 07/07/24 08:44 Dose: 220 mg Documented By: MANUELA Labs 07/01/24 04:24 07/04/24 08:26 Assessment and Plan (1) Acute hepatic encephalopathy: Status: Acute Assessment and Plan: 63-year-old female with pertinent history of opioid use disorder on methadone, alcoholic cirrhosis with varices, congestive heart failure unspecified EF, gastroesophageal reflux disease, mood disorder who was brought to the emergency department for evaluation of altered mentation. Acute hepatic encephalopathy grade 2/3 in a patient with alcoholic cirrhosis: goal bm's: 3-4 bowel movements per day. ammonia levels little improivng mental status improving , continue to moniter bm's continue lactulose, mental status and ammonia levels improving she is still not able elborates about her care ,ademamt to go home ot safety eval done-seems high fall risk also psych follow up -she will need psych clearence before dc. Alcoholic cirrhosis with varices: Continue diuretics and nadolol. Lactulose as above Congestive heart failure, unspecified EF: No decompensation. Continue home diuretics Gastroesophageal reflux disease: On PPI Mood disorder: Hold home mood stabilizers until mentation improves Thrombocytopenia due to cirrhosis: Defer Lovenox Opioid use disorder on methadone DVT prophylaxis: SCDs . Full code ongoing hospital stay for monitoring of mentation, treatment of hepatic encephalopathy (as above), need psych clearence before d/c. Quality Stroke Does the patient have a stroke diagnosis?: No VTE Prior VTE?: No VTE Risk Level:: Medical - moderate - high VTE Device Contraindication: N/A - Device Ordered VTE Drug Contraindication: Treatment Not Indicated
[2024-07-07 15:34] VITALS: BP 103/54; PULSE 67; RESP 20; TEMP 36.2; O2SAT 100
[2024-07-07 18:19] VITALS: BP 118/56
[2024-07-07 19:25] VITALS: BP 109/57; PULSE 68; RESP 20; TEMP 36.3; O2SAT 100
[2024-07-07] MEDS: Melatonin 3 MG TABLET 6 MG PO (20:23)
[2024-07-08 01:28] VITALS: BP 138/74; PULSE 70; RESP 18; TEMP 36.1; O2SAT 100
[2024-07-08 07:59] VITALS: BP 127/60; PULSE 72; RESP 18; TEMP 36.4; O2SAT 100
[2024-07-08] MEDS: Spironolactone 25 MG TABLET 12.5 MG PO ×2 (08:00→17:43)
[2024-07-08] MEDS: rifAXIMin 550 MG TABLET PO ×2 (08:00→21:09)
[2024-07-08] MEDS: Furosemide 20 MG TABLET PO (08:00)
[2024-07-08] MEDS: Zinc Sulfate 220 MG CAPSULE PO (08:00)
[2024-07-08] MEDS: Lactulose 20 GM/30 ML SOLUTION 30 GM PO ×4 (08:01→21:10)
[2024-07-08] MEDS: methADONE HCl 20 MG/2 ML ORAL.CONC 80 MG PO (08:01)
[2024-07-08] MEDS: 0.9 % Sodium Chloride Flush 3 ML SYRINGE IVFLUSH ×3 (08:04→21:16)
--- NOTE | 2024-07-08 10:48 | MHC.CM.PN ---
Spoke with Cee from [facility]. She stated that she faxed [facility] for the 2 clinics. Patient signed both copies. The ROIs were sent to [facility] as requested. [place] anticipates DC date, 07/10/24. [facility] was informed of dc date. Dose hx was also faxed to the clinic. will follow for discharge.
--- NOTE | 2024-07-08 11:37 | HO.PM.IMPN ---
Subjective Subjective Date of Service: 07/08/24 Interval History: hepatic encepahloapthy Review of Systems mental status is similar as per patient she has 2 bm's but none documented Physical Exam Vital Signs: Vital Signs: Last Vital Signs Temp 97.5 F 07/08/24 07:59 Pulse 72 07/08/24 07:59 Resp 18 07/08/24 07:59 BP 127/60 07/08/24 07:59 Pulse Ox 100 07/08/24 07:59 O2 Del Method Room Air 07/08/24 07:59 BMI result Body Mass Index 30.1 Appearance: Alert.? Oriented 3 ,somewhat confused .? cvs: rrr, [id number] , no murmur res: clear to auscultation ,no rhonchii or wheezing abd: no rebound or guarding ,nt, bs present. ext pulses present , no cyanosis . neuro: axo3 , nonfocal. Objective Data Active Medications Acetaminophen (Acetaminophen 325 Mg Tablet) 650 mg PO Q6H PRN PRN Reason: Pain, Mild (Pain Scale 1-3), fever or headache Last Admin: 07/02/24 05:15 Dose: 650 mg Documented By: VERONIKA Calcium Carbonate (Calcium Carbonate 750 Mg Tab.Chew) 750 mg PO Q4H PRN PRN Reason: Heartburn Furosemide (Furosemide 20 Mg Tablet) 20 mg PO DAILY [facility]; Protocol Last Admin: 07/08/24 08:00 Dose: 20 mg Documented By: MANUELA Lactulose (Lactulose 20 Gm/30 Ml Solution) 30 gm PO TID [facility] Last Admin: 07/08/24 08:01 Dose: 30 gm Documented By: MANUELA Magnesium Hydroxide (Milk Of Magnesia 30 Ml Oral.Susp) 30 ml PO DAILY PRN PRN Reason: Constipation Melatonin (Melatonin 3 Mg Tablet) 6 mg PO BEDTIME PRN PRN Reason: Insomnia Last Admin: 07/07/24 20:23 Dose: 6 mg Documented By: HENRY Methadone HCl (Methadone Hcl 20 Mg/2 Ml Oral.Conc) 80 mg PO DAILY [facility] Last Admin: 07/08/24 08:01 Dose: 80 mg Documented By: MANUELA Co-signed By: SHAGGY Ondansetron HCl (Ondansetron Hcl 4 Mg/2 Ml Vial) 4 mg IVPUSH Q8H PRN PRN Reason: Nausea and Vomiting Rifaximin (Rifaximin 550 Mg Tablet) 550 mg PO BID [facility] Last Admin: 07/08/24 08:00 Dose: 550 mg Documented By: MANUELA Sodium Chloride (0.9 % Sodium Chloride Flush 3 Ml Syringe) 3 ml IVFLUSH QSHIFT [facility] Last Admin: 07/08/24 08:04 Dose: 3 ml Documented By: MANUELA Spironolactone (Spironolactone 25 Mg Tablet) 12.5 mg PO BID@0900,1800 [facility]; Protocol Last Admin: 07/08/24 08:00 Dose: 12.5 mg Documented By: MANUELA Zinc Sulfate (Zinc Sulfate 220 Mg Capsule) 220 mg PO DAILY [facility] Last Admin: 07/08/24 08:00 Dose: 220 mg Documented By: MANUELA Labs 07/01/24 04:24 07/04/24 08:26 Assessment and Plan (1) Acute hepatic encephalopathy: Status: Acute Assessment and Plan: 63-year-old female with pertinent history of opioid use disorder on methadone, alcoholic cirrhosis with varices, congestive heart failure unspecified EF, gastroesophageal reflux disease, mood disorder who was brought to the emergency department for evaluation of altered mentation. Acute hepatic encephalopathy grade 2/3 in a patient with alcoholic cirrhosis: goal bm's: 3-4 bowel movements per day. ammonia levels slowly improving mental status improving , continue to moniter bm's continue lactulose,extra dose of lactulose given, mental status and ammonia levels improving she is still not able elborates about her care ,adelamt to go home ot safety eval done-seems high fall risk also psych follow up -she will need psych clearence before dc. Alcoholic cirrhosis with varices: Continue diuretics and nadolol. Lactulose as above. [facility]abd us on 06/22 : showed main portal vein patent with normal hepatopetal direction of flow. seen by gi-diuretics adjusted ,also lactulose adjusted ,d/w staff to have strict monitering on bm's echo as below. consider Gi (Dr ma saw patient on 07/03)follow up if needed hepatic encepahlopathy.. Congestive heart failure, unspecified EF: No decompensation. Continue home diuretics echo :Technically limited study 2. Normal LV ejection fraction of 60 guarded 70% with pseudonormal filling pattern 3. Mildly dilated left atrium 4. Elevated gradient across aortic valve could represent early mild aortic stenosis 5. Upper limits of normal RV systolic pressure Gastroesophageal reflux disease: On PPI Mood disorder: Hold home mood stabilizers until mentation improves Thrombocytopenia due to cirrhosis: Defer Lovenox Opioid use disorder on methadone DVT prophylaxis: SCDs . Full code ongoing hospital stay for monitoring of mentation, treatment of hepatic encephalopathy (as above), need psych clearence before d/c. Quality Stroke Does the patient have a stroke diagnosis?: No VTE Prior VTE?: No VTE Risk Level:: Medical - moderate - high VTE Device Contraindication: N/A - Device Ordered VTE Drug Contraindication: Treatment Not Indicated
--- NOTE | 2024-07-08 11:48 | MHC.CLN ---
NUTRITION DIET=2 GRAM SODIUM. APPEARS TO BE EATING WELL. MD ORDER FOR ENSURE MAX BID. RD REC DISCONTINUE SUPPPLEMENT DUE TO HIGH PROTEIN CONTENT. PATIENT WITH ELEVATED AMMONIA LABS.
[2024-07-08 16:00] VITALS: BP 127/57; PULSE 69; RESP 20; TEMP 36.5; O2SAT 100
[2024-07-08 19:51] VITALS: BP 100/55; PULSE 64; RESP 20; TEMP 36.1; O2SAT 99
[2024-07-09] VITALS (7 sets, daily range): BP systolic 111–132; BP diastolic 56–86; PULSE 65–72; RESP 16–18; TEMP 36–36.6; O2SAT 97–100
[2024-07-09] MEDS: Melatonin 3 MG TABLET 6 MG PO ×2 (00:23→21:24)
--- NOTE | 2024-07-09 07:00 | PC.NURSE ---
Noted patient did not sleep much overnight, very persistent to have supervised ambulations around unit. Patient ambulates with a walker and gait is slow but steady, staff with close stand by. VSS, lung mcmahon dim, voids in BR, medicated with Melatonin with no effect. blankets, beverage, tv, reading material all offered with no results, pt just wanted to Ambulate. monitored closely.
[2024-07-09] MEDS: Lactulose 20 GM/30 ML SOLUTION 30 GM PO ×3 (09:42→21:28)
[2024-07-09] MEDS: 0.9 % Sodium Chloride Flush 3 ML SYRINGE IVFLUSH ×3 (09:42→21:25)
[2024-07-09] MEDS: Spironolactone 25 MG TABLET 12.5 MG PO ×2 (09:43→17:11)
[2024-07-09] MEDS: methADONE HCl 20 MG/2 ML ORAL.CONC 80 MG PO (09:43)
[2024-07-09] MEDS: Zinc Sulfate 220 MG CAPSULE PO (09:46)
[2024-07-09] MEDS: rifAXIMin 550 MG TABLET PO ×2 (09:46→21:24)
[2024-07-09] MEDS: Furosemide 20 MG TABLET PO (09:46)
--- NOTE | 2024-07-09 12:24 | MHC.CM.PN ---
Patient is planned for discharge tomorrow. She will go to [facility] for STR. Guest dosing for methadone has been set up to start Sunday. Insurance authorization is still pending. [facility]. She will transport via BLS.
--- NOTE | 2024-07-09 13:38 | PC.NURSE ---
Sutures removed from patients forehead, tolerated well. MD notified.
--- NOTE | 2024-07-09 14:00 | HO.PM.IMPN ---
Subjective Subjective Date of Service: 07/09/24 Interval History: eager for discharge Physical Exam Vital Signs: Vital Signs: Last Vital Signs Temp 96.8 F 07/09/24 08:00 Pulse 72 07/09/24 08:00 Resp 16 07/09/24 08:00 BP 120/58 L 07/09/24 09:46 Pulse Ox 100 07/09/24 08:00 O2 Del Method Room Air 07/09/24 08:00 BMI result Body Mass Index 30.1 Appearance: Alert.? Oriented 3 ,somewhat confused .? cvs: rrr, [id number] , no murmur res: clear to auscultation ,no rhonchii or wheezing abd: no rebound or guarding ,nt, bs present. ext pulses present , no cyanosis . neuro: axo3 , nonfocal. Objective Data Active Medications Acetaminophen (Acetaminophen 325 Mg Tablet) 650 mg PO Q6H PRN PRN Reason: Pain, Mild (Pain Scale 1-3), fever or headache Last Admin: 07/02/24 05:15 Dose: 650 mg Documented By: ASHANTIILFlorida Calcium Carbonate (Calcium Carbonate 750 Mg Tab.Chew) 750 mg PO Q4H PRN PRN Reason: Heartburn Furosemide (Furosemide 20 Mg Tablet) 20 mg PO DAILY [facility]; Protocol Last Admin: 07/09/24 09:46 Dose: 20 mg Documented By: ARLETH Lactulose (Lactulose 20 Gm/30 Ml Solution) 30 gm PO TID [facility] Last Admin: 07/09/24 09:42 Dose: 30 gm Documented By: ARLETH Magnesium Hydroxide (Milk Of Magnesia 30 Ml Oral.Susp) 30 ml PO DAILY PRN PRN Reason: Constipation Melatonin (Melatonin 3 Mg Tablet) 6 mg PO BEDTIME PRN PRN Reason: Insomnia Last Admin: 07/09/24 00:23 Dose: 6 mg Documented By: HENRY Methadone HCl (Methadone Hcl 20 Mg/2 Ml Oral.Conc) 80 mg PO DAILY [facility] Last Admin: 07/09/24 09:43 Dose: 80 mg Documented By: ARLETH Co-signed By: ELLA Ondansetron HCl (Ondansetron Hcl 4 Mg/2 Ml Vial) 4 mg IVPUSH Q8H PRN PRN Reason: Nausea and Vomiting Rifaximin (Rifaximin 550 Mg Tablet) 550 mg PO BID [facility] Last Admin: 07/09/24 09:46 Dose: 550 mg Documented By: ARLETH Sodium Chloride (0.9 % Sodium Chloride Flush 3 Ml Syringe) 3 ml IVFLUSH QSHIFT [facility] Last Admin: 07/09/24 09:42 Dose: 3 ml Documented By: ARLETH Spironolactone (Spironolactone 25 Mg Tablet) 12.5 mg PO BID@0900,1800 [facility]; Protocol Last Admin: 07/09/24 09:43 Dose: 12.5 mg Documented By: ARLETH Zinc Sulfate (Zinc Sulfate 220 Mg Capsule) 220 mg PO DAILY [facility] Last Admin: 07/09/24 09:46 Dose: 220 mg Documented By: ARLETH Labs 07/01/24 04:24 07/04/24 08:26 Assessment and Plan (1) Acute hepatic encephalopathy: Status: Acute Assessment and Plan: 63F PMH opioid use disorder on methadone, alcoholic cirrhosis with varices, HFpEF, gastroesophageal reflux disease, mood disorder who was brought to the emergency department for evaluation of altered mentation. Acute hepatic encephalopathy grade 2/3 in a patient with alcoholic cirrhosis: goal bm's: 3-4 bowel movements per day. mental status improving , continue to moniter bm's continue lactulose, rifaximin Alcoholic cirrhosis with varices: Continue lasix and aldactonel. Lactulose as above. HFpEF stable, continue lasix opiate dependence methadone DVT prophylaxis: SCDs due to thrombocytopenia Full code reason for continued hospitalization:awaiting placement Quality Stroke Does the patient have a stroke diagnosis?: No VTE Prior VTE?: No VTE Risk Level:: Medical - moderate - high VTE Device Contraindication: N/A - Device Ordered VTE Drug Contraindication: Treatment Not Indicated
[2024-07-09] MEDS: Acetaminophen 325 MG TABLET 650 MG PO (21:24)
[2024-07-10 04:00] VITALS: BP 111/58; PULSE 71; RESP 16; TEMP 36.3; O2SAT 95
[2024-07-10 05:28] VITALS: RESP 16
[2024-07-10 07:45] VITALS: BP 110/53; PULSE 69; RESP 18; TEMP 36.6; O2SAT 100
[2024-07-10 08:25] VITALS: BP 110/53
[2024-07-10] MEDS: rifAXIMin 550 MG TABLET PO (08:25)
[2024-07-10] MEDS: Spironolactone 25 MG TABLET 12.5 MG PO (08:25)
[2024-07-10] MEDS: Zinc Sulfate 220 MG CAPSULE PO (08:25)
[2024-07-10 08:26] VITALS: BP 110/53
[2024-07-10] MEDS: Furosemide 20 MG TABLET PO (08:26)
[2024-07-10] MEDS: methADONE HCl 20 MG/2 ML ORAL.CONC 80 MG PO (08:26)
[2024-07-10] MEDS: Lactulose 20 GM/30 ML SOLUTION 30 GM PO ×2 (08:26→15:53)
[2024-07-10] MEDS: 0.9 % Sodium Chloride Flush 3 ML SYRINGE IVFLUSH ×2 (08:26→15:54)
--- NOTE | 2024-07-10 09:40 | P.DS_ITS ---
DS: Providers Provider Date of Service: 07/10/24 Date of admission: 06/30/24 23:22 Date of discharge: 07/10/24 Primary care physician: None Physician Consults: 07/03/24 10:31 Consult to Gastroenterology Routine Consulting Provider: [facility] Gastroenterology Services Reason for consultation: Hepatic encephalopathy Has provider been notified: No 07/04/24 15:34 Consult to Psychiatry Routine Consulting Provider: Psych Covering Reason for consultation: capacity eval Has provider been notified: No DS: Diagnosis Discharge Diagnosis (1) Acute hepatic encephalopathy: Status: Acute DS: Summary Hospital Course Hospital Course: from initial hpi: 63-year-old female with pertinent history of opioid use disorder on methadone, alcoholic cirrhosis with varices, congestive heart failure unspecified EF, gastroesophageal reflux disease, mood disorder who was brought to the emergency department for evaluation of altered mentation. Unable to obtain history from the patient as she is only oriented due to self and does not know why she is in the hospital. Tried calling the patient's daughter but no answer. History obtained with the help of ER provider and chart review. Patient with increased confusion over the last 2 3 days and hence was brought to the ER. There is no report of noncompliance with lactulose. No abdominal discomfort. No melena or hematochezia. No hematemesis. Unable to obtain review of systems. hospital course: Patient was admitted for acute hepatic encephalopathy in a patient with alcoholic cirrhosis. She was given lactulose which was increased to 30 3 times a day and continued on rifaximin. Mental status improved to baseline. For alcoholic cirrhosis with varices she was continued on Lasix and Aldactone. For chronic diastolic CHF she was continued on maintenance Lasix. For opiate dependence she was continued on methadone. Due to debility she will be discharged to alf facility for short-term rehab she is expected to require less than 30 days. Time Attestation Discharge Coordination Time (in mins): 37 Quality: Safe Use of Opioids Does Pt have an Active Cancer Diagnosis on the Problem List?: No Quality: Stroke Does the patient have a stroke diagnosis?: No Physical Exam Vital Signs: Vital Signs: Last Vital Signs Temp 97.9 F 07/10/24 07:45 Pulse 69 07/10/24 07:45 Resp 18 07/10/24 07:45 BP 110/53 L 07/10/24 08:26 Pulse Ox 100 07/10/24 07:45 O2 Del Method Room Air 07/10/24 07:45 BMI result Body Mass Index 30.1 Appearance: Alert.? Oriented 3 ,somewhat confused .? cvs: rrr, [id number] , no murmur res: clear to auscultation ,no rhonchii or wheezing abd: no rebound or guarding ,nt, bs present. ext pulses present , no cyanosis . neuro: axo3 , nonfocal. DS: Data Data Completed and Pending Completed studies during hospitalization [Text1]: Procedures Excision of Right Kidney, Percutaneous Approach, Diagnostic (04/07/22) Insertion of Infusion Device into Superior Vena Cava, Percutaneous Approach (04/07/22) Performance of Urinary Filtration, Intermittent, Less than 6 Hours Per Day (04/07/22) Transfusion of Nonautologous Frozen Plasma into Peripheral Vein, Percutaneous Approach (04/07/22) Transfusion of Nonautologous Platelets into Peripheral Vein, Percutaneous Approach (04/07/22) Transfusion of Nonautologous Red Blood Cells into Peripheral Vein, Percutaneous Approach (04/07/22) Ultrasonography of Superior Vena Cava, Guidance (04/07/22) Discharge Plan Discharge Anticipated Discharge Date/Time: 07/10/24 09:36 Patient Disposition: Xfer SNF Discharge Diagnosis: hepatic encephalopathy [facility] [Outside] - 1 Week Akira Hayden MD [Physician] - 1 Week Discharge Medications: New spironolactone 25 mg Tablet 12.5 mg PO BID@0900,1800 Qty: 0 0RF Protocol: Hold for SBP< HOLD for SBP < : 90 furosemide 20 mg Tablet 20 mg PO DAILY Qty: 0 0RF Protocol: Hold for SBP< HOLD for SBP < : 90 zinc sulfate [Zinc-220] 50 mg zinc (220 mg) Capsule 220 mg PO DAILY Qty: 0 0RF lactulose 20 gram/30 mL Solution 30 g PO TID Qty: 0 0RF Continued methadone 10 mg/mL Concentrate 80 mg PO DAILY Xifaxan 550 mg tablet 550 mg PO BID (DME) Blood Pressure Cuff Misc See Rx Instructions .Route Qty: 1 0RF Rx Instructions: As directed, take BP twice a day. Discontinued lactulose 20 gram/30 mL solution 20 g PO BID furosemide 20 mg tablet 20 mg PO Q48H Discharge Orders: Discharge Order (Routine); Ordered 07/10/24 Ordered By: Noe Comer Diet: Advance to usual diet Activity on Discharge: As tolerated Stand Alone Forms: Patient Portal Discharge page Print Language: Citizen Of [place] Care Plan Goals: recovery Health Concerns: cirrhosis Plan of Treatment: continue lactulose for a goal of 2-4 bowel movements per day and rifaximin Assessment: see above
--- NOTE | 2024-07-10 11:25 | MHC.CM.PN ---
Discharge today to [facility]. All discharge info has been sent to the SNF. [facility]/DTR/HCP has been notified of the transport time. Transport is booked for 1pm lease picker at [place].
[2024-07-10 15:29] VITALS: BP 112/53; PULSE 64; RESP 16; TEMP 36.5; O2SAT 100
== END 2024-07-10 17:55 | disposition skilled nursing facility (03) | DRG 280 ==
LOC: HO.ED 22:37 → HO.EDOVER 07-01 00:37 → HO.S3 07-01 07:40
PROVIDERS: Internal Medicine; Admitting Provider Student in an Organized Health Care Education/Training Program; Emergency Provider Internal Medicine; Visit Provider Internal Medicine
DX: K76.82 Hepatic encephalopathy (principal); K70.30 Alcoholic cirrhosis of liver without ascites; I85.10 Secondary esophageal varices without bleeding; D69.59 Other secondary thrombocytopenia; R29.6 Repeated falls; F11.21 Opioid dependence, in remission; I50.32 Chronic diastolic (congestive) heart failure; K21.9 Gastro-esophageal reflux disease without esophagitis; F39 Unspecified mood [affective] disorder; F11.20 Opioid dependence, uncomplicated; F17.210 Nicotine dependence, cigarettes, uncomplicated; Z20.822 Contact with and (suspected) exposure to COVID-19; Z71.6 Tobacco abuse counseling; Z91.041 Radiographic dye allergy status; Z79.899 Other long term (current) drug therapy
CPT/HCPCS: 0241U; 36415; 70450; 74176; 80048; 80053; 81003; 82140; 82248; 83735; 83880; 85025; 85610; 85730; 93306; 97110; 97161; 97165; 97530; 99285; Q9957

== ENCOUNTER 2024-06-30 23:22 | Outpatient (BNV) | payer OTHER, SELFPAY | END 2024-07-07 07:00 | PROVIDERS: Admitting Provider Student in an Organized Health Care Education/Training Program; Emergency Provider Internal Medicine; Visit Provider Internal Medicine Cardiovascular Disease | DX: I35.0 Nonrheumatic aortic (valve) stenosis (principal); R93.1 Abnormal findings on diagnostic imaging of heart and coronary circulation | CPT/HCPCS: 93306 ==

== ENCOUNTER → 2024-06-30 23:22 | Outpatient (BNV) | payer OTHER, SELFPAY | PROVIDERS: Admitting Provider Student in an Organized Health Care Education/Training Program; Emergency Provider Internal Medicine; Visit Provider Student in an Organized Health Care Education/Training Program | DX: K76.82 Hepatic encephalopathy (principal) | CPT/HCPCS: 99223; 99231; 99232; 99239 ==

== ENCOUNTER → 2024-06-30 23:22 | Outpatient (BNV) | payer OTHER, SELFPAY | PROVIDERS: Admitting Provider Student in an Organized Health Care Education/Training Program; Emergency Provider Internal Medicine; Visit Provider Internal Medicine | DX: K76.82 Hepatic encephalopathy (principal); K70.30 Alcoholic cirrhosis of liver without ascites; F19.11 Other psychoactive substance abuse, in remission; R60.0 Localized edema | CPT/HCPCS: 99223 ==

== ENCOUNTER 2024-07-31 14:07 | Outpatient (AMB) | payer OTHER, SELFPAY ==
[2024-07-31 14:09] VITALS: BP 102/62; PULSE 69; O2SAT 99; BMI 30.2
--- NOTE | 2024-07-31 14:09 | MHC.PC.OV ---
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 rifaximin (Xifaxan) 550 mg PO BID spironolactone 12.5 mg See Protocol PO BID@0900,1800 Tobacco use date assessed: 07/31/24 Dental Screening Dental Screen Date: 07/31/24 Did you have a dental visit in the last 12 months?: No Did you have a dental problem in the last 6 months where you did not have access to dental care?: No HPI establish care/ requesting home health services HPI Details 63 year old female with history of substance use disorder, alcohol use disorder, CHF, GERD, anxiety, and cirrhosis coming to our office for the first time. Patient was recently seen in [facility] 06/[place]/2024 for confusion and admitted for acute hepatic encephalopathy in the setting of alcoholic cirrhosis. Patient was given lactulose and continued on rifaximin mental status improved. Patient was continued on Lasix and Aldactone for varices. Patient [facility] for [facility] rehab. Patient denies any substance use or alcohol use. She has no acute concerns today but does mentioned she has bilateral leg swelling which is chronic. She does not currently have GI provider or Cardiology provider. [facility] Medical History Splenomegaly Iron deficiency anemia Alcohol use disorder, moderate, in early remission, dependence Cirrhosis, alcoholic Obesity (BMI 30-39.9) Smoker History of substance abuse Hemorrhoids Constipation Lumbar back pain with radiculopathy affecting right lower extremity Surgical History History of tubal ligation Hx of hemorrhoidectomy H/O: hysterectomy Family History Father No problems noted. Mother Active asthma Social History Household Members: None Housing: House Are you a primary healthcare marketer to a significant other at home: No Do you presently have visiting nurse or other home services: No Alcohol intake: current Alcohol intake frequency: holidays/special occasions only Patient Tobacco Use Status: Current someday Tobacco user Tobacco use type: Cigarette Cigarettes Per Day: 3 Years Smoked: 1 year e-Cigarette/Vaping Use: Never Used Second Hand Smoke Exposure: No Substance Use Type: Former Substance User Advance Directives Date on File: 04/08/22 service: No Current occupational status: unemployed 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 1. Little interest or pleasure in doing things: not at all 2. Feeling down, depressed, or hopeless: not at all 3. Trouble falling or staying asleep, or sleeping too much: not at all 4. Feeling tired or having little energy: not at all 5. Poor appetite or overeating: not at all 6. Feeling bad about yourself - or that you are a failure or have let yourself or your family down: not at all 7. Trouble concentrating on things, such as reading the newspaper or watching television: not at all 8. Moving or speaking so slowly that other people could have noticed. Or the opposite - being so fidgety or restless that you have been moving around a lot more than usual: not at all 9. Thoughts that you would be better off or of hurting yourself in some way: not at all Total score: 0 Depression Screening Interpretation: Negative Depression Screening Done: Yes Source: Developed by Drs. Abraham Thakkar, Anita Peñaloza, Tc Mendes and colleagues, with an educational hugo from [employer]. Thrive Questionnaire Date Thrive assessed: 07/01/24 I am a: Patient What is your living situation today?: I have a steady place to live THRIVE Score: 0 AUDIT C Alcohol Use Questionnaire (AUDIT-C) 1. How often do you have a drink containing alcohol?: Never 3. How often do you have six or more drinks on one occasion?: Never Total Score: 0 Score Reviewed/Action Taken: Yes (patient is in denial ) KADEEM-7 AMB Questionnaire KADEEM-7 Date KADEEM - 7 assessed: 07/31/24 Feeling nervous, anxious, or on edge: 0 = Not at all Not being able to stop or control worryin = Not at all Worrying too much about different things: 0 = Not at all Trouble relaxin = Not at all Being so restless that it is hard to sit still: 0 = Not at all Becoming easily annoyed or irritable: 0 = Not at all Feeling afraid as if something awful might happen: 0 = Not at all Total KADEEM-7 score (0-4 normal; 5-9 mild; 10-14 moderate; 15-21 severe): 0 Source: Developed by Drs. Abraham Thakkar, Anita Peñaloza, Tc Mendes and colleagues, with an educational hugo from [employer]. Review of Systems Const Denies body aches, Denies fatigue, Denies fever(s), Denies frequent falls, Denies headache(s) and Denies weakness Eyes Reports no additional complaints and Denies change in vision ENT Denies dysphagia, Denies dizziness, Denies facial pain, Denies headache(s), Denies nasal congestion and Denies odynophagia Card Denies chest pain, Denies syncope, Denies irregular heart rhythm, Reports leg edema, Denies lightheadedness and Denies dyspnea Resp Denies cough and Denies dyspnea GI Denies constipation, Denies dysphagia, Denies dyspepsia, Denies diarrhea, Denies nausea, Denies odynophagia and Denies vomiting Denies urinary frequency, Denies dysuria, Denies urinary hesitancy and Denies urinary urgency Musc Denies back pain and Denies myalgias Skin/Breast Reports system reviewed and no additional complaints, except as documented Neuro Denies dizziness, Denies syncope, Denies frequent falls, Denies headache(s) and Denies weakness Psych Reports no additional complaints Endo Denies fatigue Physical exam (Primary Care) Vital Signs: Oxygen Delivery Method Room Air 07/31/24 14:09 BMI result Body Mass Index 30.2 Tobacco/Smoking Status: Tobacco use Status Tobacco use date assessed 01/20/22 03/17/22 14:24 Patient Tobacco Use Status Current someday Tobacco 07/10/24 09:39 Tobacco use type Cigarette 07/01/24 10:43 e-Cigarette/Vaping Use Never Used 07/01/24 10:43 Are you ready to quit: Yes Tobacco cessation counseling provided: Yes Items discussed: Nicotine replacement Relapse Prevention: discussed the importance of a supportive environment and discussed dietary, exercise and/or lifestyle changes Number of minutes spent counselin CPT code: 13551 - 4-10 Minutes Depression Screening Interpretation: Negative Thrive Assessment: Date of Thrive Assessment Date Thrive assessed 07/01/24 07/01/24 11:07 Const General: cooperative, healthy appearing, comfortable and no acute distress Orientation/consciousness: patient oriented x3 HENMT Head: Yes normocephalic Ears: hearing grossly normal bilaterally General nose exam: Normal external nose present Eyes General: appearance normal, both eyes and all related structures Conjunctivae: conjunctivae normal Neck Neck: Yes full ROM and Yes no lymphadenopathy Resp Effort & Inspection: normal respiratory effort Auscultation: clear to auscultation bilaterally, no crackles, no rales, no rhonchi and no wheezes Cardio Rate: regular rate Rhythm: regular rhythm GI Palpation (GI): Soft to palpation, not firm, nontender, no guarding and not rigid Skin General skin exam: no rashes or lesions noted Neuro General: patient oriented x3 Gait exam (Neuro): Normal gait present Extrem Other: 1+ pitting edema in bilateral lower extremities General: Yes normal to inspection and Yes full ROM Psych Affect: normal affect Attitude: cooperative Insight: Good insight present (Psych) Judgement: Good judgement present (Psych) Assessment and Plan Assessment & Plan (1) Anxiety: Code(s): F41.9 - Anxiety disorder, unspecified Plan: Patient's struggles with anxiety and difficulty sleeping she does have a history of being on different medications. Referral placed to outpatient psych facility. (2) Cirrhosis, alcoholic: Code(s): K70.30 - Alcoholic cirrhosis of liver without ascites Plan: Referral placed to GI today for further workup and management. Advised patient to avoid liver toxins such as alcohol and Tylenol. Continue on current med regimen. (3) Right heart failure: Code(s): I50.810 - Right heart failure, unspecified Plan: Patient denies any symptoms at this time. Referral placed to cardiology for evaluation and management. She has never been evaluated by Cardiology in the past. Close management of blood pressure and cholesterol. (4) GERD (gastroesophageal reflux disease): Code(s): K21.9 - Gastro-esophageal reflux disease without esophagitis Plan: Avoid trigger foods such as citrus, tomato products, soda, caffeine, spicy foods and other foods that may be irritating to your stomach. Avoid laying flat 3-4 hours after eating and elevate the head of the bed 30 degrees to prevent acid from moving into the esophagus. (5) History of substance abuse: Comment: S/P Methadone Code(s): F19.11 - Other psychoactive substance abuse, in remission Plan: Patient currently on methadone denies any cravings at this time. Has not use any substances or alcohol in several months. (6) Smoker: Code(s): F17.200 - Nicotine dependence, unspecified, uncomplicated Plan: Strongly advised patient has stopped smoking. Nicotine patches ordered today. Plan This note was constructed using voice recognition software. While every effort has been made to ensure accuracy and contract attorney, still areas may have been included sometimes these areas may affect the content or meeting of the given symptoms. Total time spent caring for the patient today was 30 minutes. This includes time spent before the visit reviewing the chart, time spent during the visit, and time spent after the visit and documentation. Orders: Referrals Gastroenterology Referral K70.30 - Alcoholic cirrhosis of liver without ascites Cardiology Referral I50.810 - Right heart failure, unspecified, I50.9 - Heart failure, unspecified Psychiatry Outpatient Consultation Service F41.9 - Anxiety disorder, unspecified Medications: New rifaximin (Xifaxan) 550 mg PO BID 60 tabs 3RF nicotine 1 patch transdermal DAILY 28 ea 0RF Refilled spironolactone 12.5 mg See Protocol PO BID@0900,1800 30 tabs 3RF lactulose 30 grams (45 mL) PO TID 1,500 mL 0RF furosemide 20 mg See Protocol PO DAILY 30 tabs 3RF Coding Level of Care Code New Pt Level 4 (39895) Diagnoses Anxiety F41.9 Cirrhosis, alcoholic K70.30 Right heart failure I50.810 GERD (gastroesophageal reflux disease) K21.9 History of substance abuse F19.11 Smoker F17.200 Additional Codes PHQ-9 - 41909 - PHQ-9 Billing: ([id number]) Vital Signs *Quality* - CPT code: 44721 - 4-10 Minutes ([id number])
== END 2024-07-31 14:51 | disposition home or self-care (01) ==
DX: I50.810 Right heart failure, unspecified (principal); K70.30 Alcoholic cirrhosis of liver without ascites; F19.11 Other psychoactive substance abuse, in remission; F17.210 Nicotine dependence, cigarettes, uncomplicated; F41.9 Anxiety disorder, unspecified; K21.9 Gastro-esophageal reflux disease without esophagitis

== ENCOUNTER → 2024-07-31 14:07 | Outpatient (BNVA) | payer OTHER, SELFPAY | DX: F41.9 Anxiety disorder, unspecified (principal); K70.30 Alcoholic cirrhosis of liver without ascites; I50.810 Right heart failure, unspecified; K21.9 Gastro-esophageal reflux disease without esophagitis; F19.11 Other psychoactive substance abuse, in remission; F17.200 Nicotine dependence, unspecified, uncomplicated; Z71.6 Tobacco abuse counseling | CPT/HCPCS: 99202 ==

== ENCOUNTER 2024-10-08 14:35 | Outpatient (AMB) | payer OTHER, SELFPAY ==
[2024-10-08 14:42] VITALS: BP 106/50; PULSE 74; O2SAT 98; BMI 34.1
--- NOTE | 2024-10-08 14:42 | A.OFFVIS_ITS ---
Vital Signs 10/08/24 14:42 Height 5 ft 4 in Weight 198 lb 13.711 oz BMI 34.1 BP 106/50 L Blood Pressure Location Rt brachial Position Sitting Pulse 74 Pulse Source Pulse Oximeter Pulse Oximetry (%) 98 Oxygen Delivery Method Room Air Intake Visit Reasons: Cirrhosis Intake Note: Relevant Flags or Indicators ? Requires Biodiesel Production Associate? Sofi Uriostegui presents in office today for a scheduled initial assessment. CC; Most recent labs and imaging performed as of June 2024. Relevant GI Sx as reported per pt? * Constipation - Intermittently, pt takes lactulose which is therapeutic. However, if she does not take the lactulose, she will develop worsening sx. * B/L Lower Ext edema. ? Hx of any recent surgeries? None Biodiesel Production Associate Required: No Allergies Iodinated Contrast Media Allergy (Intermediate, Verified 10/08/24 14:43) blood in urine Shellfish Allergy (Unknown, Uncoded 07/31/24 14:27) Hives HPI Comments Details: This is a 63-year-old female past medical history of alcohol use disorder, hepatitis-C, that has led to cirrhosis, who is here for post hospitalisation follow up. Pt was [place] [facility] [place] when she presented to the hospital for worsening leg swelling and increased confusion. Today accompanied by her daughter. Pt reports no abd pain, N,V. Has 3 BMs per day with lactulose. Also taking lactulose. Main issue is leg swelling and imbalance. Artemio to see cardiology and neurology for this. Lives by herself but VNA comes twice a day for med administration and vitals. Meds (by daughters recall- he is not sure on dosing) Lactulose Rifaximin Trazodone Lasix Aldactone Reports complete sobriety from etOH x at least 8 years. Also has been staying abstinent from polysubstance use including cocaine and fentanyl since this summer. Enrolled in [facility]. Gets random UTox at least once a month. [facility] Medical History Splenomegaly Iron deficiency anemia Alcohol use disorder, moderate, in early remission, dependence Cirrhosis, alcoholic Obesity (BMI 30-39.9) Smoker History of substance abuse Hemorrhoids Constipation Lumbar back pain with radiculopathy affecting right lower extremity Surgical History History of tubal ligation Hx of hemorrhoidectomy H/O: hysterectomy Family History Father No problems noted. Mother Active asthma Social History Household Members: None Housing: House Are you a primary career technical supervisor to a significant other at home: No Do you presently have visiting nurse or other home services: No Alcohol intake: current Alcohol intake frequency: holidays/special occasions only Patient Tobacco Use Status: Current someday Tobacco user Tobacco use type: Cigarette Cigarettes Per Day: 3 Years Smoked: 1 year e-Cigarette/Vaping Use: Never Used Second Hand Smoke Exposure: No Substance Use Type: Former Substance User Advance Directives Date on File: 04/08/22 service: No Current occupational status: unemployed Current occupation: [employer]/Part-time Cognitive needs: No Hearing needs: No Vision needs: No Review of Systems Const All systems reviewed & are unremarkable except as noted in HPI and below Physical Exam Vital Signs: Last Vital Signs Pulse 74 10/08/24 14:42 BP 106/50 L 10/08/24 14:42 Pulse Ox 98 10/08/24 14:42 Oxygen Delivery Method Room Air 10/08/24 14:42 BMI result Body Mass Index 34.1 No apparent distress, undernourished Nonicteric Abdomen soft, nondistended Alert and oriented x3, asterixis +++ QAMAR ++ Assessment & Plan Assessment & Plan (1) Hepatitis C antibody positive in blood: Code(s): R76.8 - Other specified abnormal immunological findings in serum Category: Medical (2) Cirrhosis of liver: Code(s): K74.60 - Unspecified cirrhosis of liver Category: Medical (3) Hepatic encephalopathy: Code(s): K76.82 - Hepatic encephalopathy Category: Medical Plan Decomp etOH + HCV cirrhosis -- HE Reports sobriety from etOH x 8 years and polysubstance use x 4 months. Congratulated on this major step towards health improvement. Has grade II HE on exam today, and needs to increase lactulose for goal 2-3 BMs (has only had 1 BM so far today). Also due for HCC and variceal screening. Pt got significantly overwhelmed during the visit while provider was reviewing natural hx and progression of liver disease and requested to defer some discussion for next visit. Plan: - Check MELD labs - Titrate lactulose to 2-3 BMs per day - Cont rifaximin 550 BID - Cont diuretics as is - may need adjustment based on renal function - Daily weights and to report >5lbs gain in one week to office - HCV RNA ordered to ensure SVR - US Abd and AFP ordered - Had EGD/colo 2021 at [facility], will get records - Will also need to review candidacy for transplantation at next visit Follow up 2 months Orders: Orders Hepatitis B Surface Antigen Today K70.30 - Alcoholic cirrhosis of liver without ascites Hepatitis B Surface Antibody Today K70.30 - Alcoholic cirrhosis of liver without ascites HCV RNA QN PROG TO GENOTYPE Today K70.30 - Alcoholic cirrhosis of liver without ascites Prothrombin Time INR Today K70.30 - Alcoholic cirrhosis of liver without ascites Alpha Fetoprotein Today K70.30 - Alcoholic cirrhosis of liver without ascites Complete Blood Count no Diff Today K70.30 - Alcoholic cirrhosis of liver without ascites Comprehensive Met. Panel Today K70.30 - Alcoholic cirrhosis of liver without ascites Hepatitis B Viral DNA Qn Today K70.30 - Alcoholic cirrhosis of liver without ascites Hepatitis B Core Antibody Today K70.30 - Alcoholic cirrhosis of liver without ascites Phosphatidylethanol, Blood Today K70.30 - Alcoholic cirrhosis of liver without ascites US abdomen complete Today K70.30 - Alcoholic cirrhosis of liver without ascites Coding Level of Care Code Est Pt Level 5 (58234) Complex EM visit Add On G2211 Diagnoses Hepatitis C antibody positive in blood R76.8 Cirrhosis of liver K74.60 Hepatic encephalopathy K76.82
== END 2024-10-08 15:32 | disposition home or self-care (01) ==
PROVIDERS: Visit Provider Internal Medicine
DX: R76.8 Other specified abnormal immunological findings in serum (principal); K74.60 Unspecified cirrhosis of liver; K76.82 Hepatic encephalopathy
CPT/HCPCS: 99214; G2211

== ENCOUNTER 2024-10-08 14:35 | Outpatient (REF) | payer OTHER, SELFPAY ==
[2024-10-08 16:24] LABS: Hematocrit 34.1 % (37.0-47.0); Hemoglobin 11.5 g/dl (12.0-16.0); Mean Corpuscular HGB Conc 33.7 g/dl (31.0-35.0); Mean Corpuscular Hemoglobin 30.7 pg (27.0-33.0); Mean Corpuscular Volume 90.9 fL (80.0-98.0); Mean Platelet Volume 9.6 fL (9.4-12.3); Red Blood Count 3.75 X10*6/uL (4.20-5.50); Red Cell Distribution Width 14.7 % (11.0-16.0); White Blood Count 4.9 X10*3/uL (4.8-10.8)
[2024-10-08 16:31] LABS: Platelet Count 34 X10*3/uL (160-400)
[2024-10-08 16:34] LABS: INTERNATIONAL NORM RATIO 1.2 (0.9-1.1)
[2024-10-08 16:56] LABS: Alanine Aminotransferase 25 U/L (0-31); Albumin Level 3.4 g/dL (3.5-5.0); Alkaline Phosphatase 115 U/L (39-117); Anion Gap 12 (12-20); Aspartate Amino Transferase 41 U/L (5-31); Bilirubin Total 1.9 mg/dL (0.0-1.0); Blood Urea Nitrogen 16 mg/dL (9-16); Calcium 9.3 mg/dL (8.4-10.2); Carbon Dioxide 25 mmol/L (22-29); Chloride 108 mmol/L (96-108); Estimated Glomerular Filt Rate > 60; Glucose Random 117 mg/dL (60-115); Potassium 4.1 mmol/L (3.3-5.1); Sodium 141 mmol/L (135-145); Total Protein 6.5 g/dL (6.5-8.0)
[2024-10-09 08:14] LABS: HBS Num1 226.45 mIU/mL (0-7.99); HBsAGNum1 0.45 S/CO (0.00-0.99); Hepatitis B Core Antibody Nonreactive (Nonreactive); Hepatitis B Surface Antigen Negative (Negative); ~Hepatitis B Surface Antibody REACTIVE (Nonreactive)
[2024-10-09 15:19] LABS: Hepatitis B Viral DNA Qn - cp NOT DETECTED Log IU/mL (NOT DETECTED); Hepatitis B Viral DNA Qn-IU/mL NOT DETECTED (NOT DETECTED)
[2024-10-11 12:29] LABS: HCV RNA PCR Qn <1.18 NOT DETECTED Log IU/mL (NOT DETECTED); HCV RNA PCR Qn <15 NOT DETECTED IU/mL (NOT DETECTED)
[2024-10-15 10:52] LABS: Alpha Fetoprotein 2.8
[2024-10-15 10:54] LABS: Phosphatidylethanol 16:0-18:1 NEGATIVE; Phosphatidylethanol 16:0-18:2 NEGATIVE
== END 2024-10-08 14:36 | disposition home or self-care (01) ==
LOC: HO.LAB 14:35
PROVIDERS: Visit Provider Internal Medicine
DX: K70.30 Alcoholic cirrhosis of liver without ascites (principal); R76.8 Other specified abnormal immunological findings in serum; K76.82 Hepatic encephalopathy
CPT/HCPCS: 36415; 80053; 80321; 82105; 85027; 85610; 86704; 86706; 87340; 87517; 87522; 99212

== ENCOUNTER 2024-11-24 13:09 | Outpatient (REF) | payer OTHER, SELFPAY ==
[2024-11-24 15:07] LABS: Anion Gap 7 (12-20); Blood Urea Nitrogen 13 mg/dL (9-16); Calcium 9.1 mg/dL (8.4-10.2); Carbon Dioxide 29 mmol/L (22-29); Chloride 108 mmol/L (96-108); Estimated Glomerular Filt Rate > 60; Glucose Random 119 mg/dL (60-115); Potassium 3.8 mmol/L (3.3-5.1); Sodium 140 mmol/L (135-145)
[2024-11-24 15:10] LABS: B Type Natriuretic Peptide 91 pg/mL (<100)
== END 2024-11-24 13:10 | disposition home or self-care (01) ==
LOC: HO.LAB 13:09
PROVIDERS: Visit Provider Internal Medicine Cardiovascular Disease
DX: I50.810 Right heart failure, unspecified (principal); Z79.899 Other long term (current) drug therapy
CPT/HCPCS: 36415; 80048; 83880; 93005; 99212

== ENCOUNTER 2024-11-24 13:09 | Outpatient (AMB) | payer OTHER, SELFPAY ==
[2024-11-24 13:12] VITALS: BP 120/78; PULSE 72; BMI 33.3
--- NOTE | 2024-11-24 13:12 | A.OFFVIS_ITS ---
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 nicotine 1 patch transdermal DAILY rifaximin (Xifaxan) 550 mg PO BID spironolactone 12.5 mg (1/2 x 25 mg) PO BID trazodone 50 mg PO DAILY HPI Comments Details: Gila comes for follow-up after 2 years. Was seen at that time with right heart failure with significant elevated BNP and right heart failure syndrome. [place]ch[place] rdiogram at that time had shown elevated right atrial pressure unclear etiology without significant pulmonary hypertension. History of liver cirrhosis question alcoholic versus hepatitis-C. She has been managed by GI team. Patient is currently on low-dose Lasix as well as spironolactone therapy for management of her leg edema related to liver cirrhosis. She was admitted in June with acute hepatic encephalopathy at that time BNP was within normal range. No echocardiogram heart testing was performed at that time. However over the last many months as per the daughter patient has been having increasing leg swelling although we up to the hips. She does not have any clear abdominal distension. Denies any clear shortness of breath, orthopnea, PND. She was referred here for further evaluation. She denies any exertional chest pain. No lightheadedness, syncope. Blood pressures remained stable. [facility] Medical History Splenomegaly Iron deficiency anemia Alcohol use disorder, moderate, in early remission, dependence Cirrhosis, alcoholic Obesity (BMI 30-39.9) Smoker History of substance abuse Hemorrhoids Constipation Lumbar back pain with radiculopathy affecting right lower extremity Surgical History History of tubal ligation Hx of hemorrhoidectomy H/O: hysterectomy Family History Father No problems noted. Mother Active asthma Social History Household Members: None Housing: House Are you a primary ocular care aide to a significant other at home: No Do you presently have visiting nurse or other home services: No Alcohol intake: current Alcohol intake frequency: holidays/special occasions only Patient Tobacco Use Status: Current someday Tobacco user Tobacco use type: Cigarette Cigarettes Per Day: 3 Years Smoked: 1 year e-Cigarette/Vaping Use: Never Used Second Hand Smoke Exposure: No Substance Use Type: Former Substance User Advance Directives Date on File: 04/08/22 service: No Current occupational status: unemployed 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 Cognitive needs: No Hearing needs: No Vision needs: No Review of Systems Const Denies chills, Denies daytime sleepiness, Denies fatigue, Denies fever(s), Denies frequent falls, Denies poor appetite, Denies snoring, Denies stops breath ing during sleep, Denies weakness, Denies weight gain and Denies weight loss Eyes Denies loss of vision ENT Denies dizziness and Denies hearing loss Card Denies chest pain, Denies claudication, Denies leg edema, Denies lightheadedness, Denies palpitations, Denies dyspnea, Denies dyspnea on exertion and Denies orthopnea Resp Denies cough, Denies excessive phlegm production, Denies dyspnea, Denies dyspnea on exertion, Denies snoring and Denies wheezing GI Denies abdominal pain, Denies hematochezia, Denies change in bowel habits, Denies nausea and Denies vomiting Denies urinary frequency and Denies dysuria Musc Denies arthralgias, Denies muscle weakness, Denies numbness and Denies other (frequent falls) Skin/Breast Denies nail changes and Denies rash Neuro Denies Abnormal speech present, Denies dizziness, Denies frequent falls, Denies loss of vision, Denies memory loss, Denies numbness and Denies weakness Psych Denies depression and Denies memory loss Endo Denies fatigue and Denies palpitations Dom/Lymph Reports easy bruising and Reports other (anemia) Aller/Immun Denies wheezing Physical Exam Vital Signs: Last Vital Signs Pulse 72 11/24/24 13:12 BP 120/78 11/24/24 13:12 BMI result Body Mass Index 33.3 Const General: cooperative, comfortable, no acute distress, alert and awake Nutritional Appearance: obese Orientation/consciousness: patient oriented x3 Limitations: no limitations Neck Neck: Yes trachea midline, Yes supple and Yes JVD Resp Effort & Inspection: normal respiratory effort Auscultation: clear to auscultation bilaterally Cardio Jugular venous distension: JVD Palpation: normal PMI Rate: regular rate Rhythm: regular rhythm Heart sounds: S1 normal heart sound present, S2 normal heart sound present, no click, no gallops and no murmurs GI Inspection: Yes obesity Auscultation: normal bowel sounds Skin General skin exam: no rashes or lesions noted Neuro General: patient oriented x3 and no focal motor deficits Speech: No Abnormal speech present Extrem General: No clubbing, No cyanosis and Yes edema (Three to 4+ edema all the way up to the thighs.) Office Procedures EKG Details: EKG shows normal sinus rhythm with nonspecific T-wave changes 12716-[id number], Complete Assessment & Plan Assessment & Plan (1) Right heart failure: Code(s): I50.810 - Right heart failure, unspecified Category: Medical Plan: Right heart failure syndrome in the past with BNP within normal range in June when she was admitted with acute hepatic encephalopathy. Although over the last many months she has been having increasing swelling in both her lower extremity without any other overt heart failure symptoms. This possibility of redevelopment of right heart failure syndrome. Will obtain echocardiogram. Will obtain BMP and BNP today. I think patient will benefit from more enhance diuresis. Will switch her furosemide to bumetanide 1 mg daily. Also increase spironolactone to 25 mg b.i.d.. Advised to monitor blood pressure at home maintain a log. Advised daily weight monitoring avoidance of salt loading. I expect her to have a gradual weight loss over the next few weeks with improvement to leg swelling. Follow-up BNP BNP in 2 weeks time. Follow up in the clinic in 4 weeks time. Further management based on response to therapy. Also possible that these fluid gain is related to cirrhosis although does appear to have significant ascites. Will follow with her in 4 weeks time, sooner p.r.n.. Thank you for allowing me to partake in his care Orders: Orders CA echo transthoracic complete Today I50.810 - Right heart failure, unspecified Basic Metabolic Panel Today I50.810 - Right heart failure, unspecified B Type Natriuretic Peptide Today I50.810 - Right heart failure, unspecified Basic Metabolic Panel 2 Weeks I50.810 - Right heart failure, unspecified B Type Natriuretic Peptide 2 Weeks I50.810 - Right heart failure, unspecified Medications: New bumetanide 1 mg PO DAILY 30 tabs 5RF I50.810 - Right heart failure, unspecified Changed From spironolactone 12.5 mg (1/2 x 25 mg) PO BID 90 tabs 0RF I50.810 - Right heart failure, unspecified To spironolactone 25 mg PO BID 90 tabs 0RF I50.810 - Right heart failure, unspecified Discontinued furosemide Discontinued Reason: Doctor's Order 20 mg PO DAILY 90 tabs 0RF Coding Level of Care Code Est Pt Level 4 (14973) Complex EM visit Add On G2211 Diagnoses Right heart failure I50.810 CPT Codes EKG - CPT: 66405-[id number], Complete ([id number])
== END 2024-11-24 13:38 | disposition home or self-care (01) ==
PROVIDERS: Visit Provider Internal Medicine Cardiovascular Disease
DX: I50.810 Right heart failure, unspecified (principal)
CPT/HCPCS: 93010; 99214; G2211

== ENCOUNTER → 2024-11-26 15:31 | Outpatient (BNVA) | payer OTHER, SELFPAY | DX: Z00.00 Encounter for general adult medical examination without abnormal findings (principal); K21.9 Gastro-esophageal reflux disease without esophagitis; F41.9 Anxiety disorder, unspecified; F19.11 Other psychoactive substance abuse, in remission; E66.9 Obesity, unspecified; F17.210 Nicotine dependence, cigarettes, uncomplicated; F10.21 Alcohol dependence, in remission; E55.9 Vitamin D deficiency, unspecified; E53.8 Deficiency of other specified B group vitamins; E53.9 Vitamin B deficiency, unspecified; I50.810 Right heart failure, unspecified; K70.30 Alcoholic cirrhosis of liver without ascites; M79.89 Other specified soft tissue disorders; Z23 Encounter for immunization; Z68.33 Body mass index [BMI] 33.0-33.9, adult; Z79.899 Other long term (current) drug therapy | CPT/HCPCS: 90471; 90656; 96127; 99212 ==

== ENCOUNTER 2024-11-26 15:38 | Outpatient (AMB) | payer OTHER, SELFPAY ==
--- NOTE | 2024-11-26 15:43 | MHC.PC.OV ---
Vital Signs 11/26/24 15:45 Height 5 ft 4 in Weight 196 lb 4 oz BMI 33.7 BP 126/76 Blood Pressure Location Lt brachial Position Sitting Temp 97.5 F Temp Source Skin Intake Visit Reasons: annual exam Intake Note: Patient is here today for a physical. Drug And Alcohol Treatment Specialist Required: No Webbing Weaver: Present Accompanied by: Daughter Allergies Iodinated Contrast Media Allergy (Intermediate, Verified 11/26/24 16:02) blood in urine Shellfish Allergy (Unknown, Uncoded 11/26/24 16:02) Hives Medication List - Last Reconciled 11/26/24 by Doris Kimball PA-C bumetanide 1 mg PO DAILY lactulose 30 grams (45 mL) PO TID methadone 50 mg PO DAILY miscellaneous medical supply (Blood Pressure Cuff) As directed, take BP twice a day. nicotine 1 patch transdermal DAILY rifaximin (Xifaxan) 550 mg PO BID spironolactone 25 mg PO BID trazodone 50 mg PO DAILY Tobacco use date assessed: 11/26/24 Dental Screening Dental Screen Date: 11/26/24 Did you have a dental visit in the last 12 months?: No Did you have a dental problem in the last 6 months where you did not have access to dental care?: No Was dental information given to patient?: No (Dentures) HPI annual exam HPI Details 64 year old female with history of substance use disorder, alcohol use disorder, CHF, GERD, anxiety, and cirrhosis coming to our office for follow up.? In review of the notes, patient was seen by Cardiology 11/2024 for right heart failure after hepatic encephalopathy admission ordered for echocardiogram and furosemide was switched to bumetanide 1 mg and increase spironolactone to b.i.d. and follow up in 4 weeks.? Patient was seen by Gastroenterology 09/2024 for cirrhosis plan to titrate lactulose, continue rifaximin, continue diuretics and obtain ultrasound interview transplantation candidacy. Patient presents with her daughter who also helps with the patient's history. She started on the new dose of diuretics today and has not yet seen an improvement in her symptoms. She is having swelling in bilateral lower extremities and states they feel heavy and uncomfortable but denies any pain. Becuase of the swelling she has found it more difficult to get around and is requesting a walker which a chair. She also mentions having increased anxiety. She is on Trazodone primarily for sleep and does not feel it works for the anxiety which tends to keep her awake at night. 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 [facility] Medical History Splenomegaly Iron deficiency anemia Alcohol use disorder, moderate, in early remission, dependence Cirrhosis, alcoholic Obesity (BMI 30-39.9) Smoker History of substance abuse Hemorrhoids Constipation Lumbar back pain with radiculopathy affecting right lower extremity Surgical History History of tubal ligation Hx of hemorrhoidectomy H/O: hysterectomy Family History Father No problems noted. Mother Active asthma Social History (Updated 11/26/24 @ 15:50 by ALESSANDRA Castro) Household Members: None Housing: House Are you a primary patient care technician instructor to a significant other at home: No Do you presently have visiting nurse or other home services: No Alcohol intake: current Alcohol intake frequency: holidays/special occasions only Patient Tobacco Use Status: Current someday Tobacco user Tobacco use type: Cigarette Cigarette Packs Per Day: 0.5 Cigarettes Per Day: 10 Years Smoked: 1 year e-Cigarette/Vaping Use: Never Used Second Hand Smoke Exposure: Yes Substance Use Type: Former Substance User Advance Directives Date on File: 04/08/22 service: No Current occupational status: unemployed 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 1. Little interest or pleasure in doing things: not at all 2. Feeling down, depressed, or hopeless: not at all 3. Trouble falling or staying asleep, or sleeping too much: not at all 4. Feeling tired or having little energy: not at all 5. Poor appetite or overeating: not at all 6. Feeling bad about yourself - or that you are a failure or have let yourself or your family down: not at all 7. Trouble concentrating on things, such as reading the newspaper or watching television: not at all 8. Moving or speaking so slowly that other people could have noticed. Or the opposite - being so fidgety or restless that you have been moving around a lot more than usual: not at all 9. Thoughts that you would be better off or of hurting yourself in some way: not at all Total score: 0 Source: Developed by Drs. Abraham Thakkar, Tc Abernathy and colleagues, with an educational hugo from [employer]. Thrive Questionnaire Date Thrive assessed: 11/20/24 AUDIT C Alcohol Use Questionnaire (AUDIT-C) 1. How often do you have a drink containing alcohol?: Never Total Score: 0 KADEEM-7 AMB Questionnaire KADEEM-7 Date KADEEM - 7 assessed: 11/26/24 Feeling nervous, anxious, or on edge: 3 = Nearly every day Not being able to stop or control worryin = More than half the days Worrying too much about different things: 2 = More than half the days Trouble relaxin = More than half the days Being so restless that it is hard to sit still: 2 = More than half the days Becoming easily annoyed or irritable: 2 = More than half the days Feeling afraid as if something awful might happen: 2 = More than half the days Total KADEEM-7 score (0-4 normal; 5-9 mild; 10-14 moderate; 15-21 severe): 15 Source: Developed by Drs. Abraham Thakkar, Tc Abernathy and colleagues, with an educational hugo from [employer]. KADEEM-7 Assessment Billing KADEEM-7 Assessment Tool: KADEEM-7 Assessment 99861 Review of Systems Const Denies body aches, Denies fatigue, Denies fever(s), Denies frequent falls, Denies headache(s) and Reports weakness (generalized) Eyes Reports no additional complaints and Denies change in vision ENT Denies dizziness and Denies headache(s) Card Denies chest pain, Reports leg edema, Denies lightheadedness and Denies dyspnea Resp Denies cough and Denies dyspnea GI Denies abdominal pain, Denies constipation, Denies dyspepsia, Denies nausea and Denies vomiting Denies urinary frequency, Denies dysuria, Denies urinary hesitancy and Denies urinary urgency Musc Denies back pain and Denies myalgias Skin/Breast Reports system reviewed and no additional complaints, except as documented Neuro Denies dizziness, Denies frequent falls, Denies headache(s) and Reports weakness (generalized) Psych Reports anxiety Endo Denies fatigue Physical exam (Primary Care) Vital Signs: Last Vital Signs Temp 97.5 F 11/26/24 15:45 BP 126/76 11/26/24 15:45 BMI result Body Mass Index 33.7 Tobacco/Smoking Status: Tobacco use Status Tobacco use date assessed 11/26/24 11/26/24 15:53 Patient Tobacco Use Status Current someday Tobacco 11/26/24 15:50 Tobacco use type Cigarette 11/26/24 15:50 e-Cigarette/Vaping Use Never Used 11/26/24 15:50 PHQ-9: PHQ-9 Score PHQ-9: Total score 0 11/27/24 07:48 Thrive Assessment: Date of Thrive Assessment Date Thrive assessed 11/20/24 11/26/24 15:44 Const General: cooperative, healthy appearing, comfortable and no acute distress Orientation/consciousness: patient oriented x3 HENMT Head: Yes normocephalic Ears: hearing grossly normal bilaterally General nose exam: Normal external nose present Eyes General: appearance normal, both eyes and all related structures Conjunctivae: conjunctivae normal Neck Neck: Yes full ROM and Yes no lymphadenopathy Resp Effort & Inspection: normal respiratory effort Auscultation: clear to auscultation bilaterally, no crackles, no rales, no rhonchi and no wheezes Cardio Rate: regular rate Rhythm: regular rhythm Skin General skin exam: no rashes or lesions noted Neuro General: patient oriented x3 Gait exam (Neuro): Normal gait present Extrem Other: bilateral 2+ pitting edema in lower extremities without overlying skin changes, erythema or warmth. No unilateral calf swelling or pain General: Yes full ROM and No edema Psych Affect: normal affect Attitude: cooperative Insight: Good insight present (Psych) Judgement: Good judgement present (Psych) Office Procedures Flu Questionnaire Does the patient have a severe egg allergy?: No Does the patient have severe life threatening allergies?: No Does the patient have a fever or illness today?: No Has the patient ever had Guillain-[place] Syndrome?: No Has the patient ever had any past reaction to a flu shot?: No Immunizations Fluarix Triv [id number] (PF) 45 mcg (15 mcg x 3)/0.5 mL IM syringe Performing Provider: Doris Kimball PA-C Performing Location: [facility] Administered by: Alisha Kramer LPN on 11/26/24 16:31 Dose Route Admin Location Dispensed Lot Number Expiration Date NDC Bottle Machine Operator 0.5 mL IM Left Deltoid 0.5 mL [id number] 05/11/25 11370-296-51 [employer] VIS Given Date VIS Provided VIS Publication Date 11/26/24 Single Vaccine 21 Eligibility Eligibility Date Funding Source Not [facility] [place] Eligible 11/26/24 Private Coding Level of Care Code Est Pt Level 4 (27072) Diagnoses History of substance abuse F19.11 Obesity (BMI 30-39.9) E66.9 Smoker F17.200 Alcohol use disorder, moderate, in early remission, dependence F10.21 Vitamin D deficiency E55.9 Folic acid deficiency E53.8 GERD (gastroesophageal reflux disease) K21.9 Vitamin B deficiency E53.9 Anxiety F41.9 Right heart failure I50.810 Cirrhosis, alcoholic K70.30 Swelling of both lower extremities M79.89 Additional Codes KADEEM-7 Assessment Billing - KADEEM-7 Assessment Tool: KADEEM-7 Assessment 23037 ([id number]) Assessment & Plan Assessment & Plan (1) History of substance abuse: Comment: S/P Methadone Code(s): F19.11 - Other psychoactive substance abuse, in remission Category: Medical Plan: Patient currently on methadone 50 mg daily does not report the relapse (2) Obesity (BMI 30-39.9): Code(s): E66.9 - Obesity, unspecified Category: Medical Plan: Healthy diet and regular exercise is encouraged. (3) Smoker: Code(s): F17.200 - Nicotine dependence, unspecified, uncomplicated Category: Social Hx Plan: Smoking cigarettes and the use of tobacco can be harmful. We discussed the importance of stopping and options to aid in smoking cessation. Patient currently using nicotine replacement patch (4) Alcohol use disorder, moderate, in early remission, dependence: Code(s): F10.21 - Alcohol dependence, in remission Category: Medical Plan: Patient having alcoholic liver cirrhosis strongly advised to abstain from alcohol. Patient abstain from EtOH x8 years (5) Vitamin D deficiency: Code(s): E55.9 - Vitamin D deficiency, unspecified Category: Medical Plan: Patient is not currently on vitamin-D supplementation we will continue to monitor the labs at this time. Ordered for updated labs (6) Folic acid deficiency: Code(s): E53.8 - Deficiency of other specified B group vitamins Category: Medical Plan: Patient not currently on medical management ordered for updated labs. (7) GERD (gastroesophageal reflux disease): Code(s): K21.9 - Gastro-esophageal reflux disease without esophagitis Category: Medical Plan: Avoid trigger foods such as citrus, tomato products, soda, caffeine, spicy foods and other foods that may be irritating to your stomach. Avoid laying flat 3-4 hours after eating and elevate the head of the bed 30 degrees to prevent acid from moving into the esophagus. (8) Vitamin B deficiency: Code(s): E53.9 - Vitamin B deficiency, unspecified Category: Medical Plan: Not currently on supplementation we will order for repeat labs for further evaluation (9) Anxiety: Code(s): F41.9 - Anxiety disorder, unspecified Category: Medical Plan: Patient reporting worsening anxiety would like to try something daily for anxiety. Has tried Zoloft in the past without good relief. We will start on fluoxetine 20 mg reviewed in side effects of this medication and red flag symptoms and when to present for re-evaluation. Advised patient has had fluoxetine may take 4-6 weeks to begin working and we will follow up in 2 months. Referral placed to counseling as well. (10) Right heart failure: Code(s): I50.810 - Right heart failure, unspecified Category: Medical Plan: Patient diagnosed with right heart failure status post hospitalization for hepatic encephalopathy. She was seen by Cardiology earlier this month bumetanide added to medication regimen and spironolactone increased to b.i.d.. Continue to follow with Cardiology. Echocardiogram ordered by Cards. (11) Cirrhosis, alcoholic: Code(s): K70.30 - Alcoholic cirrhosis of liver without ascites Category: Medical Plan: Patient currently being monitored by [facility] on lactulose 30 g t.i.d. and rifaximin. Advised to avoid liver irritants. Continue to follow with GI. (12) Swelling of both lower extremities: Code(s): M79.89 - Other specified soft tissue disorders Category: Medical Plan: Continue on diuretics as advised by Cardiology. If leg swelling worsens or does not improve please reach out to your machine marker as they are managing her diuretics at this time. Advising patient to use compression stockings, elevate the legs and exercise as tolerated. Given limited mobility we will order Rollator walker to be sent to pharmacy. Low suspicion for DVT at this time. Reviewed red flag symptoms and when to present for re-evaluation Plan This note was constructed using voice recognition software. While every effort has been made to ensure accuracy and woods laborer, still areas may have been included sometimes these areas may affect the content or meeting of the given symptoms. Total time spent caring for the patient today was 30 minutes. This includes time spent before the visit reviewing the chart, time spent during the visit, and time spent after the visit and documentation. Orders: Orders Vitamin B12 and Folate 11/26/24 E53.8 - Deficiency of other specified B group vitamins, Z00.00 - Encounter for general adult medical examination without abnormal findings Vitamin D 25-OH Total 11/26/24 E55.9 - Vitamin D deficiency, unspecified, Z00.00 - Encounter for general adult medical examination without abnormal findings Influenza [id number] Immunization 11/26/24 Z23 - Encounter for immunization Referrals Counseling Referral F41.9 - Anxiety disorder, unspecified Medications: New walker (Ultra-Light Rollator misc) As directed 1 ea 0RF fluoxetine 20 mg PO DAILY 90 tabs 0RF
[2024-11-26 15:45] VITALS: BP 126/76; TEMP 36.4; BMI 33.7
== END 2024-11-26 16:27 | disposition home or self-care (01) ==
DX: Z23 Encounter for immunization (principal)

== ENCOUNTER 2024-12-05 11:40 | Outpatient (REF) | payer OTHER, SELFPAY ==
--- NOTE | ~2024-12-05 | US_ITS ---
CLINICAL HISTORY: K70.30 - Alcoholic cirrhosis of liver without ascites US abdomen complete Comparison: None Findings: The visualized pancreas is normal. The aorta and inferior vena cava are normal caliber. The appearance of the liver is consistent with the provided diagnosis without focal lesion. There is no intrahepatic bile duct dilatation. The common duct is 4.0 mm in diameter. The gallbladder is normal. There is no sonographic Collier sign. The main portal vein is antegrade. There is suggestion of recanalization of the umbilical vein. The right kidney is 12.2 cm in length. The left kidney is 12.6 cm in length. The spleen measures 21.3 cm and is otherwise is normal. No ascites. IMPRESSION: 1. Findings consistent with cirrhosis with splenomegaly This document has been electronically signed by: Cristiano Hernandez MD on 12/06/2024 09:24:50
== END 2024-12-05 11:41 | disposition home or self-care (01) ==
LOC: HO.US 11:40
PROVIDERS: Visit Provider Internal Medicine
DX: K70.30 Alcoholic cirrhosis of liver without ascites (principal)
CPT/HCPCS: 76700

== ENCOUNTER → 2024-12-05 11:41 | Outpatient (BNV) | payer OTHER, SELFPAY | PROVIDERS: Visit Provider Specialist | DX: K70.30 Alcoholic cirrhosis of liver without ascites (principal); R16.1 Splenomegaly, not elsewhere classified | CPT/HCPCS: 76700 ==

== ENCOUNTER 2025-01-26 13:55 | Outpatient (AMB) | payer OTHER, SELFPAY ==
[2025-01-26 13:58] VITALS: BP 110/70; PULSE 76; TEMP 36.8; O2SAT 99; BMI 33.5
--- NOTE | 2025-01-26 13:58 | MHC.PC.OV ---
Vital Signs 01/26/25 13:58 Height 5 ft 4 in Weight 195 lb 4 oz BMI 33.5 BP 110/70 Blood Pressure Location Lt brachial Position Sitting Pulse 76 Pulse Source Pulse Oximeter Temp 98.2 F Temp Source Temporal Artery Scan Pulse Oximetry (%) 99 Oxygen Delivery Method Room Air Intake Visit Reasons: Annual Exam Intake Note: Patient is here today for a physical. 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 nicotine 1 patch transdermal DAILY rifaximin (Xifaxan) 550 mg PO BID spironolactone 25 mg PO BID trazodone 50 mg PO DAILY walker (Ultra-Light Rollator misc) As directed Tobacco use date assessed: 01/26/25 Dental Screening Dental Screen Date: 11/26/24 HPI Annual Exam HPI Details 64 year old female with history of substance use disorder, alcohol use disorder, CHF, GERD, anxiety, and cirrhosis coming to our office for annual exam.?In review of the notes, patient had ultrasound completed 11/2024 which showed evidence of liver cirrhosis. Presenting with anxiety, noting prior use and cessation of fluoxetine due to xerostomia. There is no recent need for medicating the anxiety. Peripheral edema is persistent in the lower extremities, refractive to current diuretic management, with compression stockings and elevation providing minimal relief. There is continued generalized pruritus, potentially linked to known cirrhosis and dry dermal conditions exacerbated by diuretics. The patient is reducing tobacco intake, smoking occasionally. Maintains methadone use, with an incidental episode of heart palpitations reported occasionally but as frequent as twice weekly. Colonoscopy: follow up with GI Mammo: referral placed today Pap: referral placed to freight hustler today [facility] Medical History Splenomegaly Iron deficiency anemia Alcohol use disorder, moderate, in early remission, dependence Cirrhosis, alcoholic Obesity (BMI 30-39.9) Smoker History of substance abuse Hemorrhoids Constipation Lumbar back pain with radiculopathy affecting right lower extremity Surgical History History of tubal ligation Hx of hemorrhoidectomy H/O: hysterectomy Family History Father No problems noted. Mother Active asthma Social History Household Members: None Housing: House Are you a primary eye care professional to a significant other at home: No Do you presently have visiting nurse or other home services: No Alcohol intake: current Alcohol intake frequency: holidays/special occasions only Patient Tobacco Use Status: Current someday Tobacco user Tobacco use type: Cigarette Cigarette Packs Per Day: 0.5 Cigarettes Per Day: 10 Years Smoked: 1 year e-Cigarette/Vaping Use: Never Used Second Hand Smoke Exposure: Yes Substance Use Type: Former Substance User Advance Directives Date on File: 04/08/22 service: No Current occupational status: unemployed 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 1. Little interest or pleasure in doing things: not at all 2. Feeling down, depressed, or hopeless: several days 3. Trouble falling or staying asleep, or sleeping too much: nearly every day 4. Feeling tired or having little energy: nearly every day 5. Poor appetite or overeating: several days 6. Feeling bad about yourself - or that you are a failure or have let yourself or your family down: several days 7. Trouble concentrating on things, such as reading the newspaper or watching television: not at all 8. Moving or speaking so slowly that other people could have noticed. Or the opposite - being so fidgety or restless that you have been moving around a lot more than usual: nearly every day 9. Thoughts that you would be better off or of hurting yourself in some way: not at all Total score: 12 Depression Screening Interpretation: Positive Depression Screening Follow-up: Existing condition and In treatment Depression Screening Done: Yes 58704 - PHQ-9 Billing: Yes Source: Developed by Drs. Abraham Thakkar, Anita Peñaloza, Tc Mendes and colleagues, with an educational hugo from [employer]. Thrive Questionnaire Date Thrive assessed: 01/26/25 I am a: Patient What is your living situation today?: I do not have a steady places to live I choose not to answer this question Within the past 12 months, did the food you bought not last and you didn't have the money to get more?: Often true Within the past 12 months, did you worry whether your food would run out before you got money to buy more?: Often true Do you have trouble paying for medicines?: No Do you have trouble getting transportation to medical appointments?: Yes Do you have trouble paying your heating and electricity bill?: Yes Do you have trouble taking care of your child, family member or friend?: I choose not to answer this question Do you have trouble with day-to-day activities such as bathing, preparing meals, shopping, managing finances, etc.?: Yes Are you currently unemployed and looking for a job?: Yes Are you interested in more education?: No Currently or been in a relationship where the following occur: No concerns reported THRIVE Score: 5 AUDIT C Alcohol Use Questionnaire (AUDIT-C) 1. How often do you have a drink containing alcohol?: Never 3. How often do you have six or more drinks on one occasion?: Never Total Score: 0 KADEEM-7 AMB Questionnaire KADEEM-7 Date KADEEM - 7 assessed: 01/26/25 Feeling nervous, anxious, or on edge: 3 = Nearly every day Not being able to stop or control worryin = More than half the days Worrying too much about different things: 2 = More than half the days Trouble relaxin = More than half the days Being so restless that it is hard to sit still: 2 = More than half the days Becoming easily annoyed or irritable: 2 = More than half the days Feeling afraid as if something awful might happen: 2 = More than half the days Total KADEEM-7 score (0-4 normal; 5-9 mild; 10-14 moderate; 15-21 severe): 15 Source: Developed by Drs. Abraham Thakkar, Tc Abernathyoenke and colleagues, with an educational hugo from [employer]. KADEEM-7 Assessment Billing KADEEM-7 Assessment Tool: KADEEM-7 Assessment 73779 Review of Systems Const Denies body aches, Denies chills, Denies fever(s), Denies headache(s) and Denies poor appetite Eyes Reports no additional complaints ENT Denies dysphagia, Denies dizziness, Denies headache(s) and Denies odynophagia Card Denies chest pain, Denies syncope, Denies edema, Reports leg edema, Denies lightheadedness, Reports palpitations and Reports dyspnea (occasional ) Resp Denies cough and Reports dyspnea (occasional ) GI Denies abdominal pain, Denies constipation, Denies dysphagia, Denies diarrhea, Denies nausea, Denies odynophagia and Denies vomiting Reports no additional complaints Musc Reports no additional complaints and Reports abnormal gait Skin/Breast Reports system reviewed and no additional complaints, except as documented Neuro Reports abnormal gait, Denies dizziness, Denies syncope and Denies headache(s) Psych Reports no additional complaints Endo Reports palpitations Physical exam (Primary Care) Vital Signs: Last Vital Signs Temp 98.2 F 01/26/25 13:58 Pulse 76 01/26/25 13:58 BP 110/70 01/26/25 13:58 Pulse Ox 99 01/26/25 13:58 Oxygen Delivery Method Room Air 01/26/25 13:58 BMI result Body Mass Index 33.5 Tobacco/Smoking Status: Tobacco use Status Tobacco use date assessed 01/26/25 01/26/25 14:00 Patient Tobacco Use Status Current someday Tobacco 01/26/25 14:00 Tobacco use type Cigarette 01/26/25 14:00 e-Cigarette/Vaping Use Never Used 01/26/25 14:00 PHQ-9: PHQ-9 Score PHQ-9: Total score 12 01/26/25 15:08 Depression Screening Interpretation: Positive Depression Screening Follow-up: Existing condition and In treatment Thrive Assessment: Date of Thrive Assessment Date Thrive assessed 01/26/25 01/26/25 14:00 Currently or been in a relationship where the following occur: No concerns reported Const General: cooperative, healthy appearing, comfortable and no acute distress Orientation/consciousness: patient oriented x3 HENMT Head: Yes normocephalic Ears: hearing grossly normal bilaterally, external ears normal, TM's normal bilaterally and Abnormal EAC present cerumen impaction bilateral General nose exam: Normal external nose present Face and sinus: Yes normal facial exam and Yes sinuses nontender Mouth: Normal oral and palatal mucosa present and tongue normal Throat: Yes posterior oropharynx normal Eyes General: appearance normal, both eyes and all related structures Conjunctivae: conjunctivae normal Pupils: Equal, round and reactive pupils present EOM: EOMs intact bilaterally and No Nystagmus present Neck Neck: Yes normal visual inspection, Yes full ROM and Yes no lymphadenopathy Chest Chest palpation & inspection: normal inspection of the chest Resp Effort & Inspection: normal respiratory effort Auscultation: clear to auscultation bilaterally, no crackles, no rales, no rhonchi, no wheezes and breath sounds present Cardio Rate: regular rate Rhythm: regular rhythm Peripheral pulses: radial pulses present and dorsalis pedis present GI Inspection: Yes normal to inspection and No Abdominal wall edema Palpation (GI): Soft to palpation, not firm and nontender Auscultation: normal bowel sounds Rectal Exam - Female: deferred General: Yes no CVA tenderness Back/Spine/Pelvis Back: no CVA tenderness Skin General skin exam: no rashes or lesions noted Neuro General: patient oriented x3 Cranial nerves: Yes Equal, round and reactive pupils present, Yes Midline tongue present, Yes Ability to bilaterally elevate shoulders present and No Nystagmus present Gait exam (Neuro): Normal gait present Extrem Other: 1+ pitting edema of bilateral lower extremities with skin thickening. Intact sensation and pulses in bilateral lower extremities General: Yes normal to inspection and Yes full ROM Psych Speech and movement: Normal speech and movement present Affect: normal affect Insight: Good insight present (Psych) Judgement: Good judgement present (Psych) Coding Level of Care Code Est Pt Prev Care 40-64y(13806) Diagnoses History of substance abuse F19.11 Smoker F17.200 Obesity (BMI 30-39.9) E66.9 Alcohol use disorder, moderate, in early remission, dependence F10.21 CHF (congestive heart failure) I50.9 Vitamin D deficiency E55.9 Folic acid deficiency E53.8 GERD (gastroesophageal reflux disease) K21.9 Vitamin B deficiency E53.9 Splenomegaly R16.1 Anxiety F41.9 Cirrhosis, alcoholic K70.30 Right heart failure I50.810 Annual physical exam Z00.00 Swelling of both lower extremities M79.89 Palpitations R00.2 Asthma J45.909 Insomnia G47.00 Cerumen impaction H61.20 Additional Codes KADEEM-7 Assessment Billing - KADEEM-7 Assessment Tool: KADEEM-7 Assessment 28970 ([id number]) PHQ-9 - 54377 - PHQ-9 Billing: Yes ([id number]) Assessment & Plan Assessment & Plan (1) History of substance abuse: Comment: S/P Methadone Code(s): F19.11 - Other psychoactive substance abuse, in remission Category: Medical Plan: Continue on methadone no noted relapse. (2) Smoker: Code(s): F17.200 - Nicotine dependence, unspecified, uncomplicated Category: Medical Plan: Smoking cigarettes and the use of tobacco can be harmful. We discussed the importance of stopping and options to aid in smoking cessation. Using Nicotine patch in consistently. (3) Obesity (BMI 30-39.9): Code(s): E66.9 - Obesity, unspecified Category: Medical Plan: Healthy diet and regular exercise is encouraged. (4) Alcohol use disorder, moderate, in early remission, dependence: Code(s): F10.21 - Alcohol dependence, in remission Category: Medical Plan: Patient having alcoholic liver cirrhosis strongly advised to abstain from alcohol. Patient abstain from EtOH x8 years (5) CHF (congestive heart failure): Code(s): I50.9 - Heart failure, unspecified Category: Medical Plan: Continue to follow with Cardiology. Advised to monitor daily weights and continue on diuretics. Avoid excessive salt intake. Advised patient to reach out to Cardiology to reschedule echocardiogram and follow up appointment (6) Vitamin D deficiency: Code(s): E55.9 - Vitamin D deficiency, unspecified Category: Medical Plan: Continue to monitor with serial blood work. Not currently on supplement. (7) Folic acid deficiency: Code(s): E53.8 - Deficiency of other specified B group vitamins Category: Medical Plan: Continue to monitor with serial blood work. Not currently on supplement. (8) GERD (gastroesophageal reflux disease): Code(s): K21.9 - Gastro-esophageal reflux disease without esophagitis Category: Medical Plan: Avoid trigger foods such as citrus, tomato products, soda, caffeine, spicy foods and other foods that may be irritating to your stomach. Avoid laying flat 3-4 hours after eating and elevate the head of the bed 30 degrees to prevent acid from moving into the esophagus. (9) Vitamin B deficiency: Code(s): E53.9 - Vitamin B deficiency, unspecified Category: Medical Plan: Continue to monitor with serial blood work. Not currently on supplement. (10) Splenomegaly: Code(s): R16.1 - Splenomegaly, not elsewhere classified Category: Medical Plan: Continue to follow up with Gastroenterology. (11) Anxiety: Code(s): F41.9 - Anxiety disorder, unspecified Category: Medical Plan: Referral placed to counseling at last visit and was started on fluoxetine at that time which she noted cause dry mouth plan to discontinue fluoxetine and start on Zoloft at this time follow up in 3 months. (12) Cirrhosis, alcoholic: Code(s): K70.30 - Alcoholic cirrhosis of liver without ascites Category: Medical Plan: Patient currently being monitored by [facility] on lactulose 30 g t.i.d. and rifaximin. Advised to avoid liver irritants. Continue to follow with GI. Advised patient to reschedule her GI follow up (13) Right heart failure: Code(s): I50.810 - Right heart failure, unspecified Category: Medical Plan: Patient diagnosed with right heart failure status post hospitalization for hepatic encephalopathy. She was seen by Cardiology earlier this year bumetanide added to medication regimen and spironolactone increased to b.i.d.. Continue to follow with Cardiology. Echocardiogram ordered by Cards but not completed (14) Annual physical exam: Code(s): Z00.00 - Encounter for general adult medical examination without abnormal findings Category: Medical Plan: Addressing the primary concerns, the patient will commence sertraline to alleviate anxiety in place of fluoxetine. Management for peripheral edema focuses on maintained diuretic usage and an upcoming vascular surgery consultation given continued swelling. The application of amlactin cream is advised for pruritus relief attributable to underlying skin dryness. Scheduled echocardiographic evaluation will elucidate the extent of the heart murmur. The patient is also encouraged toward smoking cessation. Mammogram and routine gynecological follow-up are arranged for screening purposes. Relevant specialists in cardiology and gastroenterology will see the patient to ensure comprehensive systemic oversight. (15) Swelling of both lower extremities: Code(s): M79.89 - Other specified soft tissue disorders Category: Medical Plan: Referral placed to vascular surgery today as she is on bumetanide and spironolactone and continues to have 1+ pitting edema in bilateral lower extremities. No fluid wave or ascites noticed in the abdomen. Continue with compression stockings and leg elevation (16) Palpitations: Code(s): R00.2 - Palpitations Category: Medical Plan: Patient complaining of intermittent palpitations that happen as frequently as twice weekly and as infrequently as by weekly. I did discuss with patient the use of Holter monitor may not be appropriate due to the length between these episodes however she is requesting this test. Referral was placed today I did strongly advised patient to follow up with her information technology analyst as well (17) Asthma: Code(s): J45.909 - Unspecified asthma, uncomplicated Category: Medical Plan: Asthma currently controlled on present medications. Continue on albuterol as needed. Avoid triggers such as allergies. (18) Insomnia: Code(s): G47.00 - Insomnia, unspecified Category: Medical Plan: Continue on trazodone as needed for insomnia (19) Cerumen impaction: Code(s): H61.20 - Impacted cerumen, unspecified ear Category: Medical Plan: Patient having bilateral cerumen impaction on exam today. Recommend using Debrox drops once a day for 1 week and follow up in the office for ear flush. Plan This note was constructed using voice recognition software. While every effort has been made to ensure accuracy and lacrosse player, still areas may have been included sometimes these areas may affect the content or meeting of the given symptoms. Total time spent caring for the patient today was 30 minutes. This includes time spent before the visit reviewing the chart, time spent during the visit, and time spent after the visit and documentation. Patient was informed and verbally consented to the use of an ambient scribe for clinic note documentation during this visit. Orders: Orders MM tomosynthesis screening BI Today Z12.31 - Encounter for screening mammogram for malignant neoplasm of breast ECG 3 day holter monitor Today R00.2 - Palpitations Referrals Vascular Surgery Referral M79.89 - Other specified soft tissue disorders Optometry Referral Z00.00 - Encounter for general adult medical examination without abnormal findings ASSEMBLER TYPE BAR AND SEGMENT Referral Z12.4 - Encounter for screening for malignant neoplasm of cervix Medications: New ammonium lactate 12% (AmLactin) 1 appl topical DAILY 400 grams 1RF sertraline 25 mg PO DAILY 90 tabs 0RF carbamide peroxide 6.5% (Debrox) 5 drps otic (ears) DAILY 15 mL 0RF 4 days albuterol sulfate 90 mcg/actuation 1 inh inhalation QID PRN 6.7 grams 0RF shortness of breath or wheezing Discontinued fluoxetine Discontinued Reason: Patient no longer taking 20 mg PO DAILY 90 tabs 0RF
== END 2025-01-26 14:56 | disposition home or self-care (01) ==
LOC: HO.HMCH 13:56
DX: Z00.00 Encounter for general adult medical examination without abnormal findings (principal); I50.9 Heart failure, unspecified; F19.11 Other psychoactive substance abuse, in remission; F10.21 Alcohol dependence, in remission; I50.810 Right heart failure, unspecified; K70.30 Alcoholic cirrhosis of liver without ascites; F17.200 Nicotine dependence, unspecified, uncomplicated; E66.9 Obesity, unspecified; Z68.33 Body mass index [BMI] 33.0-33.9, adult; E53.8 Deficiency of other specified B group vitamins; E55.9 Vitamin D deficiency, unspecified; K21.9 Gastro-esophageal reflux disease without esophagitis; E53.9 Vitamin B deficiency, unspecified

== ENCOUNTER → 2025-01-26 13:55 | Outpatient (BNVA) | payer OTHER, SELFPAY | DX: Z00.01 Encounter for general adult medical examination with abnormal findings (principal); F19.11 Other psychoactive substance abuse, in remission; E66.9 Obesity, unspecified; F10.21 Alcohol dependence, in remission; I11.0 Hypertensive heart disease with heart failure; I50.810 Right heart failure, unspecified; E55.9 Vitamin D deficiency, unspecified; E53.8 Deficiency of other specified B group vitamins; E53.9 Vitamin B deficiency, unspecified; K21.9 Gastro-esophageal reflux disease without esophagitis; F41.9 Anxiety disorder, unspecified; M79.89 Other specified soft tissue disorders; R00.2 Palpitations; J45.909 Unspecified asthma, uncomplicated; G47.00 Insomnia, unspecified; H61.20 Impacted cerumen, unspecified ear | CPT/HCPCS: 96127; 99396 ==

== ENCOUNTER 2025-02-05 09:16 | Outpatient (AMB) | payer OTHER, SELFPAY ==
[2025-02-05 09:32] VITALS: BMI 33.5
--- NOTE | 2025-02-05 09:32 | MHC.OFFVIS ---
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 States swollen all the time. Pt states that she does elevate her legs and doesnt seem to help. Pt states she get severe itching on bilateral LE. No pain. Pediatric Intensive Physician Required: No Accompanied by: Daughter Allergies Iodinated Contrast Media Allergy (Intermediate, Verified 02/05/25 09:38) blood in urine Shellfish Allergy (Unknown, Uncoded 02/05/25 09:38) Hives HPI HPI FIRE ENGINE OPERATOR/HMG referral for edema: Details: Gila, a pleasant 64 yo female patient, is presenting today with her daughter on a referral from her PCP for bilateral lower extremity swelling and discomfort. Complaints include discomfort, swelling of lower extremities, and heaviness of the lower extremities. It has been affecting their daily activities including walking, standing, and physical activity. It is noted in bilateral legs. She occasionally smokes cigarettes. She is not a diabetic. Patient denies any previous venous surgery or injections. Patient denies any history of DVT/ PE. Patient denies any history of phlebitis. Trial of compression includes - elevation with little relief They now present for vascular evaluation regarding their varicose veins. [facility] Medical History Splenomegaly Iron deficiency anemia Alcohol use disorder, moderate, in early remission, dependence Cirrhosis, alcoholic Obesity (BMI 30-39.9) Smoker History of substance abuse Hemorrhoids Constipation Lumbar back pain with radiculopathy affecting right lower extremity Surgical History History of tubal ligation Hx of hemorrhoidectomy H/O: hysterectomy Family History Father No problems noted. Mother Active asthma Social History Household Members: None Housing: House Are you a primary reproductive healthcare assistant to a significant other at home: No Do you presently have visiting nurse or other home services: No Alcohol intake: current Alcohol intake frequency: holidays/special occasions only Patient Tobacco Use Status: Current someday Tobacco user Tobacco use type: Cigarette Cigarette Packs Per Day: 0.5 Cigarettes Per Day: 10 Years Smoked: 1 year e-Cigarette/Vaping Use: Never Used Second Hand Smoke Exposure: Yes Substance Use Type: Former Substance User Advance Directives Date on File: 04/08/22 service: No Current occupational status: unemployed 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 Cognitive needs: No Hearing needs: No Vision needs: No Review of Systems Const Reports as per HPI and Denies weakness ENT Reports Normal hearing present and Denies dizziness Card Reports as per HPI, Denies chest pain, Denies chest pain at rest, Denies chest pain with activity, Denies dyspnea and Denies dyspnea on exertion Resp Reports as per HPI, Denies cough, Denies dyspnea and Denies dyspnea on exertion GI Reports as per HPI, Denies abdominal pain, Denies nausea and Denies vomiting Musc Denies numbness Skin/Breast Reports as per HPI, Denies erythema and Denies wounds Neuro Reports Normal hearing present, Denies dizziness, Denies numbness, Denies Sensory deficit (Neuro) and Denies weakness Psych Reports no additional complaints Endo Reports no additional complaints Physical Exam Vital Signs: BMI result Body Mass Index 33.5 Const General: healthy appearing and no acute distress Orientation/consciousness: patient oriented x3 HEENT Head: Yes normal to inspection Ears: hearing grossly normal bilaterally Mouth: Normal oral and palatal mucosa present Resp Effort & Inspection: normal respiratory effort and able to speak in complete sentences Auscultation: clear to auscultation bilaterally Cardio Jugular venous distension: no JVD Rate: regular rate Rhythm: regular rhythm Heart sounds: S1 normal heart sound present and S2 normal heart sound present Bruits: no abdominal aortic bruits, no carotid bruits, no femoral bruits and no renal bruits Peripheral pulses: Peripheral pulses 2+ throughout GI Inspection: Yes normal to inspection Palpation (GI): No Abdominal aortic bruit present Skin General skin exam: no rashes or lesions noted Wounds: no wounds Hair: normal Neuro General: patient oriented x3 Cranial nerves: Yes Normal hearing present Cognition (Neuro): normal cognition Gait exam (Neuro): Normal gait present Motor exam (neuro): 5/5 motor strength present throughout Sensory Exam: No Sensory deficit (Neuro) Extrem Other: Bilateral lower extremities: +3 pitting edema. Discoloration noted from the tibial tuberosity down to the toes. Faint but palpable DP pulses noted, likely due to edema. No wounds or lymphorrea noted. CEAP: C - 4 E - primary A - superficial P - reflux Lymphedema measurements - Right in cm: Thigh 58 Knee 43.5 Calf 45.5 Ankle 31.5 Left in cm: Thigh 63 Knee 45.5 Calf 50.5 Ankle 35.5 General: Yes normal to inspection, Yes full ROM, Yes capillary refill normal and Yes normal gait Assessment & Plan Assessment & Plan (1) Varicose veins of both lower extremities with inflammation: Code(s): I83.11 - Varicose veins of right lower extremity with inflammation; I83.12 - Varicose veins of left lower extremity with inflammation Category: Medical Plan: Gila is presenting today on referral from her PCP for ongoing bilateral lower extremity swelling and discomfort. In short, the patient has evidence of venous insufficiency. I have discussed the pathophysiology with the patient. In addition I have provided informational material regarding venous disease to the patient. We have discussed conservative measures including compression, elevation, and exercise. We are able to provide her with compression stockings. I have taken the liberty of ordering venous insufficiency testing with the patient. They will follow up with me after testing. The patient had an opportunity to ask questions regarding the treatment plan. All questions were answered. Imaging studies, laboratory studies and physical exam results were discussed and reviewed in detail. No major barriers to understanding were identified. The patient expressed understanding and agreement with the above treatment plan. The patient is aware they should contact our office by phone for worsening of the current condition or the appearance of new symptoms. Thank you for allowing me to participate in the vascular care of this patient. If you have any questions or concerns regarding the treatment for the above condition please do not hesitate to contact me. The office telephone contact is [phone]. This note is constructed using voice recognition software. While every effort has been made to ensure accuracy, movie operator errors may have been included. Thank you for allowing me to participate in the care of your patient. Yours sincerely, ELIZABETH Renner (2) Lymphedema: Code(s): I89.0 - Lymphedema, not elsewhere classified Category: Medical Plan: Gila is presenting today on a referral from PCP for bilateral lower extremity swelling and discomfort. She states this has been going on for over a year now. She has been taking water pills which have not been helping with the swelling at all. She does elevate with no relief. She does have some lymphorrhea intermittently with hyperkeratosis as well as hyperpigmentation and hyperplasia. Likely she has an element of lymphedema. We will be ruling her out for venous insufficiency with an ultrasound but we will be putting her on our lymphedema clinic. We have added measurements of bilateral lower extremities. We discussed the importance of continuing with elevation and wearing compression stockings daily. We discussed the importance of physical activity. We will have her attend our lymphedema clinic on April 22. Orders: Orders US venous duplex LE BI 1 Week I83.11 - Varicose veins of right lower extremity with inflammation, I83.12 - Varicose veins of left lower extremity with inflammation Coding Level of Care Code New Pt Level 4 (34856) Diagnoses Varicose veins of both lower extremities with inflammation I83.11; I83.12 Lymphedema I89.0
== END 2025-02-05 10:20 | disposition home or self-care (01) ==
LOC: HO.HVS 09:17
PROVIDERS: Visit Provider Physician Assistant Surgical
DX: I83.11 Varicose veins of right lower extremity with inflammation (principal); I83.12 Varicose veins of left lower extremity with inflammation; I89.0 Lymphedema, not elsewhere classified
CPT/HCPCS: 99204

== ENCOUNTER → 2025-02-05 09:16 | Outpatient (BNVA) | payer OTHER, SELFPAY | PROVIDERS: Visit Provider Physician Assistant Surgical | DX: I83.11 Varicose veins of right lower extremity with inflammation (principal); I83.12 Varicose veins of left lower extremity with inflammation; I89.0 Lymphedema, not elsewhere classified; F17.210 Nicotine dependence, cigarettes, uncomplicated | CPT/HCPCS: 99202 ==

== ENCOUNTER 2025-02-09 09:58 | Outpatient (AMB) | payer OTHER, SELFPAY ==
--- NOTE | 2025-02-09 10:03 | MHC.PC.OV ---
Vital Signs 02/09/25 10:04 Height 5 ft 4 in Weight 198 lb 2 oz BMI 34.0 BP 110/78 Blood Pressure Location Lt brachial Position Sitting Pulse 79 Pulse Source Pulse Oximeter Pulse Oximetry (%) 95 Oxygen Delivery Method Room Air Intake Visit Reasons: Ear Irrigation Intake Note: Patient is here to follow up on Ear irrigation. Data Coordinator Required: No Automatic Data Processing Planner: Not Required per policy Accompanied by: Self / Same As Patient Allergies Iodinated Contrast Media Allergy (Intermediate, Verified 02/09/25 10:04) blood in urine Shellfish Allergy (Unknown, Uncoded 02/09/25 10:04) Hives Medication List - Last Reconciled 02/09/25 by Doris Kimball PA-C albuterol sulfate 90 mcg/actuation 1 inh inhalation QID PRN ammonium lactate 12% (AmLactin) 1 appl topical DAILY bumetanide 1 mg PO DAILY carbamide peroxide 6.5% (Debrox) 5 drps otic (ear) right DAILY 4 days lactulose 45 mL PO TID methadone 50 mg PO DAILY miscellaneous medical supply (Blood Pressure Cuff) As directed, take BP twice a day. nicotine 1 patch transdermal DAILY rifaximin (Xifaxan) 550 mg PO BID sertraline 25 mg PO DAILY spironolactone 25 mg PO BID trazodone 50 mg PO DAILY walker (Ultra-Light Rollator misc) As directed Tobacco use date assessed: 02/09/25 Dental Screening Dental Screen Date: 11/26/24 Did you have a dental visit in the last 12 months?: No Did you have a dental problem in the last 6 months where you did not have access to dental care?: No Was dental information given to patient?: No HPI Ear Irrigation HPI Details 64-year-old female with past medical history of substance use disorder, alcohol use disorder, CHF, GERD, anxiety and cirrhosis last seen 01/2025 coming in for ear cleaning. Patient did not use debrox prior to her appointment. Reports ear clogged feeling on the left side. [facility], [facility] Medical History Splenomegaly Iron deficiency anemia Alcohol use disorder, moderate, in early remission, dependence Cirrhosis, alcoholic Obesity (BMI 30-39.9) Smoker History of substance abuse Hemorrhoids Constipation Lumbar back pain with radiculopathy affecting right lower extremity Surgical History History of tubal ligation Hx of hemorrhoidectomy H/O: hysterectomy Family History Father No problems noted. Mother Active asthma Social History Household Members: None Housing: House Are you a primary patient centered care specialist to a significant other at home: No Do you presently have visiting nurse or other home services: No Alcohol intake: current Alcohol intake frequency: holidays/special occasions only Patient Tobacco Use Status: Current someday Tobacco user Tobacco use type: Cigarette Cigarette Packs Per Day: 0.5 Cigarettes Per Day: 10 Years Smoked: 1 year e-Cigarette/Vaping Use: Never Used Second Hand Smoke Exposure: Yes Substance Use Type: Former Substance User Advance Directives Date on File: 04/08/22 service: No Current occupational status: unemployed 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 Cognitive needs: No Hearing needs: No Vision needs: No Questionnaire Thrive Questionnaire Date Thrive assessed: 11/20/24 I am a: Patient What is your living situation today?: I do not have a steady places to live I choose not to answer this question Within the past 12 months, did the food you bought not last and you didn't have the money to get more?: Often true Within the past 12 months, did you worry whether your food would run out before you got money to buy more?: Often true Do you have trouble paying for medicines?: No Do you have trouble getting transportation to medical appointments?: Yes Do you have trouble paying your heating and electricity bill?: Yes Do you have trouble taking care of your child, family member or friend?: I choose not to answer this question Do you have trouble with day-to-day activities such as bathing, preparing meals, shopping, managing finances, etc.?: Yes Are you currently unemployed and looking for a job?: Yes Are you interested in more education?: No Currently or been in a relationship where the following occur: No concerns reported THRIVE Score: 5 KADEEM-7 AMB Questionnaire KADEEM-7 Date KADEEM - 7 assessed: 01/26/25 Source: Developed by Drs. Abraham Thakkar, Anita Peñaloza, Tc Mendes and colleagues, with an educational hugo from [employer]. Review of Systems Const Denies chills and Denies fever(s) Eyes Reports no additional complaints ENT Details: ear clogged feeling right side Psych Reports no additional complaints Physical exam (Primary Care) Vital Signs: Oxygen Delivery Method Room Air 02/09/25 10:04 BMI result Body Mass Index 34.0 Tobacco/Smoking Status: Tobacco use Status Tobacco use date assessed 02/09/25 02/09/25 10:05 Patient Tobacco Use Status Current someday Tobacco 02/09/25 10:04 Tobacco use type Cigarette 02/09/25 10:04 e-Cigarette/Vaping Use Never Used 02/09/25 10:04 Thrive Assessment: Date of Thrive Assessment Date Thrive assessed 11/20/24 02/09/25 10:04 Currently or been in a relationship where the following occur: No concerns reported Const General: cooperative, healthy appearing, comfortable and no acute distress HENMT Ears: Abnormal EAC present cerumen impaction on the right and excessive cerumen on the left Resp Effort & Inspection: normal respiratory effort and able to speak in complete sentences Cardio Rate: regular rate Office Procedures Cerumen Removal From which ear canal was the cerumen removed: bilateral Removal: irrigation and cerumen loop/spoon Notes: patient tolerated procedure well, no complications and ear canal clear [id number] Irrigation/Lavage Coding Level of Care Code Procedure Only Diagnoses Cerumen impaction H61.20 CPT Codes Office Procedure - CPT: 42414-Bmh Irrigation/Lavage ([id number]) Assessment & Plan Assessment & Plan (1) Cerumen impaction: Code(s): H61.20 - Impacted cerumen, unspecified ear Category: Medical Plan: Wax was successfully removed from the left ear using lighted curette. Right ear wax was removed using curette and irrigation. Small amount of hard wax was unable to be reoved from the right ear. Patient tolerated the procedure well. Advised to use debrox drops in the right ear and return for repeat ear flush. Medications: New carbamide peroxide 6.5% (Debrox) 5 drps otic (ear) right DAILY 4 days 15 mL 0RF Discontinued carbamide peroxide 6.5% (Debrox) Discontinued Reason: Patient no longer taking 5 drps otic (ears) DAILY 4 days 15 mL 0RF
[2025-02-09 10:04] VITALS: BP 110/78; PULSE 79; O2SAT 95; BMI 34.0
== END 2025-02-09 10:43 | disposition home or self-care (01) ==
LOC: HO.HMCH 09:59
DX: H61.23 Impacted cerumen, bilateral (principal)

== ENCOUNTER → 2025-02-09 09:58 | Outpatient (BNVA) | payer OTHER, SELFPAY | DX: H61.20 Impacted cerumen, unspecified ear (principal) | CPT/HCPCS: 69210; 99212 ==

== ENCOUNTER → 2025-03-19 12:00 | Outpatient (BNV) | payer OTHER, SELFPAY | PROVIDERS: Visit Provider Internal Medicine | DX: Z12.31 Encounter for screening mammogram for malignant neoplasm of breast (principal) | CPT/HCPCS: 77063; 77067 ==

== ENCOUNTER 2025-03-19 12:05 | Outpatient (REF) | payer OTHER, SELFPAY | END 2025-03-19 12:06 | disposition home or self-care (01) | LOC: HO.MAMMO 12:05 | DX: Z12.31 Encounter for screening mammogram for malignant neoplasm of breast (principal) | CPT/HCPCS: 77063; 77067 ==

== ENCOUNTER 2025-03-26 10:33 | Outpatient (REF) | payer OTHER, SELFPAY | END 2025-03-26 10:34 | disposition home or self-care (01) | LOC: HO.US 10:33 | PROVIDERS: Visit Provider Physician Assistant Surgical | DX: I83.11 Varicose veins of right lower extremity with inflammation (principal); I83.12 Varicose veins of left lower extremity with inflammation | CPT/HCPCS: 93970 ==

== ENCOUNTER → 2025-03-26 10:37 | Outpatient (BNV) | payer OTHER, SELFPAY | PROVIDERS: Visit Provider Radiology Diagnostic Radiology | DX: I83.93 Asymptomatic varicose veins of bilateral lower extremities (principal) | CPT/HCPCS: 93970 ==

== ENCOUNTER 2025-05-12 10:13 | Outpatient (AMB) | payer OTHER, SELFPAY ==
--- NOTE | 2025-05-12 10:29 | MHC.OFFVIS ---
Vital Signs 05/12/25 10:30 Height 5 ft 4 in Weight 195 lb 5.273 oz BMI 33.5 BP 90/62 Blood Pressure Location Lt brachial Pulse 72 Pulse Source Pulse Oximeter Intake Visit Reasons: needs refill meds over due f/up Automatic Seamer Required: No Simplex Operator: Simplex Operator Present Allergies Iodinated Contrast Media Allergy (Intermediate, Verified 05/12/25 10:32) blood in urine Shellfish Allergy (Unknown, Uncoded 05/12/25 10:32) Hives Medication List - Last Reconciled 05/12/25 by Aihswarya Cade, CAMPGROUND CLEANING ATTENDANT-C albuterol sulfate 90 mcg/actuation 1 inh inhalation QID PRN ammonium lactate 12% (AmLactin) 1 appl topical DAILY bumetanide 1 mg PO DAILY carbamide peroxide 6.5% (Debrox) 5 drps otic (ear) right DAILY 4 days lactulose 45 mL PO TID methadone 50 mg PO DAILY miscellaneous medical supply (Blood Pressure Cuff) As directed, take BP twice a day. nicotine 1 patch transdermal DAILY rifaximin (Xifaxan) 550 mg PO BID sertraline 25 mg PO DAILY spironolactone 25 mg PO BID trazodone 50 mg PO DAILY walker (Ultra-Light Rollator misc) As directed HPI HPI needs refill meds over due f/up: Details: Gila is a 64-year-old female with past medical history of obesity, smoking, substance abuse, right-sided heart failure, lower extremity edema who presents for follow-up.- she arrives over 1 hour late for her visit. Today she reports she has ongoing issues with lower leg edema. She is taking her diuretics as directed. She admits to being mostly sedentary and ambulates short distances with her walker. She lives alone and does eat TV dinners and process food. She is unable to wear compression stockings. No chest discomfort at rest or with activity. No concerning shortness of breath, no PND. She does have adjustable bed and does sleep with her head of the bed partially elevated. No concerning heart palpitations, lightheadedness, presyncope, syncope, falls. Daughter is present. [facility] Medical History Splenomegaly Iron deficiency anemia Alcohol use disorder, moderate, in early remission, dependence Cirrhosis, alcoholic Obesity (BMI 30-39.9) Smoker History of substance abuse Hemorrhoids Constipation Lumbar back pain with radiculopathy affecting right lower extremity Surgical History History of tubal ligation Hx of hemorrhoidectomy H/O: hysterectomy Family History Father No problems noted. Mother Active asthma Social History Household Members: None Housing: House Are you a primary acute care registered nurse to a significant other at home: No Do you presently have visiting nurse or other home services: No Alcohol intake: current Alcohol intake frequency: holidays/special occasions only Patient Tobacco Use Status: Current someday Tobacco user Tobacco use type: Cigarette Cigarette Packs Per Day: 0.5 Cigarettes Per Day: 10 Years Smoked: 1 year e-Cigarette/Vaping Use: Never Used Second Hand Smoke Exposure: Yes Substance Use Type: Former Substance User Advance Directives Date on File: 04/08/22 service: No Current occupational status: unemployed 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 Cognitive needs: No Hearing needs: No Vision needs: No Review of Systems Const All systems reviewed & are unremarkable except as noted in HPI and below Reports fatigue ENT Denies dizziness Card Denies chest pain, Denies chest pain at rest, Denies chest pain with activity, Denies rapid heart rate, Reports pedal edema, Denies edema, Reports leg edema, Denies lightheadedness, Denies palpitations, Denies dyspnea, Denies dyspnea on exertion and Denies orthopnea Resp Denies cough, Denies dyspnea and Denies dyspnea on exertion GI Denies hematochezia and Denies change in stool character Musc Details: walks slow with walker Reports abnormal gait, Denies limited range of motion, Denies muscle cramps, Denies muscle weakness, Denies numbness, Denies radiating pain into limb and Denies tingling Neuro Reports abnormal gait, Denies dizziness, Denies numbness and Denies tingling Endo Reports fatigue and Denies palpitations Physical Exam Vital Signs: Last Vital Signs Pulse 72 05/12/25 10:30 BP 90/62 05/12/25 10:30 BMI result Body Mass Index 33.5 Const General: cooperative, healthy appearing, comfortable and no acute distress Orientation/consciousness: patient oriented x3 Neck Neck: Yes normal visual inspection Resp Effort & Inspection: normal respiratory effort Auscultation: clear to auscultation bilaterally, no rales, no rhonchi and no wheezes Cardio Rate: regular rate Rhythm: regular rhythm Heart sounds: S1 normal heart sound present, S2 normal heart sound present, no murmurs and no rubs Neuro General: patient oriented x3 Extrem Other: tight edema of lower legs from knee down to feet Psych Appearance: grossly normal Mental Status: mental status grossly normal Speech and movement: Normal speech and movement present Assessment & Plan Assessment & Plan (1) Right heart failure: Code(s): I50.810 - Right heart failure, unspecified Category: Medical Plan: History of right-sided heart failure with prior echo showing significantly elevated right atrial pressures. She also has grade 3 diastolic dysfunction. Last echo done 07/07/2024 showed EF 65-70%, mildly dilated left atrium, RV systolic pressure upper level of normal. On exam she does have chronic leg edema that has been unchanged recently. No other signs indicating fluid overload. Repeat echocardiogram had been previously ordered however not completed. Will give her number for centralized scheduling to arrange. Will update labs including BMP and BNP. Will consider increase in Bumex dose, currently 1 mg daily. Continue Aldactone 25 mg b.i.d.. Discussed low-salt diet, leg elevation and increasing physical activity as tolerated. Benefits of weight loss reviewed. Cardiology follow-up 3 months to re-evaluate, sooner if needed. (2) Swelling of both lower extremities: Code(s): M79.89 - Other specified soft tissue disorders Category: Medical Plan: As above (3) Obesity: Code(s): E66.9 - Obesity, unspecified Category: Medical Plan: Chronic leg edema. May have some degree of lymphedema. Continue diuretics as above Plan I discussed with the patient the importance of continuing her diuretic regimen to manage fluid retention and the need for a repeat echocardiogram to assess her heart function due to persistent swelling. We talked about reducing salt intake and elevating her legs to help with edema. I reviewed the need to obtain labs today to see if diuretic dose can be increased. I provided instructions for contacting centralized scheduling to arrange her echocardiogram. Orders: Orders B Type Natriuretic Peptide Today I50.810 - Right heart failure, unspecified Basic Metabolic Panel Today I50.810 - Right heart failure, unspecified Patient Instructions: - Continue taking Bumex and spironolactone as prescribed. - Reduce salt intake in your diet. - Obtain labs today - Elevate your legs when sitting to reduce swelling. - Contact centralized scheduling to arrange your echocardiogram. Patient was informed and verbally consented to the use of an ambient scribe for clinic note documentation during this visit. Visit time spent on chart review, interview, assessment, orders, documentation.. Coding Level of Care Code Est Pt Level 4 (04071) Complex EM visit Add On G2211 Diagnoses Right heart failure I50.810 Swelling of both lower extremities M79.89 Obesity E66.9 Time Spent (min) 28
[2025-05-12 10:30] VITALS: BP 90/62; PULSE 72; BMI 33.5
== END 2025-05-12 11:12 | disposition home or self-care (01) ==
PROVIDERS: Visit Provider Nurse Practitioner Family
DX: I50.810 Right heart failure, unspecified (principal); M79.89 Other specified soft tissue disorders; E66.9 Obesity, unspecified
CPT/HCPCS: 99214; G2211

== ENCOUNTER → 2025-05-12 10:13 | Outpatient (BNVA) | payer OTHER, SELFPAY | PROVIDERS: Visit Provider Nurse Practitioner Family | DX: R60.0 Localized edema (principal); I50.810 Right heart failure, unspecified; M79.89 Other specified soft tissue disorders; E66.9 Obesity, unspecified | CPT/HCPCS: 99212 ==

== ENCOUNTER 2025-06-18 16:33 | Outpatient (AMB) | payer OTHER, SELFPAY ==
[2025-06-18 16:36] VITALS: BP 110/80; PULSE 80; RESP 18; O2SAT 98; BMI 34.8
--- NOTE | 2025-06-18 16:36 | A.OFFPC_ITS ---
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 Electrical Contacts Required: No Accompanied by: Self / Same As Patient Allergies Iodinated Contrast Media Allergy (Intermediate, Verified 06/18/25 16:37) blood in urine Shellfish Allergy (Unknown, Uncoded 05/12/25 10:32) Hives Tobacco use date assessed: 06/18/25 Dental Screening Dental Screen Date: 06/18/25 Did you have a dental visit in the last 12 months?: No Did you have a dental problem in the last 6 months where you did not have access to dental care?: No Was dental information given to patient?: No HPI follow up HPI Details The patient is a 64-year-old female presenting with peripheral edema, balance disorder, and evaluation of heart and liver conditions. The peripheral edema has been persistent, with significant swelling in the legs that has not responded to diuretics and other medications. The condition has worsened over time, leading to discoloration and dryness of the skin, and the patient is unable to wear compression stockings due to the severity of the swelling. The patient has experienced multiple falls due to a balance disorder, which has been a recurring issue. Despite being on several medications, the balance issues persist, and the patient has expressed concern about the lack of improvement. The patient has a history of heart failure, which is being monitored to ensure stability. Recent evaluations include plans for blood work to assess cardiac function and a chest x-ray to evaluate respiratory status. Liver disease is suspected to be a significant contributing factor to the patient's symptoms, with discussions about potential liver transplant evaluation. The patient has not previously been evaluated for a transplant, and further discussions with specialists are planned. [facility] Medical History Splenomegaly Iron deficiency anemia Alcohol use disorder, moderate, in early remission, dependence Cirrhosis, alcoholic Obesity (BMI 30-39.9) Smoker History of substance abuse Hemorrhoids Constipation Lumbar back pain with radiculopathy affecting right lower extremity Surgical History History of tubal ligation Hx of hemorrhoidectomy H/O: hysterectomy Family History Father No problems noted. Mother Active asthma Social History Household Members: None Housing: House Are you a primary chiropractic care to a significant other at home: No Do you presently have visiting nurse or other home services: No Alcohol intake: current Alcohol intake frequency: holidays/special occasions only Patient Tobacco Use Status: Current someday Tobacco user Tobacco use type: Cigarette Cigarette Packs Per Day: 0.5 Cigarettes Per Day: 10 Years Smoked: 1 year e-Cigarette/Vaping Use: Never Used Second Hand Smoke Exposure: Yes Substance Use Type: Former Substance User Advance Directives Date on File: 04/08/22 service: No Current occupational status: unemployed Current occupation: [employer]/Part-time Cognitive needs: No Hearing needs: No Vision needs: No Questionnaire PHQ-9 Over the last 2 weeks, how often have you been bothered by any of the following problems? 1. Little interest or pleasure in doing things: not at all 2. Feeling down, depressed, or hopeless: several days 3. Trouble falling or staying asleep, or sleeping too much: nearly every day 4. Feeling tired or having little energy: nearly every day 5. Poor appetite or overeating: several days 6. Feeling bad about yourself - or that you are a failure or have let yourself or your family down: several days 7. Trouble concentrating on things, such as reading the newspaper or watching television: not at all 8. Moving or speaking so slowly that other people could have noticed. Or the opposite - being so fidgety or restless that you have been moving around a lot more than usual: nearly every day 9. Thoughts that you would be better off or of hurting yourself in some way: not at all Total score: 12 Depression Screening Interpretation: Positive Depression Screening Follow-up: Existing condition and In treatment Depression Screening Done: Yes Source: Developed by Drs. Abraham Thakkar, Anita Peñaloza, Tc Mendes and colleagues, with an educational hugo from [employer]. Thrive Questionnaire Date Thrive assessed: 06/18/25 I am a: Patient What is your living situation today?: I do not have a steady places to live I choose not to answer this question Within the past 12 months, did the food you bought not last and you didn't have the money to get more?: Often true Within the past 12 months, did you worry whether your food would run out before you got money to buy more?: Often true Do you have trouble paying for medicines?: No Do you have trouble getting transportation to medical appointments?: Yes Do you have trouble paying your heating and electricity bill?: Yes Do you have trouble taking care of your child, family member or friend?: I choose not to answer this question Do you have trouble with day-to-day activities such as bathing, preparing meals, shopping, managing finances, etc.?: Yes Are you currently unemployed and looking for a job?: Yes Are you interested in more education?: No Currently or been in a relationship where the following occur: No concerns reported THRIVE Score: 5 AUDIT C Alcohol Use Questionnaire (AUDIT-C) 1. How often do you have a drink containing alcohol?: Never 3. How often do you have six or more drinks on one occasion?: Never Total Score: 0 KADEEM-7 AMB Questionnaire KADEEM-7 Date KADEEM - 7 assessed: 06/18/25 Feeling nervous, anxious, or on edge: 3 = Nearly every day Not being able to stop or control worryin = More than half the days Worrying too much about different things: 2 = More than half the days Trouble relaxin = More than half the days Being so restless that it is hard to sit still: 2 = More than half the days Becoming easily annoyed or irritable: 2 = More than half the days Feeling afraid as if something awful might happen: 2 = More than half the days Total KADEEM-7 score (0-4 normal; 5-9 mild; 10-14 moderate; 15-21 severe): 15 Source: Developed by Drs. Abraham Thakkar, Anita Peñaloza, Tc Mendes and colleagues, with an educational hugo from [employer]. Review of Systems Const Denies headache(s) Eyes Denies loss of vision ENT Denies vertigo, Denies dizziness, Denies headache(s) and Denies sore throat Card Denies chest pain, Reports leg edema, Denies lightheadedness and Reports dyspnea on exertion (Occasional) Resp Denies cough, Denies hemoptysis, Reports dyspnea on exertion (Occasional) and Denies wheezing GI Denies abdominal pain, Denies melena, Denies constipation, Denies diarrhea and Denies vomiting Denies urinary frequency, Denies dysuria and Denies urinary urgency Musc Reports abnormal gait (Balance issue and frequent falls), Denies arthralgias, Denies joint swelling, Denies numbness and Denies tingling Neuro Denies Abnormal speech present, Reports abnormal gait (Balance issue and frequent falls), Denies behavioral changes, Denies vertigo, Denies dizziness, Denies headache(s), Denies loss of vision, Denies memory loss, Denies numbness and Denies tingling Psych Reports anxiety, Denies behavioral changes, Reports depression, Denies memory loss and Denies panic attacks Dom/Lymph Denies easy bleeding and Denies easy bruising Aller/Immun Denies wheezing Physical exam (Primary Care) Vital Signs: Last Vital Signs Pulse 80 06/18/25 16:36 Resp 18 06/18/25 16:36 BP 110/80 06/18/25 16:36 Pulse Ox 98 06/18/25 16:36 Oxygen Delivery Method Room Air 06/18/25 16:36 BMI result Body Mass Index 34.8 Tobacco/Smoking Status: Tobacco use Status Tobacco use date assessed 06/18/25 06/18/25 16:46 Patient Tobacco Use Status Current someday Tobacco 06/18/25 16:46 Tobacco use type Cigarette 06/18/25 16:46 e-Cigarette/Vaping Use Never Used 06/18/25 16:46 PHQ-9: PHQ-9 Score PHQ-9: Total score 12 06/18/25 17:17 Depression Screening Interpretation: Positive Depression Screening Follow-up: Existing condition and In treatment Thrive Assessment: Date of Thrive Assessment Date Thrive assessed 06/18/25 06/18/25 16:46 Currently or been in a relationship where the following occur: No concerns reported Const General: healthy appearing, no acute distress, alert and awake Nutritional Appearance: obese Orientation/consciousness: oriented to person, oriented to place and oriented to time HENMT Ears: TM's normal bilaterally General nose exam: Normal nasal mucous membranes and turbinates present Eyes Conjunctivae: conjunctivae normal Sclerae: sclerae normal Pupils: Equal, round and reactive pupils present Neck Neck: Yes no lymphadenopathy and Yes no JVD Thyroid: Thyroid normal Carotids: no bruits Resp Effort & Inspection: normal respiratory effort and not tachypneic Auscultation: no crackles, no rales, no rhonchi and no wheezes Cardio Rate: regular rate Rhythm: regular rhythm Heart sounds: normal S1 and S2 GI Inspection: Yes obesity Palpation (GI): Soft to palpation, nontender, no hepatomegaly and no splenomegaly Auscultation: normal bowel sounds General: Yes no CVA tenderness Back/Spine/Pelvis Back: no CVA tenderness Skin General skin exam: dry skin and turgor decreased Neuro General: oriented to person, oriented to place and oriented to time Cranial nerves: Yes Equal, round and reactive pupils present Speech: No Abnormal speech present Gait exam (Neuro): Normal gait present Motor exam (neuro): no tremor noted Extrem Right upper extremity: full ROM Left upper extremity: full ROM Right lower extremity: full ROM and lower leg Details: pitting edema Details: 3+ Left lower extremity: full ROM and lower leg Details: pitting edema Details: 3+ Psych Mental Status: mental status grossly normal Speech and movement: Normal speech and movement present Affect: normal affect Attitude: cooperative Thought process: Normal thought process present Coding Level of Care Code Est Pt Level 4 (65087) Diagnoses Congestive heart failure, unspecified HF chronicity, unspecified heart failure type I50.9 Heart failure type: unspecified Heart failure chronicity: unspecified Obesity (BMI 30-39.9) E66.9 Smoker F17.200 Swelling of both lower extremities M79.89 Balance problem R26.89 Time Spent (min) 41 Assessment & Plan Assessment & Plan (1) CHF (congestive heart failure): Code(s): I50.9 - Heart failure, unspecified Category: Medical Qualifiers: Heart failure type: unspecified Heart failure chronicity: unspecified Qualified Code(s): I50.9 - Heart failure, unspecified Plan: The patient of +3 pitting edema in lower extremity. Occasional dyspnea with exertion. Lung sounds are clear and diminished in the bases. We will order labs along with a chest x-ray to further evaluate. (2) Obesity (BMI 30-39.9): Code(s): E66.9 - Obesity, unspecified Category: Medical Plan: Discussed lifestyle modifications including dietary changes and physical activity (3) Smoker: Code(s): F17.200 - Nicotine dependence, unspecified, uncomplicated Category: Social Hx Plan: Encouraged smoking cessation (4) Swelling of both lower extremities: Code(s): M79.89 - Other specified soft tissue disorders Category: Medical Plan: Patient reports that her legs her to big to get a compression stockings on. Encouraged the patient to elevate her legs to decrease the size then put the compression stockings on. A slight the patient has not been compliant with the compression stockings. And as far as activity the patient reports that she has a balance issue has been falling a lot. (5) Balance problem: Code(s): R26.89 - Other abnormalities of gait and mobility Category: Medical Plan: PT eval referral placed Plan The plan includes ordering blood work to assess cardiac and renal function, given the patient's history of heart failure and persistent edema. A chest x-ray is also planned to evaluate respiratory status due to diminished breath sounds noted during the examination. The patient's liver disease is a concern, and discussions regarding potential liver transplant evaluation are to be initiated. Coordination with specialists, following up with GI, is recommended to explore further management options. For the balance disorder, a review of current medications is necessary to identify any contributing factors, and physical therapy may be considered to improve stability. Patient was informed and verbally consented to the use of an ambient scribe for clinic note documentation during this visit. Orders: Orders B Type Natriuretic Peptide 06/18/25 F19.11 - Other psychoactive substance abuse, in remission, F10.21 - Alcohol dependence, in remission, I50.9 - Heart failure, unspecified, I83.11 - Varicose veins of right lower extremity with inflammation, I83.12 - Varicose veins of left lower extremity with inflammation, E66.9 - Obesity, unspecified, E55.9 - Vitamin D deficiency, unspecified, E53.9 - Vitamin B deficiency, unspecified, K21.9 - Gastro-esophageal reflux disease without esophagitis, R06.02 - Shortness of breath, J45.909 - Unspecified asthma, uncomplicated Comprehensive Met. Panel 06/18/25 F19.11 - Other psychoactive substance abuse, in remission, F10.21 - Alcohol dependence, in remission, I50.9 - Heart failure, unspecified, I83.11 - Varicose veins of right lower extremity with inflammation, I83.12 - Varicose veins of left lower extremity with inflammation, E66.9 - Obesity, unspecified, E55.9 - Vitamin D deficiency, unspecified, E53.9 - Vitamin B deficiency, unspecified, K21.9 - Gastro-esophageal reflux disease without esophagitis, R06.02 - Shortness of breath, J45.909 - Unspecified asthma, uncomplicated UA CC w/rflx Micro + Cult 06/18/25 F19.11 - Other psychoactive substance abuse, in remission, F10.21 - Alcohol dependence, in remission, I50.9 - Heart failure, unspecified, I83.11 - Varicose veins of right lower extremity with inflammation, I83.12 - Varicose veins of left lower extremity with inflammation, E66.9 - Obesity, unspecified, E55.9 - Vitamin D deficiency, unspecified, E53.9 - Vitamin B deficiency, unspecified, K21.9 - Gastro-esophageal reflux disease without esophagitis, R06.02 - Shortness of breath, J45.909 - Unspecified asthma, uncomplicated TSH reflex Free T4 06/18/25 F19.11 - Other psychoactive substance abuse, in remission, F10.21 - Alcohol dependence, in remission, I50.9 - Heart failure, unspecified, I83.11 - Varicose veins of right lower extremity with inflammation, I83.12 - Varicose veins of left lower extremity with inflammation, E66.9 - Obesity, unspecified, E55.9 - Vitamin D deficiency, unspecified, E53.9 - Vitamin B deficiency, unspecified, K21.9 - Gastro-esophageal reflux disease without esophagitis, R06.02 - Shortness of breath, J45.909 - Unspecified asthma, uncomplicated XR chest 2V 06/18/25 R06.89 - Other abnormalities of breathing Complete Blood Count Auto Diff 06/18/25 F19.11 - Other psychoactive substance abuse, in remission, F10.21 - Alcohol dependence, in remission, I50.9 - Heart failure, unspecified, I83.11 - Varicose veins of right lower extremity with inflammation, I83.12 - Varicose veins of left lower extremity with inflammation, E66.9 - Obesity, unspecified, E55.9 - Vitamin D deficiency, unspecified, E53.9 - Vitamin B deficiency, unspecified, K21.9 - Gastro-esophageal reflux disease without esophagitis, R06.02 - Shortness of breath, J45.909 - Unspecified asthma, uncomplicated
== END 2025-06-18 17:23 | disposition home or self-care (01) ==
LOC: HO.HMCH 16:34
DX: I50.9 Heart failure, unspecified (principal); E66.9 Obesity, unspecified; Z68.34 Body mass index [BMI] 34.0-34.9, adult; F17.200 Nicotine dependence, unspecified, uncomplicated; M79.89 Other specified soft tissue disorders; R26.89 Other abnormalities of gait and mobility

== ENCOUNTER → 2025-06-18 16:33 | Outpatient (BNVA) | payer OTHER, SELFPAY | DX: R60.0 Localized edema (principal); I50.9 Heart failure, unspecified; R26.9 Unspecified abnormalities of gait and mobility; E66.9 Obesity, unspecified; F17.210 Nicotine dependence, cigarettes, uncomplicated; M79.89 Other specified soft tissue disorders; R26.89 Other abnormalities of gait and mobility; Z91.81 History of falling | CPT/HCPCS: 99212 ==